=== PATIENT | female | born 1965 | race Caucasian/White ===

== ENCOUNTER 2018-04-14 08:51 | Day surgery (SDC) | payer OTHER, MEDICAID, SELFPAY ==
[2018-03-30 09:51] VITALS: BMI 23.4
[2018-04-14] VITALS (10 sets, daily range): BP systolic 86–106; BP diastolic 54–77; PULSE 52–74; RESP 10–18; TEMP 36–36.4; O2SAT 94–100; BMI 23.4
--- NOTE | 2018-04-14 | PATH_ITS ---
[facility] Accession Number: [id number] . 01 Material submitted: . PART A: LEEP PART B: ENDOCERVICAL CURRETTAGE . 02 Diagnosis: A. LEEP Biopsy Of Cervix: Focal areas of high-grade squamous intraepithelial lesion (ARYAN 2) with associated prominent squamous epithelial atrophy. Inked margins negative for significant atypia. . B. Endocervical Curettings: Fragments of endocervical epithelium and squamous epithelium, negative for significant atypia. . . . BFI/04/16/2018 . 02 Electronically signed: . Fransisco Jernigan MD, Pathologist NPI- [id number] . 01 Gross description: . (A) Received in formalin, labeled LEEP, is an unoriented cervical LEEP biopsy (diameter-1.5 x 1.2 cm, superficial to deep-0.6 cm) with dennis-pink smooth shiny mucosa and a pale dennis, finely granular resection margin. No nodules, masses or lesions are identified. Ink code: black-deep; blue-radial' orange-os/endocervical canal. Radially sectioned and entirely submitted in cassettes A1-A3. (B) Received in formalin, labeled endocervical curettage, are multiple fragment of dennis-white and black tissue (2.0 x 0.3 by less than 0.1 cm in aggregate). Filtered and entirely submitted in cassette B1. ([id number]) /MRV . 02 Pathologist provided ICD-10: N87.1 . 02 CPT . 704916, [id number] Performed at: 01 [facility] [address] [place] [address] [address], [place], [place] [id number] MD Jeff Powell MD Phone: [phone] Performed at: 02 [facility] [place] [address] [place] [id number] MD Kwan Newton MD Phone: [phone]
[2018-04-14] MEDS: LACTATED RINGERS 1,000 ML 42 ML IV (10:00)
--- NOTE | 2018-04-14 10:05 | PM.GYNHP.1 ---
History of Present Illness Reason for admission: other (LEEP procedure for high-grade dysplasia) Narrative: Fabiana Gonzalez is a 52 year old female who had a colposcopy with biopsies performed on 03/10/2018 for or abnormal Pap smear with high-grade dysplasia. The biopsies showed ARYAN 2 involving biopsies at 12 and 3 o'clock, with a fragment of high-grade dysplasia on endocervical curettage. Patient is here to proceed with LEEP procedure to remove the abnormal cells. [facility] Medical History Atypical squamous cells of undetermined significance (ASC-US) on cervical Pap smear (Acute) High risk human papilloma virus (HPV) infection of cervix (Acute) History of anemia (Acute) History of gastric ulcer (Acute) Low testosterone (Acute) Postmenopausal (Acute) Sciatica of left side (Acute) Anemia (Chronic) Anxiety (Chronic ~1997) Chronic back pain (Chronic) Gastric ulcer (Chronic) Hypertension (Chronic ~2004) Low testosterone level in female (Chronic ~1999) Shoulder pain (Chronic ~2004) Family History Father Age: 78 Hypertension Grandfather Hypertension Grandmother Hypertension Social History household members: none Smoking Status: Never smoker alcohol intake: never Meds Home Medications Medication Instructions Recorded Confirmed Type losartan [Cozaar] 25 mg PO DAILY #0 05/02/16 04/14/18 History metoprolol succinate [Toprol XL] 25 mg PO QDAY #0 ter 05/02/16 04/14/18 History clindamycin-benzoyl peroxide 1 gel TP DAILY #0 01/05/17 04/14/18 History hydrocodone-acetaminophen [[place]] 1 tab PO Q6HP PRN #6 tab 03/14/17 04/14/18 Rx [Testosterone] 1 mg TOPICAL QDAY #0 12/10/17 04/14/18 Rx diazepam 10 mg tablet 10 mg PO HS #30 tab 02/15/18 04/14/18 Rx levothyroxine 13 mcg PO DAILY 04/14/18 04/14/18 History ranitidine HCl 150 mg PO DAILY 04/14/18 04/14/18 History Allergies Allergy/AdvReac Type Severity Reaction Status Date / Time Sulfa (Sulfonamide Allergy Intermediate RASH Verified 04/14/18 09:04 Antibiotics) Review of Systems Review of Systems All systems reviewed & are unremarkable except as noted in HPI and below Exam Vital Signs (past 8 hours): - 04/14/18 09:22 Temperature 97.1 F L Pulse Rate 61 Respiratory Rate 18 Blood Pressure 106/77 Pulse Oximetry 99 Oxygen Delivery Method Room Air Narrative Exam Narrative: HEENT exam within normal limits. Lungs are clear to auscultation and percussion. Heart is regular rate and rhythm no S3-S4 or murmurs. No thyromegaly. Abdomen is soft, nontender, no palpable organomegaly. Normal external genitalia, vagina, cervix. Uterus is not enlarged nontender. No adnexal masses or tenderness. Assessment & Plan (1) ARYAN II (cervical intraepithelial neoplasia II): Current visit: Yes Status: Acute Plan: Assessment/Plan Narrative: ARYAN 2 of the cervix by colpo directed biopsies for LEEP procedure. Consent form was reviewed with the patient and her questions were answered. Consent form was signed. Postop instructions reviewed with the patient. Time Spent With Patient Time with patient: less than 15 minutes
--- NOTE | 2018-04-14 10:09 | P.HPOB_ITS ---
History of Present Illness Reason for admission: other (LEEP procedure for high-grade dysplasia) Narrative: Fabiana Gonzalez is a 52 year old female who had a colposcopy with biopsies performed on 03/10/2018 for or abnormal Pap smear with high-grade dysplasia. The biopsies showed ARYAN 2 involving biopsies at 12 and 3 o'clock, with a fragment of high-grade dysplasia on endocervical curettage. Patient is here to proceed with LEEP procedure to remove the abnormal cells. [facility] Medical History Atypical squamous cells of undetermined significance (ASC-US) on cervical Pap smear (Acute) High risk human papilloma virus (HPV) infection of cervix (Acute) History of anemia (Acute) History of gastric ulcer (Acute) Low testosterone (Acute) Postmenopausal (Acute) Sciatica of left side (Acute) Anemia (Chronic) Anxiety (Chronic ~1997) Chronic back pain (Chronic) Gastric ulcer (Chronic) Hypertension (Chronic ~2004) Low testosterone level in female (Chronic ~1999) Shoulder pain (Chronic ~2004) Family History Father Age: 78 Hypertension Grandfather Hypertension Grandmother Hypertension Social History household members: none Smoking Status: Never smoker alcohol intake: never Meds Home Medications Medication Instructions Recorded Confirmed Type losartan [Cozaar] 25 mg PO DAILY #0 05/02/16 04/14/18 History metoprolol succinate [Toprol XL] 25 mg PO QDAY #0 ter 05/02/16 04/14/18 History clindamycin-benzoyl peroxide 1 gel TP DAILY #0 01/05/17 04/14/18 History hydrocodone-acetaminophen [[place]] 1 tab PO Q6HP PRN #6 tab 03/14/17 04/14/18 Rx [Testosterone] 1 mg TOPICAL QDAY #0 12/10/17 04/14/18 Rx diazepam 10 mg tablet 10 mg PO HS #30 tab 02/15/18 04/14/18 Rx levothyroxine 13 mcg PO DAILY 04/14/18 04/14/18 History ranitidine HCl 150 mg PO DAILY 04/14/18 04/14/18 History Allergies Allergy/AdvReac Type Severity Reaction Status Date / Time Sulfa (Sulfonamide Allergy Intermediate RASH Verified 04/14/18 09:04 Antibiotics) Review of Systems Review of Systems All systems reviewed & are unremarkable except as noted in HPI and below Exam Vital Signs (past 8 hours): - 04/14/18 09:22 Temperature 97.1 F L Pulse Rate 61 Respiratory Rate 18 Blood Pressure 106/77 Pulse Oximetry 99 Oxygen Delivery Method Room Air Narrative Exam Narrative: HEENT exam within normal limits. Lungs are clear to auscultation and percussion. Heart is regular rate and rhythm no S3-S4 or murmurs. No thyromegaly. Abdomen is soft, nontender, no palpable organomegaly. Normal external genitalia, vagina, cervix. Uterus is not enlarged nontender. No adnexal masses or tenderness. Assessment & Plan (1) ARYAN II (cervical intraepithelial neoplasia II): Current visit: Yes Status: Acute Plan: Assessment/Plan Narrative: ARYAN 2 of the cervix by colpo directed biopsies for LEEP procedure. Consent form was reviewed with the patient and her questions were answered. Consent form was signed. Postop instructions reviewed with the patient. Time Spent With Patient Time with patient: less than 15 minutes
--- NOTE | 2018-04-14 10:34 | SUR.OPER ---
Lithotomy on padded OR bed, head on pillow, arms secured on padded arm boards at <90 degrees abduction. Legs secured in padded yellow fins stirrups.
[2018-04-14] MEDS: LIDOCAINE 1% W/EPI INJ 20 ML INJ (10:48)
--- NOTE | 2018-04-14 10:53 | PM.OP.1 ---
Operative Date/Time/Diagnoses Date of procedure: 04/14/18 Time of procedure: 10:53 Pre-op diagnosis: ARYAN 2 of the cervix Post-op diagnosis: same Procedure & Clinicians Procedure: LEEP procedure with ECC Same procedure as scheduled: Yes Indications: ARYAN 2 of the cervix by colpo biopsies Surgeon: Fannie Tamayo Click Yes if Unassisted: Yes Anesthesia Type: General Operative Notes Findings: Normal exam under anesthesia Closure Type: not applicable Specimen(s): other (LEEP cone of cervix and ECC) Estimated Blood Loss (mL): 1 Blood products transfused: none Procedure in detail: Preoperative diagnosis: ARYAN-3 of the cervix Postop diagnosis: Same Procedure: LEEP conization Surgeon: Dr. Fannie Tamayo Anesthesia: IV sedation Operative indications: Patient is a 28-year-old found to have ARAYN-3 on colposcopy directed biopsies for a LEEP procedure Patient was brought to the operating room she underwent general anesthesia. She was placed in low stirrups. A coated bivalve speculum was placed into the vagina. The cervix was injected with 0.5% Marcaine with epinephrine. A coated single-tooth tenaculum was placed on the anterior lip of the cervix. The cervix was stained with Lugol's. The loop set at 60 W of cutting was used to remove the entire squamocolumnar junction. An ECC was performed. The area outside of the removed section cauterized with ball cautery to extend the treatment zone. Monsel's was placed in the bed of the LEEP. The patient went to recovery room in good condition. Counts of instruments and sponges were correct. The tissue was sent for pathology. Complications: none Condition: stable Disposition: same day surgery Plan for aftercare: Home when awake and stable follow-up in 2 weeks
--- NOTE | 2018-04-14 10:58 | P.OP_ITS ---
Operative Date/Time/Diagnoses Date of procedure: 04/14/18 Time of procedure: 10:53 Pre-op diagnosis: ARYAN 2 of the cervix Post-op diagnosis: same Procedure & Clinicians Procedure: LEEP procedure with ECC Same procedure as scheduled: Yes Indications: ARAYN 2 of the cervix by colpo biopsies Surgeon: Fannie Tamayo Click Yes if Unassisted: Yes Anesthesia Type: General Operative Notes Findings: Normal exam under anesthesia Closure Type: not applicable Specimen(s): other (LEEP cone of cervix and ECC) Estimated Blood Loss (mL): 1 Blood products transfused: none Procedure in detail: Preoperative diagnosis: ARYAN-3 of the cervix Postop diagnosis: Same Procedure: LEEP conization Surgeon: Dr. Fannie Tamayo Anesthesia: IV sedation Operative indications: Patient is a 28-year-old found to have ARYAN-3 on colposcopy directed biopsies for a LEEP procedure Patient was brought to the operating room she underwent general anesthesia. She was placed in low stirrups. A coated bivalve speculum was placed into the vagina. The cervix was injected with 0.5% Marcaine with epinephrine. A coated single-tooth tenaculum was placed on the anterior lip of the cervix. The cervix was stained with Lugol's. The loop set at 60 W of cutting was used to remove the entire squamocolumnar junction. An ECC was performed. The area outside of the removed section cauterized with ball cautery to extend the treatment zone. Monsel's was placed in the bed of the LEEP. The patient went to recovery room in good condition. Counts of instruments and sponges were correct. The tissue was sent for pathology. Complications: none Condition: stable Disposition: same day surgery Plan for aftercare: Home when awake and stable follow-up in 2 weeks
--- NOTE | 2018-04-14 11:02 | PM.OP.1 ---
Operative Date/Time/Diagnoses Date of procedure: 04/14/18 Time of procedure: 11:02 Pre-op diagnosis: ARYAN 2 on colpo directed biopsies Post-op diagnosis: same Procedure & Clinicians Procedure: LEEP procedure with ECC Same procedure as scheduled: Yes Indications: ARYAN 2 on colpo directed biopsies with a fragment of ARYAN 2 on ECC Surgeon: Fannie Tamayo Click Yes if Unassisted: Yes Anesthesia Type: General Operative Notes Findings: Normal exam under anesthesia Closure Type: not applicable Specimen(s): other (LEEP and ECC) Estimated Blood Loss (mL): 1 Blood products transfused: none Procedure in detail: Patient was brought to the operating room she underwent general. She was placed in low stirrups. A coated bivalve speculum was placed into the vagina. The cervix was injected with 0.5% Marcaine with epinephrine. A coated single-tooth tenaculum was placed on the anterior lip of the cervix. The cervix was stained with Lugol's. The loop set at 60 W of cutting was used to remove the entire squamocolumnar junction. A slightly deeper section was taken of the endocervical canal. The tissue was cauterized external to the bleed with ball cautery to extend the treatment zone. The patient went to recovery room in good condition. Counts of instruments and sponges were correct. The tissue was sent for pathology. Complications: none Condition: stable Disposition: same day surgery Plan for aftercare: Home when awake and stable, follow-up in 2 weeks.
--- NOTE | 2018-04-14 11:20 | SUR.PHASEI ---
PT ALERT AND TALKING TO RN. PT SITTING UP AND DRINKING COFFEE. PT DENIES ANY SYMPTOMS OF HYPOTENSION. PT STATES BLOOD PRESSURE NORMALLY RUNS LOW AND THIS IS BASELINE FOR HER.
== END 2018-04-14 12:34 | disposition home or self-care (01) ==
LOC: OR 08:52
PROVIDERS: Family Provider Internal Medicine; PCP Internal Medicine; Visit Provider Specialist
PROC: 0UBC7ZZ Excision of Cervix, Via Natural or Artificial Opening (ICD-10-PCS; CPT 57522; principal; 2018-04-14 09:45)
DX: N87.1 Moderate cervical dysplasia (principal); I10 Essential (primary) hypertension; K21.9 Gastro-esophageal reflux disease without esophagitis; E03.9 Hypothyroidism, unspecified; F41.9 Anxiety disorder, unspecified
CPT/HCPCS: 57522; 88305; 88307; J1100; J1885; J2250; J2405; J2704; J3010

== ENCOUNTER → 2018-10-29 14:40 | Outpatient (CLI) | payer OTHER, MEDICAID, SELFPAY ==
--- NOTE | 2018-10-29 | DI.MG.S_ITS ---
BILATERAL DIGITAL SCREENING MAMMOGRAM 3D/2D WITH CAD: 10/29/2018 CLINICAL: Routine screening. Comparison is made to exams dated: 10/27/2017 mammogram, 10/16/2016 mammogram, and 10/11/2015 mammogram - [facility]. The tissue of both breasts is heterogeneously dense. This may lower the sensitivity of mammography. Current study was also evaluated with a Computer Aided Detection (CAD) system. No significant masses, calcifications, or other findings are seen in either breast. There has been no significant interval change. IMPRESSION: NEGATIVE There is no mammographic evidence of malignancy. A 1 year screening mammogram is recommended. This exam was interpreted at Station ID: [id number]. NOTE: For mammograms, a report in lay terms will be sent to the patient. Approximately 15% of breast malignancies will not be visualized mammographically. In the management of a palpable breast mass, a negative mammogram must not discourage biopsy of a clinically suspicious lesion. Electronically Signed By: Jeff cortez/dorina:10/29/2018 15:37:54 copy to: BANDAR RAMIREZ letter sent: Normal Exam ACR BI-RADS Category 1: Negative [id number]
== END ==
PROVIDERS: Family Provider Internal Medicine; PCP Internal Medicine; Visit Provider Internal Medicine
DX: Z12.31 Encounter for screening mammogram for malignant neoplasm of breast (principal)
CPT/HCPCS: 77063; 77067

== ENCOUNTER → 2018-11-18 16:27 | Outpatient (CLI) | payer OTHER, MEDICAID, SELFPAY ==
[2018-11-18 21:36] LABS: Urine N gonorrhoeae NOT DETECTED
[2018-11-18 22:13] LABS: Urine Chlamydia NOT DETECTED
== END ==
PROVIDERS: Family Provider Internal Medicine; PCP Internal Medicine; Visit Provider Specialist
DX: R10.2 Pelvic and perineal pain (principal)
CPT/HCPCS: 87491; 87591

== ENCOUNTER → 2018-12-04 09:39 | Outpatient (CLI) | payer OTHER, MEDICAID, SELFPAY ==
[2018-12-04 10:32] LABS: Cholesterol 204 mg/dL (140-199); HDL Cholesterol 59 mg/dL (40-60); LDL Cholesterol Calculated 135 mg/dL (<100); Triglycerides 51 mg/dL (35-150)
== END ==
PROVIDERS: PCP Internal Medicine; Visit Provider Student in an Organized Health Care Education/Training Program
DX: E78.5 Hyperlipidemia, unspecified (principal)
CPT/HCPCS: 36415; 80061

== ENCOUNTER → 2018-12-06 08:26 | Outpatient (CLI) | payer OTHER, MEDICAID, SELFPAY ==
--- NOTE | 2018-12-06 | DI.CT.S_ITS ---
PROCEDURE: CT ABDOMEN PELVIS W CON INDICATIONS: Lower abdominal pain, unspecified TECHNIQUE: After the administration of oral and intravenous contrast, 5 mm thick sections acquired from the diaphragms to the symphysis. 5 mm thick coronal and sagittal reformats were performed. For radiation dose reduction, the following was used: automated exposure control, adjustment of mA and/or kV according to patient size. COMPARISON: None. FINDINGS: Image quality: Excellent. . ABDOMEN: Lung bases: Lung bases are clear. Heart size is normal. Solid organs: Liver is normal in size and enhancement. Gallbladder appears normal. Biliary system is non-dilated. Pancreas enhances normally. Spleen is normal in size and enhancement. No adrenal nodules. Kidneys are normal in size and enhancement, without hydronephrosis. Peritoneum and bowel: Stomach, small bowel, and colon loops are normal in caliber and wall thickness. No free fluid or air. Generalize colonic obstipation. Nodes and vessels: No retroperitoneal or mesenteric adenopathy. Aorta and inferior vena cava are normal in caliber. Miscellaneous: No ventral hernias. PELVIS: Genitourinary: Bladder wall thickness is normal. Miscellaneous: No inguinal hernias or adenopathy. Generalize colonic obstipation. No sign of diverticulosis or acute diverticulitis. Normal appendix. Bones: No suspicious bony lesions. No vertebral body compression fractures. IMPRESSION: Generalize colonic obstipation on the right and left through the abdomen and pelvis and into the rectum. No sign of diverticulitis or other pericolonic inflammation, normal appendix found. No sign of colitis. Dictated by: Manjinder Monroy M.D. on 12/06/2018 at 10:22 Approved by: Manjinder Monroy M.D. on 12/06/2018 at 10:30
== END ==
PROVIDERS: PCP Internal Medicine; Visit Provider Student in an Organized Health Care Education/Training Program
DX: R10.30 Lower abdominal pain, unspecified (principal); K59.00 Constipation, unspecified
CPT/HCPCS: 74177; Q9967

== ENCOUNTER 2018-12-10 22:05 | Emergency (ER) | payer OTHER, MEDICAID, SELFPAY ==
[2018-12-10 22:34] VITALS: BP 126/89; PULSE 66; TEMP 36.9; O2SAT 99
--- NOTE | 2018-12-11 01:38 | DI.RAD.S_ITS ---
PROCEDURE: XR CHEST 1V INDICATIONS: chest pain TECHNIQUE: One view of the chest was acquired. COMPARISON: [facility], , CHEST 2 VIEW, 07/10/2015, 5:26. FINDINGS: Surgical changes and devices: None. Lungs and pleura: Lungs are clear. No pleural effusions or pneumothorax. Mediastinum: Mediastinal contours appear normal. Heart size is normal. Bones and chest wall: No suspicious bony lesions. Overlying soft tissues appear unremarkable. IMPRESSION: No acute cardiopulmonary disease process. Dictated by: Joie Munroe MD, PhD on 12/11/2018 at 9:47 Approved by: Joie Munroe MD, PhD on 12/11/2018 at 9:48
--- NOTE | 2018-12-11 01:42 | ED_ITS ---
HPI - Abdominal Pain General Chief Complaint: Abdominal Pain Stated Complaint: DISCOMFORT OF CHEST NECK PAIN NUMBNESS OF LIP ULCE Time Seen by Provider: 12/11/18 00:53 Source: patient and old records reviewed Mode of arrival: ambulatory Limitations: no limitations History of Present Illness HPI narrative: Patient is a 53-year-old female who presents with a variety of complaints. She says she has been having abdominal pain ongoing for months in fact she had an outpatient abdominal CT is a couple days ago which showed obstipation. She was told to take MiraLax and Colace that now she says that she is having is a large amount of gas. She said she had a bowel movement after she drank the contrast. She denies any nausea or vomiting. She says now her abdominal pain is moving up into her chest. She stopped taking her Protonix as medication the day before her CAT scan. Since then she is having increasing margie n after she eats in the pain radiates up to her chest. She denies any shortness of breath or diaphoresis. MD complaint: abdominal pain (1 month) and other (Chest pain x 3 days) Related Data Home Medications Medication Instructions Recorded Confirmed losartan [Cozaar] 25 mg PO DAILY #0 05/02/16 11/18/18 metoprolol succinate [Toprol XL] 25 mg PO QDAY #0 ter 05/02/16 11/18/18 clindamycin-benzoyl peroxide 1 gel TP DAILY #0 01/05/17 11/18/18 ranitidine HCl 150 mg PO DAILY 04/14/18 11/18/18 Previous Rx's Medication Instructions Recorded [Testosterone] 1 mg TOPICAL QDAY #0 12/10/17 diazepam 10 mg tablet 10 mg PO HS #30 tab 06/14/18 Allergies Allergy/AdvReac Type Severity Reaction Status Date / Time Sulfa (Sulfonamide Allergy Intermediate RASH Verified 11/18/18 15:46 Antibiotics) Review of Systems Review of Systems ROS Unobtainable: All systems reviewed & are unremarkable except as noted in HPI and below Constitutional Denies chills, Denies fever(s), Denies lethargy and Denies weakness Eyes Denies change in vision, Denies eye discharge, Denies irritation and Denies loss of vision ENT Ears, Nose, Mouth, and Throat: Denies change in voice, Denies neck pain and Denies sore throat Cardiovascular Reports chest pain, Denies dyspnea and Denies dyspnea on exertion Respiratory Denies cough, Denies dyspnea, Denies dyspnea on exertion and Denies wheezing Gastrointestinal Gastrointestinal: Reports abdominal pain Genitourinary Denies hematuria, Denies flank pain, Denies urinary incontinence and Denies urinary urgency Musculoskeletal Denies neck pain Integumentary/Breasts Denies pruritus, Denies erythema, Denies rash and Denies wounds Neurologic Denies loss of vision and Denies weakness Allergic/Immunologic Denies wheezing [facility] Social History household members: none Smoking Status: Never smoker alcohol intake: never Exam Initial Vital Signs Initial Vital Signs: Vital Signs Temperature 98.4 F 12/10/18 22:34 Pulse Rate 66 12/10/18 22:34 Blood Pressure 126/89 12/10/18 22:34 Pulse Oximetry 99 12/10/18 22:34 GENERAL: Well-appearing, well-nourished and in no acute distress. HEENT: Head atraumatic,EOMI, pupils reactive CARDIOVASCULAR: Regular rate and rhythm without murmurs, rubs or gallops. RESPIRATORY: Breath sounds equal bilaterally, no wheezes rales or rhonchi. ABDOMEN: Soft, mild tenderness diffusely no guarding no rebound is no localization of pain EXTREMITIES: Normal range of motion, no clubbing or edema. Neurovascularly intact NEUROLOGICAL: Alert and oriented x4.Normal gait and speech. Cranial nerves II through XII grossly intact. SKIN: No rash warm dry Course Orders Ordered: ED Orders 12/11/18 01:38 XR chest 1V Stat EKG-12 Lead Stat 12/11/18 01:46 Complete Blood Count AUTO DIFF Stat Comprehensive Metabolic Panel Stat Lipase Stat Troponin & CK Cardiac Panel Stat Discontinued Medications Pantoprazole Sodium (Protonix) 40 mg IV NOW ONE Stop: 12/11/18 01:39 Last Admin: 12/11/18 02:02 Dose: 40 mg Vital Signs - 8 hr 12/11/18 02:00 12/11/18 02:44 12/11/18 04:07 Pulse Rate 64 51 L 56 L Respiratory Rate 16 13 16 Blood Pressure Blood Pressure [Right Arm] 121/82 157/65 H 91/55 L Pulse Oximetry 99 100 100 12/11/18 04:11 Pulse Rate 56 L Respiratory Rate 13 Blood Pressure 112/82 Blood Pressure [Right Arm] Pulse Oximetry 97 MDM - Abdominal Pain Lab Data Attestation: I reviewed the patient's lab results. Result diagrams: 12/11/18 01:46 12/11/18 01:46 Lab Results 12/11/18 12/11/18 Range/Units 01:46 01:46 WBC 5.9 (4.5-11.0) X10^3/uL RBC 3.99 L (4.0-5.2) X10^6/uL Hgb 13.0 (12.0-16.0) g/dL Hct 37.8 (36-46) % MCV 94.5 (80-100) fL MCH 32.4 (26-34) PG MCHC 34.3 (30-36) % RDW 12.6 (11.6-14.8) % Plt Count 210 (150-400) X10^3/uL Neut % (Auto) 47.6 L (50-75) % Lymph % (Auto) 39.5 (25-40) % Garza % (Auto) 8.3 (3-14) % Eos % (Auto) 4.0 (2-4) % Baso % (Auto) 0.6 (0-2) % Neut # (Auto) 2800 (2117-7950) /uL Lymph # (Auto) 2300 (4838-4351) /uL Garza # (Auto) 500 (0-900) /uL Eos # (Auto) 200 (0-450) /uL Baso # (Auto) 0 (0-100) /uL Sodium 136 L (137-145) mmol/L Potassium 3.7 (3.4-5.1) mmol/L Chloride 98 (98-107) mmol/L Carbon Dioxide 29 (22-32) mmol/L BUN 16 (7-17) mg/dL Creatinine 0.70 (0.52-1.04) mg/dL Estimated GFR > 60.0 (>60) mL/min BUN/Creatinine Ratio 22.9 H (6-22) Glucose 99 (70-100) mg/dL Calcium 9.6 (8.4-10.2) mg/dL Total Bilirubin 0.4 (0.2-1.3) mg/dL AST 23 (14-36) IU/L ALT 29 (9-52) IU/L Alkaline Phosphatase 57 (38-126) U/L Total Creatine Kinase 124 (30-135) U/L CK-MB (CK-2) 1.06 (<2.37) ng/mL CK-MB (CK-2) Rel Index 0.9 L (1.5-5.0) % Troponin I < 0.012 (0.01-0.034) ng/mL Total Protein 7.2 (6.3-8.2) g/dL Albumin 4.5 (3.5-5.0) g/dL Globulin 2.7 (1.7-4.1) g/dL Albumin/Globulin Ratio 1.7 (1.0-2.8) Lipase 158 (23-300) U/L Imaging Data Chest x-ray: Attestation: I personally reviewed and interpreted this imaging study as follows: My impression: NO ACUTE CARDIOPULMONARY PROCESS ECG Data Attestation: I personally reviewed and interpreted this ECG as follows: Prior ECG tracings: available for review Interpretation: Normal sinus rhythm artifact noted rate [address] changes here interval is not 222. I think fast artifact MDM Narrative Medical decision making narrative: Patient had CT scan just a few days ago showed obstipation. She stops taking omeprazole is for acid reflux and ulcer I think that this is more likely causing her problems she did receive IV Protonix she says she feels minimally better. At this time blood work reassuring chest x-ray negative patient can follow up outpatient Discharge Plan Departure Patient Disposition: Home Clinical Impression: Atypical chest pain Gastric ulcer Qualifiers: Gastric ulcer chronicity: acute Gastric ulcer complication status: without hemorrhage or perforation Qualified Code(s): K25.3 - Acute gastric ulcer without hemorrhage or perforation Discharge Date/Time: 12/11/18 04:11 Interventions: ED Discharge Assessment Last Done: 12/11/18 04:11 Instructions: DI for Atypical Chest Pain, DI for Gastric Ulcer Activity Restrictions/Additional Instructions: *You have been diagnosed with atypical chest pain, gastric ulcer *What to do: CT scan of abdomen, blood work chest x-ray and EKG are all reassuring today. Pain is likely from the stopping her antacid medication *Continue to take medications as directed Omeprazole once daily on an empty stomach as previously prescribed 30 min before meals *Follow up with your primary care provider in 2-3 days *Return to ER if you should have increasing chest pain, shortness of breath, worsening abdominal pain or any new, worsening or concerning symptoms Prescriptions: No Action metoprolol succinate [Toprol XL] 25 MG tablet extended release 24 hr 25 mg PO QDAY Qty: 0 RF: 0 losartan [Cozaar] 25 MG tablet 25 mg PO DAILY Qty: 0 RF: 0 clindamycin-benzoyl peroxide 1.2 %/5 % gel 1 gel TP DAILY Qty: 0 RF: 0 [Testosterone] 1 mg Topical QDAY Qty: 0 RF: 0 diazepam [Valium] 10 mg tablet 10 mg PO HS Qty: 30 RF: 1 ranitidine HCl 150 mg PO DAILY RF: 0 Referrals: Yanelis Montilla MD [Primary Care Provider] -
[2018-12-11 02:00] VITALS: BP 121/82; PULSE 64; RESP 16; O2SAT 99
[2018-12-11] MEDS: PANTOPRAZOLE 40 MG VIAL IV (02:02)
[2018-12-11 02:12] LABS: Add Manual Diff / Slide Review NO; Basophils Absolute Auto 0 /uL (0-100); Basophils Percent Auto 0.6 % (0-2); Eosinophils Absolute Auto 200 /uL (0-450); Hematocrit 37.8 % (36-46); Lymphocytes Absolute Auto 2300 /uL (1100-4500); Lymphocytes Percent Auto 39.5 % (25-40); Mean Corpuscular HGB Conc 34.3 % (30-36); Mean Corpuscular Hemoglobin 32.4 PG (26-34); Mean Corpuscular Volume 94.5 fL (80-100); Monocytes Absolute Auto 500 /uL (0-900); Monocytes Percent Auto 8.3 % (3-14); Neutrophils Absolute Auto 2800 /uL (1500-7000); Neutrophils Percent Auto 47.6 % (50-75); Platelet Count 210 X10^3/uL (150-400); Red Blood Cell Count 3.99 X10^6/uL (4.0-5.2); Red Cell Distribution Width 12.6 % (11.6-14.8); White Blood Cell Count 5.9 X10^3/uL (4.5-11.0)
[2018-12-11 02:22] LABS: Alanine Aminotransferase 29 IU/L (9-52); Albumin 4.5 g/dL (3.5-5.0); Albumin Globulin Ratio 1.7 (1.0-2.8); Alkaline Phosphatase 57 U/L (38-126); Aspartate Aminotransferase 23 IU/L (14-36); BUN Creatinine Ratio 22.9 (6-22); Bilirubin Total 0.4 mg/dL (0.2-1.3); Blood Urea Nitrogen 16 mg/dL (7-17); Calcium 9.6 mg/dL (8.4-10.2); Carbon Dioxide 29 mmol/L (22-32); Chloride 98 mmol/L (98-107); Creatine Kinase 124 U/L (30-135); Estimated Glomerular Filt Rate > 60.0 mL/min (>60); Globulin 2.7 g/dL (1.7-4.1); Glucose 99 mg/dL (70-100); HEMOLYSIS < 15 (0-50); Lipase 158 U/L (23-300); Potassium 3.7 mmol/L (3.4-5.1); Sodium 136 mmol/L (137-145); Total Protein 7.2 g/dL (6.3-8.2)
[2018-12-11 02:33] LABS: Troponin I < 0.012 ng/mL (0.01-0.034)
[2018-12-11 02:38] LABS: CKMB % Relative Index 0.9 % (1.5-5.0); Creatine Kinase MB 1.06 ng/mL (<2.37)
[2018-12-11 02:44] VITALS: BP 157/65; PULSE 51; RESP 13; O2SAT 100
[2018-12-11 04:07] VITALS: BP 91/55; PULSE 56; RESP 16; O2SAT 100
[2018-12-11 04:11] VITALS: BP 112/82; PULSE 56; RESP 13; O2SAT 97
== END 2018-12-11 04:11 | disposition home or self-care (01) ==
PROVIDERS: Emergency Provider Emergency Medicine; PCP Internal Medicine
DX: R07.89 Other chest pain (principal); K25.9 Gastric ulcer, unspecified as acute or chronic, without hemorrhage or perforation
CPT/HCPCS: 36415; 36591; 71045; 80053; 82550; 82553; 83690; 84484; 85025; 93005; 96374; 99283; 99285; C9113

== ENCOUNTER → 2018-12-28 08:44 | Outpatient (CLI) | payer OTHER, MEDICAID, SELFPAY ==
[2018-12-28 10:09] LABS: Add Manual Diff / Slide Review NO; Basophils Absolute Auto 0 /uL (0-100); Basophils Percent Auto 0.8 % (0-2); Eosinophils Absolute Auto 200 /uL (0-450); Eosinophils Percent Auto 4.2 % (2-4); Hematocrit 40.3 % (36-46); Hemoglobin 13.6 g/dL (12.0-16.0); Lymphocytes Absolute Auto 1800 /uL (1100-4500); Lymphocytes Percent Auto 41.7 % (25-40); Mean Corpuscular HGB Conc 33.8 % (30-36); Mean Corpuscular Hemoglobin 32.5 PG (26-34); Mean Corpuscular Volume 96.1 fL (80-100); Monocytes Absolute Auto 400 /uL (0-900); Monocytes Percent Auto 8.8 % (3-14); Neutrophils Absolute Auto 1900 /uL (1500-7000); Neutrophils Percent Auto 44.5 % (50-75); Platelet Count 218 X10^3/uL (150-400); Red Blood Cell Count 4.19 X10^6/uL (4.0-5.2); Red Cell Distribution Width 12.8 % (11.6-14.8); White Blood Cell Count 4.2 X10^3/uL (4.5-11.0)
[2018-12-28 10:15] LABS: Alanine Aminotransferase 25 IU/L (9-52); Albumin 4.8 g/dL (3.5-5.0); Albumin Globulin Ratio 1.8 (1.0-2.8); Alkaline Phosphatase 48 U/L (38-126); Aspartate Aminotransferase 21 IU/L (14-36); Bilirubin Total 0.5 mg/dL (0.2-1.3); Blood Urea Nitrogen 21 mg/dL (7-17); Calcium 9.6 mg/dL (8.4-10.2); Carbon Dioxide 30 mmol/L (22-32); Chloride 100 mmol/L (98-107); Estimated Glomerular Filt Rate > 60.0 mL/min (>60); Globulin 2.6 g/dL (1.7-4.1); Glucose 77 mg/dL (70-100); HEMOLYSIS < 15 (0-50); Potassium 4.3 mmol/L (3.4-5.1); Sodium 139 mmol/L (137-145); Total Protein 7.4 g/dL (6.3-8.2)
[2018-12-28 11:09] LABS: Thyroid Stimulating Hormone 4.45 uIU/mL (0.47-4.68)
[2019-01-01 00:10] LABS: (tTG) Ab, IgA < 1 U/mL
== END ==
PROVIDERS: PCP Internal Medicine; Visit Provider Internal Medicine Gastroenterology
DX: K59.00 Constipation, unspecified (principal)
CPT/HCPCS: 36415; 80053; 83516; 84443; 85025; 86255

== ENCOUNTER → 2019-01-08 09:07 | Outpatient (CLI) | payer OTHER, MEDICAID, SELFPAY ==
[2019-01-08 11:53] LABS: Adenovirus F 40/41 Not Detected (Not Detect); Astrovirus Not Detected (Not Detect); Campylobacter Not Detected (Not Detect); Clostridium difficile toxin AB Not Detected (Not Detect); Cryptosporidium Not Detected (Not Detect); Cyclospora cayetanensis Not Detected (Not Detect); Entamoeba histolytica Not Detected (Not Detect); Enteroaggregative E.coli Not Detected (Not Detect); Enteropathogenic E.coli Not Detected (Not Detect); Enterotoxigenic E.coli It/st Not Detected (Not Detect); Giardia lamblia Not Detected (Not Detect); Norovirus GI/GII Not Detected (Not Detect); Plesiomonsa shigelloides Not Detected (Not Detect); Rotavirus A Not Detected (Not Detect); Salmonella Not Detected (Not Detect); Sapovirus Not Detected (Not Detect); Shiga-like toxin-prod E.coli Not Detected (Not Detect); Shigella/Enteroinvasive E.coli Not Detected (Not Detect); Vibrio Not Detected (Not Detect); Vibrio cholerae Not Detected (Not Detect); Yersinia enterocolitica Not Detected (Not Detect)
== END ==
PROVIDERS: PCP Internal Medicine
DX: R10.84 Generalized abdominal pain (principal); K59.00 Constipation, unspecified
CPT/HCPCS: 87507

== ENCOUNTER → 2019-01-21 14:53 | Outpatient (CLI) | payer OTHER, MEDICAID, SELFPAY ==
[2019-01-21 15:36] LABS: Erythrocyte Sedimentation Rate 7 MM/HR (0-20)
[2019-01-21 16:31] LABS: C-Reactive Protein Quant < 0.5 mg/dL (<1.0)
[2019-01-21 16:45] LABS: Vitamin D 25 Hydroxy (D3) 47.5 ng/mL (30.0-100.0)
== END ==
PROVIDERS: PCP Internal Medicine; Visit Provider Internal Medicine
DX: M79.10 Myalgia, unspecified site (principal)
CPT/HCPCS: 36415; 82306; 85651; 86140

== ENCOUNTER 2019-04-24 13:12 | Emergency (ER) | payer OTHER, MEDICAID, SELFPAY ==
[2019-04-24 13:18] VITALS: BP 143/79; PULSE 89; RESP 16; TEMP 36.5; O2SAT 100
--- NOTE | 2019-04-24 13:37 | DI.RAD.S_ITS ---
PROCEDURE: XR ABDOMEN MIN 2V INDICATIONS: constipation, no good bowel movement for days TECHNIQUE: 2 views of the abdomen were acquired. COMPARISON: None. FINDINGS: Surgical changes and devices: None. Bowel: No pneumoperitoneum. The bowel gas pattern is normal. Soft tissues: No masses; visualized solid organ contours appear normal in size. No suspicious abdominal calcifications. Bones: No suspicious bony abnormalities. IMPRESSION: No acute intra-abdominal findings. Dictated by: Sierra López M.D. on 04/24/2019 at 12:53 Approved by: Sierra López M.D. on 04/24/2019 at 12:53
[2019-04-24] MEDS: KETOROLAC 60 MG/2 ML VIAL 30 MG IV (13:45)
[2019-04-24] MEDS: SODIUM CHLORIDE 0.9% 500 ML 1000 ML IV (13:46)
[2019-04-24] MEDS: diphenhydrAMINE 50 MG/ML VIAL 25 MG IV (13:46)
[2019-04-24] MEDS: METOCLOPRAMIDE 10 MG/2 ML INJ IV (13:46)
[2019-04-24 14:05] VITALS: BP 115/75; PULSE 69; RESP 16; O2SAT 99
--- NOTE | 2019-04-24 14:05 | ED.HA ---
HPI - Headache <SHANIQUA Pierre - Last Filed: 04/25/19 00:07> General Chief Complaint: Headache Stated Complaint: Migraine, feel plugged, constipation Time Seen by Provider: 04/24/19 13:15 Source: patient Mode of arrival: wheelchair Limitations: no limitations History of Present Illness HPI Narrative: This is a 53-year-old female, nonsmoker, with history of hormonal related migraine headaches, high blood pressure, GERD, in complaining of her usual headache in character and location. She reports she has seen by pain clinic for migraine headaches. In the past, she has migraine headache pretty frequently but as she is in postmenopausal the frequency has decreased and now she gets once about every 6 months. She reports photophobia, pounding headache in frontal and temporal area of her head we had nausea and vomiting times once. She denies extremity weakness, vision change, speech difficulty, balance problem. She had used 1 hydrocodone that she had at home before coming in to ED. She also mentions some stomach discomfort and reports has a history of constipation. She has been taking MiraLax for 3 doses but had a very small amount of stool was today. She denies previous abdominal surgeries. Related Data Home Medications Medication Instructions Recorded Confirmed losartan [Cozaar] 25 mg PO DAILY #0 05/02/16 11/18/18 metoprolol succinate [Toprol XL] 25 mg PO QDAY #0 ter 05/02/16 11/18/18 clindamycin-benzoyl peroxide 1 gel TP DAILY #0 01/05/17 11/18/18 ranitidine HCl 150 mg PO DAILY 04/14/18 11/18/18 Previous Rx's Medication Instructions Recorded [Testosterone] 1 mg TOPICAL QDAY #0 12/10/17 diazepam 10 mg tablet 10 mg PO HS #30 tab 06/14/18 Allergies Allergy/AdvReac Type Severity Reaction Status Date / Time Sulfa (Sulfonamide Allergy Intermediate RASH Verified 11/18/18 15:46 Antibiotics) Review of Systems <SHANIQUA Pierre - Last Filed: 04/25/19 00:07> Review of Systems General: see HPI HEENT: Reports frontal and temporal migraine pain. Denies ear pain, sore throat, difficulty swallowing, dizziness. Respiratory: Denies dyspnea, cough, wheezing, hemoptysis, sputum. Cardiovascular: Denies chest pain, palpitations, orthopnea, edema. Gastrointestinal: See HPI : Denies dysuria, frequency, incontinence, hematuria, urinary retention. Musculoskeletal: Denies weakness, joint pain or bony pain. Skin: Denies rash, skin lesions, or other. Neurologic: Denies weakness, numbness, change in speech, confusion, seizures, incoordination. Psychiatric: No concerning psychosocial issues. 12-point review of systems is negative except for those stated above. PFSH <SHANIQUA Pierre - Last Filed: 04/25/19 00:07> Family History Father Age: 79 Hypertension Grandfather Hypertension Grandmother Hypertension Social History household members: none Smoking Status: Never smoker alcohol intake: never Family History Father Age: 79 Hypertension Grandfather Hypertension Grandmother Hypertension Social History household members: none Smoking Status: Never smoker alcohol intake: never Exam <SHANIQUA Pierre - Last Filed: 04/25/19 00:07> Narrative Exam Narrative: GEN: Alert, oriented x 3, well appearing and nourished, and appears to be in discomfort and holding a couple of emesis bags in hand escorted in to room via wheelchair. Head: Normal cephalic, atraumatic. No scalp or temporal tenderness, palpable mass or rash. EYES: Pupils are equal, round, and reactive to light and accommodation. Extraocular muscles are intact bilaterally. There is no subconjunctival hemorrhage, exudate and sclera non-icteric. ENT: Hearing grossly intact. Nose without bleeding, purulent discharge. Facial sinuses nontender to palpate. Mucous membrane moist, no mucosal lesion. Throat without erythema, tonsillar hypertrophy or exudate. Uvula in midline, airway patent. Neck: Trachea in midline. No JVD, non-tender without lymphadenopathy. No masses or thyroid megaly. Supple, non-tender and no meningeal signs. CARDIAC: Normal regular rate and rhythm without murmurs, gallops, or rubs. No chest wall tenderness. No peripheral edema, cyanosis or pallor. Capillary refill is less than 2 seconds. RESPIRATORY: Lungs are cleat to auscultate bilaterally. No cough, wheezes, rales, or rhonchi. No stridor, respiratory distress, increase work of breathing, or accessary muscle used. ABD: Abdomen soft, nontender and non-distended. No guarding or rebound tenderness to palpate. Bowel sounds are normal in all 4 quadrants. There is no palpable masses or organomegaly. EXT: Full painless ROM of all extremities with no loss of sensation, strength, effusion or edema. SKIN: Warm, dry, normal color for patient. No erythema, lesions or rash. BACK: Nontender without deformity or crepitance. No flank tenderness. NEUROLOGICAL: Alert and oriented to place, time and person. Sensation and motor function intact bilaterally. No neurological focal findings. No facial droops, dysphasia. PSYCHIATRIC: Good judgement and reason, without hallucinations, abnormal affect or abnormal behaviors during the examination. Initial Vital Signs Initial Vital Signs: Vital Signs Temperature 97.7 F 04/24/19 13:18 Pulse Rate 89 04/24/19 13:18 Respiratory Rate 16 04/24/19 13:18 Blood Pressure 143/79 H 04/24/19 13:18 Pulse Oximetry 100 04/24/19 13:18 <Kim Bui MD - Last Filed: 04/26/19 07:45> Initial Vital Signs Initial Vital Signs: Vital Signs Temperature 97.7 F 04/24/19 13:18 Pulse Rate 89 04/24/19 13:18 Respiratory Rate 16 04/24/19 13:18 Blood Pressure 143/79 H 04/24/19 13:18 Pulse Oximetry 100 04/24/19 13:18 Course <SHANIQUA Pierre - Last Filed: 04/25/19 00:07> Orders Ordered: Discontinued Medications Diphenhydramine HCl (Benadryl) 25 mg IV NOW ONE Stop: 04/24/19 13:38 Last Admin: 04/24/19 13:46 Dose: 25 mg Sodium Chloride (Normal Saline 0.9%) 500 mls @ 1,000 mls/hr IV BOLUS ONE Stop: 04/24/19 14:06 Last Infusion: 04/24/19 14:53 Dose: 0 mls/hr Admin: 04/24/19 13:46 Dose: 1,000 mls/hr Ketorolac Tromethamine (Toradol) 30 mg IV NOW ONE Stop: 04/24/19 13:38 Last Admin: 04/24/19 13:45 Dose: 30 mg Metoclopramide HCl (Reglan) 10 mg IV NOW ONE Stop: 04/24/19 13:38 Last Admin: 04/24/19 13:46 Dose: 10 mg Vital Signs - 8 hr 04/24/19 13:18 04/24/19 14:05 Temperature 97.7 F Pulse Rate 89 69 Respiratory Rate 16 16 Blood Pressure 143/79 H Blood Pressure [Right Arm] 115/75 Pulse Oximetry 100 99 <Kim Bui MD - Last Filed: 04/26/19 07:45> Orders Ordered: Discontinued Medications Diphenhydramine HCl (Benadryl) 25 mg IV NOW ONE Stop: 04/24/19 13:38 Last Admin: 04/24/19 13:46 Dose: 25 mg Sodium Chloride (Normal Saline 0.9%) 500 mls @ 1,000 mls/hr IV BOLUS ONE Stop: 04/24/19 14:06 Last Infusion: 04/24/19 14:53 Dose: 0 mls/hr Admin: 04/24/19 13:46 Dose: 1,000 mls/hr Ketorolac Tromethamine (Toradol) 30 mg IV NOW ONE Stop: 04/24/19 13:38 Last Admin: 04/24/19 13:45 Dose: 30 mg Metoclopramide HCl (Reglan) 10 mg IV NOW ONE Stop: 04/24/19 13:38 Last Admin: 04/24/19 13:46 Dose: 10 mg Vital Signs - 8 hr 04/24/19 13:18 04/24/19 14:05 Temperature 97.7 F Pulse Rate 89 69 Respiratory Rate 16 16 Blood Pressure 143/79 H Blood Pressure [Right Arm] 115/75 Pulse Oximetry 100 99 MDM - Headache <SHANIQUA Pierre - Last Filed: 04/25/19 00:07> Differential Diagnosis Differential diagnosis: Likely migraine and other (obstipation, constipation, bowel block) Medical Records Attestation: I reviewed the patient's medical records. Imaging Data Abdominal x-ray: Radiologist's impression: [address] [address] XRay Report Signed Patient: Fabiana Gonzalez [facility]#: [id number] : 1965Acct:[id number] Age/Sex: 53 / FDate of Service: 04/24/19 Loc: ED Accession Number: [id number] Procedure: XR abdomen min 2V Ordering Provider: Abdi White PROCEDURE: XR ABDOMEN MIN 2V INDICATIONS: constipation, no good bowel movement for days TECHNIQUE: 2 views of the abdomen were acquired. COMPARISON: None. FINDINGS: Surgical changes and devices: None. Bowel: No pneumoperitoneum. The bowel gas pattern is normal. Soft tissues: No masses; visualized solid organ contours appear normal in size. No suspicious abdominal calcifications. Bones: No suspicious bony abnormalities. IMPRESSION: No acute intra-abdominal findings. Dictated by: Sierra López M.D. on 04/24/2019 at 12:53 Approved by: Sierra López M.D. on 04/24/2019 at 12:53 [facility] Narrative Medical decision making narrative: This is a 53-year-old female presents with her usual migraine headache pain and symptoms of constipation. Abdominal x-ray indicates no acute findings but stool was seen throughout her large intestine with gas. The patient reports the type of headache is very typical as her previous migraine headaches and she did not exhibit focal neuro deficits. Her headache was treated with IV medications sore dark, Benadryl, Reglan, IV fluid normal saline 1 L. she reports her headache has improved significantly and is ready to go. We discussed using ice pack on her head or neck, resting in a dark room, managing her stress, take medications early on during onset of headache for future headache treatment and patient verbalized understanding. Also discussed the patient's a chronic condition of constipation and encouraged to continue with her current regimen using MiraLax. Informed the patient that there is no bowel obstruction her x-ray test. No further questions at this time and patient agrees with the plan of care. Patient will call a a right due to the sedating medications precaution. Discharge Plan Departure Patient Disposition: Home Clinical Impression: Migraine headache Qualifiers: Migraine type: unspecified Status migrainosus presence: without status migrainosus Intractability: not intractable Qualified Code(s): G43.909 - Migraine, unspecified, not intractable, without status migrainosus Constipation Qualifiers: Constipation type: unspecified constipation type Qualified Code(s): K59.00 - Constipation, unspecified Discharge Date/Time: 04/24/19 15:16 Interventions: ED Discharge Assessment Last Done: 04/24/19 15:15 Instructions: DI for Migraine, DI for Constipation Activity Restrictions/Additional Instructions: You have been diagnosed with [ migraine headache and constipation]. What to do: *Take your medications as directed. No new medication as prescribed. *Follow up with your primary care provider/Pain management clinic in 2-3 days, call for an appointment. Let them know you were seen in the ED and that we asked you to be seen in follow up. *Return to ED if you have any new, worsening, or concerning symptoms, such as [chest pain, difficulty breathing, dizziness, weakness to extremities, vision change, unable to tolerate fluids, fever, unusual rash, any acute concerns]. Prescriptions: No Action metoprolol succinate [Toprol XL] 25 MG tablet extended release 24 hr 25 mg PO QDAY Qty: 0 RF: 0 losartan [Cozaar] 25 MG tablet 25 mg PO DAILY Qty: 0 RF: 0 clindamycin-benzoyl peroxide 1.2 %/5 % gel 1 gel TP DAILY Qty: 0 RF: 0 [Testosterone] 1 mg Topical QDAY Qty: 0 RF: 0 diazepam [Valium] 10 mg tablet 10 mg PO HS Qty: 30 RF: 1 ranitidine HCl 150 mg PO DAILY RF: 0 Referrals: Yanelis Montilla MD [Primary Care Provider] -
== END 2019-04-24 15:16 | disposition home or self-care (01) ==
PROVIDERS: Emergency Provider Nurse Practitioner Family; PCP Internal Medicine
DX: G43.909 Migraine, unspecified, not intractable, without status migrainosus (principal); K59.00 Constipation, unspecified
CPT/HCPCS: 36591; 74019; 96361; 96374; 96375; 99283; 99284; J1200; J1885; J2765

== ENCOUNTER 2019-05-09 11:33 | Emergency (ER) | payer OTHER, SELFPAY ==
[2019-05-09 11:58] VITALS: BP 130/78; PULSE 62; RESP 12; TEMP 36.4; O2SAT 100
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
[2019-05-09 12:35] VITALS: BP 123/77; PULSE 58; RESP 17; O2SAT 100
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
[2019-05-09] MEDS: ONDANSETRON 4 MG ODT SL (13:25)
[2019-05-09 13:39] VITALS: BP 104/74; PULSE 65; RESP 16; O2SAT 99
[2019-05-09 14:00] VITALS: BP 113/73; PULSE 58; RESP 16; O2SAT 100
--- NOTE | 2019-05-09 14:18 | PC.NURSE ---
ambulating to bathroom, no unsteadyness, neuro appropriate
== END 2019-05-09 14:35 | disposition home or self-care (01) ==
PROVIDERS: Emergency Provider Nurse Practitioner Family; PCP Internal Medicine
DX: Z04.1 Encounter for examination and observation following transport accident (principal); S16.1XXA Strain of muscle, fascia and tendon at neck level, initial encounter; M79.605 Pain in left leg; V53.5XXA Driver of pick-up truck or van injured in collision with car, pick-up truck or van in traffic accident, initial encounter
CPT/HCPCS: 71046; 72125; 73552; 73562; 99283

== ENCOUNTER 2019-07-26 08:15 | Outpatient (RCR) | payer OTHER, MEDICAID, SELFPAY ==
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
--- NOTE | 2019-07-28 08:37 | PT-OP ANOTE ---
Pt arrives to appointment. She states she tried to fit in a quick hip x-ray before treatment but ran out of time. She states that she had increased left hip pain since Thursday. She thinks that stretches may have increased her pain. She returned to Dr. Montilla's office yesterday. She was told she has fibromyalgia, to take Lexapro or Celexa and was ordered a left hip x-ray. She states that she hit her left arm on the car and it and both hands hurt. Her LB also hurts. Pt states that she is supposed to follow-up with Dr. Montilla in a month and was not given any instructions about PT. PT cancels PT appointment this date and PT will contact Dr. Montilla's office. PT educated pt to stop any exercises that cause pain and to consider ice and heat. PT recommends to pt to come to next PT appointment next week if she is feeling better. PT will call pt with change to this recommendation if Dr. Montilla would like to change PT plan.
--- NOTE | 2019-07-28 09:37 | PT-OP ANOTE ---
PT speaks with Dr. Montilla who communicates con't PT. communicates that pt has anxiety and psychosomatic components to sxs. Will con't PT efforts. does not report any restrictions to PT.
--- NOTE | 2019-08-03 10:02 | PT-OP ANOTE ---
Pt states that she went to see Dr. Cobb on Thursday and he said no more PT until her LB, L hip feel better. She has had left elbow pain. She got her SED rate checked. She says her rheumatoid factor is always high. She was told she has fibromyalgia. She is feeling better since last week. She is to take 500 mg Tylenol. She is waiting for a referral to rheumatolgist. She has no concerns about PT. She would like to continue with PT but is following doctor's order. She sees Dr. Montilla again next Thursday. She is following up about Paxil. PT ed pt to continue exercises that don't hurt. Will d/c PT until she follows up with clay carman and gets further medical plan established, pt states she might get medication. Pt agreeable to PT plan.
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
== END 2019-08-04 13:13 ==
LOC: PHYS 08:15
PROVIDERS: PCP Internal Medicine; Visit Provider Internal Medicine
DX: M54.5 Low back pain (principal)
CPT/HCPCS: 97110; 97140; 97161

== ENCOUNTER → 2019-07-28 08:06 | Outpatient (CLI) | payer OTHER, MEDICAID, SELFPAY ==
--- NOTE | 2019-07-28 | DI.RAD.S_ITS ---
PROCEDURE: XR HIP W PEL IF DONE LT 2V INDICATIONS: XR LT HIP TECHNIQUE: AP pelvis with lateral view(s) of the left hip(s). COMPARISON: None. FINDINGS: Bones: No fractures or dislocations. Pelvic ring appears intact. No suspicious bony lesions. Soft tissues: The visualized bowel gas pattern is normal. No suspicious soft tissue calcifications. IMPRESSION: 1. No fracture or dislocation. If clinical symptoms persist or clinical suspicion for pathology is high, advanced imaging such as CT or MRI is suggested for further evaluation. Dictated by: John Snyder M.D. on 07/28/2019 at 17:29 Approved by: John Snyder M.D. on 07/28/2019 at 17:30
== END ==
PROVIDERS: PCP Internal Medicine; Visit Provider Internal Medicine
DX: M25.552 Pain in left hip (principal)
CPT/HCPCS: 73502

== ENCOUNTER → 2019-07-29 15:08 | Outpatient (CLI) | payer OTHER, MEDICAID, SELFPAY | PROVIDERS: PCP Internal Medicine; Visit Provider Internal Medicine | DX: Z78.0 Asymptomatic menopausal state (principal); M25.559 Pain in unspecified hip | CPT/HCPCS: 77080 ==

== ENCOUNTER → 2019-08-01 16:29 | Outpatient (CLI) | payer OTHER, MEDICAID, SELFPAY ==
[2019-08-01 17:38] LABS: Erythrocyte Sedimentation Rate 8 MM/HR (0-20)
[2019-08-01 17:45] LABS: C-Reactive Protein Quant < 0.5 mg/dL (<1.0)
== END ==
PROVIDERS: Family Provider Internal Medicine; PCP Internal Medicine; Visit Provider Internal Medicine
DX: M13.0 Polyarthritis, unspecified (principal)
CPT/HCPCS: 36415; 85651; 86140

== ENCOUNTER → 2019-09-05 09:30 | Outpatient (CLI) | payer OTHER, MEDICAID, SELFPAY ==
[2019-09-07 18:13] LABS: 18 kD IgG Band Nonreactive; 23 kD IgG Band Nonreactive; 28 kD IgG Band Nonreactive; 30 kD IgG Band Nonreactive; 39 kD IgG Band Nonreactive; 41 kD IgG Bands Reactive; 45 kD IgG Band Nonreactive; 58 kD IgG Band Reactive; 66 kD IgG Band Reactive; 93 kD IgG Bands Nonreactive
== END ==
PROVIDERS: PCP Internal Medicine; Visit Provider Internal Medicine
DX: M79.7 Fibromyalgia (principal)
CPT/HCPCS: 36415; 86617

== ENCOUNTER → 2019-10-27 17:15 | Outpatient (ROUT) | payer OTHER, MEDICAID, SELFPAY ==
[2019-10-27 17:43] LABS: Add Manual Diff / Slide Review NO; Basophils Absolute Auto 100 /uL (0-100); Eosinophils Absolute Auto 200 /uL (0-450); Eosinophils Percent Auto 2.8 % (2-4); Hematocrit 40.2 % (36-46); Hemoglobin 13.8 g/dL (12.0-16.0); Lymphocytes Absolute Auto 2100 /uL (1100-4500); Lymphocytes Percent Auto 38.2 % (25-40); Mean Corpuscular HGB Conc 34.2 % (30-36); Mean Corpuscular Hemoglobin 32.9 PG (26-34); Mean Corpuscular Volume 96.1 fL (80-100); Monocytes Absolute Auto 400 /uL (0-900); Monocytes Percent Auto 6.7 % (3-14); Neutrophils Absolute Auto 2900 /uL (1500-7000); Neutrophils Percent Auto 51.3 % (50-75); Platelet Count 227 X10^3/uL (150-400); Red Blood Cell Count 4.18 X10^6/uL (4.0-5.2); Red Cell Distribution Width 12.3 % (11.6-14.8); White Blood Cell Count 5.6 X10^3/uL (4.5-11.0)
[2019-10-27 17:49] LABS: Alanine Aminotransferase 18 IU/L (<35); Albumin 4.7 g/dL (3.5-5.0); Albumin Globulin Ratio 1.6 (1.0-2.8); Alkaline Phosphatase 62 U/L (38-126); Aspartate Aminotransferase 25 IU/L (14-36); BUN Creatinine Ratio 27.1 (6-22); Bilirubin Total 0.5 mg/dL (0.2-1.3); Blood Urea Nitrogen 19 mg/dL (7-17); Calcium 10.1 mg/dL (8.4-10.2); Carbon Dioxide 30 mmol/L (22-32); Chloride 98 mmol/L (98-107); Estimated Glomerular Filt Rate > 60.0 mL/min (>60); Glucose 104 mg/dL (70-100); HEMOLYSIS < 15 (0-50); Potassium 4.1 mmol/L (3.4-5.1); Sodium 137 mmol/L (137-145); Total Protein 7.7 g/dL (6.3-8.2)
[2019-10-27 17:50] LABS: HEMOLYSIS < 15 (0-50); Iron 144 ug/dL (37-170)
[2019-10-27 18:01] LABS: Percent Iron Saturation 47 % (15-50); Total Iron Binding Capacity 304 ug/dL (265-497); Transferrin 255 mg/dL (206-381)
[2019-10-27 18:24] LABS: Ferritin 52.6 ng/mL (11.1-264)
== END ==
PROVIDERS: PCP Internal Medicine; Visit Provider Physician Assistant
DX: E83.110 Hereditary hemochromatosis (principal)
CPT/HCPCS: 80053; 81256; 82728; 83540; 83550; 85025

== ENCOUNTER → 2019-11-16 11:30 | Outpatient (CLI) | payer OTHER, MEDICAID, SELFPAY ==
--- NOTE | 2019-11-16 | DI.MG.S_ITS ---
BILATERAL DIGITAL SCREENING MAMMOGRAM 3D/2D WITH CAD: 11/16/2019 CLINICAL: Routine screening. Comparison is made to exams dated: 10/29/2018 mammogram, 10/27/2017 mammogram, and 10/16/2016 mammogram - [facility]. The tissue of both breasts is heterogeneously dense. This may lower the sensitivity of mammography. Current study was also evaluated with a Computer Aided Detection (CAD) system. No significant masses, calcifications, or other findings are seen in either breast. There has been no significant interval change. IMPRESSION: NEGATIVE There is no mammographic evidence of malignancy. A 1 year screening mammogram is recommended. This exam was interpreted at Station ID: [id number]. NOTE: For mammograms, a report in lay terms will be sent to the patient. Approximately 15% of breast malignancies will not be visualized mammographically. In the management of a palpable breast mass, a negative mammogram must not discourage biopsy of a clinically suspicious lesion. Electronically Signed By: Jose lyons/dorina:11/16/2019 19:47:03 copy to: BANDAR RAMIREZ letter sent: Normal Exam ACR BI-RADS Category 1: Negative [id number]
== END ==
PROVIDERS: PCP Internal Medicine; Referring Provider Internal Medicine; Visit Provider Internal Medicine
DX: Z12.31 Encounter for screening mammogram for malignant neoplasm of breast (principal)
CPT/HCPCS: 77063; 77067

== ENCOUNTER → 2019-11-24 11:17 | Outpatient (CLI) | payer OTHER, MEDICAID, SELFPAY ==
[2019-11-24 12:59] LABS: Calcium 9.8 mg/dL (8.4-10.2)
[2019-11-26 15:25] LABS: Parathyroid Hormone Int 19 pg/mL (14-64)
== END ==
PROVIDERS: PCP Internal Medicine; Referring Provider Internal Medicine Rheumatology; Visit Provider Internal Medicine Rheumatology
DX: E83.52 Hypercalcemia (principal)
CPT/HCPCS: 36415; 82310; 83970

== ENCOUNTER → 2020-03-05 14:37 | Outpatient (CLI) | payer OTHER, MEDICAID, SELFPAY ==
[2020-03-05 15:34] LABS: Alanine Aminotransferase 14 IU/L (<35); Albumin 4.9 g/dL (3.5-5.0); Albumin Globulin Ratio 1.8 (1.0-2.8); Alkaline Phosphatase 50 U/L (38-126); Aspartate Aminotransferase 25 IU/L (14-36); BUN Creatinine Ratio 26.5 (6-22); Bilirubin Total 0.5 mg/dL (0.2-1.3); Blood Urea Nitrogen 22 mg/dL (7-17); Carbon Dioxide 29 mmol/L (22-32); Chloride 102 mmol/L (98-107); Estimated Glomerular Filt Rate > 60.0 mL/min (>60); Globulin 2.8 g/dL (1.7-4.1); Glucose 120 mg/dL (70-100); HEMOLYSIS < 15 (0-50); Lipase 208 U/L (23-300); Potassium 4.4 mmol/L (3.4-5.1); Sodium 138 mmol/L (137-145); Total Protein 7.7 g/dL (6.3-8.2)
[2020-03-06 10:40] LABS: Parathyroid Hormone Int 39 pg/mL (15-65)
[2020-03-16 13:00] LABS: H.pylori IgG 0.14 (0.00-0.79)
== END ==
PROVIDERS: PCP Internal Medicine; Referring Provider Physician Assistant; Visit Provider Physician Assistant
DX: R10.13 Epigastric pain (principal); E83.52 Hypercalcemia
CPT/HCPCS: 36415; 80053; 83690; 83970; 86677

== ENCOUNTER → 2020-03-08 13:56 | Outpatient (CLI) | payer OTHER, MEDICAID, SELFPAY ==
[2020-03-08 14:11] LABS: WBC Urine None Seen (0-5/HPF)
[2020-03-08 14:30] LABS: Appearance Urine UA CLEAR; Bilirubin Urine UA NEGATIVE (NEGATIVE); Color Urine UA YELLOW; Glucose Urine UA NEGATIVE (Negative); Ketones Urine UA NEGATIVE (NEGATIVE); Leukocyte Esterase Urine UA NEGATIVE (NEGATIVE); Nitrite Urine UA NEGATIVE (Negative); Occult Blood Urine UA TRACE-LYSED (Negative); Protein Urine UA NEGATIVE (Negative); Specific Gravity Urine UA 1.015 (1.000-1.035); Urobilinogen Urine UA 0.2 E.U./dL (0.2)
[2020-03-08 14:51] LABS: Bacteria Urine Occasional (0-1); Culture Indicated Urine Cult Not Indicated; RBC Urine 1-5/HPF (0-5/HPF)
== END ==
PROVIDERS: PCP Internal Medicine; Referring Provider Internal Medicine; Visit Provider Internal Medicine
DX: R82.81 Pyuria (principal)
CPT/HCPCS: 81001

== ENCOUNTER → 2020-06-09 08:13 | Outpatient (CLI) | payer OTHER, MEDICAID, SELFPAY ==
[2020-06-09 09:23] LABS: Cholesterol 197 mg/dL (140-199); HDL Cholesterol 54 mg/dL (40-60); LDL Cholesterol Calculated 132 mg/dL (<100); Triglycerides 56 mg/dL (35-150)
== END ==
PROVIDERS: PCP Internal Medicine; Referring Provider Internal Medicine; Visit Provider Internal Medicine
DX: E78.5 Hyperlipidemia, unspecified (principal)
CPT/HCPCS: 36415; 80061

== ENCOUNTER → 2020-07-14 15:47 | Outpatient (CLI) | payer OTHER, MEDICAID, SELFPAY | PROVIDERS: PCP Internal Medicine; Visit Provider Physician Assistant | DX: R30.0 Dysuria (principal) | CPT/HCPCS: 87086 ==

== ENCOUNTER 2020-09-05 11:39 | Emergency (ER) | payer OTHER, MEDICAID, SELFPAY ==
[2020-09-05] VITALS (8 sets, daily range): BP systolic 120–130; BP diastolic 68–77; PULSE 54–76; RESP 16; TEMP 35.9; O2SAT 98–100
[2020-09-05 13:31] LABS: Add Manual Diff / Slide Review NO; Basophils Absolute Auto 0 /uL (0-100); Basophils Percent Auto 0.5 % (0-2); Eosinophils Absolute Auto 0 /uL (0-450); Eosinophils Percent Auto 0.3 % (2-4); Hematocrit 41.7 % (36-46); Hemoglobin 14.3 g/dL (12.0-16.0); Lymphocytes Absolute Auto 1300 /uL (1100-4500); Lymphocytes Percent Auto 18.5 % (25-40); Mean Corpuscular HGB Conc 34.3 % (30-36); Mean Corpuscular Hemoglobin 32.7 PG (26-34); Mean Corpuscular Volume 95.6 fL (80-100); Monocytes Absolute Auto 400 /uL (0-900); Monocytes Percent Auto 5.2 % (3-14); Neutrophils Absolute Auto 5400 /uL (1500-7000); Neutrophils Percent Auto 75.5 % (50-75); Platelet Count 242 X10^3/uL (150-400); Red Blood Cell Count 4.36 X10^6/uL (4.0-5.2); Red Cell Distribution Width 12.5 % (11.6-14.8); White Blood Cell Count 7.2 X10^3/uL (4.5-11.0)
[2020-09-05 13:44] LABS: Alanine Aminotransferase 17 IU/L (<35); Albumin 5.2 g/dL (3.5-5.0); Albumin Globulin Ratio 1.4 (1.0-2.8); Alkaline Phosphatase 61 U/L (38-126); Aspartate Aminotransferase 29 IU/L (14-36); BUN Creatinine Ratio 38.7 (6-22); Bilirubin Total 0.9 mg/dL (0.2-1.3); Blood Urea Nitrogen 24 mg/dL (7-17); Calcium 10.1 mg/dL (8.4-10.2); Carbon Dioxide 31 mmol/L (22-32); Chloride 98 mmol/L (98-107); Estimated Glomerular Filt Rate > 60.0 mL/min (>60); Globulin 3.6 g/dL (1.7-4.1); Glucose 110 mg/dL (70-100); HEMOLYSIS 37 (0-50); Lipase 135 U/L (23-300); Potassium 4.1 mmol/L (3.4-5.1); Sodium 137 mmol/L (137-145); Total Protein 8.8 g/dL (6.3-8.2)
[2020-09-05] MEDS: ONDANSETRON 4 MG/2 ML INJ IV (13:44)
[2020-09-05] MEDS: SODIUM CHLORIDE 0.9% 1,000 ML 1000 ML IV (13:44)
[2020-09-05 13:48] LABS: Amylase 102 U/L (30-110)
--- NOTE | 2020-09-05 14:24 | DI.RAD.S_ITS ---
PROCEDURE: XR ACUTE ABDOMEN SERIES INDICATIONS: vomiting, hx constipation TECHNIQUE: One view chest and two views of the abdomen were acquired. COMPARISON: None. FINDINGS: Surgical changes and devices: None. Chest: Lungs are clear. Heart size is normal. No pleural effusions. No pneumoperitoneum. Abdomen: Bowel gas pattern is nonobstructive. Duse-gx-ajqwdxgb amount of fecal matter is seen throughout the colon.. No suspicious calcifications. Visualized solid organ contours appear normal. Bones: No suspicious bony lesions. IMPRESSION: No evidence of bowel obstruction or gross free air. Mild constipation. No acute cardiopulmonary pathology. Dictated by: Ronald Morales M.D. on 09/05/2020 at 14:11 Approved by: Ronald Morales M.D. on 09/05/2020 at 14:13
--- NOTE | 2020-09-05 14:50 | ED_ITS ---
HPI - Abdominal Pain <Radha Aceves, ENGINEERING SECRETARY-BC - Last Filed: 09/05/20 16:23> General Chief Complaint: Abdominal Pain Stated Complaint: PAIN IN STOMACH Time Seen by Provider: 09/05/20 13:08 Source: patient Mode of arrival: Ambulatory Limitations: no limitations History of Present Illness HPI narrative: The patient is a 55-year-old female nonsmoker with history of back pain and constipation who presents with a chief complaint of an episode of abdominal pain and vomiting this morning. She states that she sees [facility] for pancreatic issues, for which she has been referred to Beatrice vega. She states that she has had a recent MRI and CT scan, and also had recently elevated amylase and lipase. She states that she came in this morning because of the pain in the episode of vomiting. She was not able to keep down her breakfast. She has not taken anything for nausea or vomiting or pain. She denies any fevers. She states that her pain was so bad that she had the shakes this mornin g. She states that radiated to her back. She states she has had episodes of pain like this before. She states that her pain got much better after she vomited. The patient states that she has a history of constipation for which she takes Linzess. She denies any chest pain or shortness of breath. Her record illustrate view of normal colonoscopy and EGD in 2018. She is being worked up for possible sphincter of Oddi spasm, idiopathic pancreatitis, irritable bowel syndrome. Related Data Home Medications Medication Instructions Recorded Confirmed losartan [Cozaar] 25 mg PO DAILY #0 05/02/16 07/14/20 metoprolol succinate [Toprol XL] 37.5 mg PO QDAY #0 ter 05/02/16 07/14/20 clindamycin-benzoyl peroxide 1 gel TP DAILY #0 01/05/17 07/14/20 diazepam [Valium] 2.5 mg PO BEDTIME PRN 05/09/19 07/14/20 linaclotide 72 mcg capsule 72 mcg PO DAILY 07/09/20 07/14/20 Previous Rx's Medication Instructions Recorded estradiol 1 gram VAG .COMPLEX #42.5 gram 03/20/20 ondansetron 4 mg PO Q6H PRN #14 tab 09/05/20 Allergies Allergy/AdvReac Type Severity Reaction Status Date / Time Sulfa (Sulfonamide Allergy Intermediate RASH Verified 07/14/20 15:44 Antibiotics) Review of Systems <NOE Dickey - Last Filed: 09/05/20 16:23> Review of Systems Narrative: GENERAL: Denies chills, fatigue, malaise, fever, sweats. HEENT: Denies sinus pain, ear pain, sore throat, difficulty swallowing, dizziness. RESPIRATORY: Denies dyspnea, cough, wheezing, hemoptysis, sputum. CARDIOVASCULAR: Denies chest pain, palpitations, orthopnea, edema, GASTROINTESTINAL: Denies nausea, vomiting, abdominal pain, diarrhea, constipation, melena. : Denies dysuria, frequency, incontinence, hematuria, urinary retention. MUSCULOSKELETAL: denies weakness, joint pain, or bony pain SKIN: Denies rash, skin lesions, or other NEUROLOGIC: Denies weakness, headache, numbness, change in speech, confusion, seizures, incoordination. PSYCHIATRIC: No concerning psychosocial issues. 12 point review of systems is negative except for those stated above Patient History <NOE Dickey - Last Filed: 09/05/20 16:23> Medical History Anemia Anxiety (~1997) Atypical squamous cells of undetermined significance (ASC-US) on cervical Pap smear Chronic back pain Dysuria Gastric ulcer High risk human papilloma virus (HPV) infection of cervix History of anemia History of gastric ulcer Hypertension (~2004) Low testosterone Low testosterone level in female (~1999) Postmenopausal Sciatica of left side Shoulder pain (~2004) Family History Father Age: 81 Hypertension Grandfather Hypertension Grandmother Hypertension Social History household members: none Smoking Status: Never smoker alcohol intake: never Smoking Status: Never smoker Substance Use Type: does not use Exam <NOE Dickey - Last Filed: 09/05/20 16:23> Narrative Exam Narrative: GENERAL: This is a well-nourished, well-developed patient, in no acute distress HEAD: Atraumatic. Normocephalic. No temporal or scalp tenderness. EYES: Pupils equal round and reactive. Extraocular motions intact. No scleral icterus. No injection or drainage. ENT: Nose without bleeding, purulent drainage or septal hematoma. Wearing a mask. Uvula midline. Airway patent. NECK: Trachea midline. No JVD or lymphadenopathy. Supple, nontender, no meningeal signs. CARDIOVASCULAR: Regular rate and rhythm RESPIRATORY: Clear to auscultation. Breath sounds equal bilaterally. No wheezes, rales, or rhonchi. No cough. No increased respiratory effort. No accessory muscle use. GASTROINTESTINAL: Abdomen soft, diffusely tender right upper and left upper quadrants with no guarding, nondistended. No hepato-splenomegaly, or palpable masses. No guarding. Active bowel sounds all 4 quadrants EXTREMITIES: No clubbing, cyanosis, or edema. No joint tenderness, effusion, or edema noted. BACK: Nontender without deformity or crepitance. No flank tenderness. NEURO: AOx3. SKIN: No rash or erythema on visible skin Initial Vital Signs Initial Vital Signs: Vital Signs Temperature 96.7 F L 09/05/20 11:51 Pulse Rate 76 09/05/20 11:51 Respiratory Rate 16 09/05/20 11:51 Pulse Oximetry 100 09/05/20 11:51 <Alexx Sifuentes DO - Last Filed: 09/05/20 16:26> Initial Vital Signs Initial Vital Signs: Vital Signs Temperature 96.7 F L 09/05/20 11:51 Pulse Rate 76 09/05/20 11:51 Respiratory Rate 16 09/05/20 11:51 Pulse Oximetry 100 09/05/20 11:51 Scores <NOE Dickey - Last Filed: 09/05/20 16:23> GCS New [place] coma scale eye opening: Spontaneous [place] coma scale verbal response: Orientated [place] coma scale motor response: Obey commands Nilo coma scale total score: 15 Course <NOE Dickey - Last Filed: 09/05/20 16:23> Orders Ordered: ED Orders 09/05/20 13:25 Amylase Stat Complete Blood Count AUTO DIFF Stat Comprehensive Metabolic Panel Stat Lipase Stat 09/05/20 13:34 EKG-12 Lead Stat 09/05/20 14:24 XR acute abdomen series Stat Discontinued Medications Sodium Chloride (Normal Saline 0.9%) 1,000 mls @ 1,000 mls/hr IV BOLUS ONE Stop: 09/05/20 14:33 Last Infusion: 09/05/20 16:03 Dose: 0 mls/hr Documented by: Admin: 09/05/20 13:44 Dose: 1,000 mls/hr Documented by: BYRON Ondansetron HCl (Ondansetron 4 Mg/2 Ml Inj) 4 mg IV NOW ONE Stop: 09/05/20 13:35 Last Admin: 09/05/20 13:44 Dose: 4 mg Documented by: BYRON Vital Signs Vital signs: Vital Signs - 8 hr 09/05/20 11:51 09/05/20 13:30 09/05/20 14:00 Temperature 96.7 F L Pulse Rate 76 72 62 Respiratory Rate 16 Blood Pressure Pulse Oximetry 100 100 99 09/05/20 14:30 09/05/20 14:44 09/05/20 15:00 Temperature Pulse Rate 56 L 69 65 Respiratory Rate Blood Pressure 125/77 120/69 Pulse Oximetry 100 99 98 09/05/20 15:30 09/05/20 16:00 Temperature Pulse Rate 54 L 62 Respiratory Rate Blood Pressure 121/68 130/77 Pulse Oximetry 100 100 <Alexx Sifuentes, - Last Filed: 09/05/20 16:26> Orders Ordered: ED Orders 09/05/20 13:25 Amylase Stat Complete Blood Count AUTO DIFF Stat Comprehensive Metabolic Panel Stat Lipase Stat 09/05/20 13:34 EKG-12 Lead Stat 09/05/20 14:24 XR acute abdomen series Stat Discontinued Medications Sodium Chloride (Normal Saline 0.9%) 1,000 mls @ 1,000 mls/hr IV BOLUS ONE Stop: 09/05/20 14:33 Last Infusion: 09/05/20 16:03 Dose: 0 mls/hr Documented by: Admin: 09/05/20 13:44 Dose: 1,000 mls/hr Documented by: BYRON Ondansetron HCl (Ondansetron 4 Mg/2 Ml Inj) 4 mg IV NOW ONE Stop: 09/05/20 13:35 Last Admin: 09/05/20 13:44 Dose: 4 mg Documented by: BYRON Vital Signs Vital signs: Vital Signs - 8 hr 09/05/20 11:51 09/05/20 13:30 09/05/20 14:00 Temperature 96.7 F L Pulse Rate 76 72 62 Respiratory Rate 16 Blood Pressure Pulse Oximetry 100 100 99 09/05/20 14:30 09/05/20 14:44 09/05/20 15:00 Temperature Pulse Rate 56 L 69 65 Respiratory Rate Blood Pressure 125/77 120/69 Pulse Oximetry 100 99 98 09/05/20 15:30 09/05/20 16:00 Temperature Pulse Rate 54 L 62 Respiratory Rate Blood Pressure 121/68 130/77 Pulse Oximetry 100 100 MDM - Abdominal Pain <YOJANA DickeyP- - Last Filed: 09/05/20 16:23> Differential Diagnosis Differential diagnosis: Likely abdominal pain, constipation, gastroenteritis and small bowel obstruction Lab Data Attestation: I reviewed the patient's lab results. Result diagrams: 09/05/20 13:25 09/05/20 13:25 Labs: Lab Results 09/05/20 09/05/20 09/05/20 Range/Units 13:25 13:25 13:25 WBC 7.2 (4.5-11.0) X10^3/uL RBC 4.36 (4.0-5.2) X10^6/uL Hgb 14.3 (12.0-16.0) g/dL Hct 41.7 (36-46) % MCV 95.6 (80-100) fL MCH 32.7 (26-34) PG MCHC 34.3 (30-36) % RDW 12.5 (11.6-14.8) % Plt Count 242 (150-400) X10^3/uL Neut % (Auto) 75.5 H (50-75) % Lymph % (Auto) 18.5 L (25-40) % [place] % (Auto) 5.2 (3-14) % Eos % (Auto) 0.3 L (2-4) % Baso % (Auto) 0.5 (0-2) % Neut # (Auto) 5400 (3378-3355) /uL Lymph # (Auto) 1300 (7328-3252) /uL [place] # (Auto) 400 (0-900) /uL Eos # (Auto) 0 (0-450) /uL Baso # (Auto) 0 (0-100) /uL Sodium 137 (137-145) mmol/L Potassium 4.1 (3.4-5.1) mmol/L Chloride 98 (98-107) mmol/L Carbon Dioxide 31 (22-32) mmol/L BUN 24 H (7-17) mg/dL Creatinine 0.62 (0.52-1.04) mg/dL Estimated GFR > 60.0 (>60) mL/min BUN/Creatinine Ratio 38.7 H (6-22) Glucose 110 H (70-100) mg/dL Calcium 10.1 (8.4-10.2) mg/dL Total Bilirubin 0.9 (0.2-1.3) mg/dL AST 29 (14-36) IU/L ALT 17 (<35) IU/L Alkaline Phosphatase 61 (38-126) U/L Total Protein 8.8 H (6.3-8.2) g/dL Albumin 5.2 H (3.5-5.0) g/dL Globulin 3.6 (1.7-4.1) g/dL Albumin/Globulin Ratio 1.4 (1.0-2.8) Amylase 102 (30-110) U/L Lipase 135 (23-300) U/L Imaging Data Abdominal x-ray: Radiologist's Impression: [address] [place] [id number] ReportSigned Patient: Fabiana Gonzalez [facility]#: [id number]: [id number]:[id number]/Sex: 55 / FDate of Service: 09/05/20Loc: EDAccession Number: [id number] Procedure: XR acute abdomen series Ordering Provider: Radha Aceves ENGINEERING SECRETARY- PROCEDURE: XR ACUTE ABDOMEN SERIES INDICATIONS: vomiting, hx constipation TECHNIQUE: One view chest and two views of the abdomen were acquired. COMPARISON: None. FINDINGS: Surgical changes and devices: None. Chest: Lungs are clear. Heart size is normal. No pleural effusions. No pneumoperitoneum. Abdomen: Bowel gas pattern is nonobstructive. Ssht-ef-nhxukoqi amount of fecal matter is seen throughout the colon.. No suspicious calcifications. Visualized solid organ contours appear normal. Bones: No suspicious bony lesions. IMPRESSION: No evidence of bowel obstruction or gross free air. Mild constipation. No acute cardiopulmonary pathology. Dictated by: Ronald Morales M.D. on 09/05/2020 at 14:11 Approved by: Ronald Morales M.D. on 09/05/2020 at 14:13 ECG Data Attestation: I personally reviewed and interpreted this ECG as follows: Interpretation: Sinus bradycardia. Ventricular rate 59. P.r. interval 186. QRS 80. Viewed by Dr Sifuentes MDM Narrative Medical decision making narrative: The patient is a 55-year-old female with a complicated GI history presents with a chief complaint of an episode of pain and one episode of vomiting. Her exam is grossly normal as well as her lab work, which shows no elevated lipase or amylase, no leukocytosis. She had a recent CT and MRI within the last 2 weeks. She is afebrile and well appearing in the em ergency department. I did speak with from [facility], who states that as long as the patient can pass a p.o. trial she is welcome to follow up in clinic and there is nothing further to do today. The patient is able to keep down crackers and water, is requesting to go home. Prescription of Zofran sending, discussed that this can be constipating. Encouraged follow-up with primary care provider as well as GI provider. Discussed coming back to ER for acute concerns such as abdominal pain with fever, inability keep down fluids etcetera. Patient has no questions or concerns upon discharge and states understanding return precautions as well as follow-up care. <Alexx Sifuentes, DO - Last Filed: 09/05/20 16:26> Lab Data Labs: Lab Results 09/05/20 09/05/20 09/05/20 Range/Units 13:25 13:25 13:25 WBC 7.2 (4.5-11.0) X10^3/uL RBC 4.36 (4.0-5.2) X10^6/uL Hgb 14.3 (12.0-16.0) g/dL Hct 41.7 (36-46) % MCV 95.6 (80-100) fL MCH 32.7 (26-34) PG MCHC 34.3 (30-36) % RDW 12.5 (11.6-14.8) % Plt Count 242 (150-400) X10^3/uL Neut % (Auto) 75.5 H (50-75) % Lymph % (Auto) 18.5 L (25-40) % [place] % (Auto) 5.2 (3-14) % Eos % (Auto) 0.3 L (2-4) % Baso % (Auto) 0.5 (0-2) % Neut # (Auto) 5400 (7946-0055) /uL Lymph # (Auto) 1300 (8242-5453) /uL [place] # (Auto) 400 (0-900) /uL Eos # (Auto) 0 (0-450) /uL Baso # (Auto) 0 (0-100) /uL Sodium 137 (137-145) mmol/L Potassium 4.1 (3.4-5.1) mmol/L Chloride 98 (98-107) mmol/L Carbon Dioxide 31 (22-32) mmol/L BUN 24 H (7-17) mg/dL Creatinine 0.62 (0.52-1.04) mg/dL Estimated GFR > 60.0 (>60) mL/min BUN/Creatinine Ratio 38.7 H (6-22) Glucose 110 H (70-100) mg/dL Calcium 10.1 (8.4-10.2) mg/dL Total Bilirubin 0.9 (0.2-1.3) mg/dL AST 29 (14-36) IU/L ALT 17 (<35) IU/L Alkaline Phosphatase 61 (38-126) U/L Total Protein 8.8 H (6.3-8.2) g/dL Albumin 5.2 H (3.5-5.0) g/dL Globulin 3.6 (1.7-4.1) g/dL Albumin/Globulin Ratio 1.4 (1.0-2.8) Amylase 102 (30-110) U/L Lipase 135 (23-300) U/L Discharge Plan Departure Patient Disposition: Home Clinical Impression: Abdominal pain Qualifiers: Abdominal location: generalized Qualified Code(s): R10.84 - Generalized abdominal pain Nausea & vomiting Qualifiers: Vomiting type: unspecified Vomiting Intractability: non-intractable Qualified Code(s): R11.2 - Nausea with vomiting, unspecified Instructions: DI for Abdominal Pain-Adult, DI for Nausea -- Adult, DI for Vomiting -- Adult Activity Restrictions/Additional Instructions: Thank you for trusting us with your care today. As discussed your lab work and imaging was reassuring. Please follow-up with primary care provider as well as your GI provider. I sent a prescription of ondansetron for nausea to [facility]. Be aware that this can be sedating. Back to emergency department for any acute concerns such as abdominal pain with fever, inability keep down fluids etcetera Prescriptions: New ondansetron 4 mg tablet,disintegrating 4 mg PO Q6H PRN (Reason: nausea and vomiting) Qty: 14 RF: 0 No Action metoprolol succinate [Toprol XL] 25 MG tablet extended release 24 hr 37.5 mg PO QDAY Qty: 0 RF: 0 losartan [Cozaar] 25 MG tablet 25 mg PO DAILY Qty: 0 RF: 0 clindamycin-benzoyl peroxide 1.2 %/5 % gel 1 gel TP DAILY Qty: 0 RF: 0 estradiol 0.01 % (0.1 mg/gram) cream 1 gram VAG .COMPLEX Qty: 42.5 RF: 2 Linzess 72 mcg capsule 72 mcg PO DAILY RF: 0 diazepam [Valium] 10 mg tablet 2.5 mg PO BEDTIME PRN (Reason: Anxiety) RF: 0 Referrals: Yanelis Montilla MD [Primary Care Provider] - <Alexx Sifuentes DO - Last Filed: 09/05/20 16:26> Cosign ED Attending Cosignature Attestation: Dr Sifuentes Co-Sign Statement: I was available for consultation during this patient's emergency department visit. This chart is signed by myself for administrative purposes only. I did not have direct contact with this patient during this visit. They were seen independent ly by the APC.
== END 2020-09-05 16:27 | disposition home or self-care (01) ==
PROVIDERS: Emergency Medicine; Emergency Provider Nurse Practitioner Family; PCP Internal Medicine
DX: R10.84 Generalized abdominal pain (principal); R11.2 Nausea with vomiting, unspecified; R00.1 Bradycardia, unspecified
CPT/HCPCS: 36415; 74022; 80053; 82150; 83690; 85025; 93005; 93010; 96361; 96374; 99283; 99284; J2405

== ENCOUNTER → 2020-10-02 19:13 | Outpatient (ROUT) | payer OTHER, MEDICAID, SELFPAY ==
[2020-10-04 20:35] LABS: IgG Subclass 1 533 mg/dL (248-810); IgG Subclass 2 124 mg/dL (130-555); IgG Subclass 3 10 mg/dL (15-102); IgG Subclass 4 7 mg/dL (2-96); IgG Total 792 mg/dL (586-1602)
== END ==
PROVIDERS: PCP Internal Medicine; Visit Provider Internal Medicine
DX: K83.8 Other specified diseases of biliary tract (principal); K86.89 Other specified diseases of pancreas; R74.8 Abnormal levels of other serum enzymes
CPT/HCPCS: 82784; 82787

== ENCOUNTER → 2021-01-24 13:05 | Outpatient (CLI) | payer OTHER, MEDICAID, SELFPAY ==
[2021-01-24 13:33] LABS: COVID19 -Nasal RAPID Negative (Negative)
[2021-01-24 14:50] LABS: Influenza A - CEPHEID Flu A NEGATIVE (NEGATIVE); Influenza B - CEPHEID Flu B NEGATIVE (NEGATIVE)
== END ==
PROVIDERS: PCP Internal Medicine; Visit Provider Student in an Organized Health Care Education/Training Program
DX: M79.10 Myalgia, unspecified site (principal); R11.0 Nausea; R51.9 Headache, unspecified; R50.9 Fever, unspecified
CPT/HCPCS: 87502; 87635

== ENCOUNTER → 2021-02-21 11:13 | Outpatient (CLI) | payer OTHER, MEDICAID, SELFPAY ==
--- NOTE | 2021-02-21 11:30 | DI.RAD.S_ITS ---
PROCEDURE: XR HIP W PEL IF DONE LT 2V INDICATIONS: left hip pain TECHNIQUE: AP pelvis with lateral view(s) of the left hip(s). COMPARISON: [facility], , XR HIP W PEL IF DONE LT 2V, 07/28/2019, 8:29. FINDINGS: Bones: No fractures or dislocations. Pelvic ring appears intact. No suspicious bony lesions. Scattered degenerative subchondral sclerosis and spurring. No definite joint space narrowing. Lumbar spondylitic changes and facet arthropathy. Soft tissues: The visualized bowel gas pattern is normal. No suspicious soft tissue calcifications. IMPRESSION: Overall, unremarkable examination as above. If the patient's pain or other symptoms persist, consider further evaluation with MRI Dictated by: Scott Brown M.D. on 02/21/2021 at 12:40 Approved by: Scott Brown M.D. on 02/21/2021 at 12:41
[2021-02-21 12:20] LABS: Add Manual Diff / Slide Review NO; Basophils Absolute Auto 0 /uL (0-100); Basophils Percent Auto 0.8 % (0-2); Eosinophils Absolute Auto 100 /uL (0-450); Eosinophils Percent Auto 2.2 % (2-4); Hematocrit 40.5 % (36-46); Hemoglobin 13.8 g/dL (12.0-16.0); Lymphocytes Absolute Auto 1900 /uL (1100-4500); Lymphocytes Percent Auto 39.8 % (25-40); Mean Corpuscular HGB Conc 34.1 % (30-36); Mean Corpuscular Hemoglobin 32.7 PG (26-34); Mean Corpuscular Volume 95.9 fL (80-100); Monocytes Absolute Auto 300 /uL (0-900); Monocytes Percent Auto 7.3 % (3-14); Neutrophils Absolute Auto 2400 /uL (1500-7000); Neutrophils Percent Auto 49.9 % (50-75); Platelet Count 221 X10^3/uL (150-400); Red Blood Cell Count 4.23 X10^6/uL (4.0-5.2); Red Cell Distribution Width 12.4 % (11.6-14.8); White Blood Cell Count 4.8 X10^3/uL (4.5-11.0)
[2021-02-21 12:56] LABS: Alanine Aminotransferase 16 IU/L (<35); Albumin 4.7 g/dL (3.5-5.0); Albumin Globulin Ratio 1.9 (1.0-2.8); Alkaline Phosphatase 54 U/L (38-126); Aspartate Aminotransferase 25 IU/L (14-36); Bilirubin Total 0.4 mg/dL (0.2-1.3); Bilirubin Unconjugated 0.5 mg/dL (0.0-1.1); Globulin 2.5 g/dL (1.7-4.1); HEMOLYSIS < 15 (0-50); Total Protein 7.2 g/dL (6.3-8.2)
== END ==
PROVIDERS: PCP Student in an Organized Health Care Education/Training Program; Referring Provider Student in an Organized Health Care Education/Training Program; Visit Provider Student in an Organized Health Care Education/Training Program
DX: R52 Pain, unspecified (principal); R94.5 Abnormal results of liver function studies; M25.552 Pain in left hip
CPT/HCPCS: 36415; 73502; 80076; 85025

== ENCOUNTER 2021-06-11 09:00 | Outpatient (RCR) | payer OTHER, MEDICAID, SELFPAY ==
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
--- NOTE | 2021-04-11 18:03 | PT.OPPOC ---
Physical, Occupational & Speech Therapy At [facility] Current Diagnoses Pain in left hip (04/11/21) Visit Care Team Role Provider Type Shaheen Douglas MD Attending Provider Physician Primary Care Provider Referring Provider Specialty: Internal Medicine Address: [address] [place] [address], [address], [place], [address] Email: [email or web address] Plan Of Care PT-OP-T Assessment and Plan Start: 04/11/21 08:57 Freq: Status: Active Protocol: Document 04/11/21 10:30 [facility] (Rec: 04/16/21 18:02 [facility] [id number]) Physical Therapy Assessment Rehab Potential Rehabilitation Potential Good Evaluation Complexity Number of Personal Factors/Comorbidities 0 Number of Body Systems Impaired 1-2 Clinical Presentation at Evaluation Stable Impairments Impairments Activity Tolerance,Functional Mobility,Pain,Posture,ROM,Soft Tissue Mobility,Strength Goals ITB tightness and tenderness over the greater tronchanter Short Term Goal (STG) Fabiana is tolerating ITB stretches and no longer complains of tenderness to palpation over the left greater trochanter STG Duration 5 weeks Mcc Goal (LTG) Fabiana is able to return to left sidelying at night without pain LTG Duration 8 weeks poor postural habits Short Term Goal (STG) Fabiana is educated in reducing the tightness of her gluteals in standing and she is able to watchstander neutral posture without posterior pelvic tilt STG Duration 5 weeks decreased hip ROM into ER Short Term Goal (STG) Fabiana is no longer complaining of difficulty putting on her shoes or socks and she shows a improvement with hip ER ROM STG Duration 5 weeks left hip pain 02/04 News Librarian Goal (LTG) Fabiana reports a overall reduction in pain from 02/04- 1 -11/07 Assessment Summary Assessment Fabiana is a 55 year old female who presents to Physical therapy with a 6 month onset of left lateral hip pain. She reports she has started walking 1.5 to 2.5 miles per day and this has helped a little with her pain. With evaluation today she is tight in her ITB and tender at the proximal attachment. She is tight in the piriformis B. In standing she stands in a posterior pelvic tilt with anterior placement of the femoral head bilaterally. I started Fabiana with hip stretches today and she tolerated this well. Physical Therapy Plan Frequency and Duration Frequency of Treatment 2x/Week Duration of Treatment 8 Plan of Care Start Date 04/11/21 Plan of Care End Date 06/06/21 Therapeutic Interventions Therapeutic Interventions Home Exercise Program,Manual Therapy,Patient/Caregiver Education,Self-Care/Home Management,Soft Tissue Mobilization,Therapeutic Exercises Next Visit Focus/Plan Next Note Type Treatment Note Next Visit Plan review stretches for the hips and begin Soft tissue work over the ITB proximally, review postural corrections. Plan of Care Dates Plan of Care Start Date 04/11/21 Plan of Care End Date 06/06/21 Electronically Signed by: Maude Leigh, PT 04/16/21 2663 Please Sign and Return: I have reviewed this Plan of Care and certify that the skilled therapy services above are required to meet the patient?s needs. Physician Signature Date Printed Name and Credentials Clinical Instructor Signature Printed Name and Credentials
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
--- NOTE | 2021-05-23 16:38 | PT.OPPOC ---
Physical, Occupational & Speech Therapy At [facility] Current Diagnoses Pain in left hip (05/23/21) Visit Care Team Role Provider Type Shaheen Douglas MD Attending Provider Physician Primary Care Provider Referring Provider Specialty: Internal Medicine Address: [address] [place] [address], [address], [place], [address] Email: [email or web address] Plan Of Care PT-OP-T Assessment and Plan Start: 04/11/21 08:57 Freq: Status: Active Protocol: Document 05/23/21 14:38 [facility] (Rec: 05/23/21 16:37 [facility] [email or web address]) Physical Therapy Assessment Goals ITB tightness and tenderness over the greater tronchanter Short Term Goal (STG) Fabiana is tolerating ITB stretches and no longer complains of tenderness to palpation over the left greater trochanter STG Duration 5 weeks Steam Presser Goal (LTG) Fabiana is able to return to left sidelying at night without pain some progress LTG Duration 8 weeks poor postural habits Short Term Goal (STG) Fabiana is educated in reducing the tightness of her gluteals in standing and 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 is 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 to 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 without posterior pelvic tilt excellent progress, at time Fabiana catches herself in her garden in a pelvic tilt but she is working on this STG Duration 5 weeks decreased hip ROM into ER Short Term Goal (STG) Dave is no longer complaining of difficulty putting on her shoes or socks and she shows a improvement with hip ER ROM 05/23/21 excellent progress STG Duration 5 weeks left hip pain 5/10 Steam Presser Goal (LTG) Dave reports a overall reduction in pain from 5/10- 1 -2/10 05/23/21 pain is 1/10 GOAL MET Progress Towards Goals Progress Towards Goals Progressing Toward Goals Assessment Summary Assessment PT is responding well to treatment. Her pain levels are reduced to 1/10 and she is showing good awareness of her HEP. She has one visit left in PT Physical Therapy Plan Frequency and Duration Frequency of Treatment 2x/Week Duration of Treatment 4 Plan of Care Start Date 05/23/21 Plan of Care End Date 06/27/21 Therapeutic Interventions Therapeutic Interventions Home Exercise Program,Manual Therapy,Patient/Caregiver Education,Self-Care/Home Management,Soft Tissue Mobilization,Therapeutic Exercises Next Visit Focus/Plan Next Note Type Treatment Note Next Visit Plan Review all established exercises, STM over the ITB and gluteals Plan of Care Dates Plan of Care Start Date 05/23/21 Plan of Care End Date 06/27/21 Electronically Signed by: Maude Leigh, PT 05/23/21 1908 Please Sign and Return: I have reviewed this Plan of Care and certify that the skilled therapy services above are required to meet the patient?s needs. Physician Signature Date Printed Name and Credentials Clinical Instructor Signature Printed Name and Credentials
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
== END 2021-06-11 14:47 | disposition home or self-care (01) ==
LOC: PHYS 09:00
PROVIDERS: PCP Student in an Organized Health Care Education/Training Program; Referring Provider Student in an Organized Health Care Education/Training Program; Visit Provider Student in an Organized Health Care Education/Training Program
DX: M25.552 Pain in left hip (principal)
CPT/HCPCS: 97110; 97140; 97161

== ENCOUNTER → 2021-07-04 14:54 | Outpatient (CLI) | payer OTHER, MEDICAID, SELFPAY ==
--- NOTE | 2021-07-04 | DI.ECHO.S_ITS ---
[facility] +---------+ : : [address] : [place] : : : : [id number] : : : : Phone: [phone]---------+ Echocardiogram Report + + :Name: BELÉN SCHILLING Study Date: 07/04/2021 Height: 62 in : :[facility] ReadingLocation: Weight: 123 lb : : Gender: Female BSA: 1.6 m2 : :: 1965 Age: 55 yrs BP: 110/81 mmHg: :Reason For Study: Palpitations : : Performed By: JACOB GALLEGO : :Referring: KATHI MENARD : + + Interpretation Summary The left ventricle is normal in size and wall thickness. The ejection fraction is estimated to be 55-60%. Previous LVEF 50 to 55%. The right ventricle is normal in size and function. No significant valvular pathology seen. The IVC is of normal diameter and collapses greater than 50% with a sniff. This suggests a low right atrial pressure of 3 mm Hg. Procedure: A two-dimensional transthoracic echocardiogram with color flow and Doppler was performed. The study quality was technically adequate. Comparison is made with the echocardiogram of 07/07/2014. The patient was in normal sinus rhythm during the exam. Left Ventricle: The left ventricle is normal in size and wall thickness. There is no thrombus. The ejection fraction is estimated to be 55-60%. There are no obvious focal wall motion abnormalities noted but poor endocardial definition reduces the sensitivity for the detection of such. MV E/A: 1.1 Med Peak E' Juan: 7.1 cm/sec E/E' med: 10.9. Right Ventricle: The right ventricle is normal in size and function. Atria: The left atrial size is normal. Both atria have remained unchanged in size since the prior echo exam. Right atrial size is normal. There is no Doppler evidence for an interatrial shunt. Mitral Valve: The mitral valve leaflets appear borderline thickened, but open well. Redundant elongated chordae are noted. There is trace mitral regurgitation. Aortic Valve: The aortic valve is trileaflet. The aortic valve opens well. There is no aortic valve stenosis. No aortic regurgitation is present. Tricuspid Valve: The tricuspid valve is normal. There is trace tricuspid regurgitation. Pulmonary artery pressures cannot be estimated because of the lack of a measurable TR jet velocity but the IVC suggests a CVP of around 3 mmHg. Compared to the prior echo exam, there has been a decrease in TR severity. Pulmonic Valve: The pulmonic valve leaflets are thin and pliable; valve motion is normal. There is a trace or physiologic amount of pulmonic regurgitation. Great Vessels: The aortic root is borderline dilated. The ascending aorta is normal in size. The aortic arch is normal in size. The IVC is of normal diameter and collapses greater than 50% with a sniff. This suggests a low right atrial pressure of 3 mm Hg. Pericardium/ Pleura There is no pericardial effusion. There is an anterior echo-free space consistent with a fat pad. There is no pleural effusion. MMode/2D Measurements & Calculations LVIDd: 3.2 cm LVOT diam: 1.9 cm LVIDs: 2.3 cm Ao root diam: 3.6 cm FS: 29.4 % asc Aorta Diam: 3.4 cm IVSd: 0.69 cm Ao Arch Diam (Prox Trans): 2.0 cm LVPWd: 0.82 cm LV ledesma. diameter/BSA (cm/m^2): 2.1 LV sys. diameter/BSA (cm/m^2): 1.5 LA A2 area: 13.2 cm2 RA long axis: 4.7 cm LA A4 area: 9.7 cm2 RA area: 14.3 cm2 LA length (vol): 4.2 cm RA vol: 36.8 ml LA vol: 25.9 ml RA : 23.7 ml/m2 LA vol index: 16.6 ml/m2 TAPSE: 2.0 cm Doppler Measurements & Calculations Ao V2 max: 104.4 cm/sec LVOT Max Juan: 101.6 cm/sec Ao V2 mean: 76.9 cm/sec LV V1 max P.1 mmHg Ao max P.4 mmHg LV V1 VTI: 20.4 cm Ao mean P.5 mmHg RITO(I,D): 2.9 cm2 Ao V2 VTI: 20.9 cm RITO(V,D): 2.9 cm2 sev ratio: 0.98 RITO indexed to BSA (cm^2/m^2): 1.9 MV E max juan: 76.8 cm/sec PA V2 max: 56.0 cm/sec MV A max juan: 70.1 cm/sec PA V2 mean: 44.5 cm/sec MV E/A: 1.1 PA mean P.82 mmHg Med Peak E' Juan: 7.1 cm/sec PA pr(Accel): 36.2 mmHg E/E' med: 10.9 Lat Peak E' Juan: 7.9 cm/sec E/E' lat: 9.8 E/e' average: 10.3 MV dec time: 0.23 sec SV(LVOT): 60.4 ml Reading Physician:11:53 AM
== END ==
PROVIDERS: PCP Student in an Organized Health Care Education/Training Program; Referring Provider Internal Medicine Cardiovascular Disease; Visit Provider Internal Medicine Cardiovascular Disease
DX: R00.2 Palpitations (principal); I49.3 Ventricular premature depolarization
CPT/HCPCS: 93306

== ENCOUNTER → 2021-07-16 07:54 | Outpatient (CLI) | payer OTHER, MEDICAID, SELFPAY ==
[2021-07-16 08:32] LABS: Cholesterol 191 mg/dL (140-199); HDL Cholesterol 66 mg/dL (40-60); LDL Cholesterol Calculated 116 mg/dL (<100); Triglycerides 45 mg/dL (35-150)
[2021-07-17 05:30] LABS: Homocysteine 7.7 umol/L (0.0-14.5)
== END ==
PROVIDERS: PCP Student in an Organized Health Care Education/Training Program; Referring Provider Internal Medicine Cardiovascular Disease; Visit Provider Internal Medicine Cardiovascular Disease
DX: I10 Essential (primary) hypertension (principal); Z13.220 Encounter for screening for lipoid disorders
CPT/HCPCS: 36415; 80061; 83090

== ENCOUNTER → 2021-09-19 10:21 | Outpatient (CLI) | payer OTHER, MEDICAID, SELFPAY ==
--- NOTE | 2021-09-19 10:22 | DI.RAD.S_ITS ---
PROCEDURE: XR SACRUM COCCYX MIN 2V INDICATIONS: Sacral radiculopathy TECHNIQUE: 3 views of the sacrum and coccyx acquired. COMPARISON: None. FINDINGS: Bones: No fractures or dislocations. No suspicious bony lesions. Soft tissues: Visualized bowel gas pattern is normal. No suspicious soft tissue densities. IMPRESSION: Negative sacrum/coccyx radiographic series. Dictated by: Jose Wilson M.D. on 09/19/2021 at 11:28 Approved by: Jose Wilson M.D. on 09/19/2021 at 11:29
== END ==
PROVIDERS: PCP Student in an Organized Health Care Education/Training Program; Referring Provider Student in an Organized Health Care Education/Training Program; Visit Provider Student in an Organized Health Care Education/Training Program
DX: M54.18 Radiculopathy, sacral and sacrococcygeal region (principal)
CPT/HCPCS: 72220

== ENCOUNTER → 2021-10-05 07:51 | Outpatient (CLI) | payer OTHER, MEDICAID, SELFPAY ==
[2021-10-05 09:20] LABS: COVID19 -Nasal RAPID POSITIVE (Negative)
== END ==
PROVIDERS: Family Provider Student in an Organized Health Care Education/Training Program; PCP Student in an Organized Health Care Education/Training Program; Visit Provider Nurse Practitioner Family
DX: Z20.822 Contact with and (suspected) exposure to COVID-19 (principal); J02.9 Acute pharyngitis, unspecified
CPT/HCPCS: 87635

== ENCOUNTER → 2021-11-07 14:46 | Outpatient (CLI) | payer OTHER, MEDICAID, SELFPAY ==
--- NOTE | 2021-11-07 | DI.MG.S_ITS ---
BILATERAL DIGITAL SCREENING MAMMOGRAM 3D/2D WITH CAD: 11/07/2021 CLINICAL: Routine screening. Comparison is made to exams dated: 11/13/2020 mammogram - outside facility, 11/16/2019 mammogram, and 10/29/2018 mammogram - [facility]. There are scattered fibroglandular elements in both breasts. Current study was also evaluated with a Computer Aided Detection (CAD) system. No significant masses, calcifications, or other findings are seen in either breast. There has been no significant interval change. IMPRESSION: NEGATIVE There is no mammographic evidence of malignancy. A 1 year screening mammogram is recommended. This exam was interpreted at Station ID: [id number]. NOTE: For mammograms, a report in lay terms will be sent to the patient. Approximately 15% of breast malignancies will not be visualized mammographically. In the management of a palpable breast mass, a negative mammogram must not discourage biopsy of a clinically suspicious lesion. Electronically Signed By: Jeff cortez/dorina:11/07/2021 15:36:57 copy to: BANDAR RAMIREZ letter sent: Normal Exam ACR BI-RADS Category 1: Negative [id number]
== END ==
PROVIDERS: Family Provider Student in an Organized Health Care Education/Training Program; PCP Student in an Organized Health Care Education/Training Program; Referring Provider Student in an Organized Health Care Education/Training Program; Visit Provider Student in an Organized Health Care Education/Training Program
DX: Z12.31 Encounter for screening mammogram for malignant neoplasm of breast (principal)
CPT/HCPCS: 77063; 77067

== ENCOUNTER 2021-11-21 13:00 | Outpatient (RCR) | payer OTHER, MEDICAID, SELFPAY ==
--- NOTE | 2021-10-03 18:05 | PT.OIE ---
Current Diagnoses Radiculopathy, sacral and sacrococcygeal region (10/03/21) Past Medical History (Last Updated 02/23/21 @ 14:27 by Shaheen Douglas MD) Anemia Anxiety (~1997) Atrophic gastritis without mention of hemorrhage (04/19/02) Chronic back pain Gastric ulcer H/O LEEP High risk human papilloma virus (HPV) infection of cervix History of anemia History of gastric ulcer Low testosterone level in female (~1999) Postmenopausal Sciatica of left side Past Surgical History (Last Updated 02/23/21 @ 14:24 by Shaheen Douglas MD) H/O LEEP Visit Care Team Role Provider Type Shaheen Douglas MD Attending Provider Physician Family Provider Primary Care Provider Referring Provider Specialty: Internal Medicine Address: [address] [place] [address], [address], [facility] Email: [email or web address] Physical Therapy Initial Evaluation PT-OP-A Visit Information Start: 10/03/21 11:16 Freq: Status: Active Protocol: Document 10/03/21 11:15 [facility] (Rec: 10/03/21 13:28 [facility] [id number]) Out-Patient Physical Therapy Visit Information Visit Information Visit Type Initial Evaluation Visit Start Time 11:15 Visit Stop Time 12:00 Total Visit Minutes 45 Visit Number 1 Evaluation Information Evaluation Date 10/03/21 PT-OP-B Current Condition Start: 10/03/21 11:16 Freq: Status: Active Protocol: Document 10/03/21 11:15 [facility] (Rec: 10/03/21 11:35 [facility] [id number]) Current Condition History of Current Condition Onset Date 1 month ago Current Complaints low back, sacral, coccyx pain History of Current Condition pt is experiencing sacral and coccyx pain, pt notes she can' t even sit, she notes a month ago she felt this pain and she describes it as stabbing pain . She coughed and sneezed and then the pain increased. At this point she is unable to flex her head down as this increases the Lumbar extension feels the best. Pain is worse on the right side. SHe feels like she cant go to work due to pain Treatment Goals Patient/Caregiver Goals pts goals include reducing pain and improving motion Prior Functional Status Baseline Function- ADL's Independent Baseline Function- Mobility Independent Current Functional Impairments (Reported) Functional Limitations- ADL's Pt needs help with most aspects of self care, Functional Limitations- Mobility/Gait pain prevents walking more than 1/2 mile PT-OP-C Subjective Start: 10/03/21 11:16 Freq: Status: Active Protocol: Document 10/05/21 11:15 [facility] (Rec: 10/03/21 13:28 [facility] [id number]) Patient Questionnaires Oswestry Low Back Index Oswestry Score 31 Oswestry Impairment 20 to 39% Impaired (Score 20- 39) OP-PT Pain Assessment Location low back and sacrum Intensity 8 Scale Used Numeric (0 - 10) Description Radiating,Sharp,Stabbing Frequency Frequent PT-OP-F Manual Assessment Start: 10/03/21 11:16 Freq: Status: Active Protocol: Document 10/05/21 11:15 [facility] (Rec: 10/03/21 13:28 [facility] [id number]) Manual Assessments Soft Tissue Assessment Soft Tissue Mobility Assessment right greater than left parapspinal tightness and guarding, tightness of the piriformis right greater than left, quadratus lumborum on the right PT-OP-K Range of Motion Start: 10/03/21 13:28 Freq: Status: Active Protocol: Document 10/05/21 11:15 [facility] (Rec: 10/03/21 13:31 [facility] [id number]) Lumbar Spine Range of Motion Lumbar Spine Active Testing Position Standing Flexion 15 Lateral Flexion Left 5 Lateral Flexion Right 5 ROM Limitations Soft Tissue Tightness,Pain Comments pt is very guarded and has limited ROM spinal ROM today, flexion increases her pain, she is able to lay in prone. Sidebending right is more painful for her. She was not able to tolerate quadruped lumbar mobility PT-OP-M Strength Start: 10/03/21 11:16 Freq: Status: Active Protocol: Document 10/05/21 11:15 [facility] (Rec: 10/03/21 13:31 [facility] [id number]) Ankle/Foot Strength Ankle and Foot Manual Muscle Testing Right Dorsiflexion (L4) 4+ Good+ Plantarflexion (S1) 4+ Good+ PT-OP-Q Treatments Start: 10/03/21 11:16 Freq: Status: Active Protocol: Document 10/05/21 11:15 [facility] (Rec: 10/03/21 13:28 [facility] [id number]) Therapeutic Exercises Supine Exercises single knee to chest Reps/Minutes 1-2 reps hold 30 sec Standing Exercises pelvic tilt against the wall Reps/Minutes x 5 Manual Therapy Treatment Soft Tissue Mobilization STM for B paraspinals Body Position Prone Comments on body pillow PT-OP-R Modalities Start: 10/03/21 13:28 Freq: Status: Active Protocol: Document 10/05/21 11:15 [facility] (Rec: 10/03/21 13:32 [facility] [id number]) Electric Stimulation Electric Stimulation Pre-Modulated Body Location lumbar paraspinals Duration (Minutes) 15 Frequency 7 Contraction Type Normal Patient Position Prone Comments pt prone on the body pillow PT-OP-T Assessment and Plan Start: 10/03/21 11:16 Freq: Status: Active Protocol: Document 10/05/21 11:15 [facility] (Rec: 10/03/21 13:36 [facility] [id number]) Physical Therapy Assessment Rehab Potential Rehabilitation Potential Excellent Evaluation Complexity Number of Personal Factors/Comorbidities 0 Number of Body Systems Impaired 1-2 Clinical Presentation at Evaluation Stable Impairments Impairments Activity Tolerance,Functional Activities,Functional Mobility ,Pain,Posture,ROM,Soft Tissue Mobility,Strength,Tone Goals 4 Impairment pain prevents Fabiana from sitting greater than 10 min 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 Goal (LTG) Fabiana is able to sit for 30 min without increased pain LTG Duration 8 weeks 3 Impairment Decreased core strength Short Term Goal (STG) Fabiana is able to tolerate bracing with her pelvic floor and transverse abdominal muscles STG Duration 2-3 weeks 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 Goal (LTG) Fabiana is able to perform a progressive core stabilization program to support her lumbar spine and pelvis LTG Duration 8 weeks 2 Impairment Decreased lumbar ROM, pt gets increased pain with cervical flexion Correction Goal (LTG) Fabiana is able to perform full pain free lumbar ROM and cervical flexion no longer causes pain LTG Duration 8 weeks 1 Impairment muscle guarding and spasm of the lumbar paraspinals Short Term Goal (STG) Red presents with a overall reduction in lumbar paraspinal muscle spasm and is able to tolerate gentle ROM exercises STG Duration 2-3 weeks Correction Goal (LTG) Overall reduction in lumbar paraspinal muscle guarding and spasm LTG Duration 8 weeks Assessment Summary Assessment Red is a 56 year old female presenting with acute low back and sacral pain. Her symptoms began approximately one month ago. She reports increased pain with coughing or sneeze and with cervical flexion. With exam today she is very guarded in her lumbar paraspinals and she is very limited in her ROM. I did start her with gentle STM and e-stim for pain control which she tolerated well. She is a good candidate for PT with emphasis on decreasing pain, improving lumbar spine ROM, improving core strength, body mechanics training, and functional mobility. Physical Therapy Plan Frequency and Duration Frequency of Treatment 2x/Week Duration of Treatment 8 Plan of Care Start Date 10/03/21 Plan of Care End Date 12/12/21 Therapeutic Interventions Therapeutic Interventions Home Exercise Program,Manual Therapy,Neuromuscular Re- education,Patient/Caregiver Education,Self-Care/Home Management,Sensory Integration ,Therapeutic Exercises Modalities Cold Pack/Ice Massage,Electric Stimulation,Hot Packs Next Visit Focus/Plan Next Note Type Treatment Note Next Visit Plan work on lumbar ROM and mobility, core stabilization, gentle STM to reduce muscle spasm and tone
--- NOTE | 2021-10-03 18:08 | PT.OPPOC ---
Physical, Occupational & Speech Therapy At [facility] Current Diagnoses Radiculopathy, sacral and sacrococcygeal region (10/03/21) Visit Care Team Role Provider Type Shaheen Douglas MD Attending Provider Physician Family Provider Primary Care Provider Referring Provider Specialty: Internal Medicine Address: [address] [place] [address], [address], [facility] Email: [email or web address] Plan Of Care PT-OP-T Assessment and Plan Start: 10/03/21 11:16 Freq: Status: Active Protocol: Document 10/03/21 11:15 [facility] (Rec: 10/03/21 13:36 [facility] [id number]) Physical Therapy Assessment Rehab Potential Rehabilitation Potential Excellent Evaluation Complexity Number of Personal Factors/Comorbidities 0 Number of Body Systems Impaired 1-2 Clinical Presentation at Evaluation Stable Impairments Impairments Activity Tolerance,Functional Activities,Functional Mobility ,Pain,Posture,ROM,Soft Tissue Mobility,Strength,Tone Goals 4 Impairment pain prevents Fabiana from sitting greater than 10 min Alf Goal (LTG) Fabiana is able to sit for 30 min without increased pain LTG Duration 8 weeks 3 Impairment Decreased core strength Short Term Goal (STG) Fabiana is able to tolerate bracing with her pelvic floor and transverse abdominal muscles STG Duration 2-3 weeks Alf Goal (LTG) Fabiana is able to perform a progressive core stabilization program to support her lumbar spine and pelvis LTG Duration 8 weeks 2 Impairment Decreased lumbar ROM, pt gets increased pain with cervical flexion 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 Her symptoms began approximately one month ago. She reports increased pain with coughing or sneeze and with cervical flexion. With exam today she is very guarded in her lumbar paraspinals and she is very limited in her ROM. I did start her with gentle STM and e-stim for pain control which she tolerated well. She is a good candidate for PT with emphasis on decreasing pain, improving lumbar spine ROM, improving core strength, body mechanics training, and functional mobility. Physical Therapy Plan Frequency and Duration Frequency of Treatment 2x/Week Duration of Treatment 8 Plan of Care Start Date 10/03/21 Plan of Care End Date 12/12/21 Therapeutic Interventions Therapeutic Interventions Home Exercise Program,Manual Therapy,Neuromuscular Re- education,Patient/Caregiver Education,Self-Care/Home Management,Sensory Integration ,Therapeutic Exercises Modalities Cold Pack/Ice Massage,Electric Stimulation,Hot Packs Next Visit Focus/Plan Next Note Type Treatment Note Next Visit Plan work on lumbar ROM and mobility, core stabilization, gentle STM to reduce muscle spasm and tone Plan of Care Dates Plan of Care Start Date 10/03/21 Plan of Care End Date 12/12/21 Electronically Signed by: Maude Leigh, PT 10/06/21 [id number] Please Sign and Return: I have reviewed this Plan of Care and certify that the skilled therapy services above are required to meet the patient?s needs. Physician Signature Date Printed Name and Credentials Clinical Instructor Signature Printed Name and Credentials
--- NOTE | 2021-10-04 13:15 | PT.OTN ---
Current Diagnoses Radiculopathy, sacral and sacrococcygeal region (10/04/21) Physical Therapy Treatment Note PT-OP-A Visit Information Start: 10/03/21 11:16 Freq: Status: Active Protocol: Document 10/04/21 12:16 SP (Rec: 10/04/21 13:37 SP [id number]) Out-Patient Physical Therapy Visit Information Visit Information Visit Type Treatment Note Visit Start Time 12:16 Visit Stop Time 13:15 Total Visit Minutes 59 Visit Number 2 Number of CHARGING PLUG PLACER Visits 1 Evaluation Information Evaluation Date 10/03/21 PT-OP-B Current Condition Start: 10/03/21 11:16 Freq: Status: Active Protocol: Document 10/03/21 11:15 [facility] (Rec: 10/03/21 11:35 [facility] [id number]) Current Condition History of Current Condition Onset Date 1 month ago Current Complaints low back, sacral, coccyx pain History of Current Condition pt is experiencing sacral and coccxy pain, pt notes she can' t even sit, she notes a month ago she felt this pain and she describes it as stabbing pain . She coughed and sneezed and then the pain increased. At this point she is unable to flex her head down as this increases the Lumbar extension feels the best. Pain is worse on the right side. SHe feels like she cant go to work due to pain Treatment Goals Patient/Caregiver Goals pts goals include reducing pain and improving motion Prior Functional Status Baseline Function- ADL's Independent Baseline Function- Mobility Independent Current Functional Impairments (Reported) Functional Limitations- ADL's Pt needs help with most aspects of self care, Functional Limitations- Mobility/Gait pain prevents walking more than 1/2 mile PT-OP-C Subjective Start: 10/03/21 11:16 Freq: Status: Active Protocol: Document 10/04/21 12:16 SP (Rec: 10/04/21 13:37 SP [id number]) OP-PT Subjective Patient Comments Patient Comments Pt reported felt really good after last tx. Having increased back pain about 1 hr after last tx when got down on hands and knees to get cleaning products out of under sink cupboard when felt a spasming elastic band pull in back, took her breath away but was able to get self off floor. Pt called this am to get in and try to see if can make better. Pt arrived rounded posture guarded back pain, stated needed help getting out of car when got here she walks PPT with LB guarding. Patient Reported Progress Worse PT-OP-F Manual Assessment Start: 10/03/21 11:16 Freq: Status: Active Protocol: Document 10/03/21 11:15 [facility] (Rec: 10/03/21 13:28 [facility] [id number]) Manual Assessments Soft Tissue Assessment Soft Tissue Mobility Assessment right greater than left parapspinal tightness and guarding, tightness of the piriformis right greater than left, quadratus lumborum on the right PT-OP-K Range of Motion Start: 10/03/21 13:28 Freq: Status: Active Protocol: Document 10/03/21 11:15 [facility] (Rec: 10/03/21 13:31 [facility] [id number]) Lumbar Spine Range of Motion Lumbar Spine Active Testing Position Standing Flexion 15 Lateral Flexion Left 5 Lateral Flexion Right 5 ROM Limitations Soft Tissue Tightness,Pain Comments pt is very guarded and has limited ROM spinal ROM today, flexion increases her pain, she is able to lay in prone. Sidebending right is more painful for her. She was not able to tolerate quadruped lumbar mobility PT-OP-M Strength Start: 10/03/21 11:16 Freq: Status: Active Protocol: Document 10/03/21 11:15 [facility] (Rec: 10/03/21 13:31 [facility] [id number]) Ankle/Foot Strength Ankle and Foot Manual Muscle Testing Right Dorsiflexion (L4) 4+ Good+ Plantarflexion (S1) 4+ Good+ PT-OP-Q Treatments Start: 10/03/21 11:16 Freq: Status: Active Protocol: Document 10/04/21 12:16 SP (Rec: 10/04/21 13:37 SP [id number]) Therapeutic Exercises Supine Exercises piriformis stretch Supine Exercise Name added to HEP Side bilateral Reps/Minutes 20 sec ankle on opposite knee Comments good feedback response, little discomfort but feels helpful ROM, dec'd pain LTR Supine Exercise Name added toHEP Side bilateral Reps/Minutes 5 sec hold x3 Comments good feedback response, painfree, cued slow movement w / TA if needed active HS w/ AP Supine Exercise Name added toHEP Side bilateral Reps/Minutes x5 Comments good feedback response single knee to chest Supine Exercise Name reviewed HEP Side bilateral Reps/Minutes 2 reps hold 30 sec Comments good feedback response, less pain in LS Sitting Exercises seated posture w/ pillows Sitting Exercise Name Discussed and performed seated pillow back for alignment Comments improved understanding needed for couch posture- better, less pain Standing Exercises pelvic tilt against the wall Standing Exercise Name unable to do this tx. Discussed in sitting, gentle ROM Manual Therapy Treatment Soft Tissue Mobilization STM for B paraspinals Body Position Prone Comments on body pillow STM right gluteals Body Location B piriformis, glut med/max Mobilization Type Myofascial Release,Sustained Pressure,Trigger Point Release Intensity/Depth Moderate Body Position Prone Comments good feedback response PT-OP-R Modalities Start: 10/03/21 13:28 Freq: Status: Active Protocol: Document 10/04/21 12:16 SP (Rec: 10/04/21 13:37 SP [id number]) Electric Stimulation Electric Stimulation Pre-Modulated Body Location lumbar paraspinals Duration (Minutes) 15 Frequency 8 Contraction Type Normal Patient Position Sitting Combined With Heat/Cold Cold Pack Comments 2 pillows and CP behind back. Hot Pack/Cold Pack Treatment Cold Pack Location LS Patient Position Sitting Treatment Duration (minutes) 8 Patient Tolerance Good Comments good feedback response. PT-OP-T Assessment and Plan Start: 10/03/21 11:16 Freq: Status: Active Protocol: Document 10/04/21 12:16 SP (Rec: 10/04/21 13:37 SP [id number]) Physical Therapy Assessment Goals 4 Impairment pain prevents Fabiana from sitting greater than 10 min Alf Goal (LTG) Fabiana is able to sit for 30 min without increased pain LTG Duration 8 weeks 3 Impairment Decreased core strength Short Term Goal (STG) Fabiana is able to tolerate bracing with her pelvic floor and transverse abdominal muscles STG Duration 2-3 weeks Alf Goal (LTG) Fabiana is able to perform a progressive core stabilization program to support her lumbar spine and pelvis LTG Duration 8 weeks 2 Impairment Decreased lumbar ROM, pt gets increased pain with cervical flexion 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 Ended with modalities with good response less pain than when came in 02/04. Cued try all ROM with TA for functional mobility reeduction, good understanding and good response performance during throughout tx, less guarded leaving. Physical Therapy Plan Frequency and Duration Frequency of Treatment 2x/Week Duration of Treatment 8 Plan of Care Start Date 10/03/21 Plan of Care End Date 12/12/21 Therapeutic Interventions Therapeutic Interventions Home Exercise Program,Manual Therapy,Patient/Caregiver Education,Self-Care/Home Management,Sensory Integration ,Therapeutic Exercises Next Visit Focus/Plan Next Note Type Treatment Note Next Visit Plan Assess response to manual, ROM HEP. Recheck HEP. Next tx: quadruped cat/ camel/ tail wag , child's pose. POC: work on lumbar ROM and mobility, core stabilization, gentle STM to reduce muscle spasm and tone
--- NOTE | 2021-10-11 09:08 | PT.OTN ---
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 She coughed and sneezed and then the pain increased. At this point she is unable to flex her head down as this increases the Lumbar extension feels the best. Pain is worse on the right side. SHe feels like she cant go to work due to pain Treatment Goals Patient/Caregiver Goals pts goals include reducing pain and improving motion Prior Functional Status Baseline Function- ADL's Independent Baseline Function- Mobility Independent Current Functional Impairments (Reported) Functional Limitations- ADL's Pt needs help with most aspects of self care, Functional Limitations- Mobility/Gait pain prevents walking more than 1/2 mile PT-OP-C Subjective Start: 10/03/21 11:16 Freq: Status: Active Protocol: Document 10/11/21 08:14 SP (Rec: 10/11/21 09:40 SP [id number]) OP-PT Subjective Patient Comments Patient Comments Pt reported feeling little better, able to move little better but hard to tie shoes because can't hold her B legs up to tie shoes. Pt states is going to return to help dad and alf facility, helps with transportation of appts and does light cleaning and his laundry. Pt requested some of tx time spend with mechanics to do these caregiver ADLs with back health. Pt stated the ball on wall self STMs has helped massage muscles and pain to subside in the moment, performs when needed. PT-OP-F Manual Assessment Start: 10/03/21 11:16 Freq: Status: Active Protocol: Document 10/03/21 11:15 [facility] (Rec: 10/03/21 13:28 [facility] [id number]) Manual Assessments Soft Tissue Assessment Soft Tissue Mobility Assessment right greater than left parapspinal tightness and guarding, tightness of the piriformis right greater than left, quadratus lumborum on the right PT-OP-K Range of Motion Start: 10/03/21 13:28 Freq: Status: Active Protocol: Document 10/03/21 11:15 [facility] (Rec: 10/03/21 13:31 [facility] [id number]) Lumbar Spine Range of Motion Lumbar Spine Active Testing Position Standing Flexion 15 Lateral Flexion Left 5 Lateral Flexion Right 5 ROM Limitations Soft Tissue Tightness,Pain Comments pt is very guarded and has limited ROM spinal ROM today, flexion increases her pain, she is able to lay in prone. Sidebending right is more painful for her. She was not able to tolerate quadruped lumbar mobility PT-OP-M Strength Start: 10/03/21 11:16 Freq: Status: Active Protocol: Document 10/03/21 11:15 [facility] (Rec: 10/03/21 13:31 [facility] [id number]) Ankle/Foot Strength Ankle and Foot Manual Muscle Testing Right Dorsiflexion (L4) 4+ Good+ Plantarflexion (S1) 4+ Good+ PT-OP-Q Treatments Start: 10/03/21 11:16 Freq: Status: Active Protocol: Document 10/11/21 08:14 SP (Rec: 10/11/21 09:40 SP [id number]) Therapeutic Exercises Supine Exercises piriformis stretch Supine Exercise Name reviewed HEP- verbalized this tx doing ok with Side bilateral Reps/Minutes 20 sec ankle on opposite knee Comments good feedback response, little discomfort but feels helpful ROM, dec'd pain LTR Supine Exercise Name reviewed HEP-verbalized this tx doing ok with Side bilateral Reps/Minutes 5 sec hold x3 Comments good feedback response, painfree, cued slow movement w / TA if needed active HS w/ AP Supine Exercise Name reviewed HEP-verbalized this tx doing ok with Side bilateral Reps/Minutes x5 Comments good feedback response single knee to chest Supine Exercise Name reviewed HEP- verbalized this tx doing ok with Side bilateral Reps/Minutes 2 reps hold 30 sec Comments good feedback response, less pain in LS Prone Exercises pelvic tilts Prone Exercise Name A/P/ lateral tilts (not for HEP) Side bilateral Reps/Minutes x3 reps each direction pre prone>quadruped Comments painfree range pre LS mob before getting up from STMs body pillow- good radha Sitting Exercises pelvic tilts on ball Sitting Exercise Name A/P/lateral- added to HEP Side bilateral Resistance AROM within tolerance Equipment Used 55cm (has at home), contact table for TA support and balance Reps/Minutes x8 Comments cued tall posture, slow gentle pelvic mobility- painfree range Other Exercises quadruped Other Exercise Name child's pose stretch, cat camel, tail wag Side bilateral Resistance AROM Reps/Minutes x5 each Comments cued TA and slow gentle ROM- painfree range Therapeutic Activity Therapeutic Activity transfer in/ out car Comments ROM pelvis tilts, TA activation, discussed keeping LEs together small steps/swing to get out of car at this time due to LE dissociation is causing pain in LB/SI. Improved performance and decrease pain. lifting body mechanics Comments education on proper body mechanics lifting ADLs ( laundry), cued tall neutral spine/ WBOS/hip hinge lift with LEs keeping object close to body. Discussed 1/2 kneel wt shift between LEs with tall straight posture w/ TA engaged to open dryer (hard to open). Manual Therapy Treatment Soft Tissue Mobilization STM for B paraspinals Mobilization Type Myofascial Release,Rolling, Sustained Pressure,Trigger Point Release Intensity/Depth Moderate Body Position Prone Comments on body pillow STM right gluteals Body Location B piriformis, glut med/max Mobilization Type Myofascial Release,Sustained Pressure,Trigger Point Release Intensity/Depth Moderate Body Position Prone body pillow Comments good feedback response PT-OP-R Modalities Start: 10/03/21 13:28 Freq: Status: Active Protocol: Document 10/04/21 12:16 SP (Rec: 10/04/21 13:37 SP [id number]) Electric Stimulation Electric Stimulation Pre-Modulated Body Location lumbar paraspinals Duration (Minutes) 15 Frequency 8 Contraction Type Normal Patient Position Sitting Combined With Heat/Cold Cold Pack Comments 2 pillows and CP behind back. Hot Pack/Cold Pack Treatment Cold Pack Location LS Patient Position Sitting Treatment Duration (minutes) 8 Patient Tolerance Good Comments good feedback response. PT-OP-T Assessment and Plan Start: 10/03/21 11:16 Freq: Status: Active Protocol: Document 10/11/21 08:14 SP (Rec: 10/11/21 09:40 SP [id number]) Physical Therapy Assessment Goals 4 Impairment pain prevents Fabiana from sitting greater than 10 min Group Home Goal (LTG) Fabiana is able to sit for 30 min without increased pain LTG Duration 8 weeks 3 Impairment Decreased core strength Short Term Goal (STG) Fabiana is able to tolerate bracing with her pelvic floor and transverse abdominal muscles STG Duration 2-3 weeks Group Home Goal (LTG) Fabiana is able to perform a progressive core stabilization program to support her lumbar spine and pelvis LTG Duration 8 weeks 2 Impairment Decreased lumbar ROM, pt gets increased pain with cervical flexion Group Home Goal (LTG) Fabiana is able to perform full pain free lumbar ROM and cervical flexion no longer causes pain LTG Duration 8 weeks 1 Impairment muscle guarding and spasm of the lumbar paraspinals Short Term Goal (STG) Red presents with a overall reduction in lumbar paraspinal muscle spasm and is able to tolerate gentle ROM exercises STG Duration 2-3 weeks Group Home Goal (LTG) Overall reduction in lumbar paraspinal muscle guarding and spasm LTG Duration 8 weeks Assessment Summary Assessment Pt improved decrease tightness post manual. Pt tolerated pelvic ROM prone>quadruped, initiated quadruped cat/camel, seated pelvic tilts tball and discussed can apply seated in car pre mobiltiy getting out for muscle facilitation and spinal support. Discussed body mechanics for back health with ADLs and good understanding and performance. Pt demonstrated increased pelvis ROM/ mobility when walking out of tx, stated I can move a little better but back still sore. Physical Therapy Plan Frequency and Duration Frequency of Treatment 2x/Week Duration of Treatment 8 Plan of Care Start Date 10/03/21 Plan of Care End Date 12/12/21 Therapeutic Interventions Therapeutic Interventions Home Exercise Program,Manual Therapy,Patient/Caregiver Education,Self-Care/Home Management,Sensory Integration ,Therapeutic Exercises Next Visit Focus/Plan Next Note Type Treatment Note Next Visit Plan Assess response to manual, pelvic tilts. Recheck HEP, including supine and body mechanics ADLs since last tx.. Next tx: progress core strengthening if able. POC: work on lumbar ROM and mobility, core stabilization, gentle STM to reduce muscle spasm and tone
--- NOTE | 2021-10-15 12:08 | PT.OTN ---
Current Diagnoses Radiculopathy, sacral and sacrococcygeal region (10/15/21) Physical Therapy Treatment Note PT-OP-A Visit Information Start: 10/03/21 11:16 Freq: Status: Active Protocol: Document 10/15/21 10:35 [facility] (Rec: 10/15/21 10:56 [facility] [id number]) Out-Patient Physical Therapy Visit Information Visit Information Visit Type Treatment Note Visit Start Time 10:35 Visit Stop Time 11:15 Total Visit Minutes 40 Visit Number 4 PT-OP-B Current Condition Start: 10/03/21 11:16 Freq: Status: Active Protocol: Document 10/03/21 11:15 [facility] (Rec: 10/03/21 11:35 [facility] [id number]) Current Condition History of Current Condition Onset Date 1 month ago Current Complaints low back, sacral, coccyx pain History of Current Condition pt is experiencing sacral and coccxy pain, pt notes she can' t even sit, she notes a month ago she felt this pain and she describes it as stabbing pain . She coughed and sneezed and then the pain increased. At this point she is unable to flex her head down as this increases the Lumbar extension feels the best. Pain is worse on the right side. SHe feels like she cant go to work due to pain Treatment Goals Patient/Caregiver Goals pts goals include reducing pain and improving motion Prior Functional Status Baseline Function- ADL's Independent Baseline Function- Mobility Independent Current Functional Impairments (Reported) Functional Limitations- ADL's Pt needs help with most aspects of self care, Functional Limitations- Mobility/Gait pain prevents walking more than 1/2 mile PT-OP-C Subjective Start: 10/03/21 11:16 Freq: Status: Active Protocol: Document 10/15/21 10:35 [facility] (Rec: 10/15/21 10:56 [facility] [id number]) OP-PT Subjective Patient Comments Patient Comments pt is doing better, she is still having her boyfriend put on her socks and shoes. She can reach the position but has a hard time holding it. Xrays shows bone spurs by L4- L5 She was able to go for two walks both thu and thursday but did have a little hip pain. Thursday was her first really good day Patient Reported Progress Improving PT-OP-F Manual Assessment Start: 10/03/21 11:16 Freq: Status: Active Protocol: Document 10/03/21 11:15 [facility] (Rec: 10/03/21 13:28 [facility] [id number]) Manual Assessments Soft Tissue Assessment Soft Tissue Mobility Assessment right greater than left parapspinal tightness and guarding, tightness of the piriformis right greater than left, quadratus lumborum on the right PT-OP-K Range of Motion Start: 10/03/21 13:28 Freq: Status: Active Protocol: Document 10/03/21 11:15 [facility] (Rec: 10/03/21 13:31 [facility] [id number]) Lumbar Spine Range of Motion Lumbar Spine Active Testing Position Standing Flexion 15 Lateral Flexion Left 5 Lateral Flexion Right 5 ROM Limitations Soft Tissue Tightness,Pain Comments pt is very guarded and has limited ROM spinal ROM today, flexion increases her pain, she is able to lay in prone. Sidebending right is more painful for her. She was not able to tolerate quadruped lumbar mobility PT-OP-M Strength Start: 10/03/21 11:16 Freq: Status: Active Protocol: Document 10/03/21 11:15 [facility] (Rec: 10/03/21 13:31 [facility] [id number]) Ankle/Foot Strength Ankle and Foot Manual Muscle Testing Right Dorsiflexion (L4) 4+ Good+ Plantarflexion (S1) 4+ Good+ PT-OP-Q Treatments Start: 10/03/21 11:16 Freq: Status: Active Protocol: Document 10/15/21 10:35 [facility] (Rec: 10/15/21 10:56 [facility] [id number]) Therapeutic Exercises Supine Exercises piriformis stretch Supine Exercise Name reviewed HEP- verbalized this tx doing ok with Side bilateral Reps/Minutes 20 sec ankle on opposite knee Comments good feedback response, little discomfort but feels helpful ROM, dec'd pain LTR Supine Exercise Name reviewed HEP-verbalized this tx doing ok with Side bilateral Reps/Minutes 5 sec hold x3 Comments good feedback response, painfree, cued slow movement w / TA if needed active HS w/ AP Supine Exercise Name reviewed HEP-verbalized this tx doing ok with Side bilateral Reps/Minutes x5 Comments good feedback response single knee to chest Supine Exercise Name reviewed HEP- verbalized this tx doing ok with Side bilateral Reps/Minutes 2 reps hold 30 sec Comments good feedback response, less pain in LS Other Exercises QUadruped TA facilitation Reps/Minutes x 10 reps cat cow Reps/Minutes x 10 reps quadruped Other Exercise Name child's pose stretch, cat camel, tail wag Side bilateral Resistance AROM Reps/Minutes x5 each Comments cued TA and slow gentle ROM- painfree range Manual Therapy Treatment Soft Tissue Mobilization STM for B paraspinals Mobilization Type Myofascial Release,Rolling, Sustained Pressure,Trigger Point Release Intensity/Depth Moderate Body Position Prone Comments on body pillow PT-OP-R Modalities Start: 10/03/21 13:28 Freq: Status: Active Protocol: Document 10/04/21 12:16 SP (Rec: 10/04/21 13:37 SP [id number]) Electric Stimulation Electric Stimulation Pre-Modulated Body Location lumbar paraspinals Duration (Minutes) 15 Frequency 8 Contraction Type Normal Patient Position Sitting Combined With Heat/Cold Cold Pack Comments 2 pillows and CP behind back. Hot Pack/Cold Pack Treatment Cold Pack Location LS Patient Position Sitting Treatment Duration (minutes) 8 Patient Tolerance Good Comments good feedback response. PT-OP-T Assessment and Plan Start: 10/03/21 11:16 Freq: Status: Active Protocol: Document 10/15/21 10:35 [facility] (Rec: 10/15/21 12:08 [facility] [id number]) Physical Therapy Assessment Assessment Summary Assessment Pt is doing better overall, she was able to lay supine and flex her head for me today as well as tolerating active hamstring stretches. I initiated TA facilitation today in quadruped with good tolerance Physical Therapy Plan Frequency and Duration Frequency of Treatment 2x/Week Duration of Treatment 8 Plan of Care Start Date 10/03/21 Plan of Care End Date 12/12/21 Therapeutic Interventions Therapeutic Interventions Home Exercise Program,Manual Therapy,Patient/Caregiver Education,Self-Care/Home Management,Sensory Integration ,Therapeutic Exercises Next Visit Focus/Plan Next Note Type Treatment Note Next Visit Plan continue to work on mobility as well as adding in stability exercises. Progress from TA in quadruped to supine march
--- NOTE | 2021-10-27 15:33 | PT.OTN ---
Current Diagnoses Radiculopathy, sacral and sacrococcygeal region (10/24/21) Physical Therapy Treatment Note PT-OP-A Visit Information Start: 10/03/21 11:16 Freq: Status: Active Protocol: Document 10/24/21 12:59 [facility] (Rec: 10/24/21 13:27 [facility] [id number]) Out-Patient Physical Therapy Visit Information Visit Information Visit Type Treatment Note Visit Start Time 13:00 Visit Stop Time 13:45 Total Visit Minutes 45 Visit Number 5 PT-OP-B Current Condition Start: 10/03/21 11:16 Freq: Status: Active Protocol: Document 10/03/21 11:15 [facility] (Rec: 10/03/21 11:35 [facility] [id number]) Current Condition History of Current Condition Onset Date 1 month ago Current Complaints low back, sacral, coccyx pain History of Current Condition pt is experiencing sacral and coccxy pain, pt notes she can' t even sit, she notes a month ago she felt this pain and she describes it as stabbing pain . She coughed and sneezed and then the pain increased. At this point she is unable to flex her head down as this increases the Lumbar extension feels the best. Pain is worse on the right side. SHe feels like she cant go to work due to pain Treatment Goals Patient/Caregiver Goals pts goals include reducing pain and improving motion Prior Functional Status Baseline Function- ADL's Independent Baseline Function- Mobility Independent Current Functional Impairments (Reported) Functional Limitations- ADL's Pt needs help with most aspects of self care, Functional Limitations- Mobility/Gait pain prevents walking more than 1/2 mile PT-OP-C Subjective Start: 10/03/21 11:16 Freq: Status: Active Protocol: Document 10/24/21 12:59 [facility] (Rec: 10/24/21 13:27 [facility] [id number]) OP-PT Subjective Patient Comments Patient Comments hpt reports she is doing good with her exercises and has been walking. She has been walking but is sore in her hips from walking, she still having a little difficulty tying her shoes. She does feel like her symptoms are improving and low back pain is decreasing Patient Reported Progress Improving PT-OP-F Manual Assessment Start: 10/03/21 11:16 Freq: Status: Active Protocol: Document 10/03/21 11:15 [facility] (Rec: 10/03/21 13:28 [facility] [id number]) Manual Assessments Soft Tissue Assessment Soft Tissue Mobility Assessment right greater than left parapspinal tightness and guarding, tightness of the piriformis right greater than left, quadratus lumborum on the right PT-OP-K Range of Motion Start: 10/03/21 13:28 Freq: Status: Active Protocol: Document 10/03/21 11:15 [facility] (Rec: 10/03/21 13:31 [facility] [id number]) Lumbar Spine Range of Motion Lumbar Spine Active Testing Position Standing Flexion 15 Lateral Flexion Left 5 Lateral Flexion Right 5 ROM Limitations Soft Tissue Tightness,Pain Comments pt is very guarded and has limited ROM spinal ROM today, flexion increases her pain, she is able to lay in prone. Sidebending right is more painful for her. She was not able to tolerate quadruped lumbar mobility PT-OP-M Strength Start: 10/03/21 11:16 Freq: Status: Active Protocol: Document 10/03/21 11:15 [facility] (Rec: 10/03/21 13:31 [facility] [id number]) Ankle/Foot Strength Ankle and Foot Manual Muscle Testing Right Dorsiflexion (L4) 4+ Good+ Plantarflexion (S1) 4+ Good+ PT-OP-Q Treatments Start: 10/03/21 11:16 Freq: Status: Active Protocol: Document 10/24/21 12:59 [facility] (Rec: 10/24/21 13:27 [facility] [id number]) Therapeutic Exercises Supine Exercises supine marches Reps/Minutes x 10 reps wind shield wipers Reps/Minutes x10 pelvic tilt into a bridge Reps/Minutes x 10 single knee to chest Supine Exercise Name Single to chest Side bilateral Reps/Minutes 2 reps hold 30 sec Comments good feedback response, less pain in LS Prone Exercises pelvic tilts Prone Exercise Name supine pelvic tilt Side bilateral Reps/Minutes x3 reps each direction pre prone>quadruped Comments painfree range pre LS mob before getting up from STMs body pillow- good radha Other Exercises QUadruped TA facilitation Reps/Minutes x 10 reps cat cow Reps/Minutes x 10 reps Manual Therapy Treatment Soft Tissue Mobilization STM for B paraspinals Mobilization Type Myofascial Release,Rolling, Sustained Pressure,Trigger Point Release Intensity/Depth Moderate Body Position Prone Comments on body pillow PT-OP-R Modalities Start: 10/03/21 13:28 Freq: Status: Active Protocol: Document 10/04/21 12:16 SP (Rec: 10/04/21 13:37 SP [id number]) Electric Stimulation Electric Stimulation Pre-Modulated Body Location lumbar paraspinals Duration (Minutes) 15 Frequency 8 Contraction Type Normal Patient Position Sitting Combined With Heat/Cold Cold Pack Comments 2 pillows and CP behind back. Hot Pack/Cold Pack Treatment Cold Pack Location LS Patient Position Sitting Treatment Duration (minutes) 8 Patient Tolerance Good Comments good feedback response. PT-OP-T Assessment and Plan Start: 10/03/21 11:16 Freq: Status: Active Protocol: Document 10/24/21 12:59 [facility] (Rec: 10/24/21 13:27 [facility] [id number]) Physical Therapy Assessment Assessment Summary Assessment Roby was able to work on supine TA stabilization exercises today and is tolerating lumbar flexion on hands and knees. Her lumbar ROM and mobiltiy is improving with decreased c/o neural symptoms with neck flexion. Physical Therapy Plan Frequency and Duration Frequency of Treatment 2x/Week Duration of Treatment 8 Plan of Care Start Date 10/03/21 Plan of Care End Date 12/12/21 Therapeutic Interventions Therapeutic Interventions Home Exercise Program,Manual Therapy,Patient/Caregiver Education,Self-Care/Home Management,Sensory Integration ,Therapeutic Exercises Next Visit Focus/Plan Next Note Type Treatment Note Next Visit Plan continue to progress TA stabilization exercises as pt can tolerate.
--- NOTE | 2021-10-31 15:55 | PT.OTN ---
Current Diagnoses Radiculopathy, sacral and sacrococcygeal region (10/31/21) Physical Therapy Treatment Note PT-OP-A Visit Information Start: 10/03/21 11:16 Freq: Status: Active Protocol: Document 10/31/21 11:17 [facility] (Rec: 10/31/21 11:40 [facility] [id number]) Out-Patient Physical Therapy Visit Information Visit Information Visit Type Treatment Note Visit Start Time 11:15 Visit Stop Time 12:00 Total Visit Minutes 45 Visit Number 6 PT-OP-B Current Condition Start: 10/03/21 11:16 Freq: Status: Active Protocol: Document 10/03/21 11:15 [facility] (Rec: 10/03/21 11:35 [facility] [id number]) Current Condition History of Current Condition Onset Date 1 month ago Current Complaints low back, sacral, coccyx pain History of Current Condition pt is experiencing sacral and coccxy pain, pt notes she can' t even sit, she notes a month ago she felt this pain and she describes it as stabbing pain . She coughed and sneezed and then the pain increased. At this point she is unable to flex her head down as this increases the Lumbar extension feels the best. Pain is worse on the right side. SHe feels like she cant go to work due to pain Treatment Goals Patient/Caregiver Goals pts goals include reducing pain and improving motion Prior Functional Status Baseline Function- ADL's Independent Baseline Function- Mobility Independent Current Functional Impairments (Reported) Functional Limitations- ADL's Pt needs help with most aspects of self care, Functional Limitations- Mobility/Gait pain prevents walking more than 1/2 mile PT-OP-C Subjective Start: 10/03/21 11:16 Freq: Status: Active Protocol: Document 10/31/21 11:17 [facility] (Rec: 10/31/21 11:40 [facility] [id number]) OP-PT Subjective Patient Comments Patient Comments pt reports she has been feeling better, able to walk 3 miles and it felt good, She still feels a nerve tightness when she bends though. Her doctor has ordered her a MRI. Patient Reported Progress Improving PT-OP-F Manual Assessment Start: 10/03/21 11:16 Freq: Status: Active Protocol: Document 10/03/21 11:15 [facility] (Rec: 10/03/21 13:28 [facility] [id number]) Manual Assessments Soft Tissue Assessment Soft Tissue Mobility Assessment right greater than left parapspinal tightness and guarding, tightness of the piriformis right greater than left, quadratus lumborum on the right PT-OP-K Range of Motion Start: 10/03/21 13:28 Freq: Status: Active Protocol: Document 10/03/21 11:15 [facility] (Rec: 10/03/21 13:31 [facility] [id number]) Lumbar Spine Range of Motion Lumbar Spine Active Testing Position Standing Flexion 15 Lateral Flexion Left 5 Lateral Flexion Right 5 ROM Limitations Soft Tissue Tightness,Pain Comments pt is very guarded and has limited ROM spinal ROM today, flexion increases her pain, she is able to lay in prone. Sidebending right is more painful for her. She was not able to tolerate quadruped lumbar mobility PT-OP-M Strength Start: 10/03/21 11:16 Freq: Status: Active Protocol: Document 10/03/21 11:15 [facility] (Rec: 10/03/21 13:31 [facility] [id number]) Ankle/Foot Strength Ankle and Foot Manual Muscle Testing Right Dorsiflexion (L4) 4+ Good+ Plantarflexion (S1) 4+ Good+ PT-OP-Q Treatments Start: 10/03/21 11:16 Freq: Status: Active Protocol: Document 10/31/21 11:17 [facility] (Rec: 10/31/21 11:40 [facility] [id number]) Therapeutic Exercises Supine Exercises supine marches Reps/Minutes x 10 reps wind shield wipers Reps/Minutes x 10 pelvic tilt into a bridge Reps/Minutes x 10 piriformis stretch Supine Exercise Name reviewed HEP- verbalized this tx doing ok with Side bilateral Reps/Minutes 20 sec ankle on opposite knee Comments good feedback response, little discomfort but feels helpful ROM, dec'd pain LTR Supine Exercise Name reviewed HEP-verbalized this tx doing ok with Side bilateral Reps/Minutes 5 sec hold x3 Comments good feedback response, painfree, cued slow movement w / TA if needed active HS w/ AP Supine Exercise Name HS stretch with strap Side bilateral Reps/Minutes hold 1-2 min Comments no c/o nerve pain, good tolerance single knee to chest Supine Exercise Name Single to chest Side bilateral Reps/Minutes 2 reps hold 30 sec Comments good feedback response, less pain in LS Prone Exercises pelvic tilts Prone Exercise Name supine pelvic tilt Side bilateral Reps/Minutes x3 reps each direction pre prone>quadruped Comments painfree range pre LS mob before getting up from STMs body pillow- good radha Other Exercises QUadruped TA facilitation Reps/Minutes x 10 reps cat cow Reps/Minutes x 10 reps quadruped Other Exercise Name child's pose stretch, cat camel, tail wag Side bilateral Resistance AROM Reps/Minutes x5 each Comments cued TA and slow gentle ROM- painfree range Manual Therapy Treatment Soft Tissue Mobilization STM for B paraspinals Mobilization Type Myofascial Release,Rolling, Sustained Pressure,Trigger Point Release Intensity/Depth Moderate Body Position Prone Comments on body pillow PT-OP-R Modalities Start: 10/03/21 13:28 Freq: Status: Active Protocol: Document 10/04/21 12:16 [facility] (Rec: 10/04/21 13:37 [facility] [id number]) Electric Stimulation Electric Stimulation Pre-Modulated Body Location lumbar paraspinals Duration (Minutes) 15 Frequency 8 Contraction Type Normal Patient Position Sitting Combined With Heat/Cold Cold Pack Comments 2 pillows and CP behind back. Hot Pack/Cold Pack Treatment Cold Pack Location LS Patient Position Sitting Treatment Duration (minutes) 8 Patient Tolerance Good Comments good feedback response. PT-OP-T Assessment and Plan Start: 10/03/21 11:16 Freq: Status: Active Protocol: Document 10/31/21 11:17 [facility] (Rec: 10/31/21 11:40 [facility] [id number]) Physical Therapy Assessment Assessment Summary Assessment negative slump test today in sitting. Fabiana was also able to flex her neck in sitting. She still note she is afraid to bend wrong and tweak her back. She is tolerating hamstring stretch now with SLR Physical Therapy Plan Frequency and Duration Frequency of Treatment 2x/Week Duration of Treatment 8 Plan of Care Start Date 10/03/21 Plan of Care End Date 12/12/21 Therapeutic Interventions Therapeutic Interventions Home Exercise Program,Manual Therapy,Patient/Caregiver Education,Self-Care/Home Management,Sensory Integration ,Therapeutic Exercises Next Visit Focus/Plan Next Note Type Treatment Note Next Visit Plan progress dynamic stabilization exercises, lumbar mobility exercises
--- NOTE | 2021-11-05 13:54 | PT.OTN ---
Current Diagnoses Radiculopathy, sacral and sacrococcygeal region (11/05/21) Physical Therapy Treatment Note PT-OP-A Visit Information Start: 10/03/21 11:16 Freq: Status: Active Protocol: Document 11/05/21 13:00 [facility] (Rec: 11/05/21 13:34 [facility] [id number]) Out-Patient Physical Therapy Visit Information Visit Information Visit Type Treatment Note Visit Start Time 13:00 Visit Stop Time 13:45 Total Visit Minutes 45 Visit Number 7 Evaluation Information Evaluation Date 10/03/21 PT-OP-B Current Condition Start: 10/03/21 11:16 Freq: Status: Active Protocol: Document 10/03/21 11:15 [facility] (Rec: 10/03/21 11:35 [facility] [id number]) Current Condition History of Current Condition Onset Date 1 month ago Current Complaints low back, sacral, coccyx pain History of Current Condition pt is experiencing sacral and coccxy pain, pt notes she can' t even sit, she notes a month ago she felt this pain and she describes it as stabbing pain . She coughed and sneezed and then the pain increased. At this point she is unable to flex her head down as this increases the Lumbar extension feels the best. Pain is worse on the right side. SHe feels like she cant go to work due to pain Treatment Goals Patient/Caregiver Goals pts goals include reducing pain and improving motion Prior Functional Status Baseline Function- ADL's Independent Baseline Function- Mobility Independent Current Functional Impairments (Reported) Functional Limitations- ADL's Pt needs help with most aspects of self care, Functional Limitations- Mobility/Gait pain prevents walking more than 1/2 mile PT-OP-C Subjective Start: 10/03/21 11:16 Freq: Status: Active Protocol: Document 11/05/21 13:00 [facility] (Rec: 11/05/21 13:34 [facility] [id number]) OP-PT Subjective Patient Comments Patient Comments pt notes she is doing really good but she still gets a zinger in the middle of her back. IF she has sat for a hour or so on the couch she will have some right hip pain PT-OP-F Manual Assessment Start: 10/03/21 11:16 Freq: Status: Active Protocol: Document 10/03/21 11:15 [facility] (Rec: 10/03/21 13:28 [facility] [id number]) Manual Assessments Soft Tissue Assessment Soft Tissue Mobility Assessment right greater than left parapspinal tightness and guarding, tightness of the piriformis right greater than left, quadratus lumborum on the right PT-OP-K Range of Motion Start: 10/03/21 13:28 Freq: Status: Active Protocol: Document 10/03/21 11:15 [facility] (Rec: 10/03/21 13:31 [facility] [id number]) Lumbar Spine Range of Motion Lumbar Spine Active Testing Position Standing Flexion 15 Lateral Flexion Left 5 Lateral Flexion Right 5 ROM Limitations Soft Tissue Tightness,Pain Comments pt is very guarded and has limited ROM spinal ROM today, flexion increases her pain, she is able to lay in prone. Sidebending right is more painful for her. She was not able to tolerate quadruped lumbar mobility PT-OP-M Strength Start: 10/03/21 11:16 Freq: Status: Active Protocol: Document 10/03/21 11:15 [facility] (Rec: 10/03/21 13:31 [facility] [id number]) Ankle/Foot Strength Ankle and Foot Manual Muscle Testing Right Dorsiflexion (L4) 4+ Good+ Plantarflexion (S1) 4+ Good+ PT-OP-Q Treatments Start: 10/03/21 11:16 Freq: Status: Active Protocol: Document 11/05/21 13:00 [facility] (Rec: 11/05/21 13:34 [facility] [id number]) Therapeutic Exercises Supine Exercises hip ER with theraband Reps/Minutes 3 x 10 reps supine marches Reps/Minutes x 10 reps wind shield wipers Reps/Minutes x 10 pelvic tilt into a bridge Supine Exercise Name with theraband today Reps/Minutes x 10 piriformis stretch Supine Exercise Name reviewed HEP- verbalized this tx doing ok with Side bilateral Reps/Minutes 20 sec ankle on opposite knee Comments good feedback response, little discomfort but feels helpful ROM, dec'd pain LTR Supine Exercise Name reviewed HEP-verbalized this tx doing ok with Side bilateral Reps/Minutes 5 sec hold x3 Comments good feedback response, painfree, cued slow movement w / TA if needed active HS w/ AP Supine Exercise Name HS stretch with strap Side bilateral Reps/Minutes hold 1-2 min Comments no c/o nerve pain, good tolerance single knee to chest Supine Exercise Name Single to chest Side bilateral Reps/Minutes 2 reps hold 30 sec Comments good feedback response, less pain in LS Prone Exercises pelvic tilts Prone Exercise Name supine pelvic tilt Side bilateral Reps/Minutes x3 reps each direction pre prone>quadruped Comments painfree range pre LS mob before getting up from STMs body pillow- good radha Sitting Exercises pelvic tilts on ball Sitting Exercise Name A/P/lateral- added to HEP Side bilateral Resistance AROM within tolerance Equipment Used 55cm (has at home), contact table for TA support and balance Reps/Minutes x8 Comments cued tall posture, slow gentle pelvic mobility- painfree range seated posture w/ pillows Sitting Exercise Name Discussed and performed seated pillow back for alignment Comments improved understanding needed for couch posture- better, less pain Standing Exercises pelvic tilt against the wall Standing Exercise Name unable to do this tx. Discussed in sitting, gentle ROM Other Exercises wag the tail Reps/Minutes x 10 reps QUadruped TA facilitation Reps/Minutes x 10 reps cat cow Reps/Minutes x 10 reps quadruped Other Exercise Name child's pose stretch, cat camel, tail wag Side bilateral Resistance AROM Reps/Minutes x5 each Comments cued TA and slow gentle ROM- painfree range PT-OP-R Modalities Start: 10/03/21 13:28 Freq: Status: Active Protocol: Document 10/04/21 12:16 [facility] (Rec: 10/04/21 13:37 [facility] [id number]) Electric Stimulation Electric Stimulation Pre-Modulated Body Location lumbar paraspinals Duration (Minutes) 15 Frequency 8 Contraction Type Normal Patient Position Sitting Combined With Heat/Cold Cold Pack Comments 2 pillows and CP behind back. Hot Pack/Cold Pack Treatment Cold Pack Location LS Patient Position Sitting Treatment Duration (minutes) 8 Patient Tolerance Good Comments good feedback response. PT-OP-T Assessment and Plan Start: 10/03/21 11:16 Freq: Status: Active Protocol: Document 11/05/21 13:00 [facility] (Rec: 11/05/21 13:54 [facility] [id number]) Physical Therapy Assessment Assessment Summary Assessment Pt is doing better overall with progressing her stabilization exercises and tolerating this well. She still has a area in her lumbar spine that can become sensitive or feel vulnerable and she is getting a MRI, nerve symptoms have decreased Physical Therapy Plan Frequency and Duration Frequency of Treatment 2x/Week Duration of Treatment 8 Plan of Care Start Date 10/03/21 Plan of Care End Date 12/12/21 Therapeutic Interventions Therapeutic Interventions Home Exercise Program,Manual Therapy,Patient/Caregiver Education,Self-Care/Home Management,Sensory Integration ,Therapeutic Exercises Next Visit Focus/Plan Next Note Type Treatment Note Next Visit Plan continue to progress dynamic stabilization exercises, lumbar mobility exercises
--- NOTE | 2021-11-14 09:47 | PT.OTN ---
Current Diagnoses Radiculopathy, sacral and sacrococcygeal region (11/14/21) Physical Therapy Treatment Note PT-OP-A Visit Information Start: 10/03/21 11:16 Freq: Status: Active Protocol: Document 11/14/21 08:57 [facility] (Rec: 11/14/21 09:50 [facility] [id number]) Out-Patient Physical Therapy Visit Information Visit Information Visit Type Treatment Note Visit Start Time 08:57 Visit Stop Time 09:47 Total Visit Minutes 50 Visit Number 8 Number of DELICATESSEN MANAGER Visits 1 Evaluation Information Evaluation Date 10/03/21 PT-OP-B Current Condition Start: 10/03/21 11:16 Freq: Status: Active Protocol: Document 10/03/21 11:15 [facility] (Rec: 10/03/21 11:35 [facility] [id number]) Current Condition History of Current Condition Onset Date 1 month ago Current Complaints low back, sacral, coccyx pain History of Current Condition pt is experiencing sacral and coccxy pain, pt notes she can' t even sit, she notes a month ago she felt this pain and she describes it as stabbing pain . She coughed and sneezed and then the pain increased. At this point she is unable to flex her head down as this increases the Lumbar extension feels the best. Pain is worse on the right side. SHe feels like she cant go to work due to pain Treatment Goals Patient/Caregiver Goals pts goals include reducing pain and improving motion Prior Functional Status Baseline Function- ADL's Independent Baseline Function- Mobility Independent Current Functional Impairments (Reported) Functional Limitations- ADL's Pt needs help with most aspects of self care, Functional Limitations- Mobility/Gait pain prevents walking more than 1/2 mile PT-OP-C Subjective Start: 10/03/21 11:16 Freq: Status: Active Protocol: Document 11/14/21 08:57 [facility] (Rec: 11/14/21 09:50 [facility] [id number]) OP-PT Subjective Patient Comments Patient Comments Pt reported R hip hurting today, does notice stretching does help. Over all little better but still get clicking when bends over in SI area. MRI was denied, need see 6 weeks (will be next week) worth notes. PT-OP-F Manual Assessment Start: 10/03/21 11:16 Freq: Status: Active Protocol: Document 10/03/21 11:15 [facility] (Rec: 10/03/21 13:28 [facility] [id number]) Manual Assessments Soft Tissue Assessment Soft Tissue Mobility Assessment right greater than left parapspinal tightness and guarding, tightness of the piriformis right greater than left, quadratus lumborum on the right PT-OP-K Range of Motion Start: 10/03/21 13:28 Freq: Status: Active Protocol: Document 10/03/21 11:15 [facility] (Rec: 10/03/21 13:31 [facility] [id number]) Lumbar Spine Range of Motion Lumbar Spine Active Testing Position Standing Flexion 15 Lateral Flexion Left 5 Lateral Flexion Right 5 ROM Limitations Soft Tissue Tightness,Pain Comments pt is very guarded and has limited ROM spinal ROM today, flexion increases her pain, she is able to lay in prone. Sidebending right is more painful for her. She was not able to tolerate quadruped lumbar mobility PT-OP-M Strength Start: 10/03/21 11:16 Freq: Status: Active Protocol: Document 10/03/21 11:15 [facility] (Rec: 10/03/21 13:31 [facility] [id number]) Ankle/Foot Strength Ankle and Foot Manual Muscle Testing Right Dorsiflexion (L4) 4+ Good+ Plantarflexion (S1) 4+ Good+ PT-OP-Q Treatments Start: 10/03/21 11:16 Freq: Status: Active Protocol: Document 11/14/21 08:57 [facility] (Rec: 11/14/21 09:50 [facility] [id number]) Therapeutic Exercises Supine Exercises gonzalez stretch Supine Exercise Name added to HEP Side bilateral Equipment Used off side vs end table (no LE touch floor) Reps/Minutes 30s Comments Cued TA draw in if need, hold opp knee chest wind shield wipers Reps/Minutes x 10 pelvic tilt into a bridge Supine Exercise Name (TA warmup) then spinal segmental lift Resistance RTB (Lv 2 loop at home) Equipment Used x3 reps added hip abd during bridge home- not painful little weak/good work Reps/Minutes x 10 Comments cued slow and not to high piriformis stretch Supine Exercise Name reviewed HEP- verbalized this tx doing ok with Side bilateral Reps/Minutes 20 sec ankle on opposite knee Comments good feedback response, little discomfort but feels helpful ROM, dec'd pain LTR Supine Exercise Name reviewed HEP-verbalized this tx doing ok with Side bilateral Equipment Used 55cm Reps/Minutes x10 Comments good feedback response, painfree w/ TA if needed Sitting Exercises pelvic tilts on ball Sitting Exercise Name A/P/lateral, added november/ unweight floor HEP Side bilateral Resistance AROM within tolerance Equipment Used 55cm (has at home), contact table for TA support and balance Reps/Minutes x8 each , november Comments cued tall posture, slow gentle pelvic mobility- painfree range Other Exercises wag the tail Side bilateral Reps/Minutes x 10 reps Comments cued LS/pelvic SB isolation then add upper trunk SLOWLY QUadruped TA facilitation Reps/Minutes x 10 reps cat cow Other Exercise Name warm up Reps/Minutes x 10 reps quadruped Other Exercise Name Cat stretch>child's pose stretch, tail wag Side bilateral Resistance AROM Reps/Minutes x5 each Comments cued TA and slow gentle ROM- painfree range Manual Therapy Treatment Soft Tissue Mobilization STM right gluteals Body Location B piriformis, glut med/max, TFL Mobilization Type Myofascial Release,Sustained Pressure,Trigger Point Release Intensity/Depth Moderate Body Position Prone body pillow Comments good feedback response PT-OP-R Modalities Start: 10/03/21 13:28 Freq: Status: Active Protocol: Document 10/04/21 12:16 SP (Rec: 10/04/21 13:37 SP [id number]) Electric Stimulation Electric Stimulation Pre-Modulated Body Location lumbar paraspinals Duration (Minutes) 15 Frequency 8 Contraction Type Normal Patient Position Sitting Combined With Heat/Cold Cold Pack Comments 2 pillows and CP behind back. Hot Pack/Cold Pack Treatment Cold Pack Location LS Patient Position Sitting Treatment Duration (minutes) 8 Patient Tolerance Good Comments good feedback response. PT-OP-T Assessment and Plan Start: 10/03/21 11:16 Freq: Status: Active Protocol: Document 11/14/21 08:57 SP (Rec: 11/14/21 09:50 SP [id number]) Physical Therapy Assessment Goals 4 Impairment pain prevents Fabiana from sitting greater than 10 min Wind Turbine Engineer Goal (LTG) Fabiana is able to sit for 30 min without increased pain LTG Duration 8 weeks 3 Impairment Decreased core strength Short Term Goal (STG) Fabiana is able to tolerate bracing with her pelvic floor and transverse abdominal muscles STG Duration 2-3 weeks Wind Turbine Engineer Goal (LTG) Fabiana is able to perform a progressive core stabilization program to support her lumbar spine and pelvis LTG Duration 8 weeks 2 Impairment Decreased lumbar ROM, pt gets increased pain with cervical flexion Snf Goal (LTG) Fabiana is able to perform full pain free lumbar ROM and cervical flexion no longer causes pain LTG Duration 8 weeks 1 Impairment muscle guarding and spasm of the lumbar paraspinals Short Term Goal (STG) Red presents with a overall reduction in lumbar paraspinal muscle spasm and is able to tolerate gentle ROM exercises STG Duration 2-3 weeks Snf Goal (LTG) Overall reduction in lumbar paraspinal muscle guarding and spasm LTG Duration 8 weeks Assessment Summary Assessment Pt decreased pain in R hip post manual and stretching. Initiated Gonzalez Stretch for HEP hip flexor flexibility with good feedback response. Reviewed HEP supine/ quadruped / seated on Tball, cued trunk alignment for posture and core fac stability contact table chair for safety support able to add LE lift with awarenss of neutral spine no adverse affects. Physical Therapy Plan Frequency and Duration Frequency of Treatment 2x/Week Duration of Treatment 8 Plan of Care Start Date 10/03/21 Plan of Care End Date 12/12/21 Therapeutic Interventions Therapeutic Interventions Home Exercise Program,Manual Therapy,Patient/Caregiver Education,Self-Care/Home Management,Sensory Integration ,Therapeutic Exercises Next Visit Focus/Plan Next Note Type Treatment Note Next Visit Plan Next tx: add standing for home . POC: continue to progress dynamic stabilization exercises, lumbar mobility exercises
--- NOTE | 2021-11-21 13:57 | PT.OTN ---
Current Diagnoses Radiculopathy, sacral and sacrococcygeal region (11/21/21) Physical Therapy Treatment Note PT-OP-A Visit Information Start: 10/03/21 11:16 Freq: Status: Active Protocol: Document 11/21/21 13:01 [facility] (Rec: 11/21/21 13:55 [facility] [id number]) Out-Patient Physical Therapy Visit Information Visit Information Visit Type Treatment Note Visit Start Time 13:00 Visit Stop Time 13:45 Total Visit Minutes 45 Visit Number 9 Number of PEST CONTROL TECHNICIAN Visits 0 PT-OP-B Current Condition Start: 10/03/21 11:16 Freq: Status: Active Protocol: Document 10/03/21 11:15 [facility] (Rec: 10/03/21 11:35 [facility] [id number]) Current Condition History of Current Condition Onset Date 1 month ago Current Complaints low back, sacral, coccyx pain History of Current Condition pt is experiencing sacral and coccxy pain, pt notes she can' t even sit, she notes a month ago she felt this pain and she describes it as stabbing pain . She coughed and sneezed and then the pain increased. At this point she is unable to flex her head down as this increases the Lumbar extension feels the best. Pain is worse on the right side. SHe feels like she cant go to work due to pain Treatment Goals Patient/Caregiver Goals pts goals include reducing pain and improving motion Prior Functional Status Baseline Function- ADL's Independent Baseline Function- Mobility Independent Current Functional Impairments (Reported) Functional Limitations- ADL's Pt needs help with most aspects of self care, Functional Limitations- Mobility/Gait pain prevents walking more than 1/2 mile PT-OP-C Subjective Start: 10/03/21 11:16 Freq: Status: Active Protocol: Document 11/21/21 13:01 [facility] (Rec: 11/21/21 13:55 [facility] [id number]) OP-PT Subjective Patient Comments Patient Comments pt reports her MRI was denied at this time. She is feeling better, she feels that if she doesn't do her exercises for a few days then she feels like when she bends it can get tight PT-OP-F Manual Assessment Start: 10/03/21 11:16 Freq: Status: Active Protocol: Document 10/03/21 11:15 [facility] (Rec: 10/03/21 13:28 [facility] [id number]) Manual Assessments Soft Tissue Assessment Soft Tissue Mobility Assessment right greater than left parapspinal tightness and guarding, tightness of the piriformis right greater than left, quadratus lumborum on the right PT-OP-K Range of Motion Start: 10/03/21 13:28 Freq: Status: Active Protocol: Document 10/03/21 11:15 [facility] (Rec: 10/03/21 13:31 [facility] [id number]) Lumbar Spine Range of Motion Lumbar Spine Active Testing Position Standing Flexion 15 Lateral Flexion Left 5 Lateral Flexion Right 5 ROM Limitations Soft Tissue Tightness,Pain Comments pt is very guarded and has limited ROM spinal ROM today, flexion increases her pain, she is able to lay in prone. Sidebending right is more painful for her. She was not able to tolerate quadruped lumbar mobility PT-OP-M Strength Start: 10/03/21 11:16 Freq: Status: Active Protocol: Document 10/03/21 11:15 [facility] (Rec: 10/03/21 13:31 [facility] [id number]) Ankle/Foot Strength Ankle and Foot Manual Muscle Testing Right Dorsiflexion (L4) 4+ Good+ Plantarflexion (S1) 4+ Good+ PT-OP-Q Treatments Start: 10/03/21 11:16 Freq: Status: Active Protocol: Document 11/21/21 13:01 [facility] (Rec: 11/21/21 13:55 [facility] [id number]) Therapeutic Exercises Supine Exercises mae stretch Reps/Minutes hold x 30 sec each side supine marches Reps/Minutes x 10 reps wind shield wipers Reps/Minutes x 10 pelvic tilt into a bridge Supine Exercise Name (TA warmup) then spinal segmental lift Resistance RTB (Lv 2 loop at home) Equipment Used x3 reps added hip abd during bridge home- not painful little weak/good work Reps/Minutes x 10 Comments cued slow and not to high piriformis stretch Supine Exercise Name reviewed HEP- verbalized this tx doing ok with Side bilateral Reps/Minutes 20 sec ankle on opposite knee Comments good feedback response, little discomfort but feels helpful ROM, dec'd pain LTR Supine Exercise Name reviewed HEP-verbalized this tx doing ok with Side bilateral Equipment Used 55cm Reps/Minutes x10 Comments good feedback response, painfree w/ TA if needed single knee to chest Supine Exercise Name Single to chest Side bilateral Reps/Minutes 2 reps hold 30 sec Comments good feedback response, less pain in LS Other Exercises wag the tail Side bilateral Reps/Minutes x 10 reps Comments cued LS/pelvic SB isolation then add upper trunk SLOWLY QUadruped TA facilitation Reps/Minutes x 10 reps cat cow Other Exercise Name warm up Reps/Minutes x 10 reps PT-OP-R Modalities Start: 10/03/21 13:28 Freq: Status: Active Protocol: Document 10/04/21 12:16 [facility] (Rec: 10/04/21 13:37 [facility] [id number]) Electric Stimulation Electric Stimulation Pre-Modulated Body Location lumbar paraspinals Duration (Minutes) 15 Frequency 8 Contraction Type Normal Patient Position Sitting Combined With Heat/Cold Cold Pack Comments 2 pillows and CP behind back. Hot Pack/Cold Pack Treatment Cold Pack Location LS Patient Position Sitting Treatment Duration (minutes) 8 Patient Tolerance Good Comments good feedback response. PT-OP-T Assessment and Plan Start: 10/03/21 11:16 Freq: Status: Active Protocol: Document 11/21/21 13:01 [facility] (Rec: 11/21/21 13:55 [facility] [id number]) Physical Therapy Assessment Goals 4 Impairment pain prevents Fabiana from sitting greater than 10 min Diesel Bus Mechanic Goal (LTG) Fabiana is able to sit for 30 min without increased pain As of 11/21/21 Fabiana is able to sit for a hour now LTG Duration 8 weeks 3 Impairment Decreased core strength Short Term Goal (STG) Fabiana is able to tolerate bracing with her pelvic floor and transverse abdominal muscles GOAL MET STG Duration 2-3 weeks Jail Goal (LTG) Fabiana is able to perform a progressive core stabilization program to support her lumbar spine and pelvis GOAL MET LTG Duration 8 weeks 2 Impairment Decreased lumbar ROM, pt gets increased pain with cervical flexion Diesel Bus Mechanic Goal (LTG) Fabiana is able to perform full pain free lumbar ROM and cervical flexion no longer causes pain This is improved however not full ROM, cervical flexion does not cause pain, Fabiana is still restricted in her end range lumbar ROM. LTG Duration 8 weeks 1 Impairment muscle guarding and spasm of the lumbar paraspinals Short Term Goal (STG) Red presents with a overall reduction in lumbar paraspinal muscle spasm and is able to tolerate gentle ROM exercises GOAL MET STG Duration 2-3 weeks Diesel Bus Mechanic Goal (LTG) Overall reduction in lumbar paraspinal muscle guarding and spasm GOAL MET LTG Duration 8 weeks Assessment Summary Assessment Fabiana is independent with her HEP and has been able to improve her lumbar ROM, it is not full ROM but improved and she is no longer experiencing the radicular symptoms. She is tolerating regular walkiing for exercises and sitting tolerance has improved. Master will continue to work on her exercises and follow up with Dr. Moreno should she need further care Physical Therapy Plan Discharge Physical Therapy Discharge Comments pt has done really well with PT and has been able to increase her sitting tolerance to a hour and return to walking for exercise. She is still guarded at times with her ROM as she doesn't want to re injure her back. She is independent with her HEP and will be discharged at this time
== END 2021-11-21 15:49 ==
LOC: PHYS 13:00
PROVIDERS: Family Provider Student in an Organized Health Care Education/Training Program; PCP Student in an Organized Health Care Education/Training Program; Referring Provider Student in an Organized Health Care Education/Training Program; Visit Provider Student in an Organized Health Care Education/Training Program
DX: M54.18 Radiculopathy, sacral and sacrococcygeal region (principal)
CPT/HCPCS: 97014; 97110; 97140; 97161; 97530; G0283

== ENCOUNTER → 2022-01-27 14:41 | Outpatient (CLI) | payer OTHER, MEDICAID, SELFPAY ==
[2022-01-27 16:23] LABS: Erythrocyte Sedimentation Rate 10 MM/HR (0-20)
[2022-01-27 17:02] LABS: Creatine Kinase 69 U/L (30-135)
[2022-01-27 17:07] LABS: C-Reactive Protein Quant < 0.5 mg/dL (<1.0)
== END ==
PROVIDERS: Family Provider Student in an Organized Health Care Education/Training Program; PCP Student in an Organized Health Care Education/Training Program; Referring Provider Student in an Organized Health Care Education/Training Program; Visit Provider Student in an Organized Health Care Education/Training Program
DX: M35.3 Polymyalgia rheumatica (principal)
CPT/HCPCS: 36415; 82550; 85651; 86140

== ENCOUNTER → 2022-02-11 11:26 | Outpatient (CLI) | payer OTHER, MEDICAID, SELFPAY ==
--- NOTE | 2022-02-11 11:27 | DI.RAD.S_ITS ---
PROCEDURE: XR LUMBAR SPINE MIN 4V INDICATIONS: Lumbar pain with radiculopathy TECHNIQUE: 5 views of the lumbar spine were acquired, including bilateral oblique views. COMPARISON: [facility], , L-SPINE 2-3 VIEWS, 03/20/2017, 9:32. FINDINGS: Bones: 5 nonrib-bearing vertebrae are present. There is mild, approximately 3 millimeters of L2-L3 and L3-L4 retrolisthesis. No vertebral body compression fractures. No suspicious bony lesions. Mild L2-L3, L3-L4, L4-L5 and L5-S1 degenerative disc disease. Mild L4-L5 and L5-S1 facet arthropathy. Soft tissues: Overlying bowel gas pattern is normal. No suspicious soft tissue calcifications. Oblique images: No pars defects. IMPRESSION: 1. Multilevel degenerative disc disease. 2. Multilevel facet arthropathy. 3. No fracture. No acute osseous lesion. If symptoms and/or clinical suspicion for pathology persists, evaluation with MRI should be considered for further assessment. Dictated by: Joie Munroe MD, PhD on 02/11/2022 at 15:28 Approved by: Joie Munroe MD, PhD on 02/11/2022 at 15:29
== END ==
PROVIDERS: Family Provider Student in an Organized Health Care Education/Training Program; PCP Student in an Organized Health Care Education/Training Program; Referring Provider Student in an Organized Health Care Education/Training Program; Visit Provider Student in an Organized Health Care Education/Training Program
DX: M51.36 Other intervertebral disc degeneration, lumbar region (principal); M51.37 Other intervertebral disc degeneration, lumbosacral region; M47.816 Spondylosis without myelopathy or radiculopathy, lumbar region; M47.817 Spondylosis without myelopathy or radiculopathy, lumbosacral region; M54.50 Low back pain, unspecified
CPT/HCPCS: 72110

== ENCOUNTER → 2022-05-02 08:11 | Outpatient (CLI) | payer OTHER, MEDICAID, SELFPAY ==
--- NOTE | 2022-05-02 08:12 | DI.MRI.S_ITS ---
PROCEDURE: MR LUMBAR SPINE WO CON INDICATIONS: Low Back Pain TECHNIQUE: Noncontrast sagittal T1 spin echo and T2 fast echo, sagittal STIR, and T2 fast spin echo through the lumbar spine. In cases with scoliosis, additional coronal T2 fast spin echo may be performed. COMPARISON: [facility], CR, XR LUMBAR SPINE MIN 4V, 02/11/2022, 11:35. FINDINGS: Image quality: Excellent. Alignment and Curvature: There is loss of lumbar lordosis. There is 2 mm of retrolisthesis of L2 on L3 and L3 on L4. Bone Marrow: Marrow is of normal overall signal. No acute vertebral body compression fractures. L3 hemangioma. Mild reactive signal throughout the endplates of the thoracolumbar spine. Spinal Cord: Conus medullaris terminates at the mid L2 level. Visualized cord demonstrates normal signal and size. Paraspinous Soft Tissues: No paravertebral masses. T12-L1: Normal appearance. L1-L2: Normal appearance. L2-L3: Mild disc height loss. Moderate disc desiccation. Mild diffuse disc bulge. Mild epidural lipomatosis. Mild canal stenosis. Mild foraminal stenosis. L3-L4: Moderate disc height loss and desiccation. Mild diffuse disc bulge. Mild facet and ligamentum flavum hypertrophy. Mild epidural lipomatosis. Mild canal stenosis. No foraminal stenosis. L4-L5: Mild disc height loss and desiccation. Mild diffuse disc bulge. Mild facet and ligamentum flavum hypertrophy. Mild epidural lipomatosis. Mild canal stenosis. Mild bilateral foraminal stenosis. L5-S1: Mild disc desiccation and diffuse disc bulge. Right posterolateral annular tear. Mild bilateral facet hypertrophy. Mild canal stenosis. Mild bilateral foraminal stenosis. IMPRESSION: 1. Multilevel degenerative disc and facet disease, as well as ligamentum flavum hypertrophy and epidural lipomatosis. 2. Mild multilevel canal and foraminal stenoses. No neural impingement. Dictated by: Cuba Herron M.D. on 05/02/2022 at 10:11 Approved by: Cuba Herron M.D. on 05/02/2022 at 10:13
== END ==
PROVIDERS: Family Provider Student in an Organized Health Care Education/Training Program; PCP Student in an Organized Health Care Education/Training Program; Referring Provider Student in an Organized Health Care Education/Training Program; Visit Provider Student in an Organized Health Care Education/Training Program
DX: M51.36 Other intervertebral disc degeneration, lumbar region (principal); M51.37 Other intervertebral disc degeneration, lumbosacral region; M48.07 Spinal stenosis, lumbosacral region; M48.061 Spinal stenosis, lumbar region without neurogenic claudication; M54.50 Low back pain, unspecified
CPT/HCPCS: 72148

== ENCOUNTER → 2022-06-12 17:07 | Outpatient (CLI) | payer OTHER, MEDICAID, SELFPAY ==
[2022-06-12 18:05] LABS: Add Manual Diff / Slide Review NO; Basophils Absolute Auto 0 /uL (0-100); Basophils Percent Auto 0.6 % (0-2); Eosinophils Absolute Auto 100 /uL (0-450); Eosinophils Percent Auto 1.8 % (2-4); Hematocrit 40.3 % (36-46); Hemoglobin 13.8 g/dL (12.0-16.0); Lymphocytes Absolute Auto 2400 /uL (1100-4500); Lymphocytes Percent Auto 34.7 % (25-40); Mean Corpuscular HGB Conc 34.3 % (30-36); Mean Corpuscular Hemoglobin 32.4 PG (26-34); Mean Corpuscular Volume 94.3 fL (80-100); Monocytes Absolute Auto 500 /uL (0-900); Monocytes Percent Auto 7.1 % (3-14); Neutrophils Absolute Auto 3800 /uL (1500-7000); Neutrophils Percent Auto 55.8 % (50-75); Platelet Count 236 X10^3/uL (150-400); Red Blood Cell Count 4.27 X10^6/uL (4.0-5.2); Red Cell Distribution Width 12.8 % (11.6-14.8); White Blood Cell Count 6.8 X10^3/uL (4.5-11.0)
[2022-06-12 18:19] LABS: Alanine Aminotransferase 15 IU/L (<35); Albumin 4.7 g/dL (3.5-5.0); Albumin Globulin Ratio 1.5 (1.0-2.8); Alkaline Phosphatase 54 U/L (38-126); Aspartate Aminotransferase 23 IU/L (14-36); BUN Creatinine Ratio 27.1 (6-22); Bilirubin Total 0.4 mg/dL (0.2-1.3); Blood Urea Nitrogen 26 mg/dL (7-17); C-Reactive Protein Quant < 0.5 mg/dL (<1.0); Calcium 9.6 mg/dL (8.4-10.2); Carbon Dioxide 30 mmol/L (22-32); Chloride 100 mmol/L (98-107); Estimated Glomerular Filt Rate > 60 mL/min (>60); Globulin 3.2 g/dL (1.7-4.1); Glucose 122 mg/dL (70-100); HEMOLYSIS < 15 (0-50); Lipase 198 U/L (23-300); Potassium 4.1 mmol/L (3.4-5.1); Sodium 141 mmol/L (137-145); Total Protein 7.9 g/dL (6.3-8.2)
[2022-06-12 19:02] LABS: Erythrocyte Sedimentation Rate 13 MM/HR (0-20)
== END ==
PROVIDERS: Family Provider Student in an Organized Health Care Education/Training Program; PCP Student in an Organized Health Care Education/Training Program; Referring Provider Pediatrics; Visit Provider Pediatrics
DX: R10.11 Right upper quadrant pain (principal); R94.5 Abnormal results of liver function studies
CPT/HCPCS: 36415; 80053; 83690; 85025; 85651; 86140

== ENCOUNTER → 2022-08-26 13:17 | Outpatient (CLI) | payer OTHER, MEDICAID, SELFPAY ==
[2022-08-26 13:58] LABS: Appearance Urine UA CLEAR; Bilirubin Urine UA NEGATIVE (NEGATIVE); Color Urine UA YELLOW; Glucose Urine UA NEGATIVE (Negative); Ketones Urine UA NEGATIVE (NEGATIVE); Leukocyte Esterase Urine UA NEGATIVE (NEGATIVE); Nitrite Urine UA NEGATIVE (Negative); Occult Blood Urine UA TRACE-LYSED (Negative); Protein Urine UA NEGATIVE (Negative); Specific Gravity Urine UA <=1.005 (1.000-1.035); Urobilinogen Urine UA 0.2 E.U./dL (0.2)
[2022-08-26 14:02] LABS: pH Urine UA 5.5 (4.5-8.0)
== END ==
PROVIDERS: Family Provider Student in an Organized Health Care Education/Training Program; PCP Student in an Organized Health Care Education/Training Program; Referring Provider Obstetrics & Gynecology; Visit Provider Obstetrics & Gynecology
DX: N39.0 Urinary tract infection, site not specified (principal)
CPT/HCPCS: 81003

== ENCOUNTER → 2022-08-29 11:26 | Outpatient (CLI) | payer OTHER, MEDICAID, SELFPAY ==
[2022-09-01 15:36] LABS: Candida species Negative (Negative); Gardnerella vaginalis Negative (Negative); Trichomoas vaginalis Negative (Negative)
== END ==
PROVIDERS: Family Provider Student in an Organized Health Care Education/Training Program; PCP Student in an Organized Health Care Education/Training Program; Visit Provider Obstetrics & Gynecology
DX: N89.8 Other specified noninflammatory disorders of vagina (principal)
CPT/HCPCS: 81002; 87086; 87480; 87510; 87660

== ENCOUNTER → 2022-09-16 14:38 | Outpatient (CLI) | payer OTHER, MEDICAID, SELFPAY ==
--- NOTE | 2022-09-16 14:39 | DI.US.S_ITS ---
PROCEDURE: US PELVIC COMPLETE INDICATIONS: Bladder pain TECHNIQUE: Real-time scanning was performed of the pelvic organs, with image documentation. Additional endovaginal scanning was necessary due to incomplete visualization of the adnexal and endometrial structures by transabdominal scanning. COMPARISON: [facility], CT, CT ABDOMEN PELVIS WITH CONTRAST, 08/09/2020, 11:40. [facility], US, US PELVIC COMPLETE, 03/05/2020, 15:18. FINDINGS: Uterus: Uterus is normal in size at 5.1 x 2.2 x 3.9 cm. The myometrium is homogeneous. The endometrium measures 1 mm combined thickness. Ovaries: The right ovary measures 0.9 x 1.4 x 0.9 cm, with a calculated ovarian volume of 0.9 cc. The left ovary measures 0.9 x 1 x 0.8 cm, with a calculated ovarian volume of 0.4 cc. The ovaries have a normal sonographic appearance. Less than 12 follicles can be seen in each ovary. No adnexal masses are seen. Other: No pathologic free abdominal or pelvic fluid. Additional evaluation of the bladder demonstrates a prevoid volume of 125 cc, without postvoid residual. No bladder abnormality is seen. IMPRESSION: No bladder abnormality is seen. Unremarkable pelvic ultrasound for age. We strive to produce accurate, complete, and clear reports of imaging services. To assist us in improving patient care, this report was composed using standard report templates and voice recognition software. Therefore, it may contain abnormal punctuation, insertions and/or omissions. Occasional wrong-word or sound-alike substitutions may occur. Though we review the report and make efforts to correct it, we do recommend that the report be read carefully in proper context to recognize any text inaccuracies. Dictated by: Theo Chua M.D. on 09/16/2022 at 14:21 Approved by: Theo Chua M.D. on 09/16/2022 at 14:22
== END ==
PROVIDERS: Family Provider Student in an Organized Health Care Education/Training Program; PCP Student in an Organized Health Care Education/Training Program; Referring Provider Student in an Organized Health Care Education/Training Program; Visit Provider Student in an Organized Health Care Education/Training Program
DX: R39.82 Chronic bladder pain (principal)
CPT/HCPCS: 76830; 76856

== ENCOUNTER 2022-10-16 09:00 | Outpatient (RCR) | payer OTHER, MEDICAID, SELFPAY ==
--- NOTE | 2022-09-23 12:35 | PT.OIE ---
Current Diagnoses Radiculopathy, sacral and sacrococcygeal region (09/23/22) Low back pain, unspecified (09/23/22) Past Medical History (Last Updated 09/01/22 @ 09:20 by Shaheen Douglas MD) Acute psychosis Anemia Anxiety (~1997) Atrophic gastritis without mention of hemorrhage (04/19/02) Low testosterone level in female (~1999) Moderate mixed hyperlipidemia not requiring statin therapy Postmenopausal Sciatica of left side Past Surgical History (Last Reviewed 01/02/22 @ 08:27 by Nicole Alanis PA-C) H/O LEEP Visit Care Team Role Provider Type Shaheen Douglas MD Attending Provider Physician Family Provider Primary Care Provider Referring Provider Specialty: Internal Medicine Address: [address] [place] [address], [address], [facility] Email: [email or web address] Physical Therapy Initial Evaluation PT-OP-A Visit Information Start: 09/22/22 18:43 Freq: Status: Active Protocol: Document 09/23/22 07:29 [facility] (Rec: 09/23/22 08:21 AMB [id number]) Out-Patient Physical Therapy Visit Information Visit Information Visit Type Initial Evaluation Visit Start Time 07:30 Visit Stop Time 08:15 Total Visit Minutes 45 Visit Number 1 PT-OP-B Current Condition Start: 09/22/22 18:43 Freq: Status: Active Protocol: Document 09/23/22 07:29 [facility] (Rec: 09/23/22 08:21 AMB [id number]) Current Condition History of Current Condition Onset Date Acute exacerbation of Chronic condition Current Complaints Low back pain going into the right hip History of Current Condition Pt with chronic back pain that radiates into the hip flared up 2 weeks ago after using her stationary bike. Lying down is helpful. Moving from sit to stand, especially getting out of the car or getting out of bed is painful. Describes pain as zinging unable to put weight through the right leg after moving from sit to stand . 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 Had PT here with [facility] back in October and found that helpful. Prior Treatments and Tests MRI: 05/19: 1. Multilevel degenerative disc and facet disease, as well as ligamentum flavum hypertrophy and epidural lipomatosis. 2. Mild multilevel canal and foraminal stenoses. No neural impingement. Treatment Goals Patient/Caregiver Goals Find out what to do if pain flare comes back. Try to prevent future pain flares. Prior Functional Status Baseline Function- ADL's Modified Independent Baseline Function- Mobility Modified Independent Current Functional Impairments (Reported) Functional Limitations- ADL's Pain with moving from sit to stand. 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) Personal Factors Other Personal Factors That May Effect Bladder pain Therapy/Recovery PT-OP-C Subjective Start: 09/22/22 18:43 Freq: Status: Active Protocol: Document 09/23/22 11:13 AMB (Rec: 09/23/22 11:19 AMB [id number]) Patient Questionnaires Lower Extremity Functional Scale LEFS Score 42 LEFS Impairment 40 to 59% Impaired (Score 32- 47) OP-PT Pain Assessment Comments Pain Comments 5/10 low back; 3/10 in R post lateral hip PT-OP-G Mobility & Gait Start: 09/22/22 18:43 Freq: Status: Active Protocol: Document 09/23/22 11:13 AMB (Rec: 09/23/22 11:19 AMB [id number]) OP Mobility Evaluation Transfers Sit to Stand stiffness, slow can feel like R leg will give way OP Gait Assessment Comments Gait Comments Stiff takes a minute to come into fully upright position, slightly R sidebent when starting to walk PT-OP-J Posture/Palpation/Skin Start: 09/22/22 18:43 Freq: Status: Active Protocol: Document 09/23/22 07:30 AMB (Rec: 09/24/22 09:35 AMB [id number]) Posture Evaluation Comments Posture Comments PT stands with reduced lumbar lordosis and slightly sidebent posture to the right, overall tightness and muscle spasm in lumbar paraspinals. PT-OP-K Range of Motion Start: 09/22/22 18:43 Freq: Status: Active Protocol: Document 09/23/22 11:13 AMB (Rec: 09/23/22 11:19 AMB [id number]) Lumbar Spine Range of Motion Lumbar Spine Active Degrees Testing Position Standing Flexion 10 Extension 15 Lateral Flexion Left 20 Lateral Flexion Right 20 Comments pain tightness with flexion PT-OP-M Strength Start: 09/22/22 18:43 Freq: Status: Active Protocol: Document 09/23/22 11:13 AMB (Rec: 09/23/22 11:19 AMB [id number]) Hip Strength Hip Manual Muscle Testing Right Flexion (L2) 4 Good Extension (S1) 4 Good Abduction 4 Good Left Flexion (L2) 4 Good Extension (S1) 4 Good Abduction 4 Good Knee Strength Knee Manual Muscle Testing Right Flexion (S2) 5 Normal Extension (L3) 4+ Good+ Left Flexion (S2) 5 Normal Extension (L3) 4+ Good+ Ankle/Foot Strength Ankle and Foot Manual Muscle Testing Right Dorsiflexion (L4) 5 Normal Left Dorsiflexion (L4) 5 Normal PT-OP-R Modalities Start: 09/22/22 18:43 Freq: Status: Active Protocol: Document 09/23/22 07:30 AMB (Rec: 09/24/22 09:09 AMB [id number]) Electric Stimulation Electric Stimulation Interferential Current (IFC) Body Location low back Duration (Minutes) 15 Patient Position Supine Combined With Heat/Cold Cold Pack PT-OP-T Assessment and Plan Start: 09/22/22 18:43 Freq: Status: Active Protocol: Document 09/23/22 07:30 AMB (Rec: 09/24/22 09:45 AMB [id number]) Physical Therapy Assessment Evaluation Complexity Number of Personal Factors/Comorbidities 1-2 Number of Body Systems Impaired 4 or More Clinical Presentation at Evaluation Stable Impairments Impairments Activity Tolerance,Functional Activities,Functional Mobility ,Pain,Posture,ROM,Strength Goals 4 Impairment pain with sit to stand Short Term Goal (STG) Fabiana will move from sit to stand from a standard height chair without an increase in her baseline back pain. STG Duration 6 weeks Shelter Goal (LTG) Fabiana will perform a car transfer without back pain. LTG Duration 12 weeks 3 Impairment Decreased core strength Shelter Goal (LTG) Fabiana will be independent with a HEP for core stability. LTG Duration 12 weeks 2 Impairment decreased lumbar flexion Short Term Goal (STG) Fabiana will improve her lumbar flexion to at least 30 degrees without an increase in baseline pain. 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 LTG Duration 12 weeks Assessment Summary Assessment Fabiana attends physical therapy with an acute exacerbation of chronic low back pain. While the pain is not currently as acute as it was a week ago, she is continuing to have 5/10 LBP that radiates into the right hip and severely limits her lumbar flexion. 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 She will benefit from physical therapy to help her manage her low back pain and encourage her in a HEP so that she has tools at her disposal if she has future pain flares per her request. Physical Therapy Plan Frequency and Duration Frequency of Treatment 2x/Week Duration of treatment (weeks) 12 Plan of Care Start Date 09/23/22 Plan of Care End Date 12/16/22 Therapeutic Interventions Therapeutic Interventions Home Exercise Program,Manual Therapy,Neuromuscular Re- education,Self-Care/Home Management,Therapeutic Activities,Therapeutic Exercises Modalities Cold Pack/Ice Massage,Electric Stimulation,Hot Packs Next Visit Focus/Plan Next Note Type Treatment Note Next Visit Plan Progress core stability and stretching to allow improved lumbar flexion and reduced muscle spasm
--- NOTE | 2022-09-23 12:37 | PT.OPPOC ---
Physical, Occupational & Speech Therapy At [facility] Current Diagnoses Radiculopathy, sacral and sacrococcygeal region (09/23/22) Low back pain, unspecified (09/23/22) Visit Care Team Role Provider Type Shaheen Douglas MD Attending Provider Physician Family Provider Primary Care Provider Referring Provider Specialty: Internal Medicine Address: [address] [place] [address], [address], [facility] Email: [email or web address] Plan Of Care PT-OP-T Assessment and Plan Start: 09/22/22 18:43 Freq: Status: Active Protocol: Document 09/23/22 07:30 AMB (Rec: 09/24/22 09:45 AMB [id number]) Physical Therapy Assessment Evaluation Complexity Number of Personal Factors/Comorbidities 1-2 Number of Body Systems Impaired 4 or More Clinical Presentation at Evaluation Stable Impairments Impairments Activity Tolerance,Functional Activities,Functional Mobility ,Pain,Posture,ROM,Strength Goals 4 Impairment pain with sit to stand Short Term Goal (STG) Fabiana will move from sit to stand from a standard height chair without an increase in her baseline back pain. STG Duration 6 weeks Supplier Quality Manager Goal (LTG) Fabiana will perform a car transfer without back pain. LTG Duration 12 weeks 3 Impairment Decreased core strength Longterm Goal (LTG) Fabiana will be independent with a HEP for core stability. LTG Duration 12 weeks 2 Impairment decreased lumbar flexion Short Term Goal (STG) Fabiana will improve her lumbar flexion to at least 30 degrees without an increase in baseline pain. 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 LTG Duration 12 weeks Assessment Summary Assessment Fabiana attends physical therapy with an acute exacerbation of chronic low back pain. While the pain is not currently as acute as it was a week ago, she is continuint to have 5/10 LBP that radiates into the right hip and severely limits her lumbar flexion. 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 She will benefit from physical therapy to help her manage her low back pain and encourage her in a HEP so that she has tools at her disposal if she has future pain flares per her request. Physical Therapy Plan Frequency and Duration Frequency of Treatment 2x/Week Duration of treatment (weeks) 12 Plan of Care Start Date 09/23/22 Plan of Care End Date 12/16/22 Therapeutic Interventions Therapeutic Interventions Home Exercise Program,Manual Therapy,Neuromuscular Re- education,Self-Care/Home Management,Therapeutic Activities,Therapeutic Exercises Modalities Cold Pack/Ice Massage,Electric Stimulation,Hot Packs Next Visit Focus/Plan Next Note Type Treatment Note Next Visit Plan Progress core stability and stretching to allow improved lumbar flexion and reduced muscle spasm Plan of Care Dates Plan of Care Start Date 09/23/22 Plan of Care End Date 12/16/22 Electronically Signed by: Tameka Cartwright, PT 09/25/22 [id number] If you are in agreement with this Plan of Care, please return a signed and dated copy. I have reviewed this Plan of Care and certify that the skilled therapy services above are required to meet the patient?s needs. Physician Signature Date Printed Name and Credentials Clinical Instructor Signature Printed Name and Credentials
--- NOTE | 2022-09-26 16:31 | PT.OTN ---
Current Diagnoses Radiculopathy, sacral and sacrococcygeal region (09/26/22) Low back pain, unspecified (09/26/22) Physical Therapy Treatment Note PT-OP-A Visit Information Start: 09/22/22 18:43 Freq: Status: Active Protocol: Document 09/26/22 08:09 AMB (Rec: 09/26/22 08:57 AMB [id number]) Out-Patient Physical Therapy Visit Information Visit Information Visit Type Treatment Note Visit Start Time 08:15 Visit Stop Time 09:00 Total Visit Minutes 45 Visit Number 2 PT-OP-B Current Condition Start: 09/22/22 18:43 Freq: Status: Active Protocol: Document 09/23/22 07:29 AMB (Rec: 09/23/22 08:21 AMB [id number]) Current Condition History of Current Condition Onset Date Acute exacerbation of Chronic condition Current Complaints Low back pain going into the right hip History of Current Condition Pt with chronic back pain that radiates into the hip flared up 2 weeks ago after using her stationary bike. Lying down is helpful. Moving from sit to stand, especially getting out of the car or getting out of bed is painful. Describes pain as zinging unable to put weight through the right leg after moving from sit to stand . 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 Had PT here with Maude back in October and found that helpful. Prior Treatments and Tests MRI: 05/19: 1. Multilevel degenerative disc and facet disease, as well as ligamentum flavum hypertrophy and epidural lipomatosis. 2. Mild multilevel canal and foraminal stenoses. No neural impingement. Treatment Goals Patient/Caregiver Goals Find out what to do if pain flare comes back. Try to prevent future pain flares. Prior Functional Status Baseline Function- ADL's Modified Independent Baseline Function- Mobility Modified Independent Current Functional Impairments (Reported) Functional Limitations- ADL's Pain with moving from sit to stand. 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 PT-OP-G Mobility & Gait Start: 09/22/22 18:43 Freq: Status: Active Protocol: Document 09/23/22 11:13 AMB (Rec: 09/23/22 11:19 AMB [id number]) OP Mobility Evaluation Transfers Sit to Stand stiffness, slow can feel like R leg will give way OP Gait Assessment Comments Gait Comments Stiff takes a minute to come into fully upright position, slightly R sidebent when starting to walk PT-OP-J Posture/Palpation/Skin Start: 09/22/22 18:43 Freq: Status: Active Protocol: Document 09/23/22 07:30 AMB (Rec: 09/24/22 09:35 AMB [id number]) Posture Evaluation Comments Posture Comments PT stands with reduced lumbar lordosis and slightly sidebent posture to the right, overall tightness and muscle spasm in lumbar paraspinals. PT-OP-K Range of Motion Start: 09/22/22 18:43 Freq: Status: Active Protocol: Document 09/23/22 11:13 AMB (Rec: 09/23/22 11:19 AMB [id number]) Lumbar Spine Range of Motion Lumbar Spine Active Degrees Testing Position Standing Flexion 10 Extension 15 Lateral Flexion Left 20 Lateral Flexion Right 20 Comments pain tightness with flexion PT-OP-M Strength Start: 09/22/22 18:43 Freq: Status: Active Protocol: Document 09/23/22 11:13 AMB (Rec: 09/23/22 11:19 AMB [id number]) Hip Strength Hip Manual Muscle Testing Right Flexion (L2) 4 Good Extension (S1) 4 Good Abduction 4 Good Left Flexion (L2) 4 Good Extension (S1) 4 Good Abduction 4 Good Knee Strength Knee Manual Muscle Testing Right Flexion (S2) 5 Normal Extension (L3) 4+ Good+ Left Flexion (S2) 5 Normal Extension (L3) 4+ Good+ Ankle/Foot Strength Ankle and Foot Manual Muscle Testing Right Dorsiflexion (L4) 5 Normal Left Dorsiflexion (L4) 5 Normal PT-OP-Q Treatments Start: 09/22/22 18:43 Freq: Status: Active Protocol: Document 09/26/22 08:15 AMB (Rec: 09/26/22 16:28 AMB [id number]) Therapeutic Exercises Supine Exercises IT band strech Side right Reps/Minutes 30x2 piriformis stretch Side right Reps/Minutes 30x2 hamstring stretch Side right Reps/Minutes 30x2 PPT Reps/Minutes 2x10 Comments with cues for breath, TA Other Exercises cat cow Reps/Minutes 2x10 kahlil pose Reps/Minutes 30x2 Manual Therapy Treatment Soft Tissue Mobilization R paraspinals, gluteals Mobilization Type Myofascial Release,Sustained Pressure Intensity/Depth Moderate Body Position Sidelying PT-OP-R Modalities Start: 09/22/22 18:43 Freq: Status: Active Protocol: Document 09/26/22 08:15 AMB (Rec: 09/26/22 16:28 AMB [id number]) Electric Stimulation Electric Stimulation Interferential Current (IFC) Body Location low back Duration (Minutes) 15 Patient Position Supine Combined With Heat/Cold Cold Pack PT-OP-T Assessment and Plan Start: 09/22/22 18:43 Freq: Status: Active Protocol: Document 09/26/22 08:09 AMB (Rec: 09/26/22 08:57 AMB [id number]) Physical Therapy Assessment Goals 4 Impairment pain with sit to stand Short Term Goal (STG) Fabiana will move from sit to stand from a standard height chair without an increase in her baseline back pain. STG Duration 6 weeks [facility] Goal (LTG) Fabiana will perform a car transfer without back pain. 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 LTG Duration 12 weeks 2 Impairment decreased lumbar flexion Short Term Goal (STG) Fabiana will improve her lumbar flexion to at least 30 degrees without an increase in baseline pain. 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 LTG Duration 12 weeks Assessment Summary Assessment Fabiana with decreasing pain levels, but continues to have stiffness in lumbopelvic and R hip. Radiating pain into buttucks from lumbar spine, encouraged gentle stretching and beginning of core stabilization program. Physical Therapy Plan Frequency and Duration Frequency of Treatment 2x/Week Duration of treatment (weeks) 12 Plan of Care Start Date 09/23/22 Plan of Care End Date 12/16/22 Therapeutic Interventions Therapeutic Interventions Home Exercise Program,Manual Therapy,Neuromuscular Re- education,Self-Care/Home Management,Therapeutic Activities,Therapeutic Exercises Modalities Cold Pack/Ice Massage,Electric Stimulation,Hot Packs Next Visit Focus/Plan Next Note Type Treatment Note Next Visit Plan Progress core stability and stretching to allow improved lumbar flexion and reduced muscle spasm, consider hip abductor strengthening
--- NOTE | 2022-10-03 09:09 | PT.OTN ---
Current Diagnoses Radiculopathy, sacral and sacrococcygeal region (10/03/22) Low back pain, unspecified (10/03/22) Physical Therapy Treatment Note PT-OP-A Visit Information Start: 09/22/22 18:43 Freq: Status: Active Protocol: Document 10/03/22 08:18 LRN (Rec: 10/03/22 09:08 LRN [id number]) Out-Patient Physical Therapy Visit Information Visit Information Visit Type Treatment Note Visit Start Time 08:18 Visit Stop Time 09:02 Total Visit Minutes 44 Visit Number 3 PT-OP-B Current Condition Start: 09/22/22 18:43 Freq: Status: Active Protocol: Document 09/23/22 07:29 AMB (Rec: 09/23/22 08:21 AMB [id number]) Current Condition History of Current Condition Onset Date Acute exacerbation of Chronic condition Current Complaints Low back pain going into the right hip History of Current Condition Pt with chronic back pain that radiates into the hip flared up 2 weeks ago after using her stationary bike. Lying down is helpful. Moving from sit to stand, especially getting out of the car or getting out of bed is painful. Describes pain as zinging unable to put weight through the right leg after moving from sit to stand . 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 Had PT here with Maude back in October and found that helpful. Prior Treatments and Tests MRI: 05/19: 1. Multilevel degenerative disc and facet disease, as well as ligamentum flavum hypertrophy and epidural lipomatosis. 2. Mild multilevel canal and foraminal stenoses. No neural impingement. Treatment Goals Patient/Caregiver Goals Find out what to do if pain flare comes back. Try to prevent future pain flares. Prior Functional Status Baseline Function- ADL's Modified Independent Baseline Function- Mobility Modified Independent Current Functional Impairments (Reported) Functional Limitations- ADL's Pain with moving from sit to stand. 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 Getting up in the morning leans L and can't stand up straight for about an hour. Thinks maybe the IFES felt better with pad closer together rather than further apart. No LBP after MH/IFES. Patient Reported Progress Same PT-OP-G Mobility & Gait Start: 09/22/22 18:43 Freq: Status: Active Protocol: Document 09/23/22 11:13 AMB (Rec: 09/23/22 11:19 AMB [id number]) OP Mobility Evaluation Transfers Sit to Stand stiffness, slow can feel like R leg will give way OP Gait Assessment Comments Gait Comments Stiff takes a minute to come into fully upright position, slightly R sidebent when starting to walk PT-OP-J Posture/Palpation/Skin Start: 09/22/22 18:43 Freq: Status: Active Protocol: Document 09/23/22 07:30 AMB (Rec: 09/24/22 09:35 AMB [id number]) Posture Evaluation Comments Posture Comments PT stands with reduced lumbar lordosis and slightly sidebent posture to the right, overall tightness and muscle spasm in lumbar paraspinals. PT-OP-K Range of Motion Start: 09/22/22 18:43 Freq: Status: Active Protocol: Document 09/23/22 11:13 AMB (Rec: 09/23/22 11:19 AMB [id number]) Lumbar Spine Range of Motion Lumbar Spine Active Degrees Testing Position Standing Flexion 10 Extension 15 Lateral Flexion Left 20 Lateral Flexion Right 20 Comments pain tightness with flexion PT-OP-M Strength Start: 09/22/22 18:43 Freq: Status: Active Protocol: Document 09/23/22 11:13 AMB (Rec: 09/23/22 11:19 AMB [id number]) Hip Strength Hip Manual Muscle Testing Right Flexion (L2) 4 Good Extension (S1) 4 Good Abduction 4 Good Left Flexion (L2) 4 Good Extension (S1) 4 Good Abduction 4 Good Knee Strength Knee Manual Muscle Testing Right Flexion (S2) 5 Normal Extension (L3) 4+ Good+ Left Flexion (S2) 5 Normal Extension (L3) 4+ Good+ Ankle/Foot Strength Ankle and Foot Manual Muscle Testing Right Dorsiflexion (L4) 5 Normal Left Dorsiflexion (L4) 5 Normal PT-OP-Q Treatments Start: 09/22/22 18:43 Freq: Status: Active Protocol: Document 10/03/22 08:18 LRN (Rec: 10/03/22 09:08 LRN [id number]) Therapeutic Exercises Supine Exercises piriformis stretch Supine Exercise Name Piriformis stretch Side bilateral Reps/Minutes 30x2 PPT Supine Exercise Name TA tightening in neutral Reps/Minutes 13' Comments Much ed needed & Cuing to use haha and light cough. Other Exercises sit<>supine Other Exercise Name Sit<>supine training w/log roll method Reps/Minutes 5' Comments Phys & v cuing needed through exer PT-OP-R Modalities Start: 09/22/22 18:43 Freq: Status: Active Protocol: Document 10/03/22 08:18 LRN (Rec: 10/03/22 09:08 LRN [id number]) Electric Stimulation Electric Stimulation Interferential Current (IFC) Body Location low back Duration (Minutes) 12 Patient Position Supine Combined With Heat/Cold Hot Pack Comments Legs on bolster PT-OP-T Assessment and Plan Start: 09/22/22 18:43 Freq: Status: Active Protocol: Document 10/03/22 08:18 LRN (Rec: 10/03/22 09:08 LRN [id number]) Physical Therapy Assessment Goals 4 Impairment pain with sit to stand Short Term Goal (STG) Fabiana will move from sit to stand from a standard height chair without an increase in her baseline back pain. STG Duration 6 weeks Nursing Home Goal (LTG) Fabiana will perform a car transfer without back pain. 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 LTG Duration 12 weeks 2 Impairment decreased lumbar flexion Short Term Goal (STG) [place] will improve her lumbar flexion to at least 30 degrees without an increase in baseline pain. 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 LTG Duration 12 weeks Assessment Summary Assessment Pt required much education and training on proper log roll transfer supine to sit and will probably need further training. She was able to perform a TA with haha and light cough after much training. Pt had + response to use of IFES, possibly more relief with pads closer together, but attempting today pads further apart to encorporate more of the lumbar muscles. + response to MH/ IFES with pain reducing from 5 /1- to 0/10. Physical Therapy Plan Frequency and Duration Frequency of Treatment 2x/Week Duration of treatment (weeks) 12 Plan of Care Start Date 09/23/22 Plan of Care End Date 12/16/22 Next Visit Focus/Plan Next Note Type Treatment Note Next Visit Plan Next: Review proper sit<>sup transfer and TA tightening exercise for more automatic contraction. Progress core stability and stretching to allow improved lumbar flexion and reduced muscle spasm, consider hip abductor strengthening
--- NOTE | 2022-10-14 14:34 | PT.OTN ---
Current Diagnoses Radiculopathy, sacral and sacrococcygeal region (10/14/22) Low back pain, unspecified (10/14/22) Physical Therapy Treatment Note PT-OP-A Visit Information Start: 09/22/22 18:43 Freq: Status: Active Protocol: Document 10/14/22 13:51 LRN (Rec: 10/14/22 14:33 LRN [id number]) Out-Patient Physical Therapy Visit Information Visit Information Visit Type Treatment Note Visit Start Time 13:52 Visit Stop Time 14:31 Total Visit Minutes 39 Visit Number 4 Evaluation Information Evaluation Date 09/23/22 PT-OP-B Current Condition Start: 09/22/22 18:43 Freq: Status: Active Protocol: Document 09/23/22 07:29 AMB (Rec: 09/23/22 08:21 AMB [id number]) Current Condition History of Current Condition Onset Date Acute exacerbation of Chronic condition Current Complaints Low back pain going into the right hip History of Current Condition Pt with chronic back pain that radiates into the hip flared up 2 weeks ago after using her stationary bike. Lying down is helpful. Moving from sit to stand, especially getting out of the car or getting out of bed is painful. Describes pain as zinging unable to put weight through the right leg after moving from sit to stand . 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 Had PT here with Maude back in October and found that helpful. Prior Treatments and Tests MRI: 05/19: 1. Multilevel degenerative disc and facet disease, as well as ligamentum flavum hypertrophy and epidural lipomatosis. 2. Mild multilevel canal and foraminal stenoses. No neural impingement. Treatment Goals Patient/Caregiver Goals Find out what to do if pain flare comes back. Try to prevent future pain flares. Prior Functional Status Baseline Function- ADL's Modified Independent Baseline Function- Mobility Modified Independent Current Functional Impairments (Reported) Functional Limitations- ADL's Pain with moving from sit to stand. 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 [place] it was helpful for the 2 days afterward until she got shingles. 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 Lumbar spine pain is 0/ 10, but is having L side pain due to recovering from shingles. PT-OP-G Mobility & Gait Start: 09/22/22 18:43 Freq: Status: Active Protocol: Document 09/23/22 11:13 AMB (Rec: 09/23/22 11:19 AMB [id number]) OP Mobility Evaluation Transfers Sit to Stand stiffness, slow can feel like R leg will give way OP Gait Assessment Comments Gait Comments Stiff takes a minute to come into fully upright position, slightly R sidebent when starting to walk PT-OP-J Posture/Palpation/Skin Start: 09/22/22 18:43 Freq: Status: Active Protocol: Document 09/23/22 07:30 AMB (Rec: 09/24/22 09:35 AMB [id number]) Posture Evaluation Comments Posture Comments PT stands with reduced lumbar lordosis and slightly sidebent posture to the right, overall tightness and muscle spasm in lumbar paraspinals. PT-OP-K Range of Motion Start: 09/22/22 18:43 Freq: Status: Active Protocol: Document 09/23/22 11:13 AMB (Rec: 09/23/22 11:19 AMB [id number]) Lumbar Spine Range of Motion Lumbar Spine Active Degrees Testing Position Standing Flexion 10 Extension 15 Lateral Flexion Left 20 Lateral Flexion Right 20 Comments pain tightness with flexion PT-OP-M Strength Start: 09/22/22 18:43 Freq: Status: Active Protocol: Document 09/23/22 11:13 AMB (Rec: 09/23/22 11:19 AMB [id number]) Hip Strength Hip Manual Muscle Testing Right Flexion (L2) 4 Good Extension (S1) 4 Good Abduction 4 Good Left Flexion (L2) 4 Good Extension (S1) 4 Good Abduction 4 Good Knee Strength Knee Manual Muscle Testing Right Flexion (S2) 5 Normal Extension (L3) 4+ Good+ Left Flexion (S2) 5 Normal Extension (L3) 4+ Good+ Ankle/Foot Strength Ankle and Foot Manual Muscle Testing Right Dorsiflexion (L4) 5 Normal Left Dorsiflexion (L4) 5 Normal PT-OP-Q Treatments Start: 09/22/22 18:43 Freq: Status: Active Protocol: Document 10/14/22 13:51 LRN (Rec: 10/14/22 14:33 LRN [id number]) Therapeutic Exercises Supine Exercises KTC stretch Supine Exercise Name Single KTC stretch Side bilateral Reps/Minutes 10 SH x 10 IT band strech Supine Exercise Name IT Band stretch with belt around foot Side right Reps/Minutes 4' Comments Extra time to determine best tolerated stretch (lateral hip or Belt asst'd) piriformis stretch Supine Exercise Name Piriformis stretch Side bilateral Reps/Minutes 60 each hamstring stretch Supine Exercise Name R>L, Hamstring/LE neural stretch Side bilateral Reps/Minutes 2' L, 4' R PPT Supine Exercise Name TA tightening in neutral, w/ haha & cough Reps/Minutes 3' Comments Much ed needed & Cuing to use haha and light cough. Sitting Exercises Sit<>stand Sitting Exercise Name Sit<>stand Reps/Minutes 10x Comments cuig to not plop and to perform without use of hands. Standing Exercises Paloff Press Standing Exercise Name Paloff Press Side bilateral Equipment Used L2 TB, Feet 30.5 from wall ( midway between feet) Reps/Minutes 10x Other Exercises sit<>supine Other Exercise Name Sit<>supine training w/log roll method Reps/Minutes 5' Comments Phys & v cuing needed through exer cat cow Other Exercise Name cat/cow Reps/Minutes 10x kahlil pose Other Exercise Name Child's Pose and to the side Side bilateral Reps/Minutes 10 SH x 2 each PT-OP-R Modalities Start: 09/22/22 18:43 Freq: Status: Active Protocol: Document 10/03/22 08:18 LRN (Rec: 10/03/22 09:08 LRN [id number]) Electric Stimulation Electric Stimulation Interferential Current (IFC) Body Location low back Duration (Minutes) 12 Patient Position Supine Combined With Heat/Cold Hot Pack Comments Legs on bolster PT-OP-T Assessment and Plan Start: 09/22/22 18:43 Freq: Status: Active Protocol: Document 10/14/22 13:51 LRN (Rec: 10/14/22 14:33 LRN [id number]) Physical Therapy Assessment Goals 4 Impairment pain with sit to stand Short Term Goal (STG) Fabiana will move from sit to stand from a standard height chair without an increase in her baseline back pain. STG Duration 6 weeks [employer] Co[employer] Winder Goal (LTG) Fabiana will perform a car transfer without back pain. 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 LTG Duration 12 weeks 2 Impairment decreased lumbar flexion Short Term Goal (STG) Fabiana will improve her lumbar flexion to at least 30 degrees without an increase in baseline pain. 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 LTG Duration 12 weeks Assessment Summary Assessment Pt able to transfer with log roll method very well. Pt demonstrates good TA tightening with cough & haha, possibly automatic. Pt tols hip stretches well. Pain in L side of abdomen due to shingles is more limiting with ex than back pain. Back pain c/o less with shingle pain. Physical Therapy Plan Frequency and Duration Frequency of Treatment 2x/Week Duration of treatment (weeks) 12 Plan of Care Start Date 09/23/22 Plan of Care End Date 12/16/22 Next Visit Focus/Plan Next Note Type Treatment Note Next Visit Plan Next: Progress core stability and stretching to allow improved lumbar flexion and reduced muscle spasm, consider hip abductor strengthening
--- NOTE | 2022-10-16 17:14 | PT.OTN ---
Current Diagnoses Radiculopathy, sacral and sacrococcygeal region (10/16/22) Low back pain, unspecified (10/16/22) Physical Therapy Treatment Note PT-OP-A Visit Information Start: 09/22/22 18:43 Freq: Status: Active Protocol: Document 10/16/22 09:04 LRN (Rec: 10/16/22 09:48 LRN [id number]) Out-Patient Physical Therapy Visit Information Visit Information Visit Type Treatment Note Visit Start Time 09:04 Visit Stop Time 09:45 Total Visit Minutes 41 Visit Number 5 Evaluation Information Evaluation Date 09/23/22 PT-OP-B Current Condition Start: 09/22/22 18:43 Freq: Status: Active Protocol: Document 09/23/22 07:29 AMB (Rec: 09/23/22 08:21 AMB [id number]) Current Condition History of Current Condition Onset Date Acute exacerbation of Chronic condition Current Complaints Low back pain going into the right hip History of Current Condition Pt with chronic back pain that radiates into the hip flared up 2 weeks ago after using her stationary bike. Lying down is helpful. Moving from sit to stand, especially getting out of the car or getting out of bed is painful. Describes pain as zinging unable to put weight through the right leg after moving from sit to stand . 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 Had PT here with Maude back in October and found that helpful. Prior Treatments and Tests MRI: 05/19: 1. Multilevel degenerative disc and facet disease, as well as ligamentum flavum hypertrophy and epidural lipomatosis. 2. Mild multilevel canal and foraminal stenoses. No neural impingement. Treatment Goals Patient/Caregiver Goals Find out what to do if pain flare comes back. Try to prevent future pain flares. Prior Functional Status Baseline Function- ADL's Modified Independent Baseline Function- Mobility Modified Independent Current Functional Impairments (Reported) Functional Limitations- ADL's Pain with moving from sit to stand. 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) Personal Factors Other Personal Factors That May Effect Bladder pain Therapy/Recovery PT-OP-C Subjective Start: 09/22/22 18:43 Freq: Status: Active Protocol: Document 10/16/22 09:04 LRN (Rec: 10/16/22 09:48 LRN [id number]) OP-PT Subjective Patient Comments Patient Comments No questions with issued ex's, but brought old ex's for review. PT-OP-G Mobility & Gait Start: 09/22/22 18:43 Freq: Status: Active Protocol: Document 09/23/22 11:13 AMB (Rec: 09/23/22 11:19 AMB [id number]) OP Mobility Evaluation Transfers Sit to Stand stiffness, slow can feel like R leg will give way OP Gait Assessment Comments Gait Comments Stiff takes a minute to come into fully upright position, slightly R sidebent when starting to walk PT-OP-J Posture/Palpation/Skin Start: 09/22/22 18:43 Freq: Status: Active Protocol: Document 09/23/22 07:30 AMB (Rec: 09/24/22 09:35 AMB [id number]) Posture Evaluation Comments Posture Comments PT stands with reduced lumbar lordosis and slightly sidebent posture to the right, overall tightness and muscle spasm in lumbar paraspinals. PT-OP-K Range of Motion Start: 09/22/22 18:43 Freq: Status: Active Protocol: Document 09/23/22 11:13 AMB (Rec: 09/23/22 11:19 AMB [id number]) Lumbar Spine Range of Motion Lumbar Spine Active Degrees Testing Position Standing Flexion 10 Extension 15 Lateral Flexion Left 20 Lateral Flexion Right 20 Comments pain tightness with flexion PT-OP-M Strength Start: 09/22/22 18:43 Freq: Status: Active Protocol: Document 09/23/22 11:13 AMB (Rec: 09/23/22 11:19 AMB [id number]) Hip Strength Hip Manual Muscle Testing Right Flexion (L2) 4 Good Extension (S1) 4 Good Abduction 4 Good Left Flexion (L2) 4 Good Extension (S1) 4 Good Abduction 4 Good Knee Strength Knee Manual Muscle Testing Right Flexion (S2) 5 Normal Extension (L3) 4+ Good+ Left Flexion (S2) 5 Normal Extension (L3) 4+ Good+ Ankle/Foot Strength Ankle and Foot Manual Muscle Testing Right Dorsiflexion (L4) 5 Normal Left Dorsiflexion (L4) 5 Normal PT-OP-Q Treatments Start: 09/22/22 18:43 Freq: Status: Active Protocol: Document 10/16/22 09:04 LRN (Rec: 10/16/22 09:48 LRN [id number]) Therapeutic Exercises Supine Exercises Bridging Supine Exercise Name Neutral spine/Bridging Reps/Minutes 30x Comments Cuing for neutral spine. Discussed considerations for best time for ex's KTC stretch Supine Exercise Name Single KTC stretch Side bilateral Reps/Minutes 10 SH x 10 IT band strech Supine Exercise Name IT Band stretch with belt around foot Side right Reps/Minutes 2x Comments Extra time to determine best tolerated stretch (lateral hip or Belt asst'd) piriformis stretch Supine Exercise Name Piriformis stretch - knee to opp shldr vs cross legged stretch Side bilateral Reps/Minutes 30x 2 R, 1x L Comments Extra time due to hip pain, reqd adjusting for comfort hamstring stretch Supine Exercise Name R Hamstring/LE neural stretch Side bilateral Reps/Minutes 2x Comments Extra time to determine max radha, pt c/o burning quad pain. PPT Supine Exercise Name Reviewed Comments Pt needed cuing for cough, but automatic for hahaha Standing Exercises Paloff Press Standing Exercise Name Paloff Press Side bilateral Equipment Used L2 TB, Feet 30.5 from wall ( midway between feet) Reps/Minutes 10x Self-Care/Home Management Treatment Education Patient Education Home Exercise Program Other Education Reviewed old HEP for appropriateness. Educated pt in stretches vs strengthening ex's. PT-OP-R Modalities Start: 09/22/22 18:43 Freq: Status: Active Protocol: Document 10/03/22 08:18 LRN (Rec: 10/03/22 09:08 N [id number]) Electric Stimulation Electric Stimulation Interferential Current (IFC) Body Location low back Duration (Minutes) 12 Patient Position Supine Combined With Heat/Cold Hot Pack Comments Legs on bolster PT-OP-T Assessment and Plan Start: 09/22/22 18:43 Freq: Status: Active Protocol: Document 10/16/22 09:04 LRN (Rec: 10/16/22 09:48 LRN [id number]) Physical Therapy Assessment Goals 4 Impairment pain with sit to stand Short Term Goal (STG) Fabiana will move from sit to stand from a standard height chair without an increase in her baseline back pain. STG Duration 6 weeks Fire Extinguisher Mechanic Goal (LTG) Fabiana will perform a car transfer without back pain. LTG Duration 12 weeks 3 Impairment Decreased core strength Fire Extinguisher Mechanic Goal (LTG) Fabiana will be independent with a HEP for core stability. LTG Duration 12 weeks 2 Impairment decreased lumbar flexion Short Term Goal (STG) Fabiana will improve her lumbar flexion to at least 30 degrees without an increase in baseline pain. 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 LTG Duration 12 weeks Progress Towards Goals Progress Comments Reviewed Old HEP for appropiate program. Ex's included: Stretches: Cat/ Camel, Child's pose -neutral & lateral, wag the tail, sitting T-Ball pelvic tilts, rock backs, Gonzalez test hip flexor, ITB, Hamstring, Pirifomis, SKTC, Sciatic [place]. [place], LTR, Gastroc. Strengthening: PPT supine & 4 pt, SLR (iliopsoas-ER leg), Bridging without and with TBand, Clamshell, UE -Row, shoulder ext. strengthening. Assessment Summary Assessment Good tolerance to ex with only c/o quad pain from holding supine sciatic n stretch & piriformis stretch. Pt shows improved core control with Paloff Press Physical Therapy Plan Frequency and Duration Frequency of Treatment 2x/Week Duration of treatment (weeks) 12 Plan of Care Start Date 09/23/22 Plan of Care End Date 12/16/22 Next Visit Focus/Plan Next Note Type Treatment Note Next Visit Plan Next: Assess progress to goals . Review sit<>stand. Progress core stability (add HEP TA tightening) and stretching to allow improved lumbar flexion and reduce muscle spasm, consider hip abductor strengthening
--- NOTE | 2022-10-30 17:46 | PT-OP ANOTE ---
Per phone conversation the pt states she has canceled her appointments due to back pain, that may be because of the shingles she has had. She states she went to the ER yesterday due to abdominal pain and hasn't had a good bowel movement in many days. She has use Miralax and eaten prunes and still has only very small bowel movements. The pt states her condition of back pain has overall not changed. We discussed her ability to continue therapy on a consistent basis and it was agreed that she will be discharged from PT and will try to resolve her other health issues before seeking a new referral for her back pain and will at that time return on a consistent basis.
--- NOTE | 2022-10-30 17:57 | PT.OPDS ---
Current Diagnoses Radiculopathy, sacral and sacrococcygeal region (10/16/22) Low back pain, unspecified (10/16/22) Visit Care Team Role Provider Type Shaheen Douglas MD Attending Provider Physician Family Provider Primary Care Provider Referring Provider Specialty: Internal Medicine Address: [address] [place] [address], [address], [address] Email: [email or web address] Visit Number Visit Number 5 Discharge Summary PT-OP-B Current Condition Start: 09/22/22 18:43 Freq: Status: Active Protocol: Document 09/23/22 07:29 AMB (Rec: 09/23/22 08:21 AMB [id number]) Current Condition History of Current Condition Onset Date Acute exacerbation of Chronic condition Current Complaints Low back pain going into the right hip History of Current Condition Pt with chronic back pain that radiates into the hip flared up 2 weeks ago after using her stationary bike. Lying down is helpful. Moving from sit to stand, especially getting out of the car or getting out of bed is painful. Describes pain as zinging unable to put weight through the right leg after moving from sit to stand . 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 Had PT here with [facility] back in October and found that helpful. Prior Treatments and Tests MRI: 05/19: 1. Multilevel degenerative disc and facet disease, as well as ligamentum flavum hypertrophy and epidural lipomatosis. 2. Mild multilevel canal and foraminal stenoses. No neural impingement. Treatment Goals Patient/Caregiver Goals Find out what to do if pain flare comes back. Try to prevent future pain flares. Prior Functional Status Baseline Function- ADL's Modified Independent Baseline Function- Mobility Modified Independent Current Functional Impairments (Reported) Functional Limitations- ADL's Pain with moving from sit to stand. 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) Personal Factors Other Personal Factors That May Effect Bladder pain Therapy/Recovery PT-OP-C Subjective Start: 09/22/22 18:43 Freq: Status: Active Protocol: Document 10/30/22 17:51 LRN (Rec: 10/30/22 17:57 LRN [id number]) OP-PT Subjective Patient Comments Patient Comments Per phone conversation the pt is not any better and having other health issues. Pt is not sure if she is able to attend her last 2 scheduled appointments. Pt is agreeable to discharge from therapy due to the health issues (see admin note of 10/30/22). PT-OP-G Mobility & Gait Start: 09/22/22 18:43 Freq: Status: Active Protocol: Document 09/23/22 11:13 AMB (Rec: 09/23/22 11:19 AMB [id number]) OP Mobility Evaluation Transfers Sit to Stand stiffness, slow can feel like R leg will give way OP Gait Assessment Comments Gait Comments Stiff takes a minute to come into fully upright position, slightly R sidebent when starting to walk PT-OP-J Posture/Palpation/Skin Start: 09/22/22 18:43 Freq: Status: Active Protocol: Document 09/23/22 07:30 AMB (Rec: 09/24/22 09:35 AMB [id number]) Posture Evaluation Comments Posture Comments PT stands with reduced lumbar lordosis and slightly sidebent posture to the right, overall tightness and muscle spasm in lumbar paraspinals. PT-OP-K Range of Motion Start: 09/22/22 18:43 Freq: Status: Active Protocol: Document 09/23/22 11:13 AMB (Rec: 09/23/22 11:19 AMB [id number]) Lumbar Spine Range of Motion Lumbar Spine Active Degrees Testing Position Standing Flexion 10 Extension 15 Lateral Flexion Left 20 Lateral Flexion Right 20 Comments pain tightness with flexion PT-OP-M Strength Start: 09/22/22 18:43 Freq: Status: Active Protocol: Document 09/23/22 11:13 AMB (Rec: 09/23/22 11:19 AMB [id number]) Hip Strength Hip Manual Muscle Testing Right Flexion (L2) 4 Good Extension (S1) 4 Good Abduction 4 Good Left Flexion (L2) 4 Good Extension (S1) 4 Good Abduction 4 Good Knee Strength Knee Manual Muscle Testing Right Flexion (S2) 5 Normal Extension (L3) 4+ Good+ Left Flexion (S2) 5 Normal Extension (L3) 4+ Good+ Ankle/Foot Strength Ankle and Foot Manual Muscle Testing Right Dorsiflexion (L4) 5 Normal Left Dorsiflexion (L4) 5 Normal PT-OP-T Assessment and Plan Start: 09/22/22 18:43 Freq: Status: Active Protocol: Document 10/30/22 17:51 LRN (Rec: 10/30/22 17:57 LRN [id number]) Physical Therapy Assessment Goals 4 Impairment pain with sit to stand Short Term Goal (STG) Fabiana will move from sit to stand from a standard height chair without an increase in her baseline back pain. STG Duration 6 weeks (Goal not met) Long-Term Goal (LTG) Fabiana will perform a car transfer without back pain. LTG Duration 12 weeks (Goal not met) 3 Impairment Decreased core strength Long-Term Goal (LTG) Fabiana will be independent with a HEP for core stability. LTG Duration 12 weeks (Goal not met) 2 Impairment decreased lumbar flexion Short Term Goal (STG) Fabiana will improve her lumbar flexion to at least 30 degrees without an increase in baseline pain. 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 LTG Duration 12 weeks (Goal not met) Assessment Summary Assessment Pt was last seen 10/16/22 and has not been able to attend therapy due to other health issues (shingles, bowel dysfunction). The pt reported going to ER yesterday and doesn't think she will be able to attend her last 2 scheduled appointments. She has not had any improvements in her PT rehab progress. Goals have not been met. Physical Therapy Plan Discharge Physical Therapy Discharge Reasons Change in Medical Status Discharge Comments The pt will seek a new referral when her other health issues have been resolved and she is ready to focus her attention on physical therapy. Thank you for your referral.
== END 2022-11-03 16:45 | disposition home or self-care (01) ==
LOC: PHYS 09:00
PROVIDERS: Family Provider Student in an Organized Health Care Education/Training Program; PCP Student in an Organized Health Care Education/Training Program; Referring Provider Student in an Organized Health Care Education/Training Program; Visit Provider Student in an Organized Health Care Education/Training Program
DX: M54.50 Low back pain, unspecified (principal); M54.18 Radiculopathy, sacral and sacrococcygeal region
CPT/HCPCS: 97014; 97110; 97140; 97161; 97535; G0283

== ENCOUNTER → 2022-10-27 08:49 | Outpatient (CLI) | payer OTHER, MEDICAID, SELFPAY ==
[2022-10-27 10:18] LABS: Add Manual Diff / Slide Review NO; Basophils Absolute Auto 100 /uL (0-100); Basophils Percent Auto 1.1 % (0-2); Eosinophils Absolute Auto 200 /uL (0-450); Eosinophils Percent Auto 3.4 % (2-4); Hematocrit 41.7 % (36-46); Hemoglobin 14.3 g/dL (12.0-16.0); Lymphocytes Absolute Auto 2000 /uL (1100-4500); Lymphocytes Percent Auto 42.3 % (25-40); Mean Corpuscular HGB Conc 34.3 % (30-36); Mean Corpuscular Hemoglobin 32.4 PG (26-34); Mean Corpuscular Volume 94.6 fL (80-100); Monocytes Absolute Auto 400 /uL (0-900); Monocytes Percent Auto 7.6 % (3-14); Neutrophils Absolute Auto 2200 /uL (1500-7000); Neutrophils Percent Auto 45.6 % (50-75); Platelet Count 221 X10^3/uL (150-400); Red Blood Cell Count 4.41 X10^6/uL (4.0-5.2); Red Cell Distribution Width 13.1 % (11.6-14.8); White Blood Cell Count 4.8 X10^3/uL (4.5-11.0)
[2022-10-27 10:55] LABS: Alanine Aminotransferase 18 IU/L (<35); Albumin 4.9 g/dL (3.5-5.0); Albumin Globulin Ratio 1.6 (1.0-2.8); Alkaline Phosphatase 54 U/L (38-126); Aspartate Aminotransferase 25 IU/L (14-36); BUN Creatinine Ratio 26.3 (6-22); Bilirubin Total 0.5 mg/dL (0.2-1.3); Blood Urea Nitrogen 20 mg/dL (7-17); Calcium 9.9 mg/dL (8.4-10.2); Carbon Dioxide 30 mmol/L (22-32); Chloride 99 mmol/L (98-107); Estimated Glomerular Filt Rate > 60 mL/min (>60); Gamma Glutamyl Transpeptidase 12 U/L (12-43); Globulin 3.1 g/dL (1.7-4.1); Glucose 80 mg/dL (70-100); HEMOLYSIS < 15 (0-50); Lipase 299 U/L (23-300); Potassium 4.7 mmol/L (3.4-5.1); Sodium 140 mmol/L (137-145)
== END ==
PROVIDERS: Family Provider Student in an Organized Health Care Education/Training Program; PCP Student in an Organized Health Care Education/Training Program; Referring Provider Student in an Organized Health Care Education/Training Program; Visit Provider Student in an Organized Health Care Education/Training Program
DX: R10.32 Left lower quadrant pain (principal)
CPT/HCPCS: 36415; 80053; 82977; 83690; 85025

== ENCOUNTER 2022-10-29 10:03 | Emergency (ER) | payer OTHER, MEDICAID, SELFPAY ==
[2022-10-29 10:13] VITALS: BP 134/74; PULSE 59; RESP 18; TEMP 36.2; O2SAT 98
--- NOTE | 2022-10-29 10:25 | ED.ABDPAIN ---
HPI - Abdominal Pain General Chief Complaint: Abdominal Pain Stated Complaint: abd pain [id number] Time Seen by Provider: 10/29/22 10:16 Source: patient Mode of arrival: Ambulatory History of Present Illness HPI narrative: Patient presents with left lower quadrant abdominal pain for about 2 weeks. She had shingles in the same site about 3 weeks ago, no rash is present. She is having decreased BMs. Related Data Home Medications Medication Instructions Recorded Confirmed cetirizine 10 mg tablet 10 mg PO DAILY PRN 09/01/22 10/27/22 ketotifen fumarate 0.025 % (0.035 drp EYE-BOTH DAILY Allergies 10/27/22 10/27/22 %) eye drops Previous Rx's Medication Instructions Recorded estradiol 0.01% (0.1 mg/gram) 1 gram vaginal .COMPLEX HRT #42.5 03/20/20 vaginal cream grams diazepam 5 mg tablet 5 - 10 mg PO BEDTIME PRN Anxiety 09/02/22 #10 tabs losartan 25 mg tablet (Cozaar) 25 mg PO DAILY #90 tabs 09/12/22 metoprolol succinate 25 mg 37.5 mg PO DAILY #135 tabs 10/01/22 tablet,extended release 24 hr (Toprol XL) lactulose 10 gram/15 mL oral 10 g (15 mL) PO BID PRN 10/27/22 solution constipation #473 mL Allergies Allergy/AdvReac Type Severity Reaction Status Date / Time Sulfa (Sulfonamide Allergy Intermediate RASH Verified 10/27/22 08:20 Antibiotics) Patient History Medical History Acute psychosis Anemia Anxiety (~1997) Atrophic gastritis without mention of hemorrhage (04/19/02) Irritable bowel syndrome with constipation Low testosterone level in female (~1999) Moderate mixed hyperlipidemia not requiring statin therapy Postmenopausal Sciatica of left side Surgical History H/O LEEP Family History Father Age: 83 Hypertension Grandfather Hypertension Grandmother Hypertension Social History household members: none Smoking Status: Never smoker alcohol intake: never Smoking Status: Never smoker Substance Use Type: does not use Exam Initial Vital Signs Initial Vital Signs: Vital Signs Temperature 97.2 F L 10/29/22 10:13 Pulse Rate 59 L 10/29/22 10:13 Respiratory Rate 18 10/29/22 10:13 Blood Pressure 134/74 10/29/22 10:13 Pulse Oximetry 98 10/29/22 10:13 Oxygen Delivery Method 10/29/22 10:13 Course Orders Ordered: ED Orders 10/29/22 10:22 Urinalysis and Microscopic Stat 10/29/22 10:28 EKG-12 Lead Routine 10/29/22 10:30 Complete Blood Count AUTO DIFF Stat Comprehensive Metabolic Panel Stat Lipase Stat 10/29/22 10:52 CT abdomen pelvis w con Stat Discontinued Medications Sodium Chloride (Normal Saline 0.9%) 1,000 mls @ 250 mls/hr IV CONT CATHERINE Last Infusion: 10/29/22 13:38 Dose: 0 mls/hr Documented By: Admin: 10/29/22 11:46 Dose: 250 mls/hr Documented By: MODESTA Ondansetron HCl (Ondansetron 4 Mg Odt) 4 mg PO NOW PRN PRN Reason: Nausea And Vomiting Ondansetron HCl (Ondansetron 4 Mg/2 Ml Inj) 4 mg IV NOW PRN PRN Reason: Nausea And Vomiting Vital Signs Vital signs: Vital Signs - 8 hr 10/29/22 11:49 10/29/22 11:50 10/29/22 11:50 Pulse Rate 52 L 52 L Blood Pressure 117/63 Pulse Oximetry 99 99 10/29/22 13:20 10/29/22 13:21 10/29/22 13:23 Pulse Rate 56 L 53 L 51 L Blood Pressure Pulse Oximetry 99 100 100 10/29/22 13:23 Pulse Rate Blood Pressure 115/69 Pulse Oximetry MDM - Abdominal Pain Lab Data 10/29/22 10:30 10/29/22 10:30 Labs: Lab Results 10/29/22 10/29/22 10/29/22 Range/Units 10:22 10:30 10:30 WBC 6.1 (4.5-11.0) X10^3/uL RBC 4.26 (4.0-5.2) X10^6/uL Hgb 13.7 (12.0-16.0) g/dL Hct 40.4 (36-46) % MCV 94.8 (80-100) fL MCH 32.2 (26-34) PG MCHC 34.0 (30-36) % RDW 13.1 (11.6-14.8) % Plt Count 206 (150-400) X10^3/uL Neut % (Auto) 58.7 (50-75) % Lymph % (Auto) 31.6 (25-40) % [place] % (Auto) 6.8 (3-14) % Eos % (Auto) 2.2 (2-4) % Baso % (Auto) 0.7 (0-2) % Neut # (Auto) 3600 (6545-5245) /uL Lymph # (Auto) 1900 (6996-9593) /uL [place] # (Auto) 400 (0-900) /uL Eos # (Auto) 100 (0-450) /uL Baso # (Auto) 0 (0-100) /uL Sodium 136 L (137-145) mmol/L Potassium 4.0 (3.4-5.1) mmol/L Chloride 99 (98-107) mmol/L Carbon Dioxide 29 (22-32) mmol/L BUN 15 (7-17) mg/dL Creatinine 0.74 (0.52-1.04) mg/dL Estimated GFR > 60 (>60) mL/min BUN/Creatinine Ratio 20.3 (6-22) Glucose 93 (70-100) mg/dL Calcium 9.3 (8.4-10.2) mg/dL Total Bilirubin 0.6 (0.2-1.3) mg/dL AST 24 (14-36) IU/L ALT 17 (<35) IU/L Alkaline Phosphatase 54 (38-126) U/L Total Protein 7.5 (6.3-8.2) g/dL Albumin 4.5 (3.5-5.0) g/dL Globulin 3.0 (1.7-4.1) g/dL Albumin/Globulin Ratio 1.5 (1.0-2.8) Lipase 141 D (23-300) U/L Urine Color Yellow Urine Appearance Clear Urine pH 6.5 (4.5-8.0) Ur Specific [place] 1.010 (1.000-1.035) Urine Protein Negative (Negative) Urine Glucose (UA) Negative (Negative) g/dL Urine Ketones Negative (NEGATIVE) Urine Occult Blood Negative (Negative) Urine Nitrate Negative (Negative) Urine Bilirubin Negative (NEGATIVE) Urine Urobilinogen 0.2 (0.2) E.U./dL Ur Leukocyte Esterase Negative (NEGATIVE) Urine RBC None seen (0-5/HPF) Urine WBC 0-1/hpf (0-5/HPF) Ur Squamous Epith Cells 0-1 /hpf (0-5/HPF) Urine Bacteria None seen (None) Ur Culture Indicated? Cult not indicated Point of care testing: Urine Dip Bedside Urine Glucose Negative Bedside Urine Bilirubin - Negative Bedside Urine Ketone - Negative Urine Specific [place] 1.015 Bedside Urine Occult Blood - Negative Bedside Urine pH 6.0 Bedside Urine Protein - Negative Bedside Urine Urobilinogen - Negative Bedside Urine Nitrite - Negative Bedside Urine Leukocytes - Negative Esterase Discharge Plan Departure Patient Disposition: Home Clinical Impression: Abdominal pain, LLQ (left lower quadrant) Instructions: DI for Abdominal Pain-Adult Activity Restrictions/Additional Instructions: There is nothing acute on the labs, or CT evaluations. It Is possible the pain may be associated with the recent bout of shingles. However, you still are having bowel movements abnormal for you. I would encourage ongoing good hydration, high-fiber diet, and regular exercise. If you develop fever increasing pain return here. Follow-up with your doctor the next 1-2 weeks. Prescriptions: No Action estradiol 0.01 % (0.1 mg/gram) cream 1 gram VAG .COMPLEX Qty: 42.5 2RF Rx Instructions: Insert 1gm vaginally at bedtime for 14 nights, then 2 times weekly. diazepam 5 mg tablet 5 - 10 mg PO BEDTIME PRN (Reason: Anxiety) Qty: 10 5RF losartan [Cozaar] 25 mg tablet 25 mg PO DAILY Qty: 90 0RF metoprolol succinate [Toprol XL] 25 mg tablet extended release 24 hr 37.5 mg PO DAILY Qty: 135 3RF cetirizine 10 mg tablet 10 mg PO DAILY PRN ketotifen fumarate 0.025 % (0.035 %) drops EYE-BOTH DAILY lactulose 10 gram/15 mL solution 10 g PO BID PRN (Reason: constipation) Qty: 473 5RF Referrals: Shaheen Douglas MD [Primary Care Provider] - Stand Alone Forms: Patient Portal/API
--- NOTE | 2022-10-29 10:39 | ED_ITS ---
HPI - Abdominal Pain General Chief Complaint: Abdominal Pain Stated Complaint: abd pain [id number] Time Seen by Provider: 10/29/22 10:16 Source: patient Mode of arrival: Ambulatory Limitations: no limitations History of Present Illness HPI narrative: Patient presents with left lower quadrant pain, she has experienced intermittent discomfort for about 2 weeks. Pain exacerbates when she eats, she describes the pain is coming on like waves. She has history of obstipation. She is been taking MiraLax, other meds to relieve constipation.. She would only a small bowel movement yesterday. She is no nausea vomiting. She is no back pain. She is no dysuria or hematuria. She is no prior abdominal surgeries. She is no history of SBO. She is no fever or chills. She took Valium yesterday to relax her bowel, there were no benefit. She is no known history of diverticulosis/diverticulitis. She had shingles affecting her left lower abdomen 3 weeks ago. There is no rash at the site. Related Data Home Medications Medication Instructions Recorded Confirmed cetirizine 10 mg tablet 10 mg PO DAILY PRN 09/01/22 10/27/22 ketotifen fumarate 0.025 % (0.035 drp EYE-BOTH DAILY Allergies 10/27/22 10/27/22 %) eye drops Previous Rx's Medication Instructions Recorded estradiol 0.01% (0.1 mg/gram) 1 gram vaginal .COMPLEX HRT #42.5 03/20/20 vaginal cream grams diazepam 5 mg tablet 5 - 10 mg PO BEDTIME PRN Anxiety 09/02/22 #10 tabs losartan 25 mg tablet (Cozaar) 25 mg PO DAILY #90 tabs 09/12/22 metoprolol succinate 25 mg 37.5 mg PO DAILY #135 tabs 10/01/22 tablet,extended release 24 hr (Toprol XL) lactulose 10 gram/15 mL oral 10 g (15 mL) PO BID PRN 10/27/22 solution constipation #473 mL Allergies Allergy/AdvReac Type Severity Reaction Status Date / Time Sulfa (Sulfonamide Allergy Intermediate RASH Verified 10/27/22 08:20 Antibiotics) Review of Systems Constitutional Constitutional: Reports as per HPI, Denies anorexia, Denies chills, Denies fatigue and Denies fever(s) Eyes Eyes: Denies change in vision ENT Comments: No ENT complaints. Cardiovascular Cardiovascular: Denies chest pain, Denies rapid heart rate, Denies leg edema and Denies dyspnea on exertion Respiratory Respiratory: Denies cough and Denies dyspnea on exertion Gastrointestinal Gastrointestinal: Reports as per HPI Genitourinary Genitourinary: Denies dysuria and Reports flank pain Musculoskeletal Musculoskeletal: Denies back pain Integumentary/Breasts Skin/Breast: Denies rash Neurologic Neurologic: Reports burning sensations (Left flank) and Denies localized weakness Psychiatric Psychiatric: Reports system reviewed and no additional complaints, except as documented Endocrine Endocrine: Denies fatigue Hematologic/Lymphatic On Anticoagulants: No Patient History Medical History Acute psychosis Anemia Anxiety (~1997) Atrophic gastritis without mention of hemorrhage (04/19/02) Irritable bowel syndrome with constipation Low testosterone level in female (~1999) Moderate mixed hyperlipidemia not requiring statin therapy Postmenopausal Sciatica of left side Surgical History H/O LEEP Family History Father Age: 83 Hypertension Grandfather Hypertension Grandmother Hypertension Social History household members: none Smoking Status: Never smoker alcohol intake: never Smoking Status: Never smoker Substance Use Type: does not use Exam Initial Vital Signs Initial Vital Signs: Vital Signs Temperature 97.2 F L 10/29/22 10:13 Pulse Rate 59 L 10/29/22 10:13 Respiratory Rate 18 10/29/22 10:13 Blood Pressure 134/74 10/29/22 10:13 Pulse Oximetry 98 10/29/22 10:13 Oxygen Delivery Method 10/29/22 10:13 Const General: cooperative, healthy appearing and comfortable [facility] Head: normal to inspection, normocephalic and atraumatic Mouth: oral mucosae normal Eyes Conjunctivae: conjunctivae normal Pupils: PERRL EOM: EOM intact bilaterally Neck Neck: normal visual inspection Resp Auscultation: clear to auscultation bilaterally Cardio Rate: regular rate Rhythm: regular rhythm Heart Sounds: S1 normal and S2 normal GI Other: Mild LLQ tenderness. No masses. No distension. No guarding rebound. No rash reminiscent of the recent shingles outbreak. Back/Spine/Pelvis Back: No back tenderness Skin General: no rashes or lesions noted Neuro General: patient alert, patient awake, patient oriented x3 and no focal motor deficits Extrem General: normal to inspection and no pedal edema Psych Appearance: grossly normal Course Course Course Narrative: Lab evaluation and CT abdomen/pelvis are basically normal. There is a possibility she may be experiencing left lower quadrant pain due to the recent outbreak of shingles. She is hydrating well. She is on good diet. Her bowel movements have not been regular. I am encouraging good hydration, high-fiber diet, and regular exercise. I suspect with time these issues will resolve. Orders Ordered: ED Orders 10/29/22 10:22 Urinalysis and Microscopic Stat 10/29/22 10:30 Complete Blood Count AUTO DIFF Stat Comprehensive Metabolic Panel Stat Lipase Stat 10/29/22 10:52 CT abdomen pelvis w con Stat Sodium Chloride (Normal Saline 0.9%) 1,000 mls @ 250 mls/hr IV CONT CATHERINE Last Admin: 10/29/22 11:46 Dose: 250 mls/hr Documented By: MODESTA Ondansetron HCl (Ondansetron 4 Mg Odt) 4 mg PO NOW PRN PRN Reason: Nausea And Vomiting Ondansetron HCl (Ondansetron 4 Mg/2 Ml Inj) 4 mg IV NOW PRN PRN Reason: Nausea And Vomiting Vital Signs Vital signs: Vital Signs - 8 hr 10/29/22 10:13 Temperature 97.2 F L Pulse Rate 59 L Respiratory Rate 18 Blood Pressure 134/74 Pulse Oximetry 98 Oxygen Delivery Method Room Air MDM - Abdominal Pain Lab Data 10/29/22 10:30 10/29/22 10:30 Labs: Lab Results 10/29/22 10/29/22 Range/Units 10:30 10:30 WBC 6.1 (4.5-11.0) X10^3/uL RBC 4.26 (4.0-5.2) X10^6/uL Hgb 13.7 (12.0-16.0) g/dL Hct 40.4 (36-46) % MCV 94.8 (80-100) fL MCH 32.2 (26-34) PG MCHC 34.0 (30-36) % RDW 13.1 (11.6-14.8) % Plt Count 206 (150-400) X10^3/uL Neut % (Auto) 58.7 (50-75) % Lymph % (Auto) 31.6 (25-40) % [place] % (Auto) 6.8 (3-14) % Eos % (Auto) 2.2 (2-4) % Baso % (Auto) 0.7 (0-2) % Neut # (Auto) 3600 (2364-7592) /uL Lymph # (Auto) 1900 (7292-1393) /uL [place] # (Auto) 400 (0-900) /uL Eos # (Auto) 100 (0-450) /uL Baso # (Auto) 0 (0-100) /uL Sodium 136 L (137-145) mmol/L Potassium 4.0 (3.4-5.1) mmol/L Chloride 99 (98-107) mmol/L Carbon Dioxide 29 (22-32) mmol/L BUN 15 (7-17) mg/dL Creatinine 0.74 (0.52-1.04) mg/dL Estimated GFR > 60 (>60) mL/min BUN/Creatinine Ratio 20.3 (6-22) Glucose 93 (70-100) mg/dL Calcium 9.3 (8.4-10.2) mg/dL Total Bilirubin 0.6 (0.2-1.3) mg/dL AST 24 (14-36) IU/L ALT 17 (<35) IU/L Alkaline Phosphatase 54 (38-126) U/L Total Protein 7.5 (6.3-8.2) g/dL Albumin 4.5 (3.5-5.0) g/dL Globulin 3.0 (1.7-4.1) g/dL Albumin/Globulin Ratio 1.5 (1.0-2.8) Lipase 141 D (23-300) U/L Point of care testing: Urine Dip Bedside Urine Glucose Negative Bedside Urine Bilirubin - Negative Bedside Urine Ketone - Negative Urine Specific [place] 1.015 Bedside Urine Occult Blood - Negative Bedside Urine pH 6.0 Bedside Urine Protein - Negative Bedside Urine Urobilinogen - Negative Bedside Urine Nitrite - Negative Bedside Urine Leukocytes - Negative Esterase Imaging Data CT scan - abdomen/pelvis: Radiologist's Impression: No acute findings Discharge Plan Departure Patient Disposition: Home Clinical Impression: Abdominal pain, LLQ (left lower quadrant) Instructions: DI for Abdominal Pain-Adult Activity Restrictions/Additional Instructions: There is nothing acute on the lap, or CT evaluations. It Is possible the pain may be associated with the recent bout of shingles. However, you still are having bowel movements abnormal for you. I would enco urage ongoing good hydration, high-fiber diet, and regular exercise. If you develop fever increasing pain return here. Follow-up with your doctor the next 1-2 weeks. Prescriptions: No Action estradiol 0.01 % (0.1 mg/gram) cream 1 gram VAG .COMPLEX Qty: 42.5 2RF Rx Instructions: Insert 1gm vaginally at bedtime for 14 nights, then 2 times weekly. diazepam 5 mg tablet 5 - 10 mg PO BEDTIME PRN (Reason: Anxiety) Qty: 10 5RF losartan [Cozaar] 25 mg tablet 25 mg PO DAILY Qty: 90 0RF metoprolol succinate [Toprol XL] 25 mg tablet extended release 24 hr 37.5 mg PO DAILY Qty: 135 3RF cetirizine 10 mg tablet 10 mg PO DAILY PRN ketotifen fumarate 0.025 % (0.035 %) drops EYE-BOTH DAILY lactulose 10 gram/15 mL solution 10 g PO BID PRN (Reason: constipation) Qty: 473 5RF Referrals: Shaheen Douglas MD [Primary Care Provider] - Stand Alone Forms: Patient Portal/API
[2022-10-29 10:41] LABS: Add Manual Diff / Slide Review NO; Basophils Absolute Auto 0 /uL (0-100); Basophils Percent Auto 0.7 % (0-2); Eosinophils Absolute Auto 100 /uL (0-450); Eosinophils Percent Auto 2.2 % (2-4); Hematocrit 40.4 % (36-46); Hemoglobin 13.7 g/dL (12.0-16.0); Lymphocytes Absolute Auto 1900 /uL (1100-4500); Lymphocytes Percent Auto 31.6 % (25-40); Mean Corpuscular Hemoglobin 32.2 PG (26-34); Mean Corpuscular Volume 94.8 fL (80-100); Monocytes Absolute Auto 400 /uL (0-900); Monocytes Percent Auto 6.8 % (3-14); Neutrophils Absolute Auto 3600 /uL (1500-7000); Neutrophils Percent Auto 58.7 % (50-75); Platelet Count 206 X10^3/uL (150-400); Red Blood Cell Count 4.26 X10^6/uL (4.0-5.2); Red Cell Distribution Width 13.1 % (11.6-14.8); White Blood Cell Count 6.1 X10^3/uL (4.5-11.0)
--- NOTE | 2022-10-29 10:52 | DI.CT.S_ITS ---
PROCEDURE: CT ABDOMEN PELVIS W CON INDICATIONS: LLQ pain TECHNIQUE: After the administration of intravenous contrast, axial sections acquired from the lung bases to the pubic symphysis. Coronal and sagittal reformats were performed. For radiation dose reduction, the following was used: automated exposure control, adjustment of mA and/or kV according to patient size. COMPARISON: [facility], CT, CT ABDOMEN PELVIS WITH CONTRAST, 08/09/2020, 11:40. [facility], CT, CT ABDOMEN PELVIS W CON, 12/06/2018, 9:36. FINDINGS: Image quality: Adequate Lung bases: No pleural effusion ABDOMEN: Liver: Unremarkable. Gallbladder: Unremarkable. Biliary ducts: Unremarkable. Pancreas: Unremarkable. Spleen: Unremarkable. Adrenal Glands: Unremarkable. Kidneys and Ureters: Unremarkable. Stomach and Bowel: No bowel obstruction. No evidence of acute appendicitis. Peritoneum: No abnormal intraperitoneal fluid. No free air. Abdominal Nodes: No retroperitoneal or mesenteric adenopathy by size criteria. Vessels: Aorta and inferior vena cava are normal in size. PELVIS: Pelvic Organs: Unremarkable. Bladder: Unremarkable. Pelvic Nodes: No enlarged lymph nodes. Bones: Multilevel degenerative change of the visualized spine. IMPRESSION: No acute abnormality identified within the abdomen or pelvis. Dictated by: Nehemiah Hancock M.D. on 10/29/2022 at 11:14 Approved by: Nehemiah Hancock M.D. on 10/29/2022 at 11:24
[2022-10-29 10:59] LABS: Alanine Aminotransferase 17 IU/L (<35); Albumin 4.5 g/dL (3.5-5.0); Albumin Globulin Ratio 1.5 (1.0-2.8); Alkaline Phosphatase 54 U/L (38-126); Aspartate Aminotransferase 24 IU/L (14-36); BUN Creatinine Ratio 20.3 (6-22); Bilirubin Total 0.6 mg/dL (0.2-1.3); Blood Urea Nitrogen 15 mg/dL (7-17); Calcium 9.3 mg/dL (8.4-10.2); Carbon Dioxide 29 mmol/L (22-32); Chloride 99 mmol/L (98-107); Estimated Glomerular Filt Rate > 60 mL/min (>60); Glucose 93 mg/dL (70-100); HEMOLYSIS 16 (0-50); Lipase 141 U/L (23-300); Sodium 136 mmol/L (137-145); Total Protein 7.5 g/dL (6.3-8.2)
[2022-10-29] MEDS: SODIUM CHLORIDE 0.9% 1,000 ML 250 ML IV (11:46)
[2022-10-29 11:49] VITALS: PULSE 52; O2SAT 99
[2022-10-29 11:50] VITALS: BP 117/63; PULSE 52; O2SAT 99
[2022-10-29 12:47] LABS: Appearance Urine UA CLEAR; Bilirubin Urine UA NEGATIVE (NEGATIVE); Color Urine UA YELLOW; Glucose Urine UA NEGATIVE (Negative); Ketones Urine UA NEGATIVE (NEGATIVE); Leukocyte Esterase Urine UA NEGATIVE (NEGATIVE); Nitrite Urine UA NEGATIVE (Negative); Occult Blood Urine UA NEGATIVE (Negative); Protein Urine UA NEGATIVE (Negative); Urobilinogen Urine UA 0.2 E.U./dL (0.2)
[2022-10-29 13:00] LABS: Bacteria Urine None Seen; Culture Indicated Urine Cult Not Indicated; RBC Urine None Seen (0-5/HPF); Squamous Epithelial Cell Urine 0-1 /HPF (0-5/HPF); WBC Urine 0-1/HPF (0-5/HPF); pH Urine UA 6.5 (4.5-8.0)
[2022-10-29 13:20] VITALS: PULSE 56; O2SAT 99
[2022-10-29 13:21] VITALS: PULSE 53; O2SAT 100
[2022-10-29 13:23] VITALS: BP 115/69; PULSE 51; O2SAT 100
== END 2022-10-29 13:39 | disposition home or self-care (01) ==
PROVIDERS: Emergency Provider Emergency Medicine; Family Provider Student in an Organized Health Care Education/Training Program; PCP Student in an Organized Health Care Education/Training Program
DX: R10.32 Left lower quadrant pain (principal)
CPT/HCPCS: 74177; 80053; 81001; 81003; 83690; 85025; 93005; 96360; 96361; 99283; 99284; Q9967

== ENCOUNTER → 2022-11-11 11:18 | Outpatient (CLI) | payer OTHER, MEDICAID, SELFPAY ==
--- NOTE | 2022-11-11 | DI.MG.S_ITS ---
BILATERAL DIGITAL SCREENING MAMMOGRAM 3D/2D WITH CAD: 11/11/2022 CLINICAL: Routine screening. Comparison is made to exams dated: 11/07/2021 mammogram - [facility], 11/13/2020 mammogram - outside facility, 11/16/2019 mammogram, and 10/29/2018 mammogram - [facility]. There are scattered areas of fibroglandular density in both breasts (category b / 25%-50% glandular tissue). Current study was also evaluated with a Computer Aided Detection (CAD) system. No significant masses, calcifications, or other findings are seen in either breast. There has been no significant interval change. IMPRESSION: NEGATIVE There is no mammographic evidence of malignancy. A 1 year screening mammogram is recommended. Based on the Tyrer Cuzick model (a risk assessment model) the patient's lifetime risk is 5.7% and her 10 year risk is 2.0%. According to the ACR, ACS, and NCCN guidelines, an annual breast MRI exam along with mammogram is recommended if the patient's lifetime risk is 20% or greater. This exam was interpreted at Station ID: [id number]. NOTE: For mammograms, a report in lay terms will be sent to the patient. Approximately 15% of breast malignancies will not be visualized mammographically. In the management of a palpable breast mass, a negative mammogram must not discourage biopsy of a clinically suspicious lesion. Electronically Signed By: Jose lyons/dorina:11/11/2022 14:01:50 copy to: BANDAR RAMIREZ letter sent: Normal Exam ACR BI-RADS Category 1: Negative 3341F
== END ==
PROVIDERS: Family Provider Student in an Organized Health Care Education/Training Program; PCP Student in an Organized Health Care Education/Training Program; Referring Provider Student in an Organized Health Care Education/Training Program; Visit Provider Student in an Organized Health Care Education/Training Program
DX: Z12.31 Encounter for screening mammogram for malignant neoplasm of breast (principal)
CPT/HCPCS: 77063; 77067

== ENCOUNTER → 2023-06-11 07:43 | Outpatient (CLI) | payer OTHER, MEDICAID, SELFPAY ==
[2023-06-11 09:45] LABS: Alanine Aminotransferase 20 IU/L (<35); Albumin 4.3 g/dL (3.5-5.0); Albumin Globulin Ratio 1.6 (1.0-2.8); Alkaline Phosphatase 43 U/L (38-126); Aspartate Aminotransferase 23 IU/L (14-36); BUN Creatinine Ratio 21.9 (6-22); Bilirubin Total 0.6 mg/dL (0.2-1.3); Blood Urea Nitrogen 16 mg/dL (7-17); Calcium 9.4 mg/dL (8.4-10.2); Carbon Dioxide 30 mmol/L (22-32); Chloride 99 mmol/L (98-107); Cholesterol 222 mg/dL (140-199); Estimated Glomerular Filt Rate > 60 mL/min (>60); Globulin 2.7 g/dL (1.7-4.1); Glucose 86 mg/dL (70-100); HDL Cholesterol 57 mg/dL (40-60); HEMOLYSIS < 15 (0-50); LDL Cholesterol Calculated 152 mg/dL (<100); Potassium 4.2 mmol/L (3.4-5.1); Sodium 137 mmol/L (137-145); Triglycerides 64 mg/dL (35-150)
== END ==
PROVIDERS: Family Provider Student in an Organized Health Care Education/Training Program; PCP Student in an Organized Health Care Education/Training Program; Referring Provider Internal Medicine Cardiovascular Disease; Visit Provider Internal Medicine Cardiovascular Disease
DX: E78.00 Pure hypercholesterolemia, unspecified (principal)
CPT/HCPCS: 36415; 80053; 80061

== ENCOUNTER → 2023-06-13 08:56 | Outpatient (CLI) | payer OTHER, MEDICAID, SELFPAY ==
[2023-06-13 10:32] LABS: Cholesterol 222 mg/dL (140-199); HDL Cholesterol 60 mg/dL (40-60); LDL Cholesterol Calculated 151 mg/dL (<100); Triglycerides 53 mg/dL (35-150)
== END ==
PROVIDERS: Family Provider Student in an Organized Health Care Education/Training Program; PCP Student in an Organized Health Care Education/Training Program; Referring Provider Internal Medicine Cardiovascular Disease; Visit Provider Internal Medicine Cardiovascular Disease
DX: E78.89 Other lipoprotein metabolism disorders (principal)
CPT/HCPCS: 36415; 80061

== ENCOUNTER → 2023-07-10 08:17 | Outpatient (CLI) | payer OTHER, MEDICAID, SELFPAY ==
[2023-07-10 09:16] LABS: Hemoglobin A1C% w Est Avg Glu 5.2 % (4.0-6.0)
== END ==
PROVIDERS: Family Provider Student in an Organized Health Care Education/Training Program; PCP Student in an Organized Health Care Education/Training Program; Visit Provider Student in an Organized Health Care Education/Training Program
DX: Z13.1 Encounter for screening for diabetes mellitus (principal)
CPT/HCPCS: 36415; 83036

== ENCOUNTER → 2023-08-05 07:51 | Outpatient (CLI) | payer OTHER, MEDICAID, SELFPAY ==
[2023-08-12 13:37] LABS: Pancreatic Elastase, Fecal 146 (>200)
== END ==
PROVIDERS: Family Provider Student in an Organized Health Care Education/Training Program; PCP Student in an Organized Health Care Education/Training Program; Referring Provider Physician Assistant; Visit Provider Physician Assistant
DX: K30 Functional dyspepsia (principal); K90.41 Non-celiac gluten sensitivity; R14.0 Abdominal distension (gaseous)
CPT/HCPCS: 82656

== ENCOUNTER → 2023-10-14 08:18 | Outpatient (CLI) | payer OTHER, MEDICAID, SELFPAY ==
[2023-10-14 09:12] LABS: Calcium 9.8 mg/dL (8.4-10.2)
[2023-10-14 10:15] LABS: Folate 6.9 ng/mL (2.76-20.0); Vitamin B12 889 pg/mL (239-931)
[2023-10-14 21:16] LABS: Occult Blood 1 Negative (Negative); Occult Blood 2 Negative (Negative); Occult Blood 3 Negative (Negative)
[2023-10-16 11:10] LABS: Cholesterol, Total 216 mg/dL (100-199); HDL-Cholesterol 66 mg/dL (>39); LDL Particle 1307 nmol/L (<1000); LDL-Cholsterol 140 mg/dL (0-99); LP-IR Score <25 (<=45); Small LDL- Particle 171 nmol/L (<=527); Triglycerides 58 mg/dL (0-149)
[2023-10-18 16:39] LABS: 25 hydroxy Vitamin D 2 <1.0 ng/mL (.); 25 hydroxy Vitamin D3 40 ng/mL (.)
== END ==
PROVIDERS: Family Provider Student in an Organized Health Care Education/Training Program; PCP Student in an Organized Health Care Education/Training Program; Referring Provider Physician Assistant; Visit Provider Physician Assistant
DX: E78.00 Pure hypercholesterolemia, unspecified (principal); K92.1 Melena; K86.81 Exocrine pancreatic insufficiency; Q45.3 Other congenital malformations of pancreas and pancreatic duct
CPT/HCPCS: 36415; 80061; 82270; 82306; 82310; 82607; 82746; 83704; 83735

== ENCOUNTER → 2023-10-19 14:51 | Outpatient (CLI) | payer OTHER, MEDICAID, SELFPAY ==
--- NOTE | 2023-10-19 14:53 | DI.RAD.S_ITS ---
Bone Density Report Name: BELÉN SCHILLING Age: 58 Sex: Female Ethnicity: White Date of : 1965 Indication: postmenopausal; screening for osteoporosis; parental hip fracture; Referring Provider: LAURY SMITH Study: Bone densitometry was performed. Exam Date: October 19, 2023 Accession number: [id number] Bone Density: Region BMD T-score Z-score Classification AP Spine(L1-L4) 0.906 -1.3 0.0 Osteopenia Femoral Neck (Left) 0.777 -0.7 0.5 Normal Total Hip (Left) 0.845 -0.8 0.0 Normal Femoral Neck (Right) 0.775 -0.7 0.5 Normal Total Hip (Right) 0.850 -0.8 0.1 Normal Total Hip Mean 0.847 -0.8 0.1 Normal World Health Organization criteria for BMD impression classify patients as: Normal (T-score at or above -1.0), Osteopenia (T-score between -1.0 and -2.5), or Osteoporosis (T-score at or below -2.5). 10-year Fracture Risk(1): Major Osteoporotic Fracture 13% Hip Fracture 0.3% Reported Risk Factors: [place] (), Neck BMD=0.777, BMI=24.4, parental fracture (1) FRAX(R) Version 3.08. Fracture probability calculated for an untreated patient. Fracture probability may be lower if the patient has received treatment. Previous Exams: -- Region Exam Age BMD T-score BMD Change BMD Change Date g/cm2 vs Baseline vs Previous -- AP Spine (L1-L4) 10/19/2023 58 0.906 -1.3 -0.079 (-8.0%)# -0.079 (-8.0%)# 07/29/2019 53 0.985 -0.6 Total Hip(Left) 10/19/2023 58 0.845 -0.8 -0.044 (-5.0%)# -0.044 (-5.0%)# 07/29/2019 53 0.889 -0.4 Total Hip(Right) 10/19/2023 58 0.850 -0.8 -0.032 (-3.7%)# -0.032 (-3.7%)# 07/29/2019 53 0.882 -0.5 -- *Denotes significance at 95% confidence level, LSC for AP Spine = 0.022 g/cm2, LSC for Total Hip = 0.027 g/cm2 # Denotes dissimilar scan types or analysis methods Impression: The patient has low bone mass, based on the Total Spine T-score. The patient has an estimated ten-year risk of hip fracture of 0.3% and an estimated ten-year risk of major fracture of 13%, based on the WHO FRAX algorithm. The patient has risk factors, including: parental hip fracture. No significant bone loss was observed. Discussion: BONE DENSITY IS LOW AT ONE OR MORE SKELETAL SITES. This patient's lowest T-score is low at one or more skeletal sites. It meets the World Health Organization's (WHO) criteria for low bone mass (T-score between -1.0 and -2.5). The patient's 10-year risk of fracture as calculated by FRAX is less than the threshold where pharmacological therapy is recommended by the National Osteoporosis Foundation (NOF). However, all treatment decisions require clinical judgment and consideration of individual patient factors, including patient preferences, comorbidities, previous drug use, risk factors not captured in the FRAX model (e.g., frailty, falls, vitamin D deficiency, increased bone turnover, interval significant decline in bone density) and possible under or overestimation of fracture risk by FRAX. The patient should follow a healthful lifestyle (good nutrition with adequate calcium and vitamin D, and appropriate weight-bearing exercise). Follow-Up: Consider repeating this study in 2 to 3 years to reassess this patient's status, or sooner if there is some new clinical indication. Reported by: VERONICA MARI M.D. on 10/19/2023 3:15:00 PM.
== END ==
LOC: RAD 14:52
PROVIDERS: Family Provider Student in an Organized Health Care Education/Training Program; PCP Student in an Organized Health Care Education/Training Program; Referring Provider Physician Assistant; Visit Provider Physician Assistant
DX: K86.81 Exocrine pancreatic insufficiency (principal); Q45.3 Other congenital malformations of pancreas and pancreatic duct; Z78.0 Asymptomatic menopausal state; M85.88 Other specified disorders of bone density and structure, other site
CPT/HCPCS: 77080

== ENCOUNTER → 2023-11-12 08:18 | Outpatient (CLI) | payer OTHER, MEDICAID, SELFPAY ==
--- NOTE | 2023-11-12 | DI.MG.S_ITS ---
BILATERAL DIGITAL SCREENING MAMMOGRAM 3D/2D WITH CAD: 11/12/2023 CLINICAL: Routine screening. Comparison is made to exams dated: 11/11/2022 mammogram, 11/07/2021 mammogram - [facility], and 11/13/2020 mammogram - outside facility. Both breasts are heterogeneously dense, which may obscure small masses (category c / 51-75% glandular tissue). Current study was also evaluated with a Computer Aided Detection (CAD) system. No significant masses, calcifications, or other findings are seen in either breast. There has been no significant interval change. IMPRESSION: NEGATIVE There is no mammographic evidence of malignancy. A 1 year screening mammogram is recommended. Based on the Tyrer Cuzick model (a risk assessment model) the patient's lifetime risk is 8.5% and her 10 year risk is 3.1%. According to the ACR, ACS, and NCCN guidelines, an annual breast MRI exam along with mammogram is recommended if the patient's lifetime risk is 20% or greater. This exam was interpreted at Station ID: [id number]. NOTE: For mammograms, a report in lay terms will be sent to the patient. Approximately 15% of breast malignancies will not be visualized mammographically. In the management of a palpable breast mass, a negative mammogram must not discourage biopsy of a clinically suspicious lesion. Electronically Signed By: Toribio dangelo/dorina:11/12/2023 11:19:47 copy to: BANDAR RAMIREZ letter sent: Normal Exam ACR BI-RADS Category 1: Negative 3341F
== END ==
LOC: MAMMO 08:19
PROVIDERS: PCP Student in an Organized Health Care Education/Training Program; Referring Provider Student in an Organized Health Care Education/Training Program; Visit Provider Student in an Organized Health Care Education/Training Program
DX: Z12.31 Encounter for screening mammogram for malignant neoplasm of breast (principal); R92.333 Mammographic heterogeneous density, bilateral breasts
CPT/HCPCS: 77063; 77067

== ENCOUNTER → 2023-11-25 09:11 | Outpatient (CLI) | payer OTHER, MEDICAID, SELFPAY ==
[2023-11-25 11:38] LABS: Free T4, Direct Thyroxine 0.92 ng/dL (0.78-2.19)
[2023-11-25 11:52] LABS: Thyroid Stimulating Hormone 4.36 uIU/mL (0.47-4.68)
== END ==
PROVIDERS: PCP Student in an Organized Health Care Education/Training Program; Referring Provider Physician Assistant; Visit Provider Physician Assistant
DX: Z86.39 Personal history of other endocrine, nutritional and metabolic disease (principal)
CPT/HCPCS: 36415; 84439; 84443

== ENCOUNTER → 2023-12-01 07:50 | Outpatient (CLI) | payer OTHER, MEDICAID, SELFPAY ==
--- NOTE | 2023-12-01 07:51 | DI.NM.S_ITS ---
PROCEDURE: NM EXERCISE TREADMILL NON NUC COMPARISON: None INDICATIONS: Palpitations Shortness of breath FINDINGS: Rest ECG sinus rhythm. Ambrocio protocol 7:20, maximum heart rate 147 bpm (91% peak predicted), maximum blood pressure 140/90, 10.1 METS, STACI -4%. Exercise ECG sinus tachycardia, 1-[address] segment depressions leads II, III, aVF, V4 to V6. No arrhythmias. The patient did not complain of exercise-induced chest pain. IMPRESSION: Abnormal study. Exercise-induced ST segment changes consistent with inducible ischemia. Normal hemodynamic response. Fair exercise capacity. Dictated by: Alejandra Nath D.O. on 12/01/2023 at 17:14 Approved by: Alejandra Nath D.O. on 12/01/2023 at 17:16
== END ==
LOC: RAD 07:51
PROVIDERS: PCP Student in an Organized Health Care Education/Training Program; Referring Provider Nurse Practitioner; Visit Provider Nurse Practitioner
DX: R00.2 Palpitations (principal); R06.02 Shortness of breath; R94.39 Abnormal result of other cardiovascular function study
CPT/HCPCS: 93017

== ENCOUNTER → 2023-12-15 06:50 | Outpatient (CLI) | payer OTHER, MEDICAID, SELFPAY ==
--- NOTE | 2023-12-15 06:52 | DI.ECHO.S_ITS ---
[facility]---------[facility] +---------+ : : [address] : [address] : : : : [id number] : : : : Phone: [phone]+ Echocardiogram Report + + :Name: BELÉN SCHILLING Study Date: 12/15/2023 Height: 61.5 in: :[facility] ReadingLocation: Weight: 129 lb : : Gender: Female BSA: 1.6 m2 : :: 1965 Age: 58 yrs BP: 107/79 mmHg: :Reason For Study: SHORTNESS OF BREATH : :Ordering Physician: MARTINEZ, : :ANGIE Vang Performed By: Zainab Cramer : :Referring: ANGIE HENRIQUEZ : + + Interpretation Summary The patient was in sinus bradycardia with heart rates between 49-60 bpm during the exam. The ejection fraction is estimated to be 50-55%. Diastolic parameters suggest probable normal left ventricular diastolic function and normal filling pressures. The right ventricle is normal in size and function. There is mild tricuspid regurgitation. Pulmonary artery pressures cannot be estimated because of the lack of a measurable TR jet velocity but the IVC suggests a CVP of around 3 mmHg. Compared to the prior study dated 07/04/2021, no change. Procedure: A two-dimensional transthoracic echocardiogram with color flow and Doppler was performed. The study quality was technically adequate. Comparison is made with the echocardiogram of 07/04/2021. The patient was in sinus bradycardia with heart rates between 49-60 bpm during the exam. Left Ventricle: The left ventricle is normal in size and wall thickness. The ejection fraction is estimated to be 50-55%. Diastolic parameters suggest probable normal left ventricular diastolic function and normal filling pressures. Right Ventricle: The right ventricle is normal in size and function. Atria: The left atrial size is normal. Right atrial size is normal. There is no Doppler evidence for an interatrial shunt. Mitral Valve: The mitral valve is normal in structure and function. There is trace mitral regurgitation. Aortic Valve: The aortic valve is trileaflet. The aortic valve opens well. There is no aortic valve stenosis. No aortic regurgitation is present. Tricuspid Valve: The tricuspid valve is normal in structure and function. There is mild tricuspid regurgitation. Pulmonary artery pressures cannot be estimated because of the lack of a measurable TR jet velocity but the IVC suggests a CVP of around 3 mmHg. Pulmonic Valve: The pulmonic valve leaflets are thin and pliable; valve motion is normal. There is no pulmonic valvular regurgitation. Great Vessels: The aortic root is borderline dilated. The dimensions of the ascending aorta are normal. The IVC is of normal diameter and collapses greater than 50% with a sniff. This suggests a low right atrial pressure of 3 mm Hg. Pericardium/ Pleura There is a trivial pericardial effusion noted. There is no pleural effusion. MMode/2D Measurements & Calculations LVIDd: 3.6 cm LVOT diam: 2.1 cm LVIDs: 2.6 cm Ao root diam: 3.7 cm FS: 29.1 % asc Aorta Diam: 3.3 cm EPSS: 0.68 cm Ao Arch Diam (Prox Trans): 2.2 cm IVSd: 0.82 cm LVPWd: 0.72 cm LV ledesma. diameter/BSA (cm/m^2): 2.3 LV sys. diameter/BSA (cm/m^2): 1.6 LA A2 area: 16.7 cm2 RA long axis: 4.4 cm LA A4 area: 12.8 cm2 RA area: 12.8 cm2 LA length (vol): 4.1 cm RA vol: 31.4 ml LA vol: 44.4 ml RA : 19.9 ml/m2 LA vol index: 28.1 ml/m2 IVC diam: 1.8 cm RVD1 (basal): 3.3 cm RVD2 (mid): 2.4 cm TAPSE: 2.0 cm Doppler Measurements & Calculations Ao V2 max: 98.9 cm/sec LVOT Max Juan: 90.9 cm/sec Ao V2 mean: 71.5 cm/sec LV V1 max P.3 mmHg Ao max P.9 mmHg LV V1 VTI: 20.1 cm Ao mean P.3 mmHg RITO(I,D): 3.0 cm2 Ao V2 VTI: 23.7 cm RITO(V,D): 3.2 cm2 sev ratio: 0.85 RITO indexed to BSA (cm^2/m^2): 1.9 MV E max juan: 80.9 cm/sec TR max juan: 191.6 cm/sec MV A max juan: 53.8 cm/sec TR max P.7 mmHg MV E/A: 1.5 PA V2 max: 58.7 cm/sec Med Peak E' Juan: 9.4 cm/sec PA V2 mean: 38.2 cm/sec E/E' med: 8.6 PA mean P.67 mmHg Lat Peak E' Juan: 9.5 cm/sec PA pr(Accel): 13.9 mmHg E/E' lat: 8.5 E/e' average: 8.6 MV dec time: 0.19 sec SV(LVOT): 70.6 ml Reading Physician:08:33 PM
== END ==
PROVIDERS: PCP Student in an Organized Health Care Education/Training Program; Referring Provider Nurse Practitioner; Visit Provider Nurse Practitioner
DX: I07.1 Rheumatic tricuspid insufficiency (principal); R06.02 Shortness of breath
CPT/HCPCS: 93306

== ENCOUNTER → 2023-12-28 08:10 | Outpatient (CLI) | payer OTHER, MEDICAID, SELFPAY ==
--- NOTE | 2023-12-28 08:11 | DI.RAD.S_ITS ---
PROCEDURE: XR ANKLE LT MIN 3V INDICATIONS: persistent ankle, heel, lateral foot pain TECHNIQUE: 3 views of the ankle were acquired. COMPARISON: None. FINDINGS: Bones: No fractures or dislocations. Ankle mortise is normally aligned on nonweightbearing view. No suspicious bony lesions. Soft tissues: No tibiotalar joint effusion. Achilles tendon appears normal. Tiny plantar calcaneal enthesophyte. IMPRESSION: No acute bony abnormality or significant effusion. Dictated by: Anna Choi M.D. on 12/28/2023 at 8:52 Approved by: Anna Choi M.D. on 12/28/2023 at 9:46
--- NOTE | 2023-12-28 08:11 | DI.RAD.S_ITS ---
PROCEDURE: XR FOOT LT MIN 3V INDICATIONS: persistent ankle, heel, lateral foot pain TECHNIQUE: 3 views of the foot were acquired. COMPARISON: None. FINDINGS: Bones: No fractures or dislocations. Normal alignment on nonweightbearing view. No suspicious bony lesions. Soft tissues: No tibiotalar joint effusion. Achilles tendon appears normal. Tiny plantar calcaneal enthesophyte. IMPRESSION: No acute bony abnormality. If clinical symptoms persist, consider repeat radiograph in 10-14 days versus cross-sectional imaging. Dictated by: Anna Choi M.D. on 12/28/2023 at 9:47 Approved by: Anna Choi M.D. on 12/28/2023 at 9:47
== END ==
PROVIDERS: PCP Student in an Organized Health Care Education/Training Program; Referring Provider Student in an Organized Health Care Education/Training Program; Visit Provider Student in an Organized Health Care Education/Training Program
DX: M25.572 Pain in left ankle and joints of left foot (principal); M79.672 Pain in left foot
CPT/HCPCS: 73610; 73630

== ENCOUNTER 2024-03-09 07:30 | Outpatient (RCR) | payer OTHER, MEDICAID, SELFPAY ==
--- NOTE | 2023-11-12 18:27 | PT.OIE ---
Current Diagnoses Dorsalgia, unspecified (11/12/23) Difficulty in walking, not elsewhere classified (11/12/23) Abnormal posture (11/12/23) Weakness (11/12/23) Past Medical History (Last Updated 06/16/23 @ 17:25 by Madeline Soto MD) Acute psychosis Anemia Anxiety (~1997) Atrophic gastritis without mention of hemorrhage (04/19/02) Irritable bowel syndrome with constipation Low testosterone level in female (~1999) Moderate mixed hyperlipidemia not requiring statin therapy Postmenopausal Sciatica of left side Past Surgical History (Last Reviewed 10/29/22 @ 13:11 by Lamberto Garrido MD) H/O LEEP Visit Care Team Role Provider Type Madeline Soto MD Attending Provider Physician Primary Care Provider Referring Provider Specialty: Family Practice Obstetrics Address: [address] [place] [address], [facility] Email: [email or web address] Physical Therapy Initial Evaluation PT-OP-A Visit Information Start: 11/11/23 17:50 Freq: Status: Active Protocol: Document 11/12/23 09:07 [facility] (Rec: 11/12/23 09:52 [facility] [id number]) Out-Patient Physical Therapy Visit Information Visit Information Visit Type Initial Evaluation Visit Start Time 09:05 Visit Stop Time 09:50 Visit Number 1 Number of DEPOT AGENT Visits 0 PT-OP-B Current Condition Start: 11/11/23 17:50 Freq: Status: Active Protocol: Document 11/12/23 09:07 [facility] (Rec: 11/12/23 09:52 [facility] [id number]) Current Condition History of Current Condition Onset Date chronic w/recent worsening Current Complaints LBP History of Current Condition 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 She reports she walks 4x/week for a little over a mile. W/her fibromyalgia, she sometimes gets flared w/the walk. Pt reports her back was really flared up in mid Sep for a couple weeks. Pt reports she has had back pain for 10 years . Its been a gradual onset. About a week ago, it started to calm down. Pt reports back prevents her from lifting heavy things. Bending over to tie her shoes, can be painful . sitting on a firm surface is better than something soft like couch. A couple weeks ago , she had difficulty stepping into the tub and had difficulty walking. 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 Treatment Goals Patient/Caregiver Goals strength training to prevent bone density loss; improve core stability PT-OP-C Subjective Start: 11/11/23 17:50 Freq: Status: Active Protocol: Document 11/12/23 09:07 [facility] (Rec: 11/12/23 09:52 [facility] [id number]) Patient Questionnaires Oswestry Low Back Index Oswestry Score OP-PT Pain Assessment Location LBP Pain Location Details B SI & LS Scale Used best:3/10; worst:6 Description Dull,Tightness Frequency Constant Pain Aggravating Factors Standing,Sitting,Walking, Bending,Lifting Other Pain Aggravating Factors hills Pain Alleviating Factors Lying Supine PT-OP-D Balance Start: 11/11/23 17:50 Freq: Status: Active Protocol: Document 11/12/23 09:07 [facility] (Rec: 11/12/23 09:52 [facility] [id number]) Balance Tests Single Limb Standing Single Limb- Right pelvis rot R >30 sec Single Limb- Left >30 sec PT-OP-F Manual Assessment Start: 11/11/23 17:50 Freq: Status: Active Protocol: Document 11/12/23 09:07 [facility] (Rec: 11/12/23 09:52 [facility] [id number]) Manual Assessments Joint Mobility Assessment Joint Mobility Assessment L iliac crest higher; equal greater trochanters PT-OP-G Mobility & Gait Start: 11/11/23 17:50 Freq: Status: Active Protocol: Document 11/12/23 09:07 [facility] (Rec: 11/12/23 09:52 [facility] [id number]) OP Gait Assessment Comments Gait Comments hip drop when landing on LLE; toes out B PT-OP-J Posture/Palpation/Skin Start: 11/11/23 17:50 Freq: Status: Active Protocol: Document 11/12/23 09:07 [facility] (Rec: 11/12/23 09:52 [facility] [id number]) Posture Evaluation Brandee Postural Classification System Brandee Postural Classifications Posterior/Posterior Vertebral Compression Test 1 Elbow Flexion Test 1 Lumbar Protective Mechanism Left AP 0 Lumbar Protective Mechanism Right AP 0 Lumbar Protective Mechanism Left PA 0 Lumbar Protective Mechanism Right PA 1 Comments Posture Comments slight R rot of trunk, R>L toeing out; slight L pelvic shear PT-OP-K Range of Motion Start: 11/11/23 17:50 Freq: Status: Active Protocol: Document 11/12/23 09:07 [facility] (Rec: 11/12/23 09:52 [facility] [id number]) Lumbar Spine Range of Motion Lumbar Spine Active Percentage Flexion 50 Extension 80 Rotation Left 50 Rotation Right 40 Lateral Flexion Left 70 Lateral Flexion Right 60 Comments pain flex & R SB PT-OP-L Special Tests Start: 11/11/23 17:50 Freq: Status: Active Protocol: Document 11/12/23 09:07 [facility] (Rec: 11/12/23 09:52 [facility] [id number]) Special Tests Lumbar Spine Special Tests Straight Leg Raise Test Results 67 deg R; L 68 deg Gonzalez Test Results WNL B Slump Test Results neg B PT-OP-M Strength Start: 11/11/23 17:50 Freq: Status: Active Protocol: Document 11/12/23 09:07 [facility] (Rec: 11/12/23 09:52 [facility] [id number]) Hip Strength Hip Manual Muscle Testing Right Flexion (L2) 4 Good Extension (S1) 3+ Fair+ Abduction 3+ Fair+ Adduction 4 Good External Rotation 4- Good- Internal Rotation 4- Good- Left Flexion (L2) 4- Good- Extension (S1) 3 Fair Abduction 4- Good- Adduction 3+ Fair+ External Rotation 3+ Fair+ Internal Rotation 3+ Fair+ Knee Strength Knee Manual Muscle Testing Right Flexion (S2) 4 Good Extension (L3) 5 Normal Left Flexion (S2) 5 Normal Extension (L3) 5 Normal Ankle/Foot Strength Ankle and Foot Manual Muscle Testing Right Dorsiflexion (L4) 5 Normal Plantarflexion (S1) 5 Normal Comments 20 heel raises B (cues to keep knee straight) difficulty Left Dorsiflexion (L4) 5 Normal Plantarflexion (S1) 5 Normal PT-OP-Q Treatments Start: 11/11/23 17:50 Freq: Status: Active Protocol: Document 11/12/23 09:07 [facility] (Rec: 11/12/23 18:20 [facility] [id number]) Self-Care/Home Management Treatment Education Other Education 8 min: discussion w/pt re: impairments including innominate position likely contributing to pain. Edu to patient on WB exercsies and strength importance for osteoporosis/osteopenia and also for LBP including core strengthening. PT-OP-T Assessment and Plan Start: 11/11/23 17:50 Freq: Status: Active Protocol: Document 11/12/23 09:07 [facility] (Rec: 11/12/23 09:52 [facility] [id number]) Physical Therapy Assessment Rehab Potential Rehabilitation Potential Excellent Evaluation Complexity Number of Personal Factors/Comorbidities 3 or More Number of Body Systems Impaired 4 or More Clinical Presentation at Evaluation Evolving Impairments Impairments Activity Tolerance,Balance, Functional Activities, Functional Mobility,Gait,Pain, Posture,ROM,Soft Tissue Mobility,Strength Goals 4 Impairment posture 1/5 VCT Short Term Goal (STG) Pt will improve VCT to at least 3/5 to show improved postural alignment to allow greater ease w/upright activity. STG Duration 12/28/23 Usp Goal (LTG) pt will improve VCT to at least 4/5 to show improved postural alignment to allow greater ease w/upright activity. LTG Duration 02/01/24 3 Impairment Decreased core strength Short Term Goal (STG) Pt will be indep w/HEP STG Duration 12/28/23 Human Factors Advisor Lead Goal (LTG) Pt will score at least 3/5 on LPM and EFT and at least 4+/5 on all B LE MMT to show imporved stability to improve ability for pt to do daily activities w/o inc pain. LTG Duration 02/01/24 2 Impairment decreased lumbar flexion Short Term Goal (STG) Pt will improve lumbar flex to able to touch ankles. STG Duration 12/28/23 Human Factors Advisor Lead Goal (LTG) Pt willi mprove Lumbar flex to be able to touch floor w/o inc pain to allow improved functional capcity w/bending LTG Duration 02/01/24 Assessment Summary Assessment Pt presents w/worsening of chronic LBP w/history of mult bouts of PT w/good success. She has recent osteopenia diagnosis to lumbar spine, which concerns her and she wants to get stronger and more stable. She has signficiantly dec core stability and B hip weakness. In standing and SLS L it is noted pt turns to R, which indicates potential tightness of R hip into IR that may contribute to her pain and positioning. She would benefit from skilled PT to imrpove her posture, strength and mobility. Physical Therapy Plan Frequency and Duration Frequency of Treatment 1-2x/wk Duration of treatment (weeks) 12 Plan of Care Start Date 11/12/23 Plan of Care End Date 02/04/24 Therapeutic Interventions Therapeutic Interventions Balance Training,Gait Training ,Home Exercise Program,Joint Mobilizations,Manual Therapy, Neuromuscular Re-education, Orthotic/Prosthetic Management ,Patient/Caregiver Education, Self-Care/Home Management,Soft Tissue Mobilization,Taping, Therapeutic Activities, Therapeutic Exercises Modalities Cold Pack/Ice Massage,Electric Stimulation,Hot Packs, Traction- Mechanical, Ultrasound Next Visit Focus/Plan Next Note Type Treatment Note Next Visit Plan HEP: supine core progression: LTR, marches, DL isometric; mobility: bottoms up, kahlil pose, cat cow manual: hip and innominate mobilization (L hip may have more dysfunctions)
--- NOTE | 2023-11-12 18:27 | PT.OPPOC ---
Physical, Occupational & Speech Therapy At [facility] Current Diagnoses Dorsalgia, unspecified (11/12/23) Difficulty in walking, not elsewhere classified (11/12/23) Abnormal posture (11/12/23) Weakness (11/12/23) Visit Care Team Role Provider Type Madeline Soto MD Attending Provider Physician Primary Care Provider Referring Provider Specialty: Family Practice Obstetrics Address: [address] [place] [address], [id number] Email: [email or web address] Plan Of Care PT-OP-T Assessment and Plan Start: 11/11/23 17:50 Freq: Status: Active Protocol: Document 11/12/23 09:07 [facility] (Rec: 11/12/23 09:52 [facility] [id number]) Physical Therapy Assessment Rehab Potential Rehabilitation Potential Excellent Evaluation Complexity Number of Personal Factors/Comorbidities 3 or More Number of Body Systems Impaired 4 or More Clinical Presentation at Evaluation Evolving Impairments Impairments Activity Tolerance,Balance, Functional Activities, Functional Mobility,Gait,Pain, Posture,ROM,Soft Tissue Mobility,Strength Goals 4 Impairment posture 1/5 VCT Short Term Goal (STG) Pt will improve VCT to at least 3/5 to show improved postural alignment to allow greater ease w/upright activity. STG Duration 12/28/23 Manager Cleaning Goal (LTG) pt will improve VCT to at least 4/5 to show improved postural alignment to allow greater ease w/upright activity. LTG Duration 02/01/24 3 Impairment Decreased core strength Short Term Goal (STG) Pt will be indep w/HEP STG Duration 12/28/23 Mcfp Goal (LTG) Pt will score at least 3/5 on LPM and EFT and at least 4+/5 on all B LE MMT to show imporved stability to improve ability for pt to do daily activities w/o inc pain. LTG Duration 02/01/24 2 Impairment decreased lumbar flexion Short Term Goal (STG) Pt will improve lumbar flex to able to touch ankles. STG Duration 12/28/23 Manager Cleaning Goal (LTG) Pt willi mprove Lumbar flex to be able to touch floor w/o inc pain to allow improved functional capcity w/bending LTG Duration 02/01/24 Assessment Summary Assessment Pt presents w/worsening of chronic LBP w/history of mult bouts of PT w/good success. She has recent osteopenia diagnosis to lumbar spine, which concerns her and she wants to get stronger and more stable. She has signficiantly dec core stability and B hip weakness. In standing and SLS L it is noted pt turns to R, which indicates potential tightness of R hip into IR that may contribute to her pain and positioning. She would benefit from skilled PT to imrpove her posture, strength and mobility. Physical Therapy Plan Frequency and Duration Frequency of Treatment 1-2x/wk Duration of treatment (weeks) 12 Plan of Care Start Date 11/12/23 Plan of Care End Date 02/04/24 Therapeutic Interventions Therapeutic Interventions Balance Training,Gait Training ,Home Exercise Program,Joint Mobilizations,Manual Therapy, Neuromuscular Re-education, Orthotic/Prosthetic Management ,Patient/Caregiver Education, Self-Care/Home Management,Soft Tissue Mobilization,Taping, Therapeutic Activities, Therapeutic Exercises Modalities Cold Pack/Ice Massage,Electric Stimulation,Hot Packs, Traction- Mechanical, Ultrasound Next Visit Focus/Plan Next Note Type Treatment Note Next Visit Plan HEP: supine core progression: LTR, marches, DL isometric; mobility: bottoms up, kahlil pose, cat cow manual: hip and innominate mobilization (L hip may have more dysfunctions) Plan of Care Dates Plan of Care Start Date 11/12/23 Plan of Care End Date 02/04/24 Electronically Signed by: Maite Soliz, PT 11/12/23 0360 If you are in agreement with this Plan of Care, please return a signed and dated copy. I have reviewed this Plan of Care and certify that the skilled therapy services above are required to meet the patient?s needs. Physician Signature Date Printed Name and Credentials Clinical Instructor Signature Printed Name and Credentials
--- NOTE | 2023-11-19 11:20 | PT.OTN ---
Current Diagnoses Dorsalgia, unspecified (11/19/23) Difficulty in walking, not elsewhere classified (11/19/23) Abnormal posture (11/19/23) Weakness (11/19/23) Physical Therapy Treatment Note PT-OP-A Visit Information Start: 11/11/23 17:50 Freq: Status: Active Protocol: Document 11/19/23 10:40 [facility] (Rec: 11/19/23 11:32 SP [id number]) Out-Patient Physical Therapy Visit Information Visit Information Visit Type Treatment Note Visit Start Time 10:40 Visit Stop Time 11:20 Visit Number 2 Number of SURGICAL DENTAL ASSISTANT Visits 1 PT-OP-B Current Condition Start: 11/11/23 17:50 Freq: Status: Active Protocol: Document 11/12/23 09:07 [facility] (Rec: 11/12/23 09:52 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 She reports she walks 4x/week for a little over a mile. W/her fibromyalgia, she sometimes gets flared w/the walk. Pt reports her back was really flared up in mid Sep for a couple weeks. Pt reports she has had back pain for 10 years . Its been a gradual onset. About a week ago, it started to calm down. Pt reports back prevents her from lifting heavy things. Bending over to tie her shoes, can be painful . sitting on a firm surface is better than something soft like couch. A couple weeks ago , she had difficulty stepping into the tub and had difficulty walking. 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 Treatment Goals Patient/Caregiver Goals strength training to prevent bone density loss; improve core stability PT-OP-C Subjective Start: 11/11/23 17:50 Freq: Status: Active Protocol: Document 11/19/23 10:40 [facility] (Rec: 11/19/23 11:32 SP [id number]) OP-PT Subjective Patient Comments Patient Comments Pt reports L hip sore, OK' PT-OP-D Balance Start: 11/11/23 17:50 Freq: Status: Active Protocol: Document 11/12/23 09:07 [facility] (Rec: 11/12/23 09:52 [facility] [id number]) Balance Tests Single Limb Standing Single Limb- Right pelvis rot R >30 sec Single Limb- Left >30 sec PT-OP-F Manual Assessment Start: 11/11/23 17:50 Freq: Status: Active Protocol: Document 11/12/23 09:07 [facility] (Rec: 11/12/23 09:52 [facility] [id number]) Manual Assessments Joint Mobility Assessment Joint Mobility Assessment L iliac crest higher; equal greater trochanters PT-OP-G Mobility & Gait Start: 11/11/23 17:50 Freq: Status: Active Protocol: Document 11/12/23 09:07 [facility] (Rec: 11/12/23 09:52 [facility] [id number]) OP Gait Assessment Comments Gait Comments hip drop when landing on LLE; toes out B PT-OP-J Posture/Palpation/Skin Start: 11/11/23 17:50 Freq: Status: Active Protocol: Document 11/12/23 09:07 [facility] (Rec: 11/12/23 09:52 [facility] [id number]) Posture Evaluation [facility] Postural Classification System [facility] Postural Classifications Posterior/Posterior Vertebral Compression Test 1 Elbow Flexion Test 1 Lumbar Protective Mechanism Left AP 0 Lumbar Protective Mechanism Right AP 0 Lumbar Protective Mechanism Left PA 0 Lumbar Protective Mechanism Right PA 1 Comments Posture Comments slight R rot of trunk, R>L toeing out; slight L pelvic shear PT-OP-K Range of Motion Start: 11/11/23 17:50 Freq: Status: Active Protocol: Document 11/12/23 09:07 [facility] (Rec: 11/12/23 09:52 [facility] [id number]) Lumbar Spine Range of Motion Lumbar Spine Active Percentage Flexion 50 Extension 80 Rotation Left 50 Rotation Right 40 Lateral Flexion Left 70 Lateral Flexion Right 60 Comments pain flex & R SB PT-OP-L Special Tests Start: 11/11/23 17:50 Freq: Status: Active Protocol: Document 11/12/23 09:07 [facility] (Rec: 11/12/23 09:52 [facility] [id number]) Special Tests Lumbar Spine Special Tests Straight Leg Raise Test Results 67 deg R; L 68 deg Gonzalez Test Results WNL B Slump Test Results neg B PT-OP-M Strength Start: 11/11/23 17:50 Freq: Status: Active Protocol: Document 11/12/23 09:07 [facility] (Rec: 11/12/23 09:52 [facility] [id number]) Hip Strength Hip Manual Muscle Testing Right Flexion (L2) 4 Good Extension (S1) 3+ Fair+ Abduction 3+ Fair+ Adduction 4 Good External Rotation 4- Good- Internal Rotation 4- Good- Left Flexion (L2) 4- Good- Extension (S1) 3 Fair Abduction 4- Good- Adduction 3+ Fair+ External Rotation 3+ Fair+ Internal Rotation 3+ Fair+ Knee Strength Knee Manual Muscle Testing Right Flexion (S2) 4 Good Extension (L3) 5 Normal Left Flexion (S2) 5 Normal Extension (L3) 5 Normal Ankle/Foot Strength Ankle and Foot Manual Muscle Testing Right Dorsiflexion (L4) 5 Normal Plantarflexion (S1) 5 Normal Comments 20 heel raises B (cues to keep knee straight) difficulty Left Dorsiflexion (L4) 5 Normal Plantarflexion (S1) 5 Normal PT-OP-Q Treatments Start: 11/11/23 17:50 Freq: Status: Active Protocol: Document 11/19/23 10:40 [facility] (Rec: 11/19/23 11:32 SP [id number]) Therapeutic Exercises Supine Exercises core march Supine Exercise Name added to HEP Reps/Minutes x10 alternating BLEs Comments good core tiring, cued for slow land/lift transition/ level pelvis DL isometric Supine Exercise Name hip flexion- added to HEP Side bilateral Reps/Minutes 10 SH x5 reps Comments reports good abdominal effort work, pnfree back LTR Supine Exercise Name added to HEP Side bilateral Reps/Minutes QL stretch 10 SH x2, oblique rotation x8 reps Comments ed for slow pacing, TA oblique fac, weakness control R>L stretching Supine Exercise Name 1. Piriformis 2. Fig 4 Side bilateral Reps/Minutes 30 each, 2. L no stretch Comments good feedback stretch Other Exercises quadruped Other Exercise Name 1. cat camel 2. child's pose fwd & SB Side bilateral Reps/Minutes 1. x10 2. 30 each direction vs 5 breath Comments good feedback painfree back. Self-Care/Home Management Treatment Education Patient Education Body Mechanics,Home Exercise Program,Pain Management, Posture Other Education 10 min: discussion w/pt re: postural alignment seated with use pillows if deeper seat and side vs hooklying sleep positioning to support spinal alignment and reduce strain on LS. GOod feedback reports with cuing set up and proper form. PT-OP-T Assessment and Plan Start: 11/11/23 17:50 Freq: Status: Active Protocol: Document 11/19/23 10:40 [facility] (Rec: 11/19/23 11:32 SP [id number]) Physical Therapy Assessment Goals 4 Impairment posture 1/5 VCT Short Term Goal (STG) Pt will improve VCT to at least 3/5 to show improved postural alignment to allow greater ease w/upright activity. STG Duration 12/28/23 Detention Goal (LTG) pt will improve VCT to at least 4/5 to show improved postural alignment to allow greater ease w/upright activity. LTG Duration 02/01/24 3 Impairment Decreased core strength Short Term Goal (STG) Pt will be indep w/HEP STG Duration 12/28/23 Health Safety Specialist Goal (LTG) Pt will score at least 3/5 on LPM and EFT and at least 4+/5 on all B LE MMT to show imporved stability to improve ability for pt to do daily activities w/o inc pain. LTG Duration 02/01/24 2 Impairment decreased lumbar flexion Short Term Goal (STG) Pt will improve lumbar flex to able to touch ankles. STG Duration 12/28/23 Health Safety Specialist Goal (LTG) Pt willi mprove Lumbar flex to be able to touch floor w/o inc pain to allow improved functional capcity w/bending LTG Duration 02/01/24 Assessment Summary Assessment Pt good feedback to flexibility/ROM activities and progressed to TA march and double leg isometric with no reports of discomfort back recruitment. She requires cuing for set up and proper form, gentle TA engagement needed for spinal stabilization. Good understanding use of pillows for seated and sleep positioning for comfort and spinal alignment. Physical Therapy Plan Frequency and Duration Frequency of Treatment 1-2x/wk Duration of treatment (weeks) 12 Plan of Care Start Date 11/12/23 Plan of Care End Date 02/04/24 Therapeutic Interventions Therapeutic Interventions Balance Training,Gait Training ,Home Exercise Program,Joint Mobilizations,Manual Therapy, Neuromuscular Re-education, Orthotic/Prosthetic Management ,Patient/Caregiver Education, Self-Care/Home Management,Soft Tissue Mobilization,Taping, Therapeutic Activities, Therapeutic Exercises Modalities Cold Pack/Ice Massage,Electric Stimulation,Hot Packs, Traction- Mechanical, Ultrasound Next Visit Focus/Plan Next Note Type Treatment Note Next Visit Plan Review HEP: /c supine core progression: LTR, marches, DL isometric; mobility: bottoms up, kahlil pose, cat cow Next tx add bottoms up. manual: hip and innominate mobilization (L hip may have more dysfunctions)
--- NOTE | 2023-11-25 09:29 | PT.OTN ---
Current Diagnoses Dorsalgia, unspecified (11/25/23) Difficulty in walking, not elsewhere classified (11/25/23) Abnormal posture (11/25/23) Weakness (11/25/23) Physical Therapy Treatment Note PT-OP-A Visit Information Start: 11/11/23 17:50 Freq: Status: Active Protocol: Document 11/25/23 08:22 [facility] (Rec: 11/25/23 09:29 [facility] [id number]) Out-Patient Physical Therapy Visit Information Visit Information Visit Type Treatment Note Visit Start Time 08:21 Visit Stop Time 09:00 Visit Number 3 Number of ADVANCED NURSING PROFESSOR Visits 0 PT-OP-B Current Condition Start: 11/11/23 17:50 Freq: Status: Active Protocol: Document 11/12/23 09:07 [facility] (Rec: 11/12/23 09:52 [facility] [id number]) Current Condition History of Current Condition Onset Date chronic w/recent worsening Current Complaints LBP History of Current Condition 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 She reports she walks 4x/week for a little over a mile. W/her fibromyalgia, she sometimes gets flared w/the walk. Pt reports her back was really flared up in mid Sep for a couple weeks. Pt reports she has had back pain for 10 years . Its been a gradual onset. About a week ago, it started to calm down. Pt reports back prevents her from lifting heavy things. Bending over to tie her shoes, can be painful . sitting on a firm surface is better than something soft like couch. A couple weeks ago , she had difficulty stepping into the tub and had difficulty walking. 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 Treatment Goals Patient/Caregiver Goals strength training to prevent bone density loss; improve core stability PT-OP-C Subjective Start: 11/11/23 17:50 Freq: Status: Active Protocol: Document 11/25/23 08:22 [facility] (Rec: 11/25/23 09:29 [facility] [id number]) OP-PT Subjective Patient Comments Patient Comments Pt reports she did well with last tx until the next day when she was using the deck brush and her back went out and felt like her back was crumbling. It is still huritng a bit but better. Has not tried the exercises d/t this. PT-OP-D Balance Start: 11/11/23 17:50 Freq: Status: Active Protocol: Document 11/12/23 09:07 [facility] (Rec: 11/12/23 09:52 [facility] [id number]) Balance Tests Single Limb Standing Single Limb- Right pelvis rot R >30 sec Single Limb- Left >30 sec PT-OP-F Manual Assessment Start: 11/11/23 17:50 Freq: Status: Active Protocol: Document 11/12/23 09:07 [facility] (Rec: 11/12/23 09:52 [facility] [id number]) Manual Assessments Joint Mobility Assessment Joint Mobility Assessment L iliac crest higher; equal greater trochanters PT-OP-G Mobility & Gait Start: 11/11/23 17:50 Freq: Status: Active Protocol: Document 11/12/23 09:07 [facility] (Rec: 11/12/23 09:52 [facility] [id number]) OP Gait Assessment Comments Gait Comments hip drop when landing on LLE; toes out B PT-OP-J Posture/Palpation/Skin Start: 11/11/23 17:50 Freq: Status: Active Protocol: Document 11/12/23 09:07 [facility] (Rec: 11/12/23 09:52 [facility] [id number]) Posture Evaluation [facility] Postural Classification System [facility] Postural Classifications Posterior/Posterior Vertebral Compression Test 1 Elbow Flexion Test 1 Lumbar Protective Mechanism Left AP 0 Lumbar Protective Mechanism Right AP 0 Lumbar Protective Mechanism Left PA 0 Lumbar Protective Mechanism Right PA 1 Comments Posture Comments slight R rot of trunk, R>L toeing out; slight L pelvic shear PT-OP-K Range of Motion Start: 11/11/23 17:50 Freq: Status: Active Protocol: Document 11/12/23 09:07 [facility] (Rec: 11/12/23 09:52 [facility] [id number]) Lumbar Spine Range of Motion Lumbar Spine Active Percentage Flexion 50 Extension 80 Rotation Left 50 Rotation Right 40 Lateral Flexion Left 70 Lateral Flexion Right 60 Comments pain flex & R SB PT-OP-L Special Tests Start: 11/11/23 17:50 Freq: Status: Active Protocol: Document 11/12/23 09:07 [facility] (Rec: 11/12/23 09:52 [facility] [id number]) Special Tests Lumbar Spine Special Tests Straight Leg Raise Test Results 67 deg R; L 68 deg Gonzalez Test Results WNL B Slump Test Results neg B PT-OP-M Strength Start: 11/11/23 17:50 Freq: Status: Active Protocol: Document 11/12/23 09:07 [facility] (Rec: 11/12/23 09:52 [facility] [id number]) Hip Strength Hip Manual Muscle Testing Right Flexion (L2) 4 Good Extension (S1) 3+ Fair+ Abduction 3+ Fair+ Adduction 4 Good External Rotation 4- Good- Internal Rotation 4- Good- Left Flexion (L2) 4- Good- Extension (S1) 3 Fair Abduction 4- Good- Adduction 3+ Fair+ External Rotation 3+ Fair+ Internal Rotation 3+ Fair+ Knee Strength Knee Manual Muscle Testing Right Flexion (S2) 4 Good Extension (L3) 5 Normal Left Flexion (S2) 5 Normal Extension (L3) 5 Normal Ankle/Foot Strength Ankle and Foot Manual Muscle Testing Right Dorsiflexion (L4) 5 Normal Plantarflexion (S1) 5 Normal Comments 20 heel raises B (cues to keep knee straight) difficulty Left Dorsiflexion (L4) 5 Normal Plantarflexion (S1) 5 Normal PT-OP-Q Treatments Start: 11/11/23 17:50 Freq: Status: Active Protocol: Document 11/25/23 08:22 [facility] (Rec: 11/25/23 09:29 [facility] [id number]) Therapeutic Exercises Supine Exercises core march Supine Exercise Name review HEP Reps/Minutes x10 alternating BLEs (one LE down at ea time) Comments cues to put hands under back to monitor DL isometric Supine Exercise Name SL Side bilateral Reps/Minutes 30 sec Comments cues DF and hip flex as much as able LTR Supine Exercise Name added to HEP Side bilateral Reps/Minutes 10 Comments slow pacing cues for core engagemtn to pull legs up stretching Supine Exercise Name 1. Piriformis 2. figure 4 stopped d/t back pain 3. HS stretch Side bilateral Reps/Minutes 30 each Comments good feedback stretch Other Exercises quadruped Other Exercise Name 1. cat camel 2. child's pose fwd & SB Side bilateral Reps/Minutes 1. x10 2. 30 each direction Comments good feedback painfree back. Manual Therapy Treatment Soft Tissue Mobilization lumbar Body Location L ES and QL Mobilization Type Rolling Intensity/Depth Moderate Body Position Sidelying Comments w/gentle post dep Joint Mobilizations hip Comments L inf & free the ball IR FM hooklying PT-OP-T Assessment and Plan Start: 11/11/23 17:50 Freq: Status: Active Protocol: Document 11/25/23 08:22 [facility] (Rec: 11/25/23 09:29 [facility] [id number]) Physical Therapy Assessment Goals 4 Impairment posture 1/5 VCT Short Term Goal (STG) Pt will improve VCT to at least 3/5 to show improved postural alignment to allow greater ease w/upright activity. STG Duration 12/28/23 Residential Goal (LTG) pt will improve VCT to at least 4/5 to show improved postural alignment to allow greater ease w/upright activity. LTG Duration 02/01/24 3 Impairment Decreased core strength Short Term Goal (STG) Pt will be indep w/HEP STG Duration 12/28/23 Residential Goal (LTG) Pt will score at least 3/5 on LPM and EFT and at least 4+/5 on all B LE MMT to show imporved stability to improve ability for pt to do daily activities w/o inc pain. LTG Duration 02/01/24 2 Impairment decreased lumbar flexion Short Term Goal (STG) Pt will improve lumbar flex to able to touch ankles. STG Duration 12/28/23 Residential Goal (LTG) Pt willi mprove Lumbar flex to be able to touch floor w/o inc pain to allow improved functional capcity w/bending LTG Duration 02/01/24 Assessment Summary Assessment Pt did well with exercises w/ some modification of dec range or dec holds d/t inc pain after inc pain w/sweeping. Encouraged to cont exercises w /comfortable motion and ice to help w/pain. Pt still reported stiffness leaving today. Physical Therapy Plan Frequency and Duration Frequency of Treatment 1-2x/wk Duration of treatment (weeks) 12 Plan of Care Start Date 11/12/23 Plan of Care End Date 02/04/24 Next Visit Focus/Plan Next Note Type Treatment Note Next Visit Plan review HEP: supine core progression: LTR, marches, DL isometric; mobility: bottoms up, kahlil pose, cat cow manual: hip and innominate mobilization (L hip may have more dysfunctions)
--- NOTE | 2023-11-30 09:51 | PT.OTN ---
Current Diagnoses Dorsalgia, unspecified (11/30/23) Difficulty in walking, not elsewhere classified (11/30/23) Abnormal posture (11/30/23) Weakness (11/30/23) Physical Therapy Treatment Note PT-OP-A Visit Information Start: 11/11/23 17:50 Freq: Status: Active Protocol: Document 11/30/23 09:06 [facility] (Rec: 11/30/23 09:51 [facility] [id number]) Out-Patient Physical Therapy Visit Information Visit Information Visit Type Treatment Note Visit Start Time 09:05 Visit Stop Time 09:45 Visit Number 4 Number of MOTOR MECHANIC Visits 0 PT-OP-B Current Condition Start: 11/11/23 17:50 Freq: Status: Active Protocol: Document 11/12/23 09:07 [facility] (Rec: 11/12/23 09:52 [facility] [id number]) Current Condition History of Current Condition Onset Date chronic w/recent worsening Current Complaints LBP History of Current Condition 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 She reports she walks 4x/week for a little over a mile. W/her fibromyalgia, she sometimes gets flared w/the walk. Pt reports her back was really flared up in mid Sep for a couple weeks. Pt reports she has had back pain for 10 years . Its been a gradual onset. About a week ago, it started to calm down. Pt reports back prevents her from lifting heavy things. Bending over to tie her shoes, can be painful . sitting on a firm surface is better than something soft like couch. A couple weeks ago , she had difficulty stepping into the tub and had difficulty walking. 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 Treatment Goals Patient/Caregiver Goals strength training to prevent bone density loss; improve core stability PT-OP-C Subjective Start: 11/11/23 17:50 Freq: Status: Active Protocol: Document 11/30/23 09:06 [facility] (Rec: 11/30/23 09:51 [facility] [id number]) OP-PT Subjective Patient Comments Patient Comments Pt was laying on the couch the other day and had a pain behind L knee when laying then and juanis got up, couldn't walk on it for like 30 min. It was a sharp pain. It as gone after 30 min. PT-OP-D Balance Start: 11/11/23 17:50 Freq: Status: Active Protocol: Document 11/12/23 09:07 [facility] (Rec: 11/12/23 09:52 [facility] [id number]) Balance Tests Single Limb Standing Single Limb- Right pelvis rot R >30 sec Single Limb- Left >30 sec PT-OP-F Manual Assessment Start: 11/11/23 17:50 Freq: Status: Active Protocol: Document 11/12/23 09:07 [facility] (Rec: 11/12/23 09:52 [facility] [id number]) Manual Assessments Joint Mobility Assessment Joint Mobility Assessment L iliac crest higher; equal greater trochanters PT-OP-G Mobility & Gait Start: 11/11/23 17:50 Freq: Status: Active Protocol: Document 11/12/23 09:07 [facility] (Rec: 11/12/23 09:52 [facility] [id number]) OP Gait Assessment Comments Gait Comments hip drop when landing on LLE; toes out B PT-OP-J Posture/Palpation/Skin Start: 11/11/23 17:50 Freq: Status: Active Protocol: Document 11/12/23 09:07 [facility] (Rec: 11/12/23 09:52 [facility] [id number]) Posture Evaluation Brandee Postural Classification System Brandee Postural Classifications Posterior/Posterior Vertebral Compression Test 1 Elbow Flexion Test 1 Lumbar Protective Mechanism Left AP 0 Lumbar Protective Mechanism Right AP 0 Lumbar Protective Mechanism Left PA 0 Lumbar Protective Mechanism Right PA 1 Comments Posture Comments slight R rot of trunk, R>L toeing out; slight L pelvic shear PT-OP-K Range of Motion Start: 11/11/23 17:50 Freq: Status: Active Protocol: Document 11/12/23 09:07 [facility] (Rec: 11/12/23 09:52 [facility] [id number]) Lumbar Spine Range of Motion Lumbar Spine Active Percentage Flexion 50 Extension 80 Rotation Left 50 Rotation Right 40 Lateral Flexion Left 70 Lateral Flexion Right 60 Comments pain flex & R SB PT-OP-L Special Tests Start: 11/11/23 17:50 Freq: Status: Active Protocol: Document 11/12/23 09:07 [facility] (Rec: 11/12/23 09:52 [facility] [id number]) Special Tests Lumbar Spine Special Tests Straight Leg Raise Test Results 67 deg R; L 68 deg Gonzalez Test Results WNL B Slump Test Results neg B PT-OP-M Strength Start: 11/11/23 17:50 Freq: Status: Active Protocol: Document 11/12/23 09:07 [facility] (Rec: 11/12/23 09:52 [facility] [id number]) Hip Strength Hip Manual Muscle Testing Right Flexion (L2) 4 Good Extension (S1) 3+ Fair+ Abduction 3+ Fair+ Adduction 4 Good External Rotation 4- Good- Internal Rotation 4- Good- Left Flexion (L2) 4- Good- Extension (S1) 3 Fair Abduction 4- Good- Adduction 3+ Fair+ External Rotation 3+ Fair+ Internal Rotation 3+ Fair+ Knee Strength Knee Manual Muscle Testing Right Flexion (S2) 4 Good Extension (L3) 5 Normal Left Flexion (S2) 5 Normal Extension (L3) 5 Normal Ankle/Foot Strength Ankle and Foot Manual Muscle Testing Right Dorsiflexion (L4) 5 Normal Plantarflexion (S1) 5 Normal Comments 20 heel raises B (cues to keep knee straight) difficulty Left Dorsiflexion (L4) 5 Normal Plantarflexion (S1) 5 Normal PT-OP-Q Treatments Start: 11/11/23 17:50 Freq: Status: Active Protocol: Document 11/30/23 09:06 [facility] (Rec: 11/30/23 09:51 [facility] [id number]) Therapeutic Exercises Supine Exercises core march Supine Exercise Name review HEP Reps/Minutes x10 alternating BLEs (one LE down at ea time) Comments cues to put hands under back to monitor DL isometric Supine Exercise Name SL Side bilateral Reps/Minutes 30 sec Comments cues DF and hip flex as much as able LTR Supine Exercise Name review HEP Side bilateral Reps/Minutes 15 Comments slow pacing cues for core engagemtn to pull legs up stretching Supine Exercise Name 1. Piriformis 2. HS stretch active/n glide Side bilateral Reps/Minutes 1.30 each 2. 10 rep Comments good feedback stretch Other Exercises quadruped Other Exercise Name 1. cat camel 2. child's pose fwd & SB Side bilateral Reps/Minutes 1. x10 2. 30 each direction Comments good feedback painfree back. Manual Therapy Treatment Soft Tissue Mobilization lumbar Body Location L ES Mobilization Type Rolling Intensity/Depth Moderate Body Position Prone Joint Mobilizations sacrum Joint L UPA innominate Comments L IR FM & ER R FM; L abd FM hip Comments on axis IR FM L; L abd FM PT-OP-T Assessment and Plan Start: 11/11/23 17:50 Freq: Status: Active Protocol: Document 11/30/23 09:06 [facility] (Rec: 11/30/23 09:51 [facility] [id number]) Physical Therapy Assessment Goals 4 Impairment posture 1/5 VCT Short Term Goal (STG) Pt will improve VCT to at least 3/5 to show improved postural alignment to allow greater ease w/upright activity. STG Duration 12/28/23 Senior Care Goal (LTG) pt will improve VCT to at least 4/5 to show improved postural alignment to allow greater ease w/upright activity. LTG Duration 02/01/24 3 Impairment Decreased core strength Short Term Goal (STG) Pt will be indep w/HEP STG Duration 12/28/23 Leasing Specialist Goal (LTG) Pt will score at least 3/5 on LPM and EFT and at least 4+/5 on all B LE MMT to show imporved stability to improve ability for pt to do daily activities w/o inc pain. LTG Duration 02/01/24 2 Impairment decreased lumbar flexion Short Term Goal (STG) Pt will improve lumbar flex to able to touch ankles. STG Duration 12/28/23 Leasing Specialist Goal (LTG) Pt willi mprove Lumbar flex to be able to touch floor w/o inc pain to allow improved functional capcity w/bending LTG Duration 02/01/24 Assessment Summary Assessment Inc cues needed for LTR especially w/pushing R side of back down. She did still require cues and encourage to put hands under back to help monitor for movement w/marches . very min cues needed w/ quadruped exercises. Physical Therapy Plan Frequency and Duration Frequency of Treatment 1-2x/wk Duration of treatment (weeks) 12 Plan of Care Start Date 11/12/23 Plan of Care End Date 02/04/24 Next Visit Focus/Plan Next Note Type Treatment Note Next Visit Plan review HEP: supine core progression: LTR, marches, DL isometric; mobility: bottoms up, kahlil pose, cat cow manual: hip and innominate mobilization (L hip may have more dysfunctions)
--- NOTE | 2023-12-08 08:12 | PT.OTN ---
Current Diagnoses Dorsalgia, unspecified (12/08/23) Difficulty in walking, not elsewhere classified (12/08/23) Abnormal posture (12/08/23) Weakness (12/08/23) Physical Therapy Treatment Note PT-OP-A Visit Information Start: 11/11/23 17:50 Freq: Status: Active Protocol: Document 12/08/23 07:32 [facility] (Rec: 12/08/23 08:15 [facility] [id number]) Out-Patient Physical Therapy Visit Information Visit Information Visit Type Treatment Note Visit Start Time 07:32 Visit Stop Time 08:12 Visit Number 5 Number of SEISMIC PROSPECTING OBSERVER HELPER Visits 1 PT-OP-B Current Condition Start: 11/11/23 17:50 Freq: Status: Active Protocol: Document 11/12/23 09:07 [facility] (Rec: 11/12/23 09:52 [facility] [id number]) Current Condition History of Current Condition Onset Date chronic w/recent worsening Current Complaints LBP History of Current Condition 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 She reports she walks 4x/week for a little over a mile. W/her fibromyalgia, she sometimes gets flared w/the walk. Pt reports her back was really flared up in mid Sep for a couple weeks. Pt reports she has had back pain for 10 years . Its been a gradual onset. About a week ago, it started to calm down. Pt reports back prevents her from lifting heavy things. Bending over to tie her shoes, can be painful . sitting on a firm surface is better than something soft like couch. A couple weeks ago , she had difficulty stepping into the tub and had difficulty walking. 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 Treatment Goals Patient/Caregiver Goals strength training to prevent bone density loss; improve core stability PT-OP-C Subjective Start: 11/11/23 17:50 Freq: Status: Active Protocol: Document 12/08/23 07:32 [facility] (Rec: 12/08/23 08:15 [facility] [id number]) OP-PT Subjective Patient Comments Patient Comments Pt reports was sore after last tx manual, took til 1 am before could get to sleep. Used CP for assist. She said feels fine coming in today and compliant with no adverse reports with HEP. She reports has been told has Osteopenia and suggested incorporating strength training. PT-OP-D Balance Start: 11/11/23 17:50 Freq: Status: Active Protocol: Document 11/12/23 09:07 [facility] (Rec: 11/12/23 09:52 [facility] [id number]) Balance Tests Single Limb Standing Single Limb- Right pelvis rot R >30 sec Single Limb- Left >30 sec PT-OP-F Manual Assessment Start: 11/11/23 17:50 Freq: Status: Active Protocol: Document 11/12/23 09:07 [facility] (Rec: 11/12/23 09:52 [facility] [id number]) Manual Assessments Joint Mobility Assessment Joint Mobility Assessment L iliac crest higher; equal greater trochanters PT-OP-G Mobility & Gait Start: 11/11/23 17:50 Freq: Status: Active Protocol: Document 11/12/23 09:07 [facility] (Rec: 11/12/23 09:52 [facility] [id number]) OP Gait Assessment Comments Gait Comments hip drop when landing on LLE; toes out B PT-OP-J Posture/Palpation/Skin Start: 11/11/23 17:50 Freq: Status: Active Protocol: Document 11/12/23 09:07 [facility] (Rec: 11/12/23 09:52 [facility] [id number]) Posture Evaluation Brandee Postural Classification System Brandee Postural Classifications Posterior/Posterior Vertebral Compression Test 1 Elbow Flexion Test 1 Lumbar Protective Mechanism Left AP 0 Lumbar Protective Mechanism Right AP 0 Lumbar Protective Mechanism Left PA 0 Lumbar Protective Mechanism Right PA 1 Comments Posture Comments slight R rot of trunk, R>L toeing out; slight L pelvic shear PT-OP-K Range of Motion Start: 11/11/23 17:50 Freq: Status: Active Protocol: Document 11/12/23 09:07 [facility] (Rec: 11/12/23 09:52 [facility] [id number]) Lumbar Spine Range of Motion Lumbar Spine Active Percentage Flexion 50 Extension 80 Rotation Left 50 Rotation Right 40 Lateral Flexion Left 70 Lateral Flexion Right 60 Comments pain flex & R SB PT-OP-L Special Tests Start: 11/11/23 17:50 Freq: Status: Active Protocol: Document 11/12/23 09:07 [facility] (Rec: 11/12/23 09:52 [facility] [id number]) Special Tests Lumbar Spine Special Tests Straight Leg Raise Test Results 67 deg R; L 68 deg Gonzalez Test Results WNL B Slump Test Results neg B PT-OP-M Strength Start: 11/11/23 17:50 Freq: Status: Active Protocol: Document 11/12/23 09:07 [facility] (Rec: 11/12/23 09:52 [facility] [id number]) Hip Strength Hip Manual Muscle Testing Right Flexion (L2) 4 Good Extension (S1) 3+ Fair+ Abduction 3+ Fair+ Adduction 4 Good External Rotation 4- Good- Internal Rotation 4- Good- Left Flexion (L2) 4- Good- Extension (S1) 3 Fair Abduction 4- Good- Adduction 3+ Fair+ External Rotation 3+ Fair+ Internal Rotation 3+ Fair+ Knee Strength Knee Manual Muscle Testing Right Flexion (S2) 4 Good Extension (L3) 5 Normal Left Flexion (S2) 5 Normal Extension (L3) 5 Normal Ankle/Foot Strength Ankle and Foot Manual Muscle Testing Right Dorsiflexion (L4) 5 Normal Plantarflexion (S1) 5 Normal Comments 20 heel raises B (cues to keep knee straight) difficulty Left Dorsiflexion (L4) 5 Normal Plantarflexion (S1) 5 Normal PT-OP-Q Treatments Start: 11/11/23 17:50 Freq: Status: Active Protocol: Document 12/08/23 07:32 [facility] (Rec: 12/08/23 08:15 [facility] [id number]) Therapeutic Exercises Supine Exercises core march Supine Exercise Name review HEP Reps/Minutes x10 alternating BLEs (one LE down at ea time) Comments cues to put hands under back to monitor DL isometric Supine Exercise Name SL Side bilateral Equipment Used requested 2 pillows under head deviated Reps/Minutes 30 sec Comments cues DF and hip flex as much as able LTR Supine Exercise Name review HEP Side bilateral Reps/Minutes 20 Comments improved slow pacing movt core engagement to pull legs up & slow to side stretching Supine Exercise Name 1. Piriformis 2. HS stretch active/n glide Side bilateral Reps/Minutes 1.30x2 each 2. 10 AP s Comments good feedback stretch Sitting Exercises stretching Sitting Exercise Name piriformis & HS /c AP Side bilateral Reps/Minutes 30 each, 10 AP Comments good response Standing Exercises bottoms up Standing Exercise Name added to HEP Equipment Used 6 step Reps/Minutes 20 x2 Comments squat hands on step, straight back, slow knee ext HS stretch squats Standing Exercise Name trialed in PT & added to HEP: eccentric squat taps Resistance AROM>5# DB Equipment Used mesh chair, arms across chest Reps/Minutes x10 AROM, 5 reps 5# DB Comments cued slight more hip hinge Other Exercises quadruped Other Exercise Name 1. cat camel fwd/bwd 2. tail wag lateral 3. child's pose fwd & SB Side bilateral Reps/Minutes 1. x10 2. x10 3. 30 each direction Comments good feedback painfree back. PT-OP-T Assessment and Plan Start: 11/11/23 17:50 Freq: Status: Active Protocol: Document 12/08/23 07:32 [facility] (Rec: 12/08/23 08:15 SP [id number]) Physical Therapy Assessment Goals 4 Impairment posture 1/5 VCT Short Term Goal (STG) Pt will improve VCT to at least 3/5 to show improved postural alignment to allow greater ease w/upright activity. STG Duration 12/28/23 Senior Living Goal (LTG) pt will improve VCT to at least 4/5 to show improved postural alignment to allow greater ease w/upright activity. LTG Duration 02/01/24 3 Impairment Decreased core strength Short Term Goal (STG) Pt will be indep w/HEP STG Duration 12/28/23 Recycling Or Rubbish Collector Goal (LTG) Pt will score at least 3/5 on LPM and EFT and at least 4+/5 on all B LE MMT to show imporved stability to improve ability for pt to do daily activities w/o inc pain. LTG Duration 02/01/24 2 Impairment decreased lumbar flexion Short Term Goal (STG) Pt will improve lumbar flex to able to touch ankles. STG Duration 12/28/23 Senior Living Goal (LTG) Pt willi mprove Lumbar flex to be able to touch floor w/o inc pain to allow improved functional capcity w/bending LTG Duration 02/01/24 Assessment Summary Assessment Pt tolerated core and stretching well. Cues as needed for set up and proper form /s HO usage. TIme spent for height step withgood tolerance to bottoms up stretch and AROM>progressed wt squat use chair for proper hip hinge form. Cued TA fac for spinal support. Pt reports painfree end tx and good little muscle tiring. Physical Therapy Plan Frequency and Duration Frequency of Treatment 1-2x/wk Duration of treatment (weeks) 12 Plan of Care Start Date 11/12/23 Plan of Care End Date 02/04/24 Therapeutic Interventions Therapeutic Interventions Balance Training,Gait Training ,Home Exercise Program,Joint Mobilizations,Manual Therapy, Neuromuscular Re-education, Orthotic/Prosthetic Management ,Patient/Caregiver Education, Self-Care/Home Management,Soft Tissue Mobilization,Taping, Therapeutic Activities, Therapeutic Exercises Modalities Cold Pack/Ice Massage,Electric Stimulation,Hot Packs, Traction- Mechanical, Ultrasound Next Visit Focus/Plan Next Note Type Treatment Note Next Visit Plan review HEP: supine core progression: LTR, marches, DL isometric; mobility: bottoms up, kahlil pose, cat cow manual: hip and innominate mobilization (L hip may have more dysfunctions)
--- NOTE | 2023-12-15 09:42 | PT.OTN ---
Current Diagnoses Dorsalgia, unspecified (12/15/23) Difficulty in walking, not elsewhere classified (12/15/23) Abnormal posture (12/15/23) Weakness (12/15/23) Physical Therapy Treatment Note PT-OP-A Visit Information Start: 11/11/23 17:50 Freq: Status: Active Protocol: Document 12/15/23 09:01 SP (Rec: 12/15/23 09:48 SP [id number]) Out-Patient Physical Therapy Visit Information Visit Information Visit Type Treatment Note Visit Start Time 09:01 Visit Stop Time 09:43 Visit Number 5 Number of LADLE FILLER Visits 2 PT-OP-B Current Condition Start: 11/11/23 17:50 Freq: Status: Active Protocol: Document 11/12/23 09:07 [facility] (Rec: 11/12/23 09:52 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 She reports she walks 4x/week for a little over a mile. W/her fibromyalgia, she sometimes gets flared w/the walk. Pt reports her back was really flared up in mid Sep for a couple weeks. Pt reports she has had back pain for 10 years . Its been a gradual onset. About a week ago, it started to calm down. Pt reports back prevents her from lifting heavy things. Bending over to tie her shoes, can be painful . sitting on a firm surface is better than something soft like couch. A couple weeks ago , she had difficulty stepping into the tub and had difficulty walking. 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 Treatment Goals Patient/Caregiver Goals strength training to prevent bone density loss; improve core stability PT-OP-C Subjective Start: 11/11/23 17:50 Freq: Status: Active Protocol: Document 12/15/23 09:01 SP (Rec: 12/15/23 09:48 SP [id number]) OP-PT Subjective Patient Comments Patient Comments Pt reports feeling fine. no pain and compliant with HEP. Pt reports her L ankle feels like going out then can walk on it at times and hurts up to behind L knee but not bothering her right now. PT-OP-D Balance Start: 11/11/23 17:50 Freq: Status: Active Protocol: Document 11/12/23 09:07 [facility] (Rec: 11/12/23 09:52 [facility] [id number]) Balance Tests Single Limb Standing Single Limb- Right pelvis rot R >30 sec Single Limb- Left >30 sec PT-OP-F Manual Assessment Start: 11/11/23 17:50 Freq: Status: Active Protocol: Document 11/12/23 09:07 [facility] (Rec: 11/12/23 09:52 [facility] [id number]) Manual Assessments Joint Mobility Assessment Joint Mobility Assessment L iliac crest higher; equal greater trochanters PT-OP-G Mobility & Gait Start: 11/11/23 17:50 Freq: Status: Active Protocol: Document 11/12/23 09:07 [facility] (Rec: 11/12/23 09:52 [facility] [id number]) OP Gait Assessment Comments Gait Comments hip drop when landing on LLE; toes out B PT-OP-J Posture/Palpation/Skin Start: 11/11/23 17:50 Freq: Status: Active Protocol: Document 11/12/23 09:07 [facility] (Rec: 11/12/23 09:52 [facility] [id number]) Posture Evaluation Brandee Postural Classification System Brandee Postural Classifications Posterior/Posterior Vertebral Compression Test 1 Elbow Flexion Test 1 Lumbar Protective Mechanism Left AP 0 Lumbar Protective Mechanism Right AP 0 Lumbar Protective Mechanism Left PA 0 Lumbar Protective Mechanism Right PA 1 Comments Posture Comments slight R rot of trunk, R>L toeing out; slight L pelvic shear PT-OP-K Range of Motion Start: 11/11/23 17:50 Freq: Status: Active Protocol: Document 11/12/23 09:07 [facility] (Rec: 11/12/23 09:52 [facility] [id number]) Lumbar Spine Range of Motion Lumbar Spine Active Percentage Flexion 50 Extension 80 Rotation Left 50 Rotation Right 40 Lateral Flexion Left 70 Lateral Flexion Right 60 Comments pain flex & R SB PT-OP-L Special Tests Start: 11/11/23 17:50 Freq: Status: Active Protocol: Document 11/12/23 09:07 [facility] (Rec: 11/12/23 09:52 [facility] [id number]) Special Tests Lumbar Spine Special Tests Straight Leg Raise Test Results 67 deg R; L 68 deg Gonzalez Test Results WNL B Slump Test Results neg B PT-OP-M Strength Start: 11/11/23 17:50 Freq: Status: Active Protocol: Document 11/12/23 09:07 [facility] (Rec: 11/12/23 09:52 [facility] [id number]) Hip Strength Hip Manual Muscle Testing Right Flexion (L2) 4 Good Extension (S1) 3+ Fair+ Abduction 3+ Fair+ Adduction 4 Good External Rotation 4- Good- Internal Rotation 4- Good- Left Flexion (L2) 4- Good- Extension (S1) 3 Fair Abduction 4- Good- Adduction 3+ Fair+ External Rotation 3+ Fair+ Internal Rotation 3+ Fair+ Knee Strength Knee Manual Muscle Testing Right Flexion (S2) 4 Good Extension (L3) 5 Normal Left Flexion (S2) 5 Normal Extension (L3) 5 Normal Ankle/Foot Strength Ankle and Foot Manual Muscle Testing Right Dorsiflexion (L4) 5 Normal Plantarflexion (S1) 5 Normal Comments 20 heel raises B (cues to keep knee straight) difficulty Left Dorsiflexion (L4) 5 Normal Plantarflexion (S1) 5 Normal PT-OP-Q Treatments Start: 11/11/23 17:50 Freq: Status: Active Protocol: Document 12/15/23 09:01 SP (Rec: 12/15/23 09:48 SP [id number]) Gym Equipment Sport Cord red Exercise Details f/b/side rasheeda, step ups 6 and 8 Reps/Duration 5 reps each direction Comments challenge side step return but improved post ed wt shift with TA/rhomboid engagement to allow midline stability. Therapeutic Exercises Supine Exercises core march Supine Exercise Name progressed to sequencial november Resistance hands at sides Reps/Minutes 5 reps lead each LE, x2 sets Comments Cued x1 PPT & TA with good sta , pnfree DL isometric Supine Exercise Name DL Side bilateral Equipment Used requested 2 pillows under head deviated Reps/Minutes 10 SH x5 reps Comments good form, reports core, hip flexor & quad tiring LTR Supine Exercise Name review HEP Side bilateral Reps/Minutes 20 Comments good slow pacing, ed stop range tension return Sitting Exercises 4 way ankle Sitting Exercise Name added toHEP Side left Resistance TB #3 [place] Reps/Minutes x10 Comments cued set up with tactile cues and HOs, eccentric return stretching Sitting Exercise Name piriformis & HS /c AP Side bilateral Reps/Minutes 30 each, 10 AP Comments good response Standing Exercises bottoms up Standing Exercise Name reviewed HEP Equipment Used 6 step Reps/Minutes 20 x4 Comments squat hands on step, straight back, slow knee ext HS stretch ,full stand btw squats Standing Exercise Name reviewed HEP: eccentric squat taps Resistance 5# DB Equipment Used mesh chair, arms across chest Reps/Minutes 10 reps 5# DB Comments good form Other Exercises quadruped Other Exercise Name 1. cat camel fwd/bwd 2. tail wag lateral 3. child's pose fwd & SB 4. birddg Side bilateral Reps/Minutes 1. x10 2. x10 3. 30 each direction 4. 2x5 reps Comments pnfree, cued slow pacing, level pelvis/shld bird dog PT-OP-T Assessment and Plan Start: 11/11/23 17:50 Freq: Status: Active Protocol: Document 12/15/23 09:01 SP (Rec: 12/15/23 09:48 SP [id number]) Physical Therapy Assessment Goals 4 Impairment posture / VCT Short Term Goal (STG) Pt will improve VCT to at least 3/5 to show improved postural alignment to allow greater ease w/upright activity. STG Duration 12/28/23 Regeneration Operator Goal (LTG) pt will improve VCT to at least 4/5 to show improved postural alignment to allow greater ease w/upright activity. LTG Duration 02/01/24 3 Impairment Decreased core strength Short Term Goal (STG) Pt will be indep w/HEP STG Duration 12/28/23 Shelter Goal (LTG) Pt will score at least 3/5 on LPM and EFT and at least 4+/5 on all B LE MMT to show imporved stability to improve ability for pt to do daily activities w/o inc pain. LTG Duration 02/01/24 2 Impairment decreased lumbar flexion Short Term Goal (STG) Pt will improve lumbar flex to able to touch ankles. STG Duration 12/28/23 Shelter Goal (LTG) Pt willi mprove Lumbar flex to be able to touch floor w/o inc pain to allow improved functional capcity w/bending LTG Duration 02/01/24 Assessment Summary Assessment Pt good response to ther ex and flexion base core ex today . Improved core and hip abd fac during resisted stepping post ed for core and scap engagement over stance LE. Pt responded well to trunk flexion added ankle strengthening to allow stability gait over uneven terrain reports ankle catches at times and can't walk on. Painfree throughout tx. Physical Therapy Plan Frequency and Duration Frequency of Treatment 1-2x/wk Duration of treatment (weeks) 12 Plan of Care Start Date 11/12/23 Plan of Care End Date 02/04/24 Therapeutic Interventions Therapeutic Interventions Balance Training,Gait Training ,Home Exercise Program,Joint Mobilizations,Manual Therapy, Neuromuscular Re-education, Orthotic/Prosthetic Management ,Patient/Caregiver Education, Self-Care/Home Management,Soft Tissue Mobilization,Taping, Therapeutic Activities, Therapeutic Exercises Modalities Cold Pack/Ice Massage,Electric Stimulation,Hot Packs, Traction- Mechanical, Ultrasound Next Visit Focus/Plan Next Note Type Treatment Note Next Visit Plan review HEP: core supine, LS flexion progression, added ankle TB for L ankle stability . manual: hip and innominate mobilization (L hip may have more dysfunctions)
--- NOTE | 2023-12-21 09:50 | PT.OTN ---
Current Diagnoses Dorsalgia, unspecified (12/21/23) Difficulty in walking, not elsewhere classified (12/21/23) Abnormal posture (12/21/23) Weakness (12/21/23) Physical Therapy Treatment Note PT-OP-A Visit Information Start: 11/11/23 17:50 Freq: Status: Active Protocol: Document 12/21/23 08:18 [facility] (Rec: 12/21/23 09:50 [facility] [id number]) Out-Patient Physical Therapy Visit Information Visit Information Visit Type Treatment Note Visit Start Time 08:21 Visit Stop Time 09:00 Visit Number 6 Number of LETTER CARRIER Visits 0 PT-OP-B Current Condition Start: 11/11/23 17:50 Freq: Status: Active Protocol: Document 11/12/23 09:07 [facility] (Rec: 11/12/23 09:52 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 She reports she walks 4x/week for a little over a mile. W/her fibromyalgia, she sometimes gets flared w/the walk. Pt reports her back was really flared up in mid Sep for a couple weeks. Pt reports she has had back pain for 10 years . Its been a gradual onset. About a week ago, it started to calm down. Pt reports back prevents her from lifting heavy things. Bending over to tie her shoes, can be painful . sitting on a firm surface is better than something soft like couch. A couple weeks ago , she had difficulty stepping into the tub and had difficulty walking. 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 Treatment Goals Patient/Caregiver Goals strength training to prevent bone density loss; improve core stability PT-OP-C Subjective Start: 11/11/23 17:50 Freq: Status: Active Protocol: Document 12/21/23 08:18 [facility] (Rec: 12/21/23 09:50 [facility] [id number]) OP-PT Subjective Patient Comments Patient Comments reports back sore after working 6 hours. heel pain that shoots up inc after bands so did not do them. Is sore w /work in foot. PT-OP-D Balance Start: 11/11/23 17:50 Freq: Status: Active Protocol: Document 11/12/23 09:07 [facility] (Rec: 11/12/23 09:52 [facility] [id number]) Balance Tests Single Limb Standing Single Limb- Right pelvis rot R >30 sec Single Limb- Left >30 sec PT-OP-F Manual Assessment Start: 11/11/23 17:50 Freq: Status: Active Protocol: Document 11/12/23 09:07 [facility] (Rec: 11/12/23 09:52 [facility] [id number]) Manual Assessments Joint Mobility Assessment Joint Mobility Assessment L iliac crest higher; equal greater trochanters PT-OP-G Mobility & Gait Start: 11/11/23 17:50 Freq: Status: Active Protocol: Document 11/12/23 09:07 [facility] (Rec: 11/12/23 09:52 [facility] [id number]) OP Gait Assessment Comments Gait Comments hip drop when landing on LLE; toes out B PT-OP-J Posture/Palpation/Skin Start: 11/11/23 17:50 Freq: Status: Active Protocol: Document 11/12/23 09:07 [facility] (Rec: 11/12/23 09:52 [facility] [id number]) Posture Evaluation Brandee Postural Classification System Brandee Postural Classifications Posterior/Posterior Vertebral Compression Test 1 Elbow Flexion Test 1 Lumbar Protective Mechanism Left AP 0 Lumbar Protective Mechanism Right AP 0 Lumbar Protective Mechanism Left PA 0 Lumbar Protective Mechanism Right PA 1 Comments Posture Comments slight R rot of trunk, R>L toeing out; slight L pelvic shear PT-OP-K Range of Motion Start: 11/11/23 17:50 Freq: Status: Active Protocol: Document 11/12/23 09:07 [facility] (Rec: 11/12/23 09:52 [facility] [id number]) Lumbar Spine Range of Motion Lumbar Spine Active Percentage Flexion 50 Extension 80 Rotation Left 50 Rotation Right 40 Lateral Flexion Left 70 Lateral Flexion Right 60 Comments pain flex & R SB PT-OP-L Special Tests Start: 11/11/23 17:50 Freq: Status: Active Protocol: Document 11/12/23 09:07 [facility] (Rec: 11/12/23 09:52 [facility] [id number]) Special Tests Lumbar Spine Special Tests Straight Leg Raise Test Results 67 deg R; L 68 deg Gonzalez Test Results WNL B Slump Test Results neg B PT-OP-M Strength Start: 11/11/23 17:50 Freq: Status: Active Protocol: Document 11/12/23 09:07 [facility] (Rec: 11/12/23 09:52 [facility] [id number]) Hip Strength Hip Manual Muscle Testing Right Flexion (L2) 4 Good Extension (S1) 3+ Fair+ Abduction 3+ Fair+ Adduction 4 Good External Rotation 4- Good- Internal Rotation 4- Good- Left Flexion (L2) 4- Good- Extension (S1) 3 Fair Abduction 4- Good- Adduction 3+ Fair+ External Rotation 3+ Fair+ Internal Rotation 3+ Fair+ Knee Strength Knee Manual Muscle Testing Right Flexion (S2) 4 Good Extension (L3) 5 Normal Left Flexion (S2) 5 Normal Extension (L3) 5 Normal Ankle/Foot Strength Ankle and Foot Manual Muscle Testing Right Dorsiflexion (L4) 5 Normal Plantarflexion (S1) 5 Normal Comments 20 heel raises B (cues to keep knee straight) difficulty Left Dorsiflexion (L4) 5 Normal Plantarflexion (S1) 5 Normal PT-OP-Q Treatments Start: 11/11/23 17:50 Freq: Status: Active Protocol: Document 12/21/23 08:18 [facility] (Rec: 12/21/23 09:50 [facility] [id number]) Therapeutic Exercises Supine Exercises core march Supine Exercise Name alt leg drop Side bilateral Reps/Minutes 10 Comments min cues for core LTR Side bilateral Reps/Minutes 8 Comments improved performance today-min cues for core Sitting Exercises 4 way ankle Sitting Exercise Name hold and slowly progress one at a time as able stretching Sitting Exercise Name plantar fascia Side left Reps/Minutes 30 sec Standing Exercises suitcase carry Standing Exercise Name march Side bilateral Equipment Used 5# in one hand Reps/Minutes 20ft ea hand paloff press Side bilateral Equipment Used orange band (2 strands) Reps/Minutes 10 ea stretch Standing Exercise Name 1. stair 2.fwd lean gastroc 3. fwd lean soleus Side bilateral Reps/Minutes 30 sec ea Therapeutic Activity Therapeutic Activity sleep Reps/Minutes 12 min Comments edu for pillow positioning and working w/pt to show difference btwn different positions w/ and w/o pillow support in supine and S/l and edu on how different density can affect back. PT-OP-T Assessment and Plan Start: 02/14/24 17:50 Freq: Status: Active Protocol: Document 12/21/23 08:18 [facility] (Rec: 12/21/23 09:50 [facility] [id number]) Physical Therapy Assessment Goals 4 Impairment posture 1/5 VCT Short Term Goal (STG) Pt will improve VCT to at least 3/5 to show improved postural alignment to allow greater ease w/upright activity. STG Duration 12/28/23 Prison Goal (LTG) pt will improve VCT to at least 4/5 to show improved postural alignment to allow greater ease w/upright activity. LTG Duration 02/01/24 3 Impairment Decreased core strength Short Term Goal (STG) Pt will be indep w/HEP STG Duration 12/28/23 Tactical Debriefer Officer Goal (LTG) Pt will score at least 3/5 on LPM and EFT and at least 4+/5 on all B LE MMT to show imporved stability to improve ability for pt to do daily activities w/o inc pain. LTG Duration 02/01/24 2 Impairment decreased lumbar flexion Short Term Goal (STG) Pt will improve lumbar flex to able to touch ankles. STG Duration 12/28/23 Tactical Debriefer Officer Goal (LTG) Pt willi mprove Lumbar flex to be able to touch floor w/o inc pain to allow improved functional capcity w/bending LTG Duration 02/01/24 Assessment Summary Assessment discontinued at this time ankle tband exercises d/t inc pain. Pt to talk to provider about referral fo rthis regionf or further assessment by PT. She did well with progression of exercises fro core today Physical Therapy Plan Frequency and Duration Frequency of Treatment 1-2x/wk Duration of treatment (weeks) 12 Plan of Care Start Date 11/12/23 Plan of Care End Date 02/04/24 Next Visit Focus/Plan Next Note Type Treatment Note Next Visit Plan Try to cont to work on core work; train hip hinge; go over vacuum mechanics. cont to work manually w/hips and back
--- NOTE | 2023-12-28 17:16 | PT.OTN ---
Current Diagnoses Dorsalgia, unspecified (12/28/23) Difficulty in walking, not elsewhere classified (12/28/23) Abnormal posture (12/28/23) Weakness (12/28/23) Physical Therapy Treatment Note PT-OP-A Visit Information Start: 11/11/23 17:50 Freq: Status: Active Protocol: Document 12/28/23 16:09 [facility] (Rec: 12/28/23 18:14 [facility] [id number]) Out-Patient Physical Therapy Visit Information Visit Information Visit Type Progress Note Visit Start Time 16:07 Visit Stop Time 16:47 Visit Number 7 Number of MH TEACHER Visits 0 PT-OP-B Current Condition Start: 11/11/23 17:50 Freq: Status: Active Protocol: Document 11/12/23 09:07 [facility] (Rec: 11/12/23 09:52 [facility] [id number]) Current Condition History of Current Condition Onset Date chronic w/recent worsening Current Complaints LBP History of Current Condition 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 She reports she walks 4x/week for a little over a mile. W/her fibromyalgia, she sometimes gets flared w/the walk. Pt reports her back was really flared up in mid Sep for a couple weeks. Pt reports she has had back pain for 10 years . Its been a gradual onset. About a week ago, it started to calm down. Pt reports back prevents her from lifting heavy things. Bending over to tie her shoes, can be painful . sitting on a firm surface is better than something soft like couch. A couple weeks ago , she had difficulty stepping into the tub and had difficulty walking. 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 Treatment Goals Patient/Caregiver Goals strength training to prevent bone density loss; improve core stability PT-OP-C Subjective Start: 11/11/23 17:50 Freq: Status: Active Protocol: Document 12/28/23 16:09 [facility] (Rec: 12/28/23 18:14 [facility] [id number]) OP-PT Subjective Patient Comments Patient Comments Pt reports got a xray for foot and thinks it is a bone spur PT-OP-D Balance Start: 11/11/23 17:50 Freq: Status: Active Protocol: Document 11/12/23 09:07 [facility] (Rec: 11/12/23 09:52 [facility] [id number]) Balance Tests Single Limb Standing Single Limb- Right pelvis rot R >30 sec Single Limb- Left >30 sec PT-OP-F Manual Assessment Start: 11/11/23 17:50 Freq: Status: Active Protocol: Document 11/12/23 09:07 [facility] (Rec: 11/12/23 09:52 [facility] [id number]) Manual Assessments Joint Mobility Assessment Joint Mobility Assessment L iliac crest higher; equal greater trochanters PT-OP-G Mobility & Gait Start: 11/11/23 17:50 Freq: Status: Active Protocol: Document 11/12/23 09:07 [facility] (Rec: 11/12/23 09:52 [facility] [id number]) OP Gait Assessment Comments Gait Comments hip drop when landing on LLE; toes out B PT-OP-J Posture/Palpation/Skin Start: 11/11/23 17:50 Freq: Status: Active Protocol: Document 12/28/23 16:09 [facility] (Rec: 12/28/23 18:14 [facility] [id number]) Posture Evaluation Brandee Postural Classification System Vertebral Compression Test 1 Elbow Flexion Test 3 Lumbar Protective Mechanism Left AP 2 Lumbar Protective Mechanism Right AP 0 Lumbar Protective Mechanism Left PA 2 Lumbar Protective Mechanism Right PA 2 PT-OP-K Range of Motion Start: 11/11/23 17:50 Freq: Status: Active Protocol: Document 12/28/23 16:09 [facility] (Rec: 12/28/23 18:14 [facility] [id number]) Lumbar Spine Range of Motion Lumbar Spine Active Percentage Comments to ankles w/flex PT-OP-L Special Tests Start: 11/11/23 17:50 Freq: Status: Active Protocol: Document 11/12/23 09:07 [facility] (Rec: 11/12/23 09:52 [facility] [id number]) Special Tests Lumbar Spine Special Tests Straight Leg Raise Test Results 67 deg R; L 68 deg Gonzalez Test Results WNL B Slump Test Results neg B PT-OP-M Strength Start: 11/11/23 17:50 Freq: Status: Active Protocol: Document 12/28/23 16:09 [facility] (Rec: 12/28/23 18:14 [facility] [id number]) Hip Strength Hip Manual Muscle Testing Right Flexion (L2) 4 Good Extension (S1) 3+ Fair+ Abduction 4- Good- Adduction 4 Good External Rotation 5 Normal Internal Rotation 4 Good Left Flexion (L2) 4- Good- Extension (S1) 3+ Fair+ Abduction 4+ Good+ Adduction 5 Normal External Rotation 5 Normal Internal Rotation 4 Good Knee Strength Knee Manual Muscle Testing Right Flexion (S2) 5 Normal Extension (L3) 5 Normal Comments pain knee w/ext Left Flexion (S2) 5 Normal Extension (L3) 5 Normal PT-OP-Q Treatments Start: 11/11/23 17:50 Freq: Status: Active Protocol: Document 12/28/23 16:09 [facility] (Rec: 12/28/23 18:14 [facility] [id number]) Therapeutic Exercises Prone Exercises hip ext Side bilateral Reps/Minutes 10 Sitting Exercises hip hinge Side bilateral Equipment Used dowel Reps/Minutes 10 Standing Exercises hip hinge Standing Exercise Name 1. ft shoudler width 2. staggered Side bilateral Equipment Used dowel Reps/Minutes 1.10 2. 5 ea Comments good understanding Other Exercises isometrics Other Exercise Name EFT, MMT, LPM, VCT Manual Therapy Treatment Soft Tissue Mobilization lumbar Body Location bES Mobilization Type Rolling Intensity/Depth Moderate Comments seated and in quadruped Joint Mobilizations lumbar Comments L5-S1, L4-5, L2-3 distraction in quadruped cat/cow w/rock backs PT-OP-T Assessment and Plan Start: 11/11/23 17:50 Freq: Status: Active Protocol: Document 12/28/23 16:09 [facility] (Rec: 12/28/23 18:14 [facility] [id number]) Physical Therapy Assessment Goals 4 Impairment posture 1/ VCT Short Term Goal (STG) Pt will improve VCT to at least 3/5 to show improved postural alignment to allow greater ease w/upright activity. /-2/ STG Duration 12/28/23 [facility] Goal (LTG) pt will improve VCT to at least 4/5 to show improved postural alignment to allow greater ease w/upright activity. LTG Duration 02/01/24 3 Impairment Decreased core strength Short Term Goal (STG) Pt will be indep w/HEP STG Duration achieved advancing as able [facility] Goal (LTG) Pt will score at least 3/5 on LPM and EFT and at least 4+/5 on all B LE MMT to show imporved stability to improve ability for pt to do daily activities w/o inc pain. 12/27-improved LTG Duration 02/01/24 2 Impairment decreased lumbar flexion Short Term Goal (STG) Pt will improve lumbar flex to able to touch ankles. STG Duration achieved 12/27 [facility] Goal (LTG) Pt willi mprove Lumbar flex to be able to touch floor w/o inc pain to allow improved functional capcity w/bending 12/27-improved to ankles LTG Duration 02/01/24 Assessment Summary Assessment pt is making good progress w/ PT w/improved strenght and functional ability. 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 She is c/o foot pain and is working w/her primary re: this . She does still have dec core stabiltiy and hip stability and would benefit from cont PT to work on this to cont to improve function. Physical Therapy Plan Frequency and Duration Frequency of Treatment 1-2x/wk Duration of treatment (weeks) 12 Plan of Care Start Date 11/12/23 Plan of Care End Date 02/04/24 Therapeutic Interventions Therapeutic Interventions Balance Training,Gait Training ,Home Exercise Program,Joint Mobilizations,Manual Therapy, Neuromuscular Re-education, Orthotic/Prosthetic Management ,Patient/Caregiver Education, Self-Care/Home Management,Soft Tissue Mobilization,Taping, Therapeutic Activities, Therapeutic Exercises Modalities Cold Pack/Ice Massage,Electric Stimulation,Hot Packs, Traction- Mechanical, Ultrasound Next Visit Focus/Plan Next Note Type Treatment Note Next Visit Plan Try to cont to work on core work; train hip hinge; go over vacuum mechanics. cont to work manually w/hips and back & glute work
--- NOTE | 2024-01-04 16:06 | PT.OTN ---
Current Diagnoses Dorsalgia, unspecified (01/04/24) Difficulty in walking, not elsewhere classified (01/04/24) Abnormal posture (01/04/24) Weakness (01/04/24) Physical Therapy Treatment Note PT-OP-A Visit Information Start: 11/11/23 17:50 Freq: Status: Active Protocol: Document 01/04/24 15:21 [facility] (Rec: 01/04/24 16:06 [facility] [id number]) Out-Patient Physical Therapy Visit Information Visit Information Visit Type Treatment Note Visit Start Time 15:22 Visit Stop Time 16:00 Visit Number 8 Number of BUYER GRAIN Visits 0 PT-OP-B Current Condition Start: 11/11/23 17:50 Freq: Status: Active Protocol: Document 11/12/23 09:07 [facility] (Rec: 11/12/23 09:52 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 She reports she walks 4x/week for a little over a mile. W/her fibromyalgia, she sometimes gets flared w/the walk. Pt reports her back was really flared up in mid Sep for a couple weeks. Pt reports she has had back pain for 10 years . Its been a gradual onset. About a week ago, it started to calm down. Pt reports back prevents her from lifting heavy things. Bending over to tie her shoes, can be painful . sitting on a firm surface is better than something soft like couch. A couple weeks ago , she had difficulty stepping into the tub and had difficulty walking. 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 Treatment Goals Patient/Caregiver Goals strength training to prevent bone density loss; improve core stability PT-OP-C Subjective Start: 11/11/23 17:50 Freq: Status: Active Protocol: Document 01/04/24 15:21 [facility] (Rec: 01/04/24 16:06 [facility] [id number]) OP-PT Subjective Patient Comments Patient Comments Pt was sitting on the ground and had to push a shoe rack and had inc pain in center of back around sacral area. This was thursday. Only starting to feel better today. Had towork sat. PT-OP-D Balance Start: 11/11/23 17:50 Freq: Status: Active Protocol: Document 11/12/23 09:07 [facility] (Rec: 11/12/23 09:52 [facility] [id number]) Balance Tests Single Limb Standing Single Limb- Right pelvis rot R >30 sec Single Limb- Left >30 sec PT-OP-F Manual Assessment Start: 11/11/23 17:50 Freq: Status: Active Protocol: Document 11/12/23 09:07 [facility] (Rec: 11/12/23 09:52 [facility] [id number]) Manual Assessments Joint Mobility Assessment Joint Mobility Assessment L iliac crest higher; equal greater trochanters PT-OP-G Mobility & Gait Start: 11/11/23 17:50 Freq: Status: Active Protocol: Document 11/12/23 09:07 [facility] (Rec: 11/12/23 09:52 [facility] [id number]) OP Gait Assessment Comments Gait Comments hip drop when landing on LLE; toes out B PT-OP-J Posture/Palpation/Skin Start: 11/11/23 17:50 Freq: Status: Active Protocol: Document 12/28/23 16:09 [facility] (Rec: 12/28/23 18:14 [facility] [id number]) Posture Evaluation Brandee Postural Classification System Vertebral Compression Test 1 Elbow Flexion Test 3 Lumbar Protective Mechanism Left AP 2 Lumbar Protective Mechanism Right AP 0 Lumbar Protective Mechanism Left PA 2 Lumbar Protective Mechanism Right PA 2 PT-OP-K Range of Motion Start: 11/11/23 17:50 Freq: Status: Active Protocol: Document 12/28/23 16:09 [facility] (Rec: 12/28/23 18:14 [facility] [id number]) Lumbar Spine Range of Motion Lumbar Spine Active Percentage Comments to ankles w/flex PT-OP-L Special Tests Start: 11/11/23 17:50 Freq: Status: Active Protocol: Document 11/12/23 09:07 [facility] (Rec: 11/12/23 09:52 [facility] [id number]) Special Tests Lumbar Spine Special Tests Straight Leg Raise Test Results 67 deg R; L 68 deg Gonzalez Test Results WNL B Slump Test Results neg B PT-OP-M Strength Start: 11/11/23 17:50 Freq: Status: Active Protocol: Document 12/28/23 16:09 [facility] (Rec: 12/28/23 18:14 [facility] [id number]) Hip Strength Hip Manual Muscle Testing Right Flexion (L2) 4 Good Extension (S1) 3+ Fair+ Abduction 4- Good- Adduction 4 Good External Rotation 5 Normal Internal Rotation 4 Good Left Flexion (L2) 4- Good- Extension (S1) 3+ Fair+ Abduction 4+ Good+ Adduction 5 Normal External Rotation 5 Normal Internal Rotation 4 Good Knee Strength Knee Manual Muscle Testing Right Flexion (S2) 5 Normal Extension (L3) 5 Normal Comments pain knee w/ext Left Flexion (S2) 5 Normal Extension (L3) 5 Normal PT-OP-Q Treatments Start: 11/11/23 17:50 Freq: Status: Active Protocol: Document 01/04/24 15:21 [facility] (Rec: 01/04/24 16:06 [facility] [id number]) Therapeutic Exercises Supine Exercises core march Supine Exercise Name alt leg drop Side bilateral Reps/Minutes 10 Comments min cues for core DL isometric Supine Exercise Name DL Side bilateral Reps/Minutes 30 sec LTR Side bilateral Reps/Minutes 8 Comments min cues for core & gradual inc range Standing Exercises chop Standing Exercise Name L and R in lunge position w/ea LE fwd Side bilateral Reps/Minutes 5 ea paloff press Standing Exercise Name 1. in standing 2. in mini lunge B ea direction Side bilateral Equipment Used orange band (2 strands) Reps/Minutes 10 ea Manual Therapy Treatment Soft Tissue Mobilization hip Body Location B glutes Mobilization Type Sustained Pressure Intensity/Depth Moderate Comments w/hip rot Joint Mobilizations sacrum Joint Lcaudal and UPA R FM Body Position Prone Comments w/LTR and hip rot innominate Joint L IR FM Body Position Prone hip Joint L IR hip on axis FM Body Position Prone PT-OP-T Assessment and Plan Start: 11/11/23 17:50 Freq: Status: Active Protocol: Document 01/04/24 15:21 [facility] (Rec: 01/04/24 16:06 [facility] [id number]) Physical Therapy Assessment Goals 4 Impairment posture 1/5 VCT Short Term Goal (STG) Pt will improve VCT to at least 3/5 to show improved postural alignment to allow greater ease w/upright activity. 4/1-2/5 STG Duration 12/28/23 Retirement Goal (LTG) pt will improve VCT to at least 4/5 to show improved postural alignment to allow greater ease w/upright activity. LTG Duration 02/01/24 3 Impairment Decreased core strength Short Term Goal (STG) Pt will be indep w/HEP STG Duration achieved advancing as able Retirement Goal (LTG) Pt will score at least 3/5 on LPM and EFT and at least 4+/5 on all B LE MMT to show imporved stability to improve ability for pt to do daily activities w/o inc pain. 12/27-improved LTG Duration 02/01/24 2 Impairment decreased lumbar flexion Short Term Goal (STG) Pt will improve lumbar flex to able to touch ankles. STG Duration achieved 12/27 Retirement Goal (LTG) Pt willi mprove Lumbar flex to be able to touch floor w/o inc pain to allow improved functional capcity w/bending 12/27-improved to ankles LTG Duration 02/01/24 Assessment Summary Assessment Pt reports relief w/session and did well with progression back into core work and understands improtance of working into this again on her own. no inc pain w/inc demand w/exercises today Physical Therapy Plan Frequency and Duration Frequency of Treatment 1-2x/wk Duration of treatment (weeks) 12 Plan of Care Start Date 11/12/23 Plan of Care End Date 02/04/24 Next Visit Focus/Plan Next Note Type Treatment Note Next Visit Plan Try to cont to work on core work cont to work manually w/hips and back & glute work
--- NOTE | 2024-01-11 18:14 | PT.OTN ---
Current Diagnoses Dorsalgia, unspecified (01/11/24) Difficulty in walking, not elsewhere classified (01/11/24) Abnormal posture (01/11/24) Weakness (01/11/24) Physical Therapy Treatment Note PT-OP-A Visit Information Start: 11/11/23 17:50 Freq: Status: Active Protocol: Document 01/11/24 15:21 [facility] (Rec: 01/11/24 18:14 [facility] [id number]) Out-Patient Physical Therapy Visit Information Visit Information Visit Type Treatment Note Visit Start Time 15:22 Visit Stop Time 16:00 Visit Number 9 Number of VOCATIONAL EXAMINER Visits 0 PT-OP-B Current Condition Start: 11/11/23 17:50 Freq: Status: Active Protocol: Document 11/12/23 09:07 [facility] (Rec: 11/12/23 09:52 [facility] [id number]) Current Condition History of Current Condition Onset Date chronic w/recent worsening Current Complaints LBP History of Current Condition 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 She reports she walks 4x/week for a little over a mile. W/her fibromyalgia, she sometimes gets flared w/the walk. Pt reports her back was really flared up in mid Sep for a couple weeks. Pt reports she has had back pain for 10 years . Its been a gradual onset. About a week ago, it started to calm down. Pt reports back prevents her from lifting heavy things. Bending over to tie her shoes, can be painful . sitting on a firm surface is better than something soft like couch. A couple weeks ago , she had difficulty stepping into the tub and had difficulty walking. 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 Treatment Goals Patient/Caregiver Goals strength training to prevent bone density loss; improve core stability PT-OP-C Subjective Start: 11/11/23 17:50 Freq: Status: Active Protocol: Document 01/11/24 15:21 [facility] (Rec: 01/11/24 18:14 [facility] [id number]) OP-PT Subjective Patient Comments Patient Comments Pt helped bf push trailer up driveway and felt okay. Notes some tweaking in back w/ looking down. Gardening felt okay. REports doesn't feel like back is getting better. It just is a problem out of the blue. sitting or standing long periods still inc pain PT-OP-D Balance Start: 11/11/23 17:50 Freq: Status: Active Protocol: Document 11/12/23 09:07 [facility] (Rec: 11/12/23 09:52 [facility] [id number]) Balance Tests Single Limb Standing Single Limb- Right pelvis rot R >30 sec Single Limb- Left >30 sec PT-OP-F Manual Assessment Start: 11/11/23 17:50 Freq: Status: Active Protocol: Document 11/12/23 09:07 [facility] (Rec: 11/12/23 09:52 [facility] [id number]) Manual Assessments Joint Mobility Assessment Joint Mobility Assessment L iliac crest higher; equal greater trochanters PT-OP-G Mobility & Gait Start: 11/11/23 17:50 Freq: Status: Active Protocol: Document 11/12/23 09:07 [facility] (Rec: 11/12/23 09:52 [facility] [id number]) OP Gait Assessment Comments Gait Comments hip drop when landing on LLE; toes out B PT-OP-J Posture/Palpation/Skin Start: 11/11/23 17:50 Freq: Status: Active Protocol: Document 12/28/23 16:09 [facility] (Rec: 12/28/23 18:14 [facility] [id number]) Posture Evaluation Brandee Postural Classification System Vertebral Compression Test 1 Elbow Flexion Test 3 Lumbar Protective Mechanism Left AP 2 Lumbar Protective Mechanism Right AP 0 Lumbar Protective Mechanism Left PA 2 Lumbar Protective Mechanism Right PA 2 PT-OP-K Range of Motion Start: 11/11/23 17:50 Freq: Status: Active Protocol: Document 12/28/23 16:09 [facility] (Rec: 12/28/23 18:14 [facility] [id number]) Lumbar Spine Range of Motion Lumbar Spine Active Percentage Comments to ankles w/flex PT-OP-L Special Tests Start: 11/11/23 17:50 Freq: Status: Active Protocol: Document 11/12/23 09:07 [facility] (Rec: 11/12/23 09:52 [facility] [id number]) Special Tests Lumbar Spine Special Tests Straight Leg Raise Test Results 67 deg R; L 68 deg Gonzalez Test Results WNL B Slump Test Results neg B PT-OP-M Strength Start: 11/11/23 17:50 Freq: Status: Active Protocol: Document 12/28/23 16:09 [facility] (Rec: 12/28/23 18:14 [facility] [id number]) Hip Strength Hip Manual Muscle Testing Right Flexion (L2) 4 Good Extension (S1) 3+ Fair+ Abduction 4- Good- Adduction 4 Good External Rotation 5 Normal Internal Rotation 4 Good Left Flexion (L2) 4- Good- Extension (S1) 3+ Fair+ Abduction 4+ Good+ Adduction 5 Normal External Rotation 5 Normal Internal Rotation 4 Good Knee Strength Knee Manual Muscle Testing Right Flexion (S2) 5 Normal Extension (L3) 5 Normal Comments pain knee w/ext Left Flexion (S2) 5 Normal Extension (L3) 5 Normal PT-OP-Q Treatments Start: 11/11/23 17:50 Freq: Status: Active Protocol: Document 01/11/24 15:21 [facility] (Rec: 01/11/24 18:14 [facility] [id number]) Therapeutic Exercises Supine Exercises bridge Supine Exercise Name progressed to alt march Side bilateral Reps/Minutes 6 ea Prone Exercises hip ext Side bilateral Reps/Minutes 10 Other Exercises quadruped Other Exercise Name alt hip ext Side bilateral Reps/Minutes 15 Comments pnfree, cued slow pacing, level pelvis/shld bird dog Gait Training Gait Activity gait at wall Comments 5 sec x5 ea gait Comments cues for push off and fast walking 3x50ft resisted gait Comments 4x50ft w/dowelf or push off Manual Therapy Treatment Soft Tissue Mobilization hip Body Location B glutes Mobilization Type Sustained Pressure Intensity/Depth Moderate Comments w/hip rot lumbar Body Location b ES Mobilization Type Rolling,Strumming Intensity/Depth Moderate Comments prone Joint Mobilizations sacrum Joint Lcaudal and UPA R FM Body Position Prone Comments w/LTR and hip rot innominate Joint L caudal FM PT-OP-T Assessment and Plan Start: 11/11/23 17:50 Freq: Status: Active Protocol: Document 01/11/24 15:21 [facility] (Rec: 01/11/24 18:14 [facility] [id number]) Physical Therapy Assessment Goals 4 Impairment posture 1/5 VCT Short Term Goal (STG) Pt will improve VCT to at least 3/5 to show improved postural alignment to allow greater ease w/upright activity. 4/1-2/5 STG Duration 12/28/23 [employer] Collect[employer] Supervisor Goal (LTG) pt will improve VCT to at least 4/5 to show improved postural alignment to allow greater ease w/upright activity. LTG Duration 02/01/24 3 Impairment Decreased core strength Short Term Goal (STG) Pt will be indep w/HEP STG Duration achieved advancing as able Retirement Goal (LTG) Pt will score at least 3/5 on LPM and EFT and at least 4+/5 on all B LE MMT to show imporved stability to improve ability for pt to do daily activities w/o inc pain. 4/-improved LTG Duration 02/01/24 2 Impairment decreased lumbar flexion Short Term Goal (STG) Pt will improve lumbar flex to able to touch ankles. STG Duration achieved 12/27 Retirement Goal (LTG) Pt willi mprove Lumbar flex to be able to touch floor w/o inc pain to allow improved functional capcity w/bending 12/27-improved to ankles LTG Duration 02/01/24 Assessment Summary Assessment Improved push off w/gait w/ improved glute activation after retraining w/resited gait and gait at wall. Difficulty w/glute exercsies Physical Therapy Plan Frequency and Duration Frequency of Treatment 1-2x/wk Duration of treatment (weeks) 12 Plan of Care Start Date 11/12/23 Plan of Care End Date 02/04/24 Next Visit Focus/Plan Next Note Type Treatment Note Next Visit Plan Try to cont to work on core work cont to work manually w/hips and back & glute work
--- NOTE | 2024-01-18 09:03 | PT.OTN ---
Current Diagnoses Dorsalgia, unspecified (01/18/24) Difficulty in walking, not elsewhere classified (01/18/24) Abnormal posture (01/18/24) Weakness (01/18/24) Physical Therapy Treatment Note PT-OP-A Visit Information Start: 11/11/23 17:50 Freq: Status: Active Protocol: Document 01/18/24 08:21 [facility] (Rec: 01/18/24 09:03 [facility] [id number]) Out-Patient Physical Therapy Visit Information Visit Information Visit Type Treatment Note Visit Start Time 08:19 Visit Stop Time 08:59 Visit Number 10 Number of METAL TRIM ERECTOR Visits 0 PT-OP-B Current Condition Start: 11/11/23 17:50 Freq: Status: Active Protocol: Document 11/12/23 09:07 [facility] (Rec: 11/12/23 09:52 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 She reports she walks 4x/week for a little over a mile. W/her fibromyalgia, she sometimes gets flared w/the walk. Pt reports her back was really flared up in mid Sep for a couple weeks. Pt reports she has had back pain for 10 years . Its been a gradual onset. About a week ago, it started to calm down. Pt reports back prevents her from lifting heavy things. Bending over to tie her shoes, can be painful . sitting on a firm surface is better than something soft like couch. A couple weeks ago , she had difficulty stepping into the tub and had difficulty walking. 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 Treatment Goals Patient/Caregiver Goals strength training to prevent bone density loss; improve core stability PT-OP-C Subjective Start: 11/11/23 17:50 Freq: Status: Active Protocol: Document 01/18/24 08:21 [facility] (Rec: 01/18/24 09:03 [facility] [id number]) OP-PT Subjective Patient Comments Patient Comments pt reports changing jobs to work at [employer] starting next week. She also got a new bed about a week ago. LIkes it PT-OP-D Balance Start: 11/11/23 17:50 Freq: Status: Active Protocol: Document 11/12/23 09:07 [facility] (Rec: 11/12/23 09:52 [facility] [id number]) Balance Tests Single Limb Standing Single Limb- Right pelvis rot R >30 sec Single Limb- Left >30 sec PT-OP-F Manual Assessment Start: 11/11/23 17:50 Freq: Status: Active Protocol: Document 11/12/23 09:07 [facility] (Rec: 11/12/23 09:52 [facility] [id number]) Manual Assessments Joint Mobility Assessment Joint Mobility Assessment L iliac crest higher; equal greater trochanters PT-OP-G Mobility & Gait Start: 11/11/23 17:50 Freq: Status: Active Protocol: Document 11/12/23 09:07 [facility] (Rec: 11/12/23 09:52 [facility] [id number]) OP Gait Assessment Comments Gait Comments hip drop when landing on LLE; toes out B PT-OP-J Posture/Palpation/Skin Start: 11/11/23 17:50 Freq: Status: Active Protocol: Document 01/18/24 08:21 [facility] (Rec: 01/18/24 09:03 [facility] [id number]) Posture Evaluation Brandee Postural Classification System Vertebral Compression Test 3 Elbow Flexion Test 3 Lumbar Protective Mechanism Left AP 2 Lumbar Protective Mechanism Right AP 1 Lumbar Protective Mechanism Left PA 3 Lumbar Protective Mechanism Right PA 3 PT-OP-K Range of Motion Start: 11/11/23 17:50 Freq: Status: Active Protocol: Document 12/28/23 16:09 [facility] (Rec: 12/28/23 18:14 [facility] [id number]) Lumbar Spine Range of Motion Lumbar Spine Active Percentage Comments to ankles w/flex PT-OP-L Special Tests Start: 11/11/23 17:50 Freq: Status: Active Protocol: Document 11/12/23 09:07 [facility] (Rec: 11/12/23 09:52 [facility] [id number]) Special Tests Lumbar Spine Special Tests Straight Leg Raise Test Results 67 deg R; L 68 deg Gonzalez Test Results WNL B Slump Test Results neg B PT-OP-M Strength Start: 11/11/23 17:50 Freq: Status: Active Protocol: Document 01/18/24 08:21 [facility] (Rec: 01/18/24 09:03 [facility] [id number]) Hip Strength Hip Manual Muscle Testing Right Flexion (L2) 4+ Good+ Extension (S1) 4- Good- Abduction 4- Good- Adduction 4+ Good+ External Rotation 5 Normal Internal Rotation 5 Normal Left Flexion (L2) 4- Good- Extension (S1) 4- Good- Adduction 5 Normal External Rotation 5 Normal Internal Rotation 5 Normal Knee Strength Knee Manual Muscle Testing Right Flexion (S2) 5 Normal Extension (L3) 5 Normal Comments pain knee w/ext Left Flexion (S2) 5 Normal Extension (L3) 5 Normal Ankle/Foot Strength Ankle and Foot Manual Muscle Testing Right Dorsiflexion (L4) 5 Normal Plantarflexion (S1) 5 Normal Comments 20 heel raises B (cues to keep knee straight) difficulty Left Dorsiflexion (L4) 5 Normal Plantarflexion (S1) 5 Normal PT-OP-Q Treatments Start: 11/11/23 17:50 Freq: Status: Active Protocol: Document 01/18/24 08:21 [facility] (Rec: 01/18/24 09:03 [facility] [id number]) Therapeutic Exercises Prone Exercises hip ext Side bilateral Reps/Minutes 10 Other Exercises cat/cow Reps/Minutes 10 kahlil pose Side bilateral Reps/Minutes 30 sec isometrics Other Exercise Name EFT, MMT, LPM, VCT quadruped Other Exercise Name alt hip ext Side bilateral Reps/Minutes 12 Comments pnfree, cued slow pacing, level pelvis/shld bird dog Therapeutic Activity Therapeutic Activity lifting Reps/Minutes 10 min Comments practice use of squat, lunge and golfers mod sweet pickled fruit maker for picking up stuff off shelfs w/ turn to transfer to cart simulation Manual Therapy Treatment Soft Tissue Mobilization lumbar Body Location b ES Mobilization Type Rolling,Strumming Intensity/Depth Moderate Comments quad w/ cat and seated flex Joint Mobilizations lumbar Comments gaping l3-4;l5-s1 quad fm PT-OP-T Assessment and Plan Start: 11/11/23 17:50 Freq: Status: Active Protocol: Document 01/18/24 08:21 [facility] (Rec: 01/18/24 09:03 [facility] [id number]) Physical Therapy Assessment Goals 4 Impairment posture 1/5 VCT Short Term Goal (STG) Pt will improve VCT to at least 3/5 to show improved postural alignment to allow greater ease w/upright activity. 4/1-2/5 STG Duration achieved 4/22 Fpc Goal (LTG) pt will improve VCT to at least 4/5 to show improved postural alignment to allow greater ease w/upright activity. LTG Duration 03/22 3 Impairment Decreased core strength Short Term Goal (STG) Pt will be indep w/HEP STG Duration achieved advancing as able Fpc Goal (LTG) Pt will score at least 3/5 on LPM and EFT and at least 4+/5 on all B LE MMT to show imporved stability to improve ability for pt to do daily activities w/o inc pain. 12/27-improved 01/17-gradually improving LTG Duration 03/22 2 Impairment decreased lumbar flexion Short Term Goal (STG) Pt will improve lumbar flex to able to touch ankles. STG Duration achieved 12/27 Fpc Goal (LTG) Pt willi mprove Lumbar flex to be able to touch floor w/o inc pain to allow improved functional capcity w/bending 12/27-improved to ankles 01/17-ankles LTG Duration 03/22 Assessment Summary Assessment Pt did well with education w/ lifting and demonstrates understanding. Cont to have difficulty w/hip ext and core stability strength. She is having dec pain overall but cont to have instances of pain . Cont PT to focus on strength and stability along w/improve lumbar flex mobility. Physical Therapy Plan Frequency and Duration Frequency of Treatment 1x/Week Duration of treatment (weeks) 8 Plan of Care Start Date 01/18/24 Plan of Care End Date 03/22/24 Therapeutic Interventions Therapeutic Interventions Balance Training,Gait Training ,Home Exercise Program,Joint Mobilizations,Manual Therapy, Neuromuscular Re-education, Orthotic/Prosthetic Management ,Patient/Caregiver Education, Self-Care/Home Management,Soft Tissue Mobilization,Taping, Therapeutic Activities, Therapeutic Exercises Modalities Cold Pack/Ice Massage,Electric Stimulation,Hot Packs, Traction- Mechanical, Ultrasound Next Visit Focus/Plan Next Note Type Treatment Note Next Visit Plan Try to cont to work on core work cont to work manually w/hips and back & glute work
--- NOTE | 2024-01-18 09:03 | PT.OPPOC ---
Physical, Occupational & Speech Therapy At [facility] Current Diagnoses Dorsalgia, unspecified (01/18/24) Difficulty in walking, not elsewhere classified (01/18/24) Abnormal posture (01/18/24) Weakness (01/18/24) Visit Care Team Role Provider Type Madeline Soto MD Attending Provider Physician Primary Care Provider Referring Provider Specialty: Family Practice Obstetrics Address: [address] [place] [address], [id number] Email: [email or web address] Plan Of Care PT-OP-T Assessment and Plan Start: 11/11/23 17:50 Freq: Status: Active Protocol: Document 01/18/24 08:21 [facility] (Rec: 01/18/24 09:03 [facility] [id number]) Physical Therapy Assessment Goals 4 Impairment posture / VCT Short Term Goal (STG) Pt will improve VCT to at least 3/5 to show improved postural alignment to allow greater ease w/upright activity. 12/27-11/02 STG Duration achieved 01/17 Penitentiary Goal (LTG) pt will improve VCT to at least 4/5 to show improved postural alignment to allow greater ease w/upright activity. LTG Duration 03/22 3 Impairment Decreased core strength Short Term Goal (STG) Pt will be indep w/HEP STG Duration achieved advancing as able Penitentiary Goal (LTG) Pt will score at least 3/5 on LPM and EFT and at least 4+/5 on all B LE MMT to show imporved stability to improve ability for pt to do daily activities w/o inc pain. 12/27-improved 01/17-gradually improving LTG Duration 03/22 2 Impairment decreased lumbar flexion Short Term Goal (STG) Pt will improve lumbar flex to able to touch ankles. STG Duration achieved 12/27 Penitentiary Goal (LTG) Pt willi mprove Lumbar flex to be able to touch floor w/o inc pain to allow improved functional capcity w/bending 12/27-improved to ankles 01/17-ankles LTG Duration 03/22 Assessment Summary Assessment Pt did well with education w/ lifting and demonstrates understanding. Cont to have difficulty w/hip ext and core stability strength. She is having dec pain overall but cont to have instances of pain . Cont PT to focus on strength and stability along w/improve lumbar flex mobility. Physical Therapy Plan Frequency and Duration Frequency of Treatment 1x/Week Duration of treatment (weeks) 8 Plan of Care Start Date 01/18/24 Plan of Care End Date 03/22/24 Therapeutic Interventions Therapeutic Interventions Balance Training,Gait Training ,Home Exercise Program,Joint Mobilizations,Manual Therapy, Neuromuscular Re-education, Orthotic/Prosthetic Management ,Patient/Caregiver Education, Self-Care/Home Management,Soft Tissue Mobilization,Taping, Therapeutic Activities, Therapeutic Exercises Modalities Cold Pack/Ice Massage,Electric Stimulation,Hot Packs, Traction- Mechanical, Ultrasound Next Visit Focus/Plan Next Note Type Treatment Note Next Visit Plan Try to cont to work on core work cont to work manually w/hips and back & glute work Plan of Care Dates Plan of Care Start Date 01/18/24 Plan of Care End Date 03/22/24 Electronically Signed by: Maite Soliz, PT 01/18/24 0903 If you are in agreement with this Plan of Care, please return a signed and dated copy. I have reviewed this Plan of Care and certify that the skilled therapy services above are required to meet the patient?s needs. Physician Signature Date Printed Name and Credentials Clinical Instructor Signature Printed Name and Credentials
--- NOTE | 2024-01-26 08:13 | PT.OTN ---
Current Diagnoses Dorsalgia, unspecified (01/26/24) Difficulty in walking, not elsewhere classified (01/26/24) Abnormal posture (01/26/24) Weakness (01/26/24) Physical Therapy Treatment Note PT-OP-A Visit Information Start: 11/11/23 17:50 Freq: Status: Active Protocol: Document 01/26/24 07:33 [facility] (Rec: 01/26/24 08:22 [facility] [id number]) Out-Patient Physical Therapy Visit Information Visit Information Visit Type Treatment Note Visit Note 11/07 post PN Visit Start Time 07:33 Visit Stop Time 08:13 Visit Number 11 Number of WEB ART DIRECTOR Visits 1 PT-OP-B Current Condition Start: 11/11/23 17:50 Freq: Status: Active Protocol: Document 11/12/23 09:07 [facility] (Rec: 11/12/23 09:52 [facility] [id number]) Current Condition History of Current Condition Onset Date chronic w/recent worsening Current Complaints LBP History of Current Condition 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 She reports she walks 4x/week for a little over a mile. W/her fibromyalgia, she sometimes gets flared w/the walk. Pt reports her back was really flared up in mid Sep for a couple weeks. Pt reports she has had back pain for 10 years . Its been a gradual onset. About a week ago, it started to calm down. Pt reports back prevents her from lifting heavy things. Bending over to tie her shoes, can be painful . sitting on a firm surface is better than something soft like couch. A couple weeks ago , she had difficulty stepping into the tub and had difficulty walking. 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 Treatment Goals Patient/Caregiver Goals strength training to prevent bone density loss; improve core stability PT-OP-C Subjective Start: 11/11/23 17:50 Freq: Status: Active Protocol: Document 01/26/24 07:33 [facility] (Rec: 01/26/24 08:22 [facility] [id number]) OP-PT Subjective Patient Comments Patient Comments Pt reports doing ankle exercises 3x/wk and fine now. Wants to review and get pics if not have finalize HEP. 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 Is walking 4x/ wk on sidewalks. PT-OP-D Balance Start: 11/11/23 17:50 Freq: Status: Active Protocol: Document 11/12/23 09:07 [facility] (Rec: 11/12/23 09:52 [facility] [id number]) Balance Tests Single Limb Standing Single Limb- Right pelvis rot R >30 sec Single Limb- Left >30 sec PT-OP-F Manual Assessment Start: 11/11/23 17:50 Freq: Status: Active Protocol: Document 11/12/23 09:07 [facility] (Rec: 11/12/23 09:52 [facility] [id number]) Manual Assessments Joint Mobility Assessment Joint Mobility Assessment L iliac crest higher; equal greater trochanters PT-OP-G Mobility & Gait Start: 11/11/23 17:50 Freq: Status: Active Protocol: Document 11/12/23 09:07 [facility] (Rec: 11/12/23 09:52 [facility] [id number]) OP Gait Assessment Comments Gait Comments hip drop when landing on LLE; toes out B PT-OP-J Posture/Palpation/Skin Start: 11/11/23 17:50 Freq: Status: Active Protocol: Document 01/18/24 08:21 [facility] (Rec: 01/18/24 09:03 [facility] [id number]) Posture Evaluation Brandee Postural Classification System Vertebral Compression Test 3 Elbow Flexion Test 3 Lumbar Protective Mechanism Left AP 2 Lumbar Protective Mechanism Right AP 1 Lumbar Protective Mechanism Left PA 3 Lumbar Protective Mechanism Right PA 3 PT-OP-K Range of Motion Start: 11/11/23 17:50 Freq: Status: Active Protocol: Document 12/28/23 16:09 [facility] (Rec: 12/28/23 18:14 [facility] [id number]) Lumbar Spine Range of Motion Lumbar Spine Active Percentage Comments to ankles w/flex PT-OP-L Special Tests Start: 11/11/23 17:50 Freq: Status: Active Protocol: Document 11/12/23 09:07 [facility] (Rec: 11/12/23 09:52 [facility] [id number]) Special Tests Lumbar Spine Special Tests Straight Leg Raise Test Results 67 deg R; L 68 deg Gonzalez Test Results WNL B Slump Test Results neg B PT-OP-M Strength Start: 11/11/23 17:50 Freq: Status: Active Protocol: Document 01/18/24 08:21 [facility] (Rec: 01/18/24 09:03 [facility] [id number]) Hip Strength Hip Manual Muscle Testing Right Flexion (L2) 4+ Good+ Extension (S1) 4- Good- Abduction 4- Good- Adduction 4+ Good+ External Rotation 5 Normal Internal Rotation 5 Normal Left Flexion (L2) 4- Good- Extension (S1) 4- Good- Adduction 5 Normal External Rotation 5 Normal Internal Rotation 5 Normal Knee Strength Knee Manual Muscle Testing Right Flexion (S2) 5 Normal Extension (L3) 5 Normal Comments pain knee w/ext Left Flexion (S2) 5 Normal Extension (L3) 5 Normal Ankle/Foot Strength Ankle and Foot Manual Muscle Testing Right Dorsiflexion (L4) 5 Normal Plantarflexion (S1) 5 Normal Comments 20 heel raises B (cues to keep knee straight) difficulty Left Dorsiflexion (L4) 5 Normal Plantarflexion (S1) 5 Normal PT-OP-Q Treatments Start: 11/11/23 17:50 Freq: Status: Active Protocol: Document 01/26/24 07:33 [facility] (Rec: 01/26/24 08:22 [facility] [id number]) Therapeutic Exercises Supine Exercises bridge Supine Exercise Name progressed to alt march Side bilateral Equipment Used improved /c cues Reps/Minutes 8 ea Comments cued slow lift/soft landing, level pelvis DL isometric Supine Exercise Name DL Side bilateral Reps/Minutes 30 sec Comments good form, Prone Exercises hip ext Side bilateral Reps/Minutes 10 Comments Ed hands side head vs under forehead, good form pnfree Standing Exercises split lunges Standing Exercise Name 1. split lunge 2. Upper body rotation over front LE Side bilateral Resistance AROM Equipment Used near rail Reps/Minutes 1. 10 reps 2. 8 reps Comments cued increase MICH, slight hip hinge if needed suitcase carry Standing Exercise Name march Side bilateral Resistance handles bucket 5# DB Reps/Minutes 20ft ea hand Comments good form, self corrections no wt shift sways Other Exercises cat/cow Reps/Minutes 10 Comments good form kahlil pose Side bilateral Reps/Minutes 30 sec Comments good stretch response quadruped Other Exercise Name alt hip and UE ext Side bilateral Reps/Minutes 12 Comments pnfree, improved stab /c slower pacing self corrections Therapeutic Activity Therapeutic Activity lifting Reps/Minutes 15 min Comments Practice use of squat, lunge and golfers mod flower buncher or picker for picking up stuff off shelfs w/ turn to transfer to cart, pushing wt cart simulations for new job. PT-OP-T Assessment and Plan Start: 11/11/23 17:50 Freq: Status: Active Protocol: Document 01/26/24 07:33 [facility] (Rec: 01/26/24 08:22 [facility] [id number]) Physical Therapy Assessment Goals 4 Impairment posture 1/ VCT Short Term Goal (STG) Pt will improve VCT to at least 3/5 to show improved postural alignment to allow greater ease w/upright activity. 12/27-2/ STG Duration achieved 01/17 Hadoop Developer Goal (LTG) pt will improve VCT to at least 4/5 to show improved postural alignment to allow greater ease w/upright activity. LTG Duration 03/22 3 Impairment Decreased core strength Short Term Goal (STG) Pt will be indep w/HEP STG Duration achieved advancing as able Hadoop Developer Goal (LTG) Pt will score at least 3/5 on LPM and EFT and at least 4+/5 on all B LE MMT to show imporved stability to improve ability for pt to do daily activities w/o inc pain. 12/27-improved 01/17-gradually improving LTG Duration 03/22 2 Impairment decreased lumbar flexion Short Term Goal (STG) Pt will improve lumbar flex to able to touch ankles. STG Duration achieved 12/27 Skilled Nursing Goal (LTG) Pt willi mprove Lumbar flex to be able to touch floor w/o inc pain to allow improved functional capcity w/bending 12/27-improved to ankles 01/17-ankles LTG Duration 03/22 Assessment Summary Assessment Pt improved body mechanics demo with verbalized understanding corrections needed with engagement of TA and squaring up to item when heavier. Cued hip hinge as needed for putting items over assimulated side cart split stance lower to surface. No pain throughout tx. Good challenged of split stance lunges today and trunk rotation for ROM /c LE strengthening getting up from floor. Reviewed stretching and ROM for back health needed pre/post/during day. Physical Therapy Plan Frequency and Duration Frequency of Treatment 1x/Week Duration of treatment (weeks) 8 Plan of Care Start Date 01/18/24 Plan of Care End Date 03/22/24 Therapeutic Interventions Therapeutic Interventions Balance Training,Gait Training ,Home Exercise Program,Joint Mobilizations,Manual Therapy, Neuromuscular Re-education, Orthotic/Prosthetic Management ,Patient/Caregiver Education, Self-Care/Home Management,Soft Tissue Mobilization,Taping, Therapeutic Activities, Therapeutic Exercises Modalities Cold Pack/Ice Massage,Electric Stimulation,Hot Packs, Traction- Mechanical, Ultrasound Next Visit Focus/Plan Next Note Type Treatment Note Next Visit Plan CHeck core HEP and any inquiries, next tx last prep DC. POC: PRN work cont to work manually w/hips and back & glute work
--- NOTE | 2024-03-09 09:43 | PT.OTN ---
Current Diagnoses Dorsalgia, unspecified (03/09/24) Difficulty in walking, not elsewhere classified (03/09/24) Abnormal posture (03/09/24) Weakness (03/09/24) Physical Therapy Treatment Note PT-OP-A Visit Information Start: 11/11/23 17:50 Freq: Status: Active Protocol: Document 03/09/24 07:33 [facility] (Rec: 03/09/24 09:43 [facility] [id number]) Out-Patient Physical Therapy Visit Information Visit Information Visit Type Discharge Summary Visit Start Time 07:33 Visit Stop Time 08:11 Visit Number 12 Number of BID ANALYST Visits 0 PT-OP-B Current Condition Start: 11/11/23 17:50 Freq: Status: Active Protocol: Document 11/12/23 09:07 [facility] (Rec: 11/12/23 09:52 [facility] [id number]) Current Condition History of Current Condition Onset Date chronic w/recent worsening Current Complaints LBP History of Current Condition 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 She reports she walks 4x/week for a little over a mile. W/her fibromyalgia, she sometimes gets flared w/the walk. Pt reports her back was really flared up in mid Sep for a couple weeks. Pt reports she has had back pain for 10 years . Its been a gradual onset. About a week ago, it started to calm down. Pt reports back prevents her from lifting heavy things. Bending over to tie her shoes, can be painful . sitting on a firm surface is better than something soft like couch. A couple weeks ago , she had difficulty stepping into the tub and had difficulty walking. 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 Back has been feeling good. She worked 30 hours and that was too much but overall doing well. Patient Reported Progress Improving PT-OP-D Balance Start: 11/11/23 17:50 Freq: Status: Active Protocol: Document 11/12/23 09:07 [facility] (Rec: 11/12/23 09:52 [facility] [id number]) Balance Tests Single Limb Standing Single Limb- Right pelvis rot R >30 sec Single Limb- Left >30 sec PT-OP-F Manual Assessment Start: 11/11/23 17:50 Freq: Status: Active Protocol: Document 11/12/23 09:07 [facility] (Rec: 11/12/23 09:52 [facility] [id number]) Manual Assessments Joint Mobility Assessment Joint Mobility Assessment L iliac crest higher; equal greater trochanters PT-OP-G Mobility & Gait Start: 11/11/23 17:50 Freq: Status: Active Protocol: Document 11/12/23 09:07 [facility] (Rec: 11/12/23 09:52 [facility] [id number]) OP Gait Assessment Comments Gait Comments hip drop when landing on LLE; toes out B PT-OP-J Posture/Palpation/Skin Start: 11/11/23 17:50 Freq: Status: Active Protocol: Document 03/09/24 07:33 [facility] (Rec: 03/09/24 09:43 [facility] [id number]) Posture Evaluation Brandee Postural Classification System Vertebral Compression Test 4 Elbow Flexion Test 4 Lumbar Protective Mechanism Left AP 4 Lumbar Protective Mechanism Right AP 3 Lumbar Protective Mechanism Left PA 5 Lumbar Protective Mechanism Right PA 4 PT-OP-K Range of Motion Start: 11/11/23 17:50 Freq: Status: Active Protocol: Document 12/28/23 16:09 [facility] (Rec: 12/28/23 18:14 [facility] [id number]) Lumbar Spine Range of Motion Lumbar Spine Active Percentage Comments to ankles w/flex PT-OP-L Special Tests Start: 11/11/23 17:50 Freq: Status: Active Protocol: Document 11/12/23 09:07 [facility] (Rec: 11/12/23 09:52 [facility] [id number]) Special Tests Lumbar Spine Special Tests Straight Leg Raise Test Results 67 deg R; L 68 deg Gonzalez Test Results WNL B Slump Test Results neg B PT-OP-M Strength Start: 11/11/23 17:50 Freq: Status: Active Protocol: Document 03/09/24 07:33 [facility] (Rec: 03/09/24 09:43 [facility] [id number]) Hip Strength Hip Manual Muscle Testing Right Flexion (L2) 5 Normal Extension (S1) 5 Normal Abduction 5 Normal Adduction 5 Normal External Rotation 5 Normal Internal Rotation 5 Normal Left Flexion (L2) 4+ Good+ Extension (S1) 4+ Good+ Abduction 5 Normal Adduction 5 Normal External Rotation 5 Normal Internal Rotation 5 Normal Knee Strength Knee Manual Muscle Testing Right Flexion (S2) 5 Normal Extension (L3) 5 Normal Left Flexion (S2) 5 Normal Extension (L3) 5 Normal Ankle/Foot Strength Ankle and Foot Manual Muscle Testing Right Dorsiflexion (L4) 5 Normal Plantarflexion (S1) 5 Normal Inversion 5 Normal Eversion (S1) 5 Normal Left Dorsiflexion (L4) 5 Normal Plantarflexion (S1) 5 Normal Inversion 5 Normal Eversion (S1) 5 Normal PT-OP-Q Treatments Start: 11/11/23 17:50 Freq: Status: Active Protocol: Document 03/09/24 07:33 [facility] (Rec: 03/09/24 09:43 [facility] [id number]) Therapeutic Exercises Supine Exercises DL isometric Supine Exercise Name DL Side bilateral Reps/Minutes 30 sec Comments min cues Sitting Exercises 4 way ankle Sitting Exercise Name DF, Inversion, eversion Side left Reps/Minutes 10 stretching Sitting Exercise Name 1. HS 2. figure 4 3. piriformis Side bilateral Reps/Minutes 30 sec ea Standing Exercises SL Standing Exercise Name SLS Side bilateral bottoms up Side bilateral Reps/Minutes 10 sec x8 Other Exercises cat/cow Reps/Minutes 10 kahlil pose Other Exercise Name angry cat first; fwd and to sides Side bilateral Reps/Minutes 30 sec ea Comments good stretch response isometrics Other Exercise Name EFT, MMT, LPM, VCT Therapeutic Activity Therapeutic Activity pushing mechanics Reps/Minutes 8 min Comments push against wall with cues for neutral spine & then pushing PT down hallway 50ft w /dowel; push down cart w/PT rsisting w/cues 2x50ft PT-OP-T Assessment and Plan Start: 11/11/23 17:50 Freq: Status: Active Protocol: Document 03/09/24 07:33 [facility] (Rec: 03/09/24 09:43 [facility] [id number]) Physical Therapy Assessment Goals 4 Impairment posture 1/ VCT Short Term Goal (STG) Pt will improve VCT to at least 3/5 to show improved postural alignment to allow greater ease w/upright activity. 12/27-2/5 STG Duration achieved 01/17 Group Home Goal (LTG) pt will improve VCT to at least 4/5 to show improved postural alignment to allow greater ease w/upright activity. LTG Duration achieved 3 Impairment Decreased core strength Short Term Goal (STG) Pt will be indep w/HEP STG Duration achieved advancing as able Group Home Goal (LTG) Pt will score at least 3/5 on LPM and EFT and at least 4+/5 on all B LE MMT to show imporved stability to improve ability for pt to do daily activities w/o inc pain. 12/27-improved 01/17-gradually improving LTG Duration achieved 2 Impairment decreased lumbar flexion Short Term Goal (STG) Pt will improve lumbar flex to able to touch ankles. STG Duration achieved 12/27 Group Home Goal (LTG) Pt willi mprove Lumbar flex to be able to touch floor w/o inc pain to allow improved functional capcity w/bending 12/27-improved to ankles 01/17-ankles LTG Duration to ankles Assessment Summary Assessment Pt improved with PT w/limited c/o back pain now. She is able to work and has improved strength and ROM since starting PT. DC to HEP at this time. Physical Therapy Plan Discharge Physical Therapy Discharge Reasons Goals Met
== END 2024-03-10 10:06 | disposition home or self-care (01) ==
LOC: PHYS 07:30
PROVIDERS: PCP Student in an Organized Health Care Education/Training Program; Referring Provider Student in an Organized Health Care Education/Training Program; Visit Provider Student in an Organized Health Care Education/Training Program
DX: M54.9 Dorsalgia, unspecified (principal); R53.1 Weakness; R29.3 Abnormal posture; R26.2 Difficulty in walking, not elsewhere classified
CPT/HCPCS: 97110; 97116; 97140; 97162; 97530; 97535

== ENCOUNTER → 2024-03-21 09:55 | Outpatient (CLI) | payer OTHER, MEDICAID, SELFPAY ==
[2024-03-21 11:21] LABS: Add Manual Diff / Slide Review NO; Basophils Absolute Auto 100 /uL (0-100); Basophils Percent Auto 0.9 % (0-2); Eosinophils Absolute Auto 100 /uL (0-450); Eosinophils Percent Auto 1.8 % (2-4); Hematocrit 38.5 % (36-46); Hemoglobin 13.1 g/dL (12.0-16.0); Lymphocytes Absolute Auto 1700 /uL (1100-4500); Lymphocytes Percent Auto 27.9 % (25-40); Mean Corpuscular Volume 97.2 fL (80-100); Monocytes Absolute Auto 400 /uL (0-900); Monocytes Percent Auto 7.2 % (3-14); Neutrophils Absolute Auto 3900 /uL (1500-7000); Neutrophils Percent Auto 62.2 % (50-75); Platelet Count 189 X10^3/uL (150-400); Red Blood Cell Count 3.96 X10^6/uL (4.0-5.2); White Blood Cell Count 6.2 X10^3/uL (4.5-11.0)
[2024-03-21 11:42] LABS: Alanine Aminotransferase 21 IU/L (<35); Albumin 4.4 g/dL (3.5-5.0); Albumin Globulin Ratio 1.6 (1.0-2.8); Alkaline Phosphatase 58 U/L (38-126); Aspartate Aminotransferase 28 IU/L (14-36); BUN Creatinine Ratio 21.8 (6-22); Bilirubin Total 0.8 mg/dL (0.2-1.3); Blood Urea Nitrogen 17 mg/dL (7-17); Calcium 9.5 mg/dL (8.4-10.2); Carbon Dioxide 29 mmol/L (22-32); Chloride 104 mmol/L (98-107); Estimated Glomerular Filt Rate > 60 mL/min (>60); Globulin 2.8 g/dL (1.7-4.1); Glucose 93 mg/dL (70-100); HEMOLYSIS < 15 (0-50); Lipase 165 U/L (23-300); Potassium 4.3 mmol/L (3.4-5.1); Sodium 137 mmol/L (137-145); Total Protein 7.2 g/dL (6.3-8.2)
== END ==
PROVIDERS: PCP Student in an Organized Health Care Education/Training Program; Referring Provider Student in an Organized Health Care Education/Training Program; Visit Provider Student in an Organized Health Care Education/Training Program
DX: Q45.3 Other congenital malformations of pancreas and pancreatic duct (principal); K86.81 Exocrine pancreatic insufficiency
CPT/HCPCS: 36415; 80053; 83690; 85025

== ENCOUNTER → 2024-03-24 11:24 | Outpatient (CLI) | payer OTHER, MEDICAID, SELFPAY | PROVIDERS: PCP Student in an Organized Health Care Education/Training Program; Referring Provider Student in an Organized Health Care Education/Training Program; Visit Provider Student in an Organized Health Care Education/Training Program | DX: K21.9 Gastro-esophageal reflux disease without esophagitis (principal) | CPT/HCPCS: 83013 ==

== ENCOUNTER 2024-06-05 08:33 | Emergency (ER) | payer OTHER, MEDICAID, SELFPAY ==
[2024-06-05] VITALS (9 sets, daily range): BP systolic 97–127; BP diastolic 63–79; PULSE 48–73; RESP 16; TEMP 36.6; O2SAT 97–100; BMI 23.2
--- NOTE | 2024-06-05 08:45 | ED.ABDPAIN ---
HPI - Abdominal Pain General Chief Complaint: Abdominal Pain Stated Complaint: Upper stomach pain. feels like a blockage Time Seen by Provider: 06/05/24 08:43 History of Present Illness HPI narrative: 58-year-old female with history pancreas problems, prior esophagitis, followed by JACOB Moreno with last visit 6 months ago and next visit next month June 2024, taking Creon for the last year and a half, taking occasional Nexium antacids, complains of 1 week duration epigastric discomfort. 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 This feels somewhat like her pancreatitis but also somewhat like her esophagitis, difficult to differentiate. Some nausea without emesis. Denies loose stools, black or red stools, mucoid stools. No change in caliber of her stools. No history of gastrointestinal cancers known. She denies shortness of breath, diaphoresis, radiation of pain to neck arm back legs shoulder blades jaw. Not responsive to antacids. She has not missed any dose of her Creon. She feels that when she has gluten containing foods that she feels worse, recalls having antibody testing that was negative for celiac sprue. Denies dysuria or frequency of urination, flank pain. No recent cough or shortness of breath. No injury or new activities. Pain not worse with activity or position, not particularly worse or better with food, accept maybe worse with gluten containing foods. Related Data Home Medications Medication Instructions Recorded Confirmed cetirizine 10 mg tablet 10 mg PO DAILY PRN 09/01/22 03/24/24 ketotifen fumarate 0.025 % (0.035 drp EYE-BOTH DAILY Allergies 10/27/22 03/24/24 %) eye drops tretinoin 0.05 % topical cream 1 applic topical BEDTIME 12/18/22 03/24/24 [id number] 1 cap PO BID 09/15/23 03/24/24 12,000-38,000-60,000 unit capsule,delayed rel (Creon) Previous Rx's Medication Instructions Recorded estradiol 0.01% (0.1 mg/gram) 1 gram vaginal .COMPLEX HRT #42.5 03/20/20 vaginal cream grams lactulose 10 gram/15 mL oral 10 g (15 mL) PO BID PRN 01/30/23 solution constipation #473 mL triamcinolone acetonide 0.1 % 1 applic topical DAILY #30 grams 10/02/23 topical cream metoprolol succinate 25 mg 25 mg PO DAILY #90 tabs 10/08/23 tablet,extended release 24 hr (Toprol XL) losartan 25 mg tablet 25 mg PO DAILY #30 tabs 02/15/24 diazepam 5 mg tablet 5 mg PO BEDTIME PRN anxiety #20 03/08/24 tabs pantoprazole 40 mg tablet,delayed 40 mg PO DAILY #14 tabs 03/24/24 release (Protonix) Allergies Allergy/AdvReac Type Severity Reaction Status Date / Time Sulfa (Sulfonamide Allergy Intermediate RASH Verified 03/24/24 10:57 Antibiotics) Review of Systems Review of Systems Narrative: see HPI Patient History Medical History (Updated 06/05/24 @ 09:37 by Mandeep Schmidt MD) Irritable bowel syndrome with constipation Atrophic gastritis without mention of hemorrhage (04/19/02) Moderate mixed hyperlipidemia not requiring statin therapy Postmenopausal Sciatica of left side Anxiety (~1997) Anemia Low testosterone level in female (~1999) Acute psychosis Surgical History H/O LEEP Family History Father Age: 84 Hypertension Grandfather Hypertension Grandmother Hypertension Social History household members: none Smoking Status: Never smoker alcohol intake: never Smoking Status: Never smoker Substance Use Type: does not use Exam Narrative Exam Narrative: GENERAL: Well-developed patient, in mild distress. HEAD: Atraumatic. Normocephalic. EYES: Pupils equal round and reactive. Extraocular motions intact. No scleral icterus. No injection or drainage. ENT: Nose without bleeding, purulent drainage. Throat without erythema, tonsillar hypertrophy or exudate. Airway patent. NECK: Trachea midline. Non tender CARDIOVASCULAR: Regular rate and rhythm without murmurs, gallops, or rubs. RESPIRATORY: Clear to auscultation. Breath sounds equal bilaterally. No wheezes, rales, or rhonchi. GASTROINTESTINAL: Mild epigastric discomfort, nondistended, no guarding or rebound tenderness. Normal bowel tones without rushes or tinkles EXTREMITIES: No edema or joint tenderness. BACK: Nontender without deformity or crepitance. No flank tenderness. NEURO: AOx3. Motor function grossly nonfocal SKIN: No rash or erythema of visible areas Initial Vital Signs Initial Vital Signs: Vital Signs Pulse Rate 73 06/05/24 08:43 Blood Pressure 127/76 06/05/24 08:43 Pulse Oximetry 98 06/05/24 08:43 Course Orders Ordered: ED Orders 06/05/24 08:55 EKG-12 Lead Stat 06/05/24 09:00 Complete Blood Count AUTO DIFF Stat Comprehensive Metabolic Panel Stat Lipase Stat 06/05/24 09:12 CT abdomen pelvis w con Stat Discontinued Medications Al Hydrox/Mg Hydrox/Simethicone 20 ml/ Lidocaine HCl 15 ml 0 ml PO NOW ONE Stop: 06/05/24 08:56 Last Admin: 06/05/24 09:12 Dose: 35 ml Sodium Chloride (Normal Saline 0.9%) 1,000 mls @ 1,000 mls/hr IV BOLUS ONE Stop: 06/05/24 10:12 Last Infusion: 06/05/24 10:39 Dose: Infused Ondansetron HCl (Ondansetron 4 Mg/2 Ml Inj) 4 mg IV NOW ONE Stop: 06/05/24 09:35 Last Admin: 06/05/24 09:42 Dose: Not Given Pantoprazole Sodium (Pantoprazole 40 Mg Vial) 40 mg IV NOW ONE Stop: 06/05/24 09:35 Last Admin: 06/05/24 10:04 Dose: 40 mg Vital Signs Vital signs: Vital Signs - 8 hr 06/05/24 08:43 06/05/24 08:43 06/05/24 08:46 Temperature 97.8 F Pulse Rate 73 73 Respiratory Rate 16 Blood Pressure 127/76 123/79 Pulse Oximetry 98 98 Oxygen Delivery Method Room Air 06/05/24 08:51 06/05/24 08:51 06/05/24 09:00 Temperature Pulse Rate 62 55 L Respiratory Rate Blood Pressure 115/78 Pulse Oximetry 99 97 Oxygen Delivery Method 06/05/24 09:00 06/05/24 09:34 06/05/24 09:35 Temperature Pulse Rate 54 L Respiratory Rate Blood Pressure 97/70 110/70 Pulse Oximetry 97 Oxygen Delivery Method 06/05/24 09:35 06/05/24 10:00 06/05/24 10:00 Temperature Pulse Rate 55 L 49 L Respiratory Rate Blood Pressure 109/63 Pulse Oximetry 98 98 Oxygen Delivery Method 06/05/24 10:30 06/05/24 10:30 Temperature Pulse Rate 48 L Respiratory Rate Blood Pressure 121/73 Pulse Oximetry 99 Oxygen Delivery Method MDM - Abdominal Pain Lab Data Attestation: I reviewed the patient's lab results. 06/05/24 09:00 06/05/24 09:00 Labs: Lab Results 06/05/24 Range/Units 09:00 WBC 6.4 (4.5-11.0) X10^3/uL RBC 4.01 (4.0-5.2) X10^6/uL Hgb 13.1 (12.0-16.0) g/dL Hct 38.4 (36-46) % MCV 95.6 (80-100) fL MCH 32.6 (26-34) PG MCHC 34.1 (30-36) % RDW 12.7 (11.6-14.8) % Plt Count 237 (150-400) X10^3/uL Neut % (Auto) 63.5 (50-75) % Lymph % (Auto) 29.1 (25-40) % [place] % (Auto) 6.2 (3-14) % Eos % (Auto) 0.9 L (2-4) % Baso % (Auto) 0.3 (0-2) % Neut # (Auto) 4100 (9028-7231) /uL Lymph # (Auto) 1900 (9861-2948) /uL [place] # (Auto) 400 (0-900) /uL Eos # (Auto) 100 (0-450) /uL Baso # (Auto) 0 (0-100) /uL Sodium 136 L (137-145) mmol/L Potassium 4.2 (3.4-5.1) mmol/L Chloride 102 (98-107) mmol/L Carbon Dioxide 28 (22-32) mmol/L BUN 14 (7-17) mg/dL Creatinine 0.73 (0.52-1.04) mg/dL Estimated GFR > 60 (>60) mL/min BUN/Creatinine Ratio 19.2 (6-22) Glucose 95 (70-100) mg/dL Calcium 9.5 (8.4-10.2) mg/dL Total Bilirubin 0.6 (0.2-1.3) mg/dL AST 32 (14-36) IU/L ALT 25 (<35) IU/L Alkaline Phosphatase 58 (38-126) U/L Total Protein 7.1 (6.3-8.2) g/dL Albumin 4.5 (3.5-5.0) g/dL Globulin 2.6 (1.7-4.1) g/dL Albumin/Globulin Ratio 1.7 (1.0-2.8) Lipase 158 (23-300) U/L Point of care testing: Urine Dip Bedside Urine Glucose Negative Bedside Urine Bilirubin - Negative Bedside Urine Ketone - Negative Urine Specific [place] 1.010 Bedside Urine Occult Blood - Negative Bedside Urine pH 6.0 Bedside Urine Protein - Negative Bedside Urine Urobilinogen - Negative Bedside Urine Nitrite - Negative Bedside Urine Leukocytes - Negative Esterase Imaging Data CT scan - abdomen/pelvis: Radiologist's Impression: [place] [address] CT Scan Report Signed Patient: Fabiana Gonzalez MR#: [id number] : 1965 Acct:[id number] Age/Sex: 58 / F Date of Service: 06/05/24 Loc: ED Accession Number: [id number] Procedure: CT abdomen pelvis w con Ordering Provider: Mandeep Schmidt MD PROCEDURE: CT ABDOMEN PELVIS W CON INDICATIONS: epig pain, hx pancreas problems, hx esophagitis TECHNIQUE: After the administration of intravenous contrast, axial sections acquired from the lung bases to the pubic symphysis. Coronal and sagittal reformats were performed. For radiation dose reduction, the following was used: automated exposure control, adjustment of mA and/or kV according to patient size. COMPARISON: [facility], CT, CT ABDOMEN PELVIS W CON, 10/29/2022, 11:01. FINDINGS: Image quality: Diagnostic. Lower Chest: No significant findings. ABDOMEN: Liver: No solid mass. Gallbladder: No radiopaque gallstones or wall thickening. Biliary ducts: No biliary dilation. Pancreas: No ductal dilation. Spleen: Size is within normal limits. Adrenal Glands: No adrenal nodules. Kidneys and Ureters: No hydronephrosis. No solid mass. No complex renal cystic lesion which requires follow up. Stomach and Bowel: Normal colonic caliber, without significant wall thickening. The appendix is normal. Peritoneum: No abnormal intraperitoneal fluid. No free air. Ventral Wall: No significant ventral hernia. Abdominal Nodes: No retroperitoneal or mesenteric adenopathy by size criteria. Vessels: Aorta and inferior vena cava are normal in size. PELVIS: Pelvic Organs: Unremarkable. Bladder: No bladder wall thickening, accounting for underdistention. Pelvic Nodes: No enlarged lymph nodes. Miscellaneous: No inguinal hernias are seen. Bones: No aggressive osseous abnormality. IMPRESSION: No CT evidence for the etiology of the patient's symptoms. Specifically, no hiatal hernia, evidence of pancreatitis, or other acute abdominal process. Dictated by: Nicole Keene M.D. on 06/05/2024 at 9:14 Approved by: Nicole Keene M.D. on 06/05/2024 at 9:19 ECG Data Attestation: I personally reviewed and interpreted this ECG as follows: Interpretation: Normal sinus rhythm with rate of 62, no obvious ST segment elevation or depression changes. KS 170, QRS 90, QTC 416. 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 DDx consider esophagitis, gastritis, peptic ulcer gastric, peptic ulcer duodenal, pancreatitis, choledocholithiasis, biliary colic, cholecystitis, colitis, diverticulitis, bowel obstruction, constipation, gluten intolerance, musculoskeletal, aortic aneurysm/dissection, ACS, other. GI cocktail, IV Protonix, IV Zofran. Declines opiate pain medications for now. Anticipate CT abdomen and pelvis imaging, await GFR creatinine White blood cell count normal, hemoglobin normal, LFTs normal, lipase unremarkable. Creatinine/GFR favorable. CT abdomen and pelvis with IV contrast ordered. CT abdomen and pelvis showed no acute changes, see radiology report. Patient had response to liquid antacid, also was given IV Protonix and Zofran. Improved symptoms. Encouraged to use her Prilosec on a regular basis and not just intermittently, twice daily for the next couple of weeks, then daily for the next few weeks. Follow up with her GI specialist in June next month as planned. Return precautions discussed. Critical Care Time Critical Care Time Critical Care Time: Yes Total Critical Care Time: 31 Attestation: The high probability of a clinically significant, sudden or life threatening deterioration of the [gastrointestinal, abdominopelvic] system(s) required my full and direct attention, intervention and personal management. The aggregate critical care time was [31] minutes. This time is in addition to time spent performing reported procedures but includes the following: [x] Data Review and interpretation [x] Patient assessment and monitoring of vital signs [x] Documentation [x] Medication orders and management Discharge Plan Departure Patient Disposition: Home Clinical Impression: Epigastric abdominal pain, History of pancreatic disorder, History of esophagitis Activity Restrictions/Additional Instructions: History of pancreatic duct disorder, pancreatic insufficiency, taking Creon. Also prior history of esophagitis, taking intermittent Prilosec antacid. No fever. Mild epigastric discomfort. GI cocktail seemed to improve symptoms with antacid/lidocaine topical coverage. Lab testing unremarkable. CT abdomen and pelvis showed no acute changes. Symptoms and response to topical liquid antacid suspicious for esophagitis or some other acid related upper abdominal problem. Consider regular use of your Prilosec antacid twice daily for the next 2 weeks, then once daily for the next 4-6 weeks. Recheck symptoms as planned with your GI specialist in June. Return earlier to this/nearest emergency department for any change worsening symptoms or any concerns prior Prescriptions: No Action diazepam 5 mg tablet 5 mg PO BEDTIME PRN (Reason: anxiety) Qty: 20 5RF pantoprazole [Protonix] 40 mg tablet,delayed release (DR/EC) 40 mg PO DAILY Qty: 14 0RF Creon 12,000-38,000 -60,000 unit capsule,delayed release(DR/EC) 1 cap PO BID Rx Instructions: administer with meals and/or snacks triamcinolone acetonide 0.1 % cream 1 applic topical DAILY Qty: 30 0RF estradiol 0.01 % (0.1 mg/gram) cream 1 gram VAG .COMPLEX Qty: 42.5 2RF Rx Instructions: Insert 1gm vaginally at bedtime for 14 nights, then 2 times weekly. lactulose 10 gram/15 mL solution 10 g PO BID PRN (Reason: constipation) Qty: 473 5RF metoprolol succinate [Toprol XL] 25 mg tablet extended release 24 hr 25 mg PO DAILY Qty: 90 3RF losartan 25 mg tablet 25 mg PO DAILY Qty: 30 3RF cetirizine 10 mg tablet 10 mg PO DAILY PRN ketotifen fumarate 0.025 % (0.035 %) drops EYE-BOTH DAILY tretinoin 0.05 % cream 1 applic topical BEDTIME Patient Comments: apply thin layer to face and back OF HANDS NIGHT Referrals: Madeline Soto MD [Primary Care Provider] - Stand Alone Forms: Patient Portal/API
--- NOTE | 2024-06-05 08:49 | EKG_ITS ---
[address] [address] Test Date: 2024-06-05 Pat Name: Fabiana Gonzalez Department: Room: Gender: Female Labor Arbitrator: DILSHAD : 1965 Requested By: Order Number: [id number] Reading MD: Sinan Han Measurements Intervals Williams Rate: 62 P: 2 NM: 170 QRS: 76 QRSD: 90 T: 70 QT: 410 QTc: 416 Interpretive Statements Normal sinus rhythm Septal infarct , age undetermined Electronically Signed On 06-05-2024 15:38:57 PDT by Sinan Han
[2024-06-05 09:05] LABS: Add Manual Diff / Slide Review NO; Basophils Absolute Auto 0 /uL (0-100); Basophils Percent Auto 0.3 % (0-2); Eosinophils Absolute Auto 100 /uL (0-450); Eosinophils Percent Auto 0.9 % (2-4); Hematocrit 38.4 % (36-46); Hemoglobin 13.1 g/dL (12.0-16.0); Lymphocytes Absolute Auto 1900 /uL (1100-4500); Lymphocytes Percent Auto 29.1 % (25-40); Mean Corpuscular HGB Conc 34.1 % (30-36); Mean Corpuscular Hemoglobin 32.6 PG (26-34); Mean Corpuscular Volume 95.6 fL (80-100); Monocytes Absolute Auto 400 /uL (0-900); Monocytes Percent Auto 6.2 % (3-14); Neutrophils Absolute Auto 4100 /uL (1500-7000); Neutrophils Percent Auto 63.5 % (50-75); Platelet Count 237 X10^3/uL (150-400); Red Blood Cell Count 4.01 X10^6/uL (4.0-5.2); Red Cell Distribution Width 12.7 % (11.6-14.8); White Blood Cell Count 6.4 X10^3/uL (4.5-11.0)
[2024-06-05] MEDS: MAG HYDROX/ALUMINUM/SIMETH SUS 20 ML, LIDOCAINE VISCOUS 2% 15 ML PO (09:12)
--- NOTE | 2024-06-05 09:12 | DI.CT.S_ITS ---
PROCEDURE: CT ABDOMEN PELVIS W CON INDICATIONS: epig pain, hx pancreas problems, hx esophagitis TECHNIQUE: After the administration of intravenous contrast, axial sections acquired from the lung bases to the pubic symphysis. Coronal and sagittal reformats were performed. For radiation dose reduction, the following was used: automated exposure control, adjustment of mA and/or kV according to patient size. COMPARISON: [facility], CT, CT ABDOMEN PELVIS W CON, 10/29/2022, 11:01. FINDINGS: Image quality: Diagnostic. Lower Chest: No significant findings. ABDOMEN: Liver: No solid mass. Gallbladder: No radiopaque gallstones or wall thickening. Biliary ducts: No biliary dilation. Pancreas: No ductal dilation. Spleen: Size is within normal limits. Adrenal Glands: No adrenal nodules. Kidneys and Ureters: No hydronephrosis. No solid mass. No complex renal cystic lesion which requires follow up. Stomach and Bowel: Normal colonic caliber, without significant wall thickening. The appendix is normal. Peritoneum: No abnormal intraperitoneal fluid. No free air. Ventral Wall: No significant ventral hernia. Abdominal Nodes: No retroperitoneal or mesenteric adenopathy by size criteria. Vessels: Aorta and inferior vena cava are normal in size. PELVIS: Pelvic Organs: Unremarkable. Bladder: No bladder wall thickening, accounting for underdistention. Pelvic Nodes: No enlarged lymph nodes. Miscellaneous: No inguinal hernias are seen. Bones: No aggressive osseous abnormality. IMPRESSION: No CT evidence for the etiology of the patient's symptoms. Specifically, no hiatal hernia, evidence of pancreatitis, or other acute abdominal process. Dictated by: Nicole Keene M.D. on 06/05/2024 at 9:14 Approved by: Nicole Keene M.D. on 06/05/2024 at 9:19
[2024-06-05 09:18] LABS: Alanine Aminotransferase 25 IU/L (<35); Albumin 4.5 g/dL (3.5-5.0); Albumin Globulin Ratio 1.7 (1.0-2.8); Alkaline Phosphatase 58 U/L (38-126); Aspartate Aminotransferase 32 IU/L (14-36); BUN Creatinine Ratio 19.2 (6-22); Bilirubin Total 0.6 mg/dL (0.2-1.3); Blood Urea Nitrogen 14 mg/dL (7-17); Calcium 9.5 mg/dL (8.4-10.2); Carbon Dioxide 28 mmol/L (22-32); Chloride 102 mmol/L (98-107); Estimated Glomerular Filt Rate > 60 mL/min (>60); Globulin 2.6 g/dL (1.7-4.1); Glucose 95 mg/dL (70-100); HEMOLYSIS < 15 (0-50); Lipase 158 U/L (23-300); Potassium 4.2 mmol/L (3.4-5.1); Sodium 136 mmol/L (137-145); Total Protein 7.1 g/dL (6.3-8.2)
[2024-06-05] MEDS: SODIUM CHLORIDE 0.9% 1,000 ML 1000 ML IV (09:36)
[2024-06-05] MEDS: PANTOPRAZOLE 40 MG VIAL IV (10:04)
== END 2024-06-05 10:46 | disposition home or self-care (01) ==
PROVIDERS: Emergency Provider Emergency Medicine; PCP Student in an Organized Health Care Education/Training Program
DX: R10.13 Epigastric pain (principal); R11.0 Nausea; Z87.19 Personal history of other diseases of the digestive system
CPT/HCPCS: 36415; 74177; 80053; 81003; 83690; 85025; 93005; 96361; 96374; 99284; J2470; Q9967

== ENCOUNTER → 2024-06-16 16:16 | Outpatient (CLI) | payer OTHER, MEDICAID, SELFPAY | PROVIDERS: PCP Student in an Organized Health Care Education/Training Program; Referring Provider Student in an Organized Health Care Education/Training Program; Visit Provider Student in an Organized Health Care Education/Training Program | DX: Q45.3 Other congenital malformations of pancreas and pancreatic duct (principal) | CPT/HCPCS: 82656 ==

== ENCOUNTER → 2024-07-19 07:01 | Outpatient (CLI) | payer OTHER, MEDICAID, SELFPAY ==
[2024-07-19 08:41] LABS: Cholesterol 142 mg/dL (140-199); HDL Cholesterol 60 mg/dL (40-60); LDL Cholesterol Calculated 71 mg/dL (<100); Triglycerides 56 mg/dL (35-150)
== END ==
PROVIDERS: PCP Student in an Organized Health Care Education/Training Program; Referring Provider Nurse Practitioner; Visit Provider Nurse Practitioner
DX: E78.00 Pure hypercholesterolemia, unspecified (principal)
CPT/HCPCS: 36415; 80061

== ENCOUNTER → 2024-07-26 08:56 | Outpatient (CLI) | payer OTHER, MEDICAID, SELFPAY ==
[2024-07-26 10:09] LABS: Hemoglobin A1C% w Est Avg Glu 5.6 % (4.0-6.0)
== END ==
PROVIDERS: PCP Student in an Organized Health Care Education/Training Program; Referring Provider Student in an Organized Health Care Education/Training Program; Visit Provider Student in an Organized Health Care Education/Training Program
DX: Z13.1 Encounter for screening for diabetes mellitus (principal)
CPT/HCPCS: 36415; 83036

== ENCOUNTER → 2024-11-01 07:00 | Outpatient (CLI) | payer OTHER, SELFPAY ==
[2024-11-01 08:04] LABS: Add Manual Diff / Slide Review NO; Basophils Absolute Auto 0 /uL (0-100); Basophils Percent Auto 0.8 % (0-2); Eosinophils Absolute Auto 200 /uL (0-450); Eosinophils Percent Auto 3.3 % (2-4); Hematocrit 41.7 % (36-46); Hemoglobin 14.2 g/dL (12.0-16.0); Lymphocytes Absolute Auto 2100 /uL (1100-4500); Lymphocytes Percent Auto 42.8 % (25-40); Mean Corpuscular HGB Conc 34.2 % (30-36); Mean Corpuscular Hemoglobin 32.8 PG (26-34); Mean Corpuscular Volume 95.9 fL (80-100); Monocytes Absolute Auto 400 /uL (0-900); Monocytes Percent Auto 7.6 % (3-14); Neutrophils Absolute Auto 2300 /uL (1500-7000); Neutrophils Percent Auto 45.5 % (50-75); Platelet Count 229 X10^3/uL (150-400); Red Blood Cell Count 4.35 X10^6/uL (4.0-5.2); Red Cell Distribution Width 12.6 % (11.6-14.8)
[2024-11-01 08:52] LABS: HEMOLYSIS < 15 (0-50); Iron 120 ug/dL (37-170)
[2024-11-01 08:59] LABS: Alanine Aminotransferase 29 IU/L (<35); Albumin 4.9 g/dL (3.5-5.0); Alkaline Phosphatase 53 U/L (38-126); Aspartate Aminotransferase 33 IU/L (14-36); BUN Creatinine Ratio 23.6 (6-22); Bilirubin Total 0.5 mg/dL (0.2-1.3); Blood Urea Nitrogen 21 mg/dL (7-17); Calcium 9.9 mg/dL (8.4-10.2); Carbon Dioxide 28 mmol/L (22-32); Chloride 100 mmol/L (98-107); Estimated Glomerular Filt Rate > 60 mL/min (>60); Globulin 2.5 g/dL (1.7-4.1); Glucose 91 mg/dL (70-100); HEMOLYSIS < 15 (0-50); Potassium 4.4 mmol/L (3.4-5.1); Sodium 138 mmol/L (137-145); Total Protein 7.4 g/dL (6.3-8.2)
[2024-11-01 09:03] LABS: Hemoglobin A1C% w Est Avg Glu 5.4 % (4.0-6.0)
[2024-11-01 09:04] LABS: Percent Iron Saturation 43 % (15-50); Total Iron Binding Capacity 279 ug/dL (265-497); Transferrin 260 mg/dL (206-381)
[2024-11-01 09:28] LABS: Ferritin 45 ng/mL (11-264)
== END ==
LOC: LAB 07:00
PROVIDERS: PCP Student in an Organized Health Care Education/Training Program; Referring Provider Student in an Organized Health Care Education/Training Program; Visit Provider Student in an Organized Health Care Education/Training Program
DX: E78.00 Pure hypercholesterolemia, unspecified (principal); Z86.2 Personal history of diseases of the blood and blood-forming organs and certain disorders involving the immune mechanism; R63.5 Abnormal weight gain; I10 Essential (primary) hypertension
CPT/HCPCS: 36415; 80053; 82728; 83036; 83540; 83550; 85025

== ENCOUNTER → 2024-11-14 08:10 | Outpatient (CLI) | payer OTHER, SELFPAY ==
--- NOTE | 2024-11-14 08:11 | DI.MG.S_ITS ---
BILATERAL DIGITAL SCREENING MAMMOGRAM 3D/2D WITH CAD: 11/14/2024 CLINICAL: Routine screening. Comparison is made to exams dated: 11/12/2023 mammogram, 11/11/2022 mammogram, and 11/07/2021 mammogram - [facility]. The breasts are heterogeneously dense, which may obscure small masses (category c / 51-75% glandular tissue). Current study was also evaluated with a Computer Aided Detection (CAD) system. No significant masses, calcifications, or other findings are seen in either breast. There has been no significant interval change. IMPRESSION: NEGATIVE There is no mammographic evidence of malignancy. A 1 year screening mammogram is recommended. Based on the Tyrer Cuzick model (a risk assessment model) the patient's lifetime risk is 8.3% and her 10 year risk is 3.2%. According to the ACR, ACS, and NCCN guidelines, an annual breast MRI exam along with mammogram is recommended if the patient's lifetime risk is 20% or greater. This exam was interpreted at Station ID: [id number]. NOTE: For mammograms, a report in lay terms will be sent to the patient. Approximately 15% of breast malignancies will not be visualized mammographically. In the management of a palpable breast mass, a negative mammogram must not discourage biopsy of a clinically suspicious lesion. Electronically Signed By: Valorie mario/dorina:11/14/2024 10:26:31 copy to: BANDAR RAMIREZ letter sent: Normal Exam ACR BI-RADS Category 1: Negative
== END ==
PROVIDERS: PCP Student in an Organized Health Care Education/Training Program; Referring Provider Student in an Organized Health Care Education/Training Program; Visit Provider Student in an Organized Health Care Education/Training Program
DX: Z12.31 Encounter for screening mammogram for malignant neoplasm of breast (principal); R92.333 Mammographic heterogeneous density, bilateral breasts
CPT/HCPCS: 77063; 77067

== ENCOUNTER → 2025-01-19 07:33 | Outpatient (CLI) | payer OTHER, SELFPAY ==
[2025-01-19 08:09] LABS: Alanine Aminotransferase 24 IU/L (<35); Albumin 4.5 g/dL (3.5-5.0); Alkaline Phosphatase 51 U/L (38-126); Aspartate Aminotransferase 30 IU/L (14-36); Bilirubin Total 0.8 mg/dL (0.2-1.3); Blood Urea Nitrogen 21 mg/dL (7-17); Calcium 9.5 mg/dL (8.4-10.2); Carbon Dioxide 30 mmol/L (22-32); Chloride 102 mmol/L (98-107); Cholesterol 157 mg/dL (140-199); Estimated Glomerular Filt Rate > 60 mL/min (>60); Globulin 2.3 g/dL (1.7-4.1); Glucose 95 mg/dL (70-99); HDL Cholesterol 69 mg/dL (40-60); HEMOLYSIS < 15 (0-50); LDL Cholesterol Calculated 78 mg/dL (<100); Potassium 4.2 mmol/L (3.4-5.1); Sodium 137 mmol/L (137-145); Total Protein 6.8 g/dL (6.3-8.2); Triglycerides 52 mg/dL (35-150)
== END ==
PROVIDERS: PCP Student in an Organized Health Care Education/Training Program; Referring Provider Nurse Practitioner; Visit Provider Nurse Practitioner
DX: I10 Essential (primary) hypertension (principal); E78.00 Pure hypercholesterolemia, unspecified
CPT/HCPCS: 36415; 80053; 80061

== ENCOUNTER → 2025-07-07 07:54 | Outpatient (CLI) | payer OTHER, SELFPAY ==
--- NOTE | 2025-07-07 08:00 | DI.RAD.S_ITS ---
PROCEDURE: XR WRIST RT MIN 3V INDICATIONS: Ground level fall L I TECHNIQUE: 4 views of the wrist were acquired. COMPARISON: None. FINDINGS: Bones: No fractures or dislocations. No suspicious bony lesions. Soft tissues: No suspicious soft tissue calcifications. IMPRESSION: No acute bony abnormality. If symptoms persist with conservative management, consider cross-sectional imaging such as CT or MRI. Approved by: Lucila Cloud M.D.,Ph.D. on 07/10/2025 at 0:49
--- NOTE | 2025-07-07 08:00 | DI.RAD.S_ITS ---
PROCEDURE: XR LUMBAR SPINE 2-3V INDICATIONS: Ground level fall L I TECHNIQUE: 3 views of the lumbar spine were acquired. COMPARISON: [facility], CR, XR LUMBAR SPINE MIN 4V, 02/11/2022, 11:35. FINDINGS: Bones: 5 [id number] vertebrae are present. There is normal bony alignment. No vertebral body compression fractures. No suspicious bony lesions. Multilevel degenerative changes and inferior facet arthropathy. Soft tissues: Overlying bowel gas pattern is normal. No suspicious soft tissue calcifications. IMPRESSION: No acute fracture or traumatic subluxation. Multilevel degenerative changes. If symptoms persist with conservative management, consider cross-sectional imaging such as CT or MRI. Approved by: Lucila Cloud M.D.,Ph.D. on 07/10/2025 at 0:46
== END ==
PROVIDERS: PCP Student in an Organized Health Care Education/Training Program; Referring Provider Nurse Practitioner Family; Visit Provider Nurse Practitioner Family
DX: S66.911A Strain of unspecified muscle, fascia and tendon at wrist and hand level, right hand, initial encounter (principal); M47.816 Spondylosis without myelopathy or radiculopathy, lumbar region; M54.50 Low back pain, unspecified; W18.30XA Fall on same level, unspecified, initial encounter
CPT/HCPCS: 72100; 73110

== ENCOUNTER → 2025-07-18 09:51 | Outpatient (CLI) | payer OTHER, SELFPAY ==
--- NOTE | 2025-07-18 09:52 | DI.RAD.S_ITS ---
PROCEDURE: XR KNEE RT 3V INDICATIONS: Right knee pain TECHNIQUE: 3 views of the knee were acquired. COMPARISON: None. FINDINGS: Bones: No fractures or dislocations. No suspicious bony lesions. 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 Soft tissues: No joint effusion. No suspicious soft tissue calcifications. IMPRESSION: No acute bony abnormality or significant effusion. Dictated by: Joie Munroe MD, PhD on 07/18/2025 at 10:18 Approved by: Joie Munroe MD, PhD on 07/18/2025 at 10:19
== END ==
PROVIDERS: PCP Student in an Organized Health Care Education/Training Program; Referring Provider Nurse Practitioner Family; Visit Provider Nurse Practitioner Family
DX: M17.11 Unilateral primary osteoarthritis, right knee (principal); M25.561 Pain in right knee
CPT/HCPCS: 73562

== ENCOUNTER → 2025-08-26 07:15 | Outpatient (CLI) | payer OTHER, SELFPAY ==
--- NOTE | 2025-08-26 07:20 | DI.MRI.S_ITS ---
PROCEDURE: MR WRIST RT WO CON INDICATIONS: Right wrist pain TECHNIQUE: Noncontrast coronal proton density fast spin echo and T2 fast spin echo with fat saturation; coronal 3-D gradient echo, axial T1 spin echo and T2 fast spin echo with fat saturation, sagittal T1 spin echo through the wrist. COMPARISON: [facility], CR, XR WRIST 3+ VIEWS RIGHT, 08/14/2025, 15:13. FINDINGS: Image quality: Excellent. Bones and cartilage: The carpal bones are normally aligned. No bone marrow contusions or fractures. No evidence for avascular necrosis. Chronic degenerative subchondral cystic changes versus intraosseous ganglion are seen in the proximal radial aspect of the lunate. Mild degenerative spurring at the 1st carpometacarpal joint. Partial- thickness cartilage loss in the triscaphe and radiocarpal joints. Carpal ligaments: Intermediate signal in the scapholunate ligament may indicate intrasubstance degeneration without a full-thickness tear seen. No new intracranial ligament is intact. On sagittal images, the pisohamate ligament appears intact. Triangular fibrocartilage complex: Intermediate substance is seen at the ulnar attachments of the triangular fibrocartilage to that does not meet fluid signal intensity may represent intrasubstance degeneration or remote prior injury. No full- thickness defect is seen. Tendons and soft tissues: The carpal tunnel structures appear normal, including the median nerve. The ulnar nerve appears normal within Guyon's canal. Tenosynovitis of the 2nd, 3rd, and 4th extensor compartment tendons. Mild tendinosis and tenosynovitis of the extensor carpi ulnaris tendon. The remaining extensor tendon compartments demonstrate normal morphology, without pathologic tendon sheath fluid. Small area ganglion cyst at the volar radial aspect of the radiocarpal joint measuring up to 6 mm. IMPRESSION: 1. Moderate tenosynovitis of the 2nd, 3rd, and 4th extensor compartment tendons. 2. Mild extensor carpi ulnaris tendinosis and tenosynovitis. 3. Intrasubstance degeneration versus remote prior low-grade sprain of the ulnar attachments of the triangular fibrocartilage. 4. Intrasubstance degeneration in the scapholunate ligament without focal tearing seen. 5. Mild osteoarthrosis involving the 1st carpometacarpal, triscaphe, and radiocarpal articulations. 6. Ganglion cyst at the volar radial aspect of the wrist measures up to 6 mm. Approved by: Nehemiah Mauricio M.D. on 08/28/2025 at 8:36
== END ==
LOC: MRI 07:19
PROVIDERS: PCP Student in an Organized Health Care Education/Training Program; Referring Provider Student in an Organized Health Care Education/Training Program; Visit Provider Preventive Medicine Public Health & General Preventive Medicine
DX: S63.511D Sprain of carpal joint of right wrist, subsequent encounter (principal); M65.941 Unspecified synovitis and tenosynovitis, right hand; M19.031 Primary osteoarthritis, right wrist; M18.11 Unilateral primary osteoarthritis of first carpometacarpal joint, right hand; M67.431 Ganglion, right wrist; X58.XXXD Exposure to other specified factors, subsequent encounter
CPT/HCPCS: 73221

== ENCOUNTER 2025-09-23 07:23 | Emergency (ER) | payer OTHER, SELFPAY ==
[2025-09-23] VITALS (12 sets, daily range): BP systolic 114–158; BP diastolic 57–90; PULSE 53–73; RESP 13–21; TEMP 36.6; O2SAT 97–100; BMI 23.2
--- NOTE | 2025-09-23 07:32 | ED.ABDPAIN ---
HPI - Abdominal Pain General Chief Complaint: Abdominal Pain Stated Complaint: Gallbladder issues Time Seen by Provider: 09/23/25 07:27 History of Present Illness HPI narrative: 60-year-old female history of htn, pancreas problems, prior esophagitis followed by JACOB Moreno for which she takes Creon presents with epigastric pain radiating to the back since Thursday progressively getting worse throughout the week. She has been worked up in the past and at that time did not want to proceed with a cholecystectomy. Patient denies any recent alcohol use, or trauma to the area. Her last bowel movement was yesterday. Patient denies any changes in stool content or caliber of the stool. Patient denies chest pain shortness breath fever chills body aches urinary complaints rectal bleeding. Other than what is stated 14 point review of system is negative. Related Data Home Medications ?Medication ?Instructions ?Recorded ?Confirmed cetirizine 10 mg tablet 10 mg PO DAILY PRN 09/01/22 08/14/25 ketotifen fumarate 0.025 % (0.035 drp EYE-BOTH DAILY Allergies 10/27/22 08/14/25 %) eye drops atorvastatin 10 mg tablet 10 mg PO DAILY 07/26/24 08/14/25 [id number]-[id number]-[id number] 2 cap PO 3XD 07/07/25 08/14/25 6,000-19,000-30,000 unit capsule,delayed rel (Creon) estradiol 0.025 mg/24 hr weekly topical HRT 08/14/25 08/14/25 transdermal patch progesterone micronized 100 mg 100 mg PO DAILY HRT 08/14/25 08/14/25 capsule Previous Rx's ?Medication ?Instructions ?Recorded estradiol 0.01% (0.1 mg/gram) 1 gram vaginal .COMPLEX HRT #42.5 03/20/20 vaginal cream grams lactulose 10 gram/15 mL oral 10 g (15 mL) PO BID PRN 01/30/23 solution constipation #473 mL triamcinolone acetonide 0.1 % 1 applic topical DAILY #30 grams 10/02/23 topical cream metoprolol succinate 25 mg 25 mg PO DAILY #90 tabs 09/12/24 tablet,extended release 24 hr (Toprol XL) losartan 25 mg tablet 25 mg PO DAILY #30 tabs 12/19/24 diazepam 5 mg tablet 5 mg PO BEDTIME PRN anxiety #20 08/14/25 tabs ondansetron HCl 4 mg tablet 4 mg PO Q6H PRN nausea and 09/23/25 vomiting #30 tabs Allergies Allergy/AdvReac Type Severity Reaction Status Date / Time Sulfa (Sulfonamide Allergy Intermediate RASH Verified 09/23/25 07:36 Antibiotics) Review of Systems Review of Systems ROS Unobtainable: All systems reviewed & are unremarkable except as noted in HPI and below Patient History Medical History (Updated 09/23/25 @ 10:52 by Ganesh Pelletier DO) Irritable bowel syndrome with constipation Atrophic gastritis without mention of hemorrhage (04/19/02) Moderate mixed hyperlipidemia not requiring statin therapy Postmenopausal Sciatica of left side Anxiety (~1997) Anemia Low testosterone level in female (~1999) Acute psychosis Surgical History H/O LEEP Family History Father Age: 86 Hypertension Grandfather Hypertension Grandmother Hypertension Social History household members: none Smoking Status: Unknown if ever smoked alcohol intake: never Exam Narrative Exam Narrative: GENERAL: [60] year old patient appears stated age. Well-developed patient, in mild distress. HEAD: Atraumatic. Normocephalic. EYES: Pupils equal round and reactive. Extraocular motions intact. No scleral icterus. No injection or drainage. ENT: Nose without bleeding, purulent drainage. Throat without erythema, tonsillar hypertrophy or exudate. Airway patent. NECK: Trachea midline. Non tender CARDIOVASCULAR: Regular rate and rhythm without murmurs, gallops, or rubs. RESPIRATORY: Clear to auscultation. Breath sounds equal bilaterally. No wheezes, rales, or rhonchi. GASTROINTESTINAL: Abdomen soft, RUQ TTP, nondistended. EXTREMITIES: No edema or joint tenderness. BACK: Nontender without deformity or crepitance. No flank tenderness. NEURO: AOx3. SKIN: No rash or erythema of visible areas Initial Vital Signs Initial Vital Signs: Vital Signs Temperature 97.9 F 09/23/25 07:24 Pulse Rate 64 09/23/25 07:24 Respiratory Rate 13 09/23/25 07:24 Blood Pressure 158/90 H 09/23/25 07:24 Pulse Oximetry 98 09/23/25 07:24 Oxygen Delivery Method Room Air 09/23/25 07:24 Course Orders Ordered: ED Orders 09/23/25 07:30 Complete Blood Count AUTO DIFF Stat Comprehensive Metabolic Panel Stat Lipase Stat 09/23/25 07:35 CT abdomen pelvis w con Stat EKG-12 Lead Stat 09/23/25 09:19 US abdomen limited Stat Ondansetron HCl (Ondansetron 4 Mg/2 Ml Inj) 4 mg IV NOW PRN PRN Reason: Nausea And Vomiting Ondansetron HCl (Ondansetron 4 Mg Odt) 4 mg PO NOW PRN PRN Reason: Nausea And Vomiting Discontinued Medications Lactated Ringer's (Lactated Ringers) 1,000 mls @ 1,000 mls/hr IV BOLUS ONE Stop: 09/23/25 08:34 Last Infusion: 09/23/25 09:25 Dose: Infused Documented By: Admin: 09/23/25 07:45 Dose: 1,000 mls/hr Documented By: JO-ANN Ketorolac Tromethamine (Ketorolac 30 Mg/Ml Vial) 15 mg IV NOW ONE Stop: 09/23/25 07:36 Last Admin: 09/23/25 07:44 Dose: 15 mg Documented By: JO-ANN Ondansetron HCl (Ondansetron 4 Mg/2 Ml Inj) 4 mg IV NOW ONE Stop: 09/23/25 07:36 Last Admin: 09/23/25 07:45 Dose: 4 mg Documented By: JO-ANN Vital Signs Vital signs: Vital Signs - 8 hr 09/23/25 07:24 09/23/25 07:28 09/23/25 07:29 Temperature 97.9 F Pulse Rate 64 Respiratory Rate 13 Blood Pressure 158/90 H 158/90 H Pulse Oximetry 98 98 Oxygen Delivery Method Room Air 09/23/25 07:29 09/23/25 07:30 09/23/25 08:00 Temperature Pulse Rate 72 73 61 Respiratory Rate 18 Blood Pressure Pulse Oximetry 98 98 97 Oxygen Delivery Method 09/23/25 08:00 09/23/25 08:30 09/23/25 09:00 Temperature Pulse Rate 59 L 55 L Respiratory Rate 18 21 Blood Pressure 114/71 Pulse Oximetry 98 98 Oxygen Delivery Method MDM - Abdominal Pain Lab Data 09/23/25 07:30 09/23/25 07:30 Labs: Lab Results 09/23/25 Range/Units 07:30 WBC 6.6 (4.5-11.0) X10^3/uL RBC 4.35 (4.0-5.2) X10^6/uL Hgb 14.3 (12.0-16.0) g/dL Hct 41.5 (36-46) % MCV 95.4 (80-100) fL MCH 32.8 (26-34) PG MCHC 34.4 (30-36) % RDW 12.7 (11.6-14.8) % Plt Count 210 (150-400) X10^3/uL Neut % (Auto) 50.6 (50-75) % Lymph % (Auto) 34.2 (25-40) % Barren % (Auto) 7.5 (3-14) % Eos % (Auto) 6.7 H (2-4) % Baso % (Auto) 1.0 (0-2) % Neut # (Auto) 3300 (4066-2570) /uL Lymph # (Auto) 2300 (1649-9503) /uL Barren # (Auto) 500 (0-900) /uL Eos # (Auto) 400 (0-450) /uL Baso # (Auto) 100 (0-100) /uL Sodium 138 (137-145) mmol/L Potassium 3.9 (3.4-5.1) mmol/L Chloride 104 (98-107) mmol/L Carbon Dioxide 26 (22-32) mmol/L BUN 15 (7-17) mg/dL Creatinine 0.79 (0.52-1.04) mg/dL Estimated GFR > 60 (>60) mL/min BUN/Creatinine Ratio 19.0 (6-22) Glucose 102 H (70-99) mg/dL Calcium 9.6 (8.4-10.2) mg/dL Total Bilirubin 0.5 (0.2-1.3) mg/dL AST 30 (14-36) IU/L ALT 20 (<35) IU/L Alkaline Phosphatase 61 (38-126) U/L Total Protein 8.0 (6.3-8.2) g/dL Albumin 4.9 (3.5-5.0) g/dL Globulin 3.1 (1.7-4.1) g/dL Albumin/Globulin Ratio 1.6 (1.0-2.8) Lipase 134 (23-300) U/L Point of care testing: Urine Dip Bedside Urine Glucose Negative Bedside Urine Bilirubin - Negative Bedside Urine Ketone - Negative Urine Specific [place] 1.005 Bedside Urine Occult Blood - Negative Bedside Urine pH 7.0 Bedside Urine Protein - Negative Bedside Urine Urobilinogen - Negative Bedside Urine Nitrite - Negative Bedside Urine Leukocytes - Negative Esterase Imaging Data CT scan - abdomen/pelvis: Radiologist's Impression: [address] [address] [address] Scan Report Signed Patient: Fabiana Gonzalez MR#: [id number] : 1965 Acct:[id number] Age/Sex: 60 / F Date of Service: 09/23/25 Loc: ED Accession Number: [id number] Procedure: CT abdomen pelvis w con Ordering Provider: Ganesh Pelletier D.O. PROCEDURE: CT ABDOMEN PELVIS W CON INDICATIONS: abd /back pain/nausea TECHNIQUE: After the administration of intravenous contrast, axial sections acquired from the lung bases to the pubic symphysis. Coronal and sagittal reformats were performed. For radiation dose reduction, the following was used: automated exposure control, adjustment of mA and/or kV according to patient size. COMPARISON: [facility], CT, CT ABDOMEN PELVIS W CON, 06/05/2024, 9:21. FINDINGS: Image quality: Diagnostic. Lower Chest: No significant findings. ABDOMEN: Liver: No solid mass. Gallbladder: No radiopaque gallstones or wall thickening. Biliary ducts: No biliary dilation. Pancreas: No ductal dilation. Spleen: Size is within normal limits. Adrenal Glands: No adrenal nodules. Kidneys and Ureters: No hydronephrosis. No solid mass. No complex renal cystic lesion which requires follow up. Stomach and Bowel: Normal colonic caliber, without significant wall thickening. Normal caliber appendix. Moderate fecal loading. Peritoneum: No abnormal intraperitoneal fluid. No free air. Ventral Wall: No significant ventral hernia. Abdominal Nodes: No retroperitoneal or mesenteric adenopathy by size criteria. Vessels: Aorta and inferior vena cava are normal in size. PELVIS: Pelvic Organs: Unremarkable. Bladder: No bladder wall thickening, accounting for underdistention. Pelvic Nodes: No enlarged lymph nodes. Miscellaneous: No inguinal hernias are seen. Bones: No aggressive osseous abnormality. IMPRESSION: Moderate fecal loading which may represent constipation. No other acute abdominopelvic process to explain patient's symptoms. Approved by: Lucila Cloud M.D.,Ph.D. on 09/23/2025 at 9:06 US - abdomen: Radiologist's Impression: [address] [address] Ultrasound Report Signed Patient: aFbiana Gonzalez MR#: [id number] : 1965 Acct:[id number] Age/Sex: 60 / F Date of Service: 09/23/25 Loc: ED Accession Number: [id number] Procedure: US abdomen limited Ordering Provider: Ganesh Pelletier D.O. PROCEDURE: US ABDOMEN LIMITED INDICATIONS: abd pain RUQ TECHNIQUE: Real-time focused scanning was performed of the abdomen, with image documentation. COMPARISON: [facility], CT, CT ABDOMEN PELVIS W CON, 09/23/2025, 8:08. FINDINGS: The liver demonstrates normal size. The liver demonstrates generalized minimally to mildly increased echogenicity. This decreases ultrasound sensitivity for detection of hepatic masses. No findings of gallstones or sludge are seen. The gallbladder wall is not thickened, measuring 3 mm or less. No specific pericholecystic fluid is seen. The sonographic Carrington sign is negative. There is no biliary dilatation, the common bile duct measures 5 mm. No significant pancreatic abnormality is seen on these images. The visualized right kidney is unremarkable, without hydronephrosis. IMPRESSION: The gallbladder demonstrates a normal sonographic appearance. No biliary dilatation is seen. ECG Data Interpretation: Sinus Joe HR 59 [place] 174 QRS [address]-t wave change No previous EKG to compare MDM Narrative Medical decision making narrative: All lab work, vital signs, nurse triage note, medication list, previous ER visits, and all imaging studies reviewed. Gallbladder demonstrates normal sonographic appearance. no dilatation seen. CT scan showed moderate fecal loading which may represent constipation. No other acute abdominopelvic process. WBC and hemoglobin normal CMP normal including LFTs and lipase. Urine shows no acute process. Differential diagnosis pancreatitis cholecystitis choledocholithiasis constipation diverticulitis. DC home on zofran rx Discharge Plan Departure Patient Disposition: Home Clinical Impression: Constipation, Nausea Instructions: DI for Constipation Activity Restrictions/Additional Instructions: Return with new or worsening symptoms. Follow up with GI appointment in September. Take medicine as directed. Keep hydrated Prescriptions: New ondansetron HCl 4 mg tablet 4 mg PO Q6H PRN (Reason: nausea and vomiting) Qty: 30 0RF No Action estradiol 0.025 mg/24 hr patch weekly topical progesterone micronized 100 mg capsule 100 mg PO DAILY diazepam 5 mg tablet 5 mg PO BEDTIME PRN (Reason: anxiety) Qty: 20 5RF Creon 6,000-19,000 -30,000 unit capsule,delayed release(DR/EC) 2 cap PO 3XD triamcinolone acetonide 0.1 % cream 1 applic topical DAILY Qty: 30 0RF atorvastatin 10 mg tablet 10 mg PO DAILY estradiol 0.01 % (0.1 mg/gram) cream 1 gram VAG .COMPLEX Qty: 42.5 2RF Rx Instructions: Insert 1gm vaginally at bedtime for 14 nights, then 2 times weekly. lactulose 10 gram/15 mL solution 10 g PO BID PRN (Reason: constipation) Qty: 473 5RF metoprolol succinate [Toprol XL] 25 mg tablet extended release 24 hr 25 mg PO DAILY Qty: 90 3RF losartan 25 mg tablet 25 mg PO DAILY Qty: 30 4RF cetirizine 10 mg tablet 10 mg PO DAILY PRN ketotifen fumarate 0.025 % (0.035 %) drops EYE-BOTH DAILY Referrals: Madeline Soto MD [Primary Care Provider, Family Practice] Stand Alone Forms: Patient Portal/API
--- NOTE | 2025-09-23 07:35 | DI.CT.S_ITS ---
PROCEDURE: CT ABDOMEN PELVIS W CON INDICATIONS: abd /back pain/nausea TECHNIQUE: After the administration of intravenous contrast, axial sections acquired from the lung bases to the pubic symphysis. Coronal and sagittal reformats were performed. For radiation dose reduction, the following was used: automated exposure control, adjustment of mA and/or kV according to patient size. COMPARISON: [facility], CT, CT ABDOMEN PELVIS W CON, 06/05/2024, 9:21. FINDINGS: Image quality: Diagnostic. Lower Chest: No significant findings. ABDOMEN: Liver: No solid mass. Gallbladder: No radiopaque gallstones or wall thickening. Biliary ducts: No biliary dilation. Pancreas: No ductal dilation. Spleen: Size is within normal limits. Adrenal Glands: No adrenal nodules. Kidneys and Ureters: No hydronephrosis. No solid mass. No complex renal cystic lesion which requires follow up. Stomach and Bowel: Normal colonic caliber, without significant wall thickening. Normal caliber appendix. Moderate fecal loading. Peritoneum: No abnormal intraperitoneal fluid. No free air. Ventral Wall: No significant ventral hernia. Abdominal Nodes: No retroperitoneal or mesenteric adenopathy by size criteria. Vessels: Aorta and inferior vena cava are normal in size. PELVIS: Pelvic Organs: Unremarkable. Bladder: No bladder wall thickening, accounting for underdistention. Pelvic Nodes: No enlarged lymph nodes. Miscellaneous: No inguinal hernias are seen. Bones: No aggressive osseous abnormality. IMPRESSION: Moderate fecal loading which may represent constipation. No other acute abdominopelvic process to explain patient's symptoms. Approved by: Lucila Cloud M.D.,Ph.D. on 09/23/2025 at 9:06
--- NOTE | 2025-09-23 07:35 | EKG_ITS ---
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
[2025-09-23 07:41] LABS: Add Manual Diff / Slide Review NO; Hematocrit 41.5 % (36-46); Hemoglobin 14.3 g/dL (12.0-16.0); Lymphocytes Absolute Auto 2300 /uL (1100-4500); Mean Corpuscular HGB Conc 34.4 % (30-36); Mean Corpuscular Hemoglobin 32.8 PG (26-34); Mean Corpuscular Volume 95.4 fL (80-100); Platelet Count 210 X10^3/uL (150-400)
[2025-09-23] MEDS: KETOROLAC 30 MG/ML VIAL 15 MG IV (07:44)
[2025-09-23] MEDS: ONDANSETRON 4 MG/2 ML INJ IV (07:45)
[2025-09-23] MEDS: LACTATED RINGERS 1,000 ML 1000 ML IV (07:45)
[2025-09-23 07:56] LABS: Alanine Aminotransferase 20 IU/L (<35); Albumin 4.9 g/dL (3.5-5.0); Albumin Globulin Ratio 1.6 (1.0-2.8); Alkaline Phosphatase 61 U/L (38-126); Blood Urea Nitrogen 15 mg/dL (7-17); Calcium 9.6 mg/dL (8.4-10.2); Carbon Dioxide 26 mmol/L (22-32); Chloride 104 mmol/L (98-107); Estimated Glomerular Filt Rate > 60 mL/min (>60); Globulin 3.1 g/dL (1.7-4.1); Glucose 102 mg/dL (70-99); HEMOLYSIS < 15 (0-50); Lipase 134 U/L (23-300); Potassium 3.9 mmol/L (3.4-5.1); Sodium 138 mmol/L (137-145); Total Protein 8.0 g/dL (6.3-8.2)
--- NOTE | 2025-09-23 09:19 | DI.US.S_ITS ---
PROCEDURE: US ABDOMEN LIMITED INDICATIONS: abd pain RUQ TECHNIQUE: Real-time focused scanning was performed of the abdomen, with image documentation. COMPARISON: [facility], CT, CT ABDOMEN PELVIS W CON, 09/23/2025, 8:08. FINDINGS: The liver demonstrates normal size. The liver demonstrates generalized minimally to mildly increased echogenicity. This decreases ultrasound sensitivity for detection of hepatic masses. No findings of gallstones or sludge are seen. The gallbladder wall is not thickened, measuring 3 mm or less. No specific pericholecystic fluid is seen. The sonographic Carrington sign is negative. There is no biliary dilatation, the common bile duct measures 5 mm. No significant pancreatic abnormality is seen on these images. The visualized right kidney is unremarkable, without hydronephrosis. IMPRESSION: The gallbladder demonstrates a normal sonographic appearance. No biliary dilatation is seen. Dictated by: Theo Chua M.D. on 09/23/2025 at 9:22 Approved by: Theo Chua M.D. on 09/23/2025 at 9:23
--- NOTE | 2025-09-23 09:34 | PC.NURSE ---
pt IV placed by another Nurse.
== END 2025-09-23 11:04 | disposition home or self-care (01) ==
PROVIDERS: Emergency Provider Family Medicine; Family Provider Student in an Organized Health Care Education/Training Program; PCP Student in an Organized Health Care Education/Training Program
DX: K59.00 Constipation, unspecified (principal); R11.0 Nausea
CPT/HCPCS: 36415; 74177; 76705; 80053; 81003; 83690; 85025; 93005; 96361; 96374; 96375; 99284; J1885; J2405; J7120; Q9967